=== PATIENT | male | born 1950 | race Caucasian/White ===

== ENCOUNTER 2017-05-16 14:26 | Inpatient (IN) | payer BC ==
[~2017-05-16] VITALS: Ht 180.3 cm; Wt 117.9 kg
[2017-05-16] MEDS ORDERED: SODIUM CHLORIDE 0.9% 1L BAG IV* STA (18:35)
[2017-05-16] MEDS ORDERED: CEFTRIAXONE 1 GM/50 ML (PMX) 50 ML IVPB ONE (19:00)
[2017-05-16] MEDS ORDERED: IBUPROFEN 600 MG TAB PO ONE (19:00)
[2017-05-16 19:03] LABS: ADD SCAN DIFF NO
[2017-05-16 19:04] LABS: ABNORMAL IP MESSAGE 1; HEMATOCRIT 23.1 % (42.0-52.0); RED CELL DISTRIBUTION WIDTH 14.3 % (11.5-14.5)
[2017-05-16 19:11] LABS: HEMOGLOBIN 7.9 g/dl (14.0-18.0); MEAN CORPUSCULAR HEMOGLOBIN 33.8 pg (29.0-33.0); MEAN CORPUSCULAR HGB CONC 34.2 g/dl (32.0-37.0); MEAN CORPUSCULAR VOLUME 98.7 fl (82.0-101.0); MEAN PLATELET VOLUME 10.4 fl (7.4-10.4); PLATELET COUNT 46 10^3/UL (140-415); RED BLOOD COUNT 2.34 10^6/ul (4.70-6.10)
[2017-05-16 19:20] LABS: INR 1.26; PROTIME 15.9 Sec (12.2-14.2); PT RATIO 1.2
[2017-05-16 19:21] LABS: PARTIAL THROMBOPLASTIN TIME 34.3 Sec (25.0-35.0)
[2017-05-16 19:31] LABS: ALANINE AMINOTRANSFERASE 35 IU/L (13-69); ALBUMIN 3.6 g/dl (3.3-4.9); ALBUMIN/GLOBULIN RATIO 1.24; ALKALINE PHOSPHATASE 54 IU/L (42-121); ANION GAP 17 (8-16); ASPARTATE AMINO TRANSFERASE 16 IU/L (15-46); BILIRUBIN,INDIRECT 0.2 mg/dl (0-1.1); BILIRUBIN,TOTAL 0.2 mg/dl (0.2-1.3); BLOOD UREA NITROGEN 78 mg/dl (7-20); CALCIUM 7.9 mg/dl (8.4-10.2); CARBON DIOXIDE 19 mmol/L (21-31); CHLORIDE 91 mmol/L (97-110); CREATININE 3.32 mg/dl (0.61-1.24); POTASSIUM 4.4 mmol/L (3.5-5.1); SODIUM 123 mmol/L (135-144); TOTAL PROTEIN 6.5 g/dl (6.1-8.1)
--- NOTE | 2017-05-16 19:47 | RADRPT ---
PROCEDURE: XR Chest. CLINICAL INDICATION: Possible sepsis. TECHNIQUE: Single frontal view of the chest. COMPARISON: None. FINDINGS: Cardiomegaly. Right lung base atelectasis versus airspace disease, possibly representing pneumonia in setting of sepsis. Mild atelectasis at the left costophrenic angle. No signs of pleural fluid or pneumothorax are seen. The osseous structures and soft tissues are unremarkable. IMPRESSION: Right lung base atelectasis versus airspace disease, possibly representing pneumonia in setting of s epsis. RPTAT: [facility] Physician Nell Date Time Electronically viewed and signed by Physician Nell on 05/16/2017 19:46 RS/
[2017-05-16 19:49] LABS: ADD UMIC YES; UR ASCORBIC ACID NEGATIVE (NEGATIVE); UR BACTERIA FEW /HPF (NONE SEEN); UR BILIRUBIN (Dip) NEGATIVE (NEGATIVE); UR BLOOD (Dip) 3+ mg/dL (NEGATIVE); UR CLARITY CLOUDY (CLEAR); UR COLOR AMBER (YELLOW); UR GLUCOSE (Dip) 3+ mg/dL (NEGATIVE); UR KETONES (Dip) NEGATIVE (NEGATIVE); UR LEUKOCYTE ESTERASE (Dip) 1+ Leu/ul (NEGATIVE); UR NITRITE (Dip) NEGATIVE (NEGATIVE); UR RBC 3 /HPF (0-5); UR SPECIFIC GRAVITY (Dip) 1.017 (1.003-1.030); UR TOTAL PROTEIN (Dip) 2+ mg/dl (NEGATIVE); UR UROBILINOGEN (Dip) NEGATIVE (NEGATIVE)
[2017-05-16 19:51] LABS: GLUCOSE 468 mg/dl (70-220); TROPONIN-I < 0.012 ng/ml (0.00-0.12)
[2017-05-16] MEDS ORDERED: SOD CHLORIDE 0.9% 1,000 ML IV ONE (20:00)
[2017-05-16] MEDS ORDERED: VANCOMYCIN 1 GM (PMX) 250 ML IVPB SCH (20:00)
[2017-05-16 20:03] LABS: LYMPHOCYTES # 0.3 10^3/ul (0.8-2.9); NEUTROPHIL # 0.4 10^3/ul (1.6-7.5)
[2017-05-16 20:06] LABS: WHITE BLOOD COUNT 0.7 10^3/ul (4.8-10.8)
[2017-05-16] MEDS ORDERED: CALCIUM GLUCONATE 10% 1 GM in SOD CHLORIDE 0.9% 100 ML IVPB ONE (20:30)
[2017-05-16] MEDS ORDERED: METF500T4 PO (22:20)
[2017-05-16] MEDS ORDERED: ATOR20TA38 PO (22:20)
[2017-05-16] MEDS ORDERED: PHEN125O2 PO (22:20)
[2017-05-16] MEDS ORDERED: DILT120C79 PO (22:20)
[2017-05-16] MEDS ORDERED: LISI1TAB8 PO (22:21)
[2017-05-16] MEDS ORDERED: EMPA10TA PO (22:22)
[2017-05-16 22:36] VITALS: TEMP 99.5
--- NOTE | 2017-05-16 22:56 | ERA ---
ER Documentation Chief Complaint Date/Time DATE: 05/16/17 TIME: 22:33 Chief Complaint Complains of weakness since Friday HPI 66-year-old man brought in by for complaints of severe debilitating weakness and anorexia beginning somewhat abruptly 4 days ago. He states he has had intermittent chills and episodes of pain throughout his body. He states about a month ago he switched from using Metformin to Empagliflozin (which serious adverse reactions of acute renal failure and serious UTIs). Patient denies chest pain or shortness of breath, no fevers, no hematuria or dysuria, no vomiting or diarrhea, patient denies melena or blood per rectum, no recent URI symptoms, no recent travel, no recent antibiotic use. Patient denies loss of consciousness or rash. ROS All systems reviewed and are negative except as per history of present illness. Medications Home Meds Reported Medications Empagliflozin (Jardiance) 10 Mg Tablet, 10 MG PO, TAB 05/16/17 Lisinopril/Hydrochlorothiazide (Lisinopril-Hctz 20-25 mg Tab) 1 Each Tablet, 1 EACH PO, TAB 05/16/17 Diltiazem Hcl* (Diltiazem XT) 120 Mg Capsule.sa, 120 MG PO DAILY, #30 CAP 05/16/17 Atorvastatin Calcium* (Atorvastatin Calcium*) 20 Mg Tablet, 20 MG PO DAILY, #30 TAB 05/16/17 Metformin* (Glucophage*) 500 Mg Tab, 500 MG PO WITH BREAKFAST, #30 TAB 05/16/17 Phenytoin* (Phenytoin*) 125 Mg/5 Ml Oral.susp, 300 MG PO BID for 30 Days, BOTTLE 05/16/17 Allergies Allergies: Coded Allergies: No Known Allergy (Unverified , 05/16/17) PMhx/Soc Diabetes mellitus, hypertension, seizure disorder History of Surgery: Yes (gallbladder, tonsils and addenoids, ) Anesthesia Reaction: No Hx Neurological Disorder: No Hx Respiratory Disorders: No Hx Cardiac Disorders: No (htn, madison cholesterol) Hx Psychiatric Problems: No Hx Miscellaneous Medical Probl: Yes (dm2) Hx Alcohol Use: No Hx Substance Use: Yes (marijauna) Hx Tobacco Use: No Smoking Status: Never smoker FmHx Family History: No diabetes Physical Exam Vitals Vital Signs Date Time Temp Pulse Resp B/P Pulse Ox O2 Delivery O2 Flow Rate FiO2 05/16/17 21:14 98.0 94 129/58 95 Room Air 05/16/17 14:29 98.3 95 20 108/57 98 Physical Exam GENERAL: Well-developed, well-nourished, dehydrated man, afebrile HEENT: Dry mucous membranes, pink conjunctiva, no cervical spine tenderness or step-off deformities, no goiter, no jaundice or icterus, extraocular movements intact without pain. No submandibular induration, and no pharyngeal erythema NEURO: Alert and oriented 3, cranial nerves II through XII intact bilaterally, pupils equal round reactive to light, no focal deficits or facial asymmetry, sensation intact distally Strength 5/5 in upper and lower extremities bilaterally CARDIAC: Regular rate and rhythm, no murmurs rubs or gallops LUNGS: Clear bilaterally no wheezing crackles or stridor ABDOMEN: Soft nontender, no guarding, no rigidity, no rebound, no psoas sign no obturator sign. Normoactive bowel sounds SKIN: Warm and dry to touch, no abrasions, contusions, or hematomas, no lacerations, no ecchymosis, no target lesions, and without ulcers EXTREMITIES: No clubbing cyanosis or edema, calves are bilaterally symmetrical, no Homans sign, no popliteal cord sign. Distal pulses equal and bilateral PSYCH: Normal affect without agitation or irritability Result Diagram: 05/16/17185605/16/171856 Results 24 hrs Laboratory Tests Test 05/16/17 18:57 05/16/17 19:14 05/16/17 19:34 05/16/17 21:00 White Blood Count 0.710^3/ul Red Blood Count 2.3410^6/ul Hemoglobin 7.9g/dl Hematocrit 23.1% Mean Corpuscular Volume 98.7fl Mean Corpuscular Hemoglobin 33.8pg Mean Corpuscular Hemoglobin Concent 34.2g/dl Red Cell Distribution Width 14.3% Platelet Count 4610^3/UL Mean Platelet Volume 10.4fl Neutrophils % 56.0% Band Neutrophils % 1.0% Lymphocytes % 43.0% Monocytes % % Eosinophils % % Basophils % % Neutrophils # 0.410^3/ul Lymphocytes # 0.310^3/ul Monocytes # 10^3/ul Eosinophils # 10^3/ul Basophils # 10^3/ul Prothrombin Time 15.9Sec Prothrombin Time Ratio 1.2 INR International Normalized Ratio 1.26 Activated Partial Thromboplast Time 34.3Sec Sodium Level 123mmol/L Potassium Level 4.4mmol/L Chloride Level 91mmol/L Carbon Dioxide Level 19mmol/L Anion Gap 17 Blood Urea Nitrogen 78mg/dl Creatinine 3.32mg/dl Glucose Level 468mg/dl Calcium Level 7.9mg/dl Total Bilirubin 0.2mg/dl Direct Bilirubin 0.00mg/dl Indirect Bilirubin 0.2mg/dl Aspartate Amino Transf (AST/SGOT) 16IU/L Alanine Aminotransferase (ALT/SGPT) 35IU/L Alkaline Phosphatase 54IU/L Troponin I < 0.012ng/ml Total Protein 6.5g/dl Albumin 3.6g/dl Globulin 2.90g/dl Albumin/Globulin Ratio 1.24 Lipase 101U/L Lactic Acid Level 2.6mmol/L 1.8mmol/L Urine Color RANDELL Urine Clarity CLOUDY Urine pH 5.0 Urine Specific [place] 1.017 Urine Ketones NEGATIVEmg/dL Urine Nitrite NEGATIVEmg/dL Urine Bilirubin NEGATIVEmg/dL Urine Urobilinogen NEGATIVEmg/dL Urine Leukocyte Esterase 1+Allyson/ul Urine Microscopic RBC 3/HPF Urine Microscopic WBC 32/HPF Urine Bacteria FEW/HPF Urine Hemoglobin 3+mg/dL Urine Glucose 3+mg/dL Urine Total Protein 2+mg/dl Current Medications Medications (Trade) Dose Ordered Sig/Iván Route PRN Reason Start Time Stop Time Status Last Admin Dose Admin Sodium Chloride 3000 ml 3,000 ml BOLUS OVER 2 HOURS STAT IV* 05/16/17 18:35 05/16/17 18:38 DC 05/16/17 19:35 Ceftriaxone Sodium (Rocephin) 50 ml @ 100 mls/hr ONCE ONCE IVPB 05/16/17 19:00 05/16/17 19:29 DC 05/16/17 19:40 Ibuprofen 600 mg 600 mg ONCE ONCE PO 05/16/17 19:00 05/16/17 19:01 DC 05/16/17 19:40 Sodium Chloride 1,000 ml @ 1,000 mls/hr Q1H ONCE IV 05/16/17 20:00 05/16/17 20:59 DC 05/16/17 20:34 Vancomycin HCl 250 ml @ 125 mls/hr ONCE IVPB 05/16/17 20:00 05/16/17 21:59 DC 05/16/17 20:34 Calcium Gluconate/ Sodium Chloride (Ca Gluc/NS) 110 ml @ 110 mls/hr ONCE ONCE IVPB 05/16/17 20:30 05/16/17 21:29 DC 05/16/17 21:08 Procedures/MDM IV line was established patient was placed on hospital monitor rhythm strip revealed a sinus rhythm at about 80 bpm with upright P and T waves. Patient was afebrile. Blood and urine cultures have been ordered results are pending I will follow-up. The patient was dehydrated and I treated him here with 4 L of normal saline intravenously and ibuprofen 600 mg p.o. One AP view of the chest performed, read by me reveals no acute infiltrates, normal mediastinum, sharp costophrenic and cardiac borders, no air under the diaphragm. Otherwise unremarkable chest x-ray. CBC reveals severe pancytopenia with a white count of 0.7, hemoglobin 7.9, platelets low at 46,000. Electrolytes are abnormal with acute kidney injury and dehydration with a BUN/creatinine of 78/3.3 and hyponatremia at 123, hyperglycemia 468. After IV fluid boluses blood sugar fell to about 350. Calcium was low at 7.9. Patient received ceftriaxone 1 g IV and vancomycin 1 g IV. Initial lactic acid was elevated at 2.6, repeat lactic acid after above interventions was 1.8. I supplemented his calcium with calcium gluconate 1 g IV. Patient's infectious symptoms have not stabilized and the patient is at risk of rapid decompensation. The patient will be admitted for careful hydration, antibiotic therapy, and infectious source control. Severe Sepsis Assessment: Infectious Source: Urinary tract infection End organ damage indicated by: Lactate > 2.0 mmol/L Education Associate > 2.0 Plt < 100 Severe Sepsis Managment: Blood Cultures X 2 before broad spectrum antibiotics initiated within 3 hours of recognition. 30 ml/kg NS bolus Completed Initial Lactate: Elevated at 2.6 Repeat Lactate 1.8 Critical Care: Time: 40 minutes, this was time separate from other billable procedures. Treatments/Evaluations: Emergent fluid management, while maintaining close respiratory support. Immediate broad spectrum antibiotic therapy. Simultaneous assessment for possible sources in order to direct therapy. Consideration for invasive and chemical support to prevent respiratory or cardiac collapse. Septic Shock Assessment (1 hour post 30 ml/kg fluid bolus): Hypotension (SBP < 90 or 40 mmHg drop, MAP < 65): No Lactic acid > 4.0 No Perfusion Reassessment for Septic Shock: Temp afebrile, pulse 80, respiratory rate 18 breaths per minute, blood pressure 103/84. Heart Exam: 80 bpm and normal, no murmurs rubs or gallops Lung Exam: No Crackles Capillary Refill: Less than 2 seconds Peripheral Pulses: Radially present Skin: Warm and dry Hypotensive Treatment (not required for isolated lactic acid elevation): Comfort Care: No Central LIne: Not indicated Vasopressor started: Not indicated I considered further perfusion assessment with CVP measurement, SCVO2, bedside ultrasound volume assessment, passive leg raise, trial of further fluid bolus. And preceded with aggressive IV fluid hydration and broad-spectrum antibiotics Accepting Care Team: Current data and ongoing care discussed. Time: Time of admission Primary Provider: Federica (Dr. Malloy) Consulting: Hematology oncology, who I consulted. Outstanding Data: none Differential diagnoses for patient's pancytopenia included but not limited to myelodysplastic syndrome, bone marrow block, lymphoma, sepsis, and medication ( Empagliflozin) adverse reaction. Departure Diagnosis: Primary Impression: Pancytopenia Additional Impressions: Sepsis Qualified Code: A41.9 - Sepsis, due to unspecified organism UTI (urinary tract infection) Qualified Code: N30.00 - Acute cystitis without hematuria Hypocalcemia Acute kidney injury Dehydration Hyperglycemia Condition: REBECCA Archuleta MD May 16, 2017 22:43
[2017-05-16 23:18] LABS: FOLATE 4.6 ng/ml (2.8-20.0)
[2017-05-16] MEDS ORDERED: morphine 2 MG INJ IV PRN (23:30)
[2017-05-16] MEDS ORDERED: ONDANSETRON 4 MG INJ IV PRN (23:30)
[2017-05-16] MEDS ORDERED: DOCUSATE SODIUM 100 MG CAP PO PRN (23:30)
[2017-05-16] MEDS ORDERED: ACETAMINOPHEN 325 MG TAB PO PRN (23:30)
[2017-05-16] MEDS ORDERED: HYDROCODONE/APAP (5/325) TAB PO PRN (23:30)
[2017-05-16] MEDS ORDERED: NACL 0.9% 3 ML SYG IV SCH (23:30)
[2017-05-16] MEDS ORDERED: VANCOMYCIN IV PER PHARMACY XX SCH (23:30)
[2017-05-16] MEDS ORDERED: GLUCOSE GEL 15 GRAM TUBE BUCCAL PRN (23:45)
[2017-05-16] MEDS ORDERED: DEXTROSE 50% 50 ML SYRINGE IV PRN ×2 (23:45)
[2017-05-16] MEDS ORDERED: GLUCOSE GEL 15 GRAM TUBE PO PRN ×2 (23:45)
[2017-05-16] MEDS ORDERED: GLUCAGON 1 MG INJ IM PRN (23:45)
[2017-05-16 23:57] VITALS: BP 118/57; RESP 21
[2017-05-17] VITALS (12 sets, daily range): BP systolic 93–153; BP diastolic 55–64; PULSE 87–98; RESP 16–21; Ht 180.3 cm; Wt 117.9 kg
[2017-05-17] MEDS ORDERED: PIPER-TAZO 3.375 GM IV (PMX) 100 ML IVPB SCH
[2017-05-17] MEDS ORDERED: VANCOMYCIN 1 GM in NS 250 ML IVPB ONE (01:00)
[2017-05-17] MEDS: ACCU-CHEK XX SCH (02:00)
[2017-05-17] MEDS: PIPER-TAZO 2.25 GM (PMX) 50 ML IVPB SCH ×4 (02:26→22:25)
[2017-05-17] MEDS: SOD CHLORIDE 0.9% 1,000 ML IV SCH ×3 (02:27→12:36)
[2017-05-17] MEDS ORDERED: INSULIN ASPART [NOVOLOG] 3 ML PEN SC ONE (03:00)
--- NOTE | 2017-05-17 06:02 | HP ---
DATE OF ADMISSION: 05/16/2017 CHIEF COMPLAINT: Weakness for 4 days. HISTORY OF PRESENT ILLNESS: The patient is a 66-year-old male with a history of non-insulin requiri ng diabetes, dyslipidemia, hypertension, and history of seizures on Dilantin. The patient presents with 4 days now of severe debilitating weakness and loss of appetite. He reports intermittent chill s and diffuse pain throughout his body. The patient states that he has never had these symptoms bef ore in the past. He denies any travel history. Denies any nausea, vomiting, diarrhea, or headache. The patient recently switched from metformin to ____ recently. The patient has no other complaint s at this time. In the ED, the patient was noted to be pancytopenic. PAST MEDICAL HISTORY: Non-insulin requiring diabetes, dyslipidemia, hypertension, history of seizur es. PAST SURGICAL HISTORY: Cholecystectomy, tonsil and adenoids removal. MEDICATIONS: 1. Jardiance. 2. Lisinopril/hydrochlorothiazide. 3. Diltiazem. 4. Atorvastatin. 5. Metformin. 6. Phenytoin. ALLERGIES: NO KNOWN DRUG ALLERGIES. FAMILY HISTORY: Denies. SOCIAL HISTORY: Denies any alcohol, tobacco, or drug abuse. He does smoke marijuana. REVIEW OF SYSTEMS: A 12-point review of systems is negative except for that discussed in HPI. PHYSICAL EXAMINATION: VITAL SIGNS: Temperature is 9.5, pulse 92, respiratory rate is 21, BP is 108/72, saturation 97% on room air. GENERAL: No acute distress, alert and oriented. HEENT: Normocephalic, atraumatic. LUNGS: Clear to auscultation. CARDIOVASCULAR: Regular rate and rhythm. ABDOMEN: Obese, nondistended, nontender, soft. EXTREMITIES: No clubbing, cyanosis, or edema. LABORATORY TESTS: White count is 6.7, hemoglobin 7.9, platelets are 46. Chemistry: Sodium is 123, chloride is 91, carbon dioxide is 19, anion gap is 17, BUN is 78, creatinine is 3.32, glucose is 46 8, lactic acid was 2.6 and then 1.8. Ferritin is high at 266. Lipase is normal at 101. LFTs are n ormal. INR is 1.26. UA shows 1+ leukocyte esterase, 32 WBCs, few bacteria, 3+ hemoglobin, 3+ gluco se, 2+ protein. DIAGNOSTICS: Chest x-ray shows a right lung base atelectasis versus airspace disease, possibly repr esenting pneumonia in the setting of sepsis. ASSESSMENT AND PLAN: 1. Severe weakness, possibly secondary to severe sepsis with pancytopenia. The patient has no know n history of pancytopenia in the past. He did recently switch his diabetes medications which does h ave side effects such as acute renal failure and severe UTIs. The patient does appear to have a uri nary tract infection on urinalysis. We will get a urine culture. We will treat with Zosyn IV. 2. Pancytopenia. Once again, the patient has no known history of pancytopenia in the past. Dr. Gm leonard of hematology/oncology has been spoken to by the ER physician, and they will round in the a.m. The patient will possibly need a bone marrow biopsy. The causes of pancytopenia could potentially be related to sepsis, but there may be alternative pathologies causing the pancytopenia. 3. Acute kidney injury, possibly secondary to sepsis. We will treat with IV fluids. We will get a nephrology consultation. 4. Anion gap acidosis likely secondary to acute kidney injury and/or sepsis. We will treat with IV fluids. We will treat underlying sepsis. 5. Hyponatremia. There is an element of pseudohyponatremia from hyperglycemia, but still even with correction, sodium is low. This may be from dehydration. We will treat with normal saline. 6. History of diabetes. We will put the patient on sliding scale. 7. Hypertension. Hold home BP medications at this time as BP is on the lower end of normal. This is possibly secondary to sepsis. 8. Dyslipidemia. We will hold statin at this time. 9. History of seizures. We will continue home Dilantin. 10. Prophylaxis. SCDs. Dictated By: PAMELA CONTRERAS MD BS/NTS Conf#: [id number] DID#: [id number]
[2017-05-17 07:44] LABS: ADD SCAN DIFF NO
[2017-05-17 07:48] LABS: ABNORMAL IP MESSAGE 1; HEMATOCRIT 25.8 % (42.0-52.0); HEMOGLOBIN 8.8 g/dl (14.0-18.0); MEAN CORPUSCULAR HEMOGLOBIN 33.6 pg (29.0-33.0); MEAN CORPUSCULAR HGB CONC 34.1 g/dl (32.0-37.0); MEAN CORPUSCULAR VOLUME 98.5 fl (82.0-101.0); MEAN PLATELET VOLUME 11.6 fl (7.4-10.4); PLATELET COUNT 52 10^3/UL (140-415); RED BLOOD COUNT 2.62 10^6/ul (4.70-6.10); RED CELL DISTRIBUTION WIDTH 15.1 % (11.5-14.5); WHITE BLOOD COUNT 0.5 10^3/ul (4.8-10.8)
[2017-05-17 08:08] LABS: CALCIUM 7.8 mg/dl (8.4-10.2); CHOL/HDL RATIO 5.3 RATIO; CREATININE 2.46 mg/dl (0.61-1.24); MAGNESIUM 1.9 mg/dl (1.7-2.5); PHOSPHORUS 4.9 mg/dl (2.5-4.9); POTASSIUM 4.3 mmol/L (3.5-5.1)
[2017-05-17] MEDS: INSULIN ASPART [NOVOLOG] 3 ML PEN SC SCH ×7 (08:19→21:00)
[2017-05-17] MEDS: PHENYTOIN (100 MG/4 ML) CUP PO SCH ×2 (09:06→20:28)
--- NOTE | 2017-05-17 09:42 | CONS ---
DATE OF ADMISSION: 05/16/2017 DATE OF CONSULTATION: TYPE OF CONSULTATION: Nephrology. REASON FOR CONSULTATION: Acute kidney injury. PHYSICIAN REQUESTING CONSULT: Dr. Malloy HISTORY OF PRESENT ILLNESS: This is a 66-year-old male with a past medical history of diabetes, dys lipidemia, hypertension, a history of seizure disorder, on Dilantin, who presented to [facility] with complaints of weakness, loss of appetite, chills and diffuse body pain. The pat ient states that about 1 month ago he switched from metformin to . The patient since that time was doing well until recently when he started having the constellation of symptoms of fevers, chill s, weakness and fatigue. He came into the emergency room for evaluation. Upon arrival the patient had a sodium of 123, a potassium of 4.4, chloride 91, BUN 78, creatinine 3.32 and a glucose level of 468. The patient also has pancytopenia, with a white count of 0.7, hemoglobin 7.9, hematocrit 23.1, and platelet count is 46. The patient had blood cultures that grew out gram-negative rods. In the emergency room the patient was treated with IV fluids, IV antibiotics, was given IV insulin, and ad mitted to telemetry for evaluation. In terms of the patient's renal history, the patient denies having any prior history of chronic kidn ey disease. He admits to only having kidney stones. The patient does complain of nausea, vomiting and chills. Denies any dysuria or hematuria. PAST MEDICAL HISTORY: As stated above, a history of diabetes, dyslipidemia, hypertension and seizur e disorder. PAST SURGICAL HISTORY: History of cholecystectomy. MEDICATIONS: The patient's medications have been reviewed. ALLERGIES: NO KNOWN DRUG ALLERGIES. FAMILY HISTORY: No family history of kidney disease or heart disease. SOCIAL HISTORY: He does not drink or smoke. REVIEW OF SYSTEMS: A 14-point review of systems was conducted. Pertinent positives as stated in th e HPI, otherwise negative. PHYSICAL EXAMINATION: VITAL SIGNS: Blood pressure is 110/72, respirations 12, pulse 92, temperature 98.7. HEENT: Head is normocephalic. Pupils are reactive to light. NECK: Supple. HEART: Regular rate. LUNGS: Showed diminished breath sounds at the base, otherwise clear. ABDOMEN: Soft, nontender to palpation. No rebound or guarding. EXTREMITIES: Negative for clubbing or cyanosis. No edema. DERMATOLOGIC: No rashes. MUSCULOSKELETAL: Have no joint effusion. NEUROLOGIC: No focal deficits. MEDICATION: The patient's medications have been reviewed. LABORATORY DATA: Shows sodium 132, potassium 4.3, chloride 102, bicarbonate 17, BUN 75, creatinine 2.46, glucose 308. Hemoglobin A1c 8.1. Urinalysis shows positive for pyuria, bacteriuria. Positiv e glucose and protein. White count 0.5, hemoglobin 8.8, hematocrit 25.8, platelet count is 52. IMAGING STUDIES: Chest x-ray shows right lung atelectasis versus possible airspace disease and pneu monia. ASSESSMENT AND PLAN: This is a 66-year-old male who presents with: 1. Nonoliguric acute kidney injury with an unknown baseline creatinine. Etiology is multifactorial , likely from volume depletion, BRITTANY inhibitor effect, diuretic use. The patient's urinalysis does s how evidence of pyuria, consistent with a urinary tract infection and proteinuria. The patient's re nal function has improved with IV fluids. At this point would recommend to do a full evaluation. W ill repeat a UA with microanalysis. Will check urine electrolytes. Will check a renal ultrasound. Would recommend to continue IV hydration. Will monitor renal function closely. Would defer any AC E inhibitor or diuretic therapy at this time. 2. Hyponatremia. Etiology is secondary to underlying hypoglycemia and acute kidney injury. The dmitry sheffield's sodium levels are improving with IV fluids and correction of hypoglycemia. Will continue to monitor. 3. Metabolic acidosis. Etiology may be secondary to acute kidney injury. At this point would cont inue to monitor bicarbonate levels. No need for bicarbonate therapy at this time. 4. Anemia. Will monitor hemoglobin and hematocrit levels. 5. Mineral bone disorder. Monitor calcium and phosphorus levels. 6. Sepsis secondary to pneumonia. The patient is pancytopenic, neutropenic. Chest x-ray suggests a possible infiltrate. Urinalysis also shows possible UTI. Would continue the current broad spectru m antibiotics. Follow up cultures. 7. Pancytopenia. Underlying etiology is unclear. Workup is ongoing. Follow up with hematology. 8. Diabetes. Continue the current insulin regimen. 9. History of hypertension. Hold blood pressure medication at this time. Continue IV fluids. 10. Dyslipidemia. Continue statin therapy. 11. Seizure disorder. Continue Dilantin. Thank you, Dr. Malloy, for this interesting consult. It will be a pleasure to follow up the patien t with you throughout the hospital course. Dictated By: TRENTON ABAD/STEPHANIE Conf#: [id number] DID#: [id number]
[2017-05-17 11:23] LABS: LYMPHOCYTES # 0.2 10^3/ul (0.8-2.9); NEUTROPHIL # 0.2 10^3/ul (1.6-7.5); TOXIC GRANULATION 1+
[2017-05-17 11:24] LABS: PLATELET ESTIMATE PLT APPEAR DECREASED
--- NOTE | 2017-05-17 13:56 | PN ---
Date/Time of Note Date/Time of Note DATE: 05/17/17 TIME: 13:49 Assessment/Plan VTE Prophylaxis VTE Prophylaxis Intervention: SCD's Lines/Catheters IV C[facility] Type ([facility] Peripheral IV Central line still needed: No Urinary Cath still in place: No Assessment/Plan Assessment/Plan 66 year old male with DM, HTN, obesity 1. Sepsis with pancytopenia. The patient has no known history of pancytopenia in the past. He did recently switch his diabetes medications which does have side effects such as acute renal failure and severe UTIs. The patient does appear to have a urinary tract infection on urinalysis. GN rods in urine culture and blood. We will treat with Zosyn IV. ID consultation will be done today for antimicrobial recommendations in the setting of severe pancytopenia. 2. Pancytopenia. Once again, the patient has no known history of pancytopenia in the past. Dr. Bishop of hematology/oncology and I discussed the case. Labs sent, and the patient is on neutropenic precautions. The patient may need a bone marrow biopsy if he counts do not improve. This still may be secondary to sepsis, but there may be alternative pathologies causing the pancytopenia. 3. Acute kidney injury, possibly secondary to sepsis. We will treat with IV fluids and the creatinine is already improving. 4. Anion gap acidosis likely secondary to acute kidney injury and/or sepsis. We will treat with IV fluids. We will treat underlying sepsis/bacteremia. 5. Hyponatremia. There is an element of pseudohyponatremia from hyperglycemia , but still even with correction, sodium is low. This may be from dehydration. We will treat with normal saline and follow BMP. Dr. Piper is on the case. 6. History of diabetes. We will put the patient on sliding scale and increase Lantus. 7. Hypertension. Hold home BP medications at this time as BP is on the lower end of normal secondary to sepsis. 8. Dyslipidemia. We will hold statin at this time. 9. History of seizures. We will continue home Dilantin, but will need to check dilantin level. 10. Prophylaxis. SCDs/Protonix. Case d/w patient, his and Dr. Alvarez, and SONDRA Lieberman Subjective 24 Hr Interval Summary Free Text/Dictation No complaints overnight. Appetite is poor. No other issues. Exam/Review of Systems Vital Signs Vitals Vital Signs Date Time Temp Pulse Resp B/P Pulse Ox O2 Delivery O2 Flow Rate FiO2 05/17/17 12:15 92 05/17/17 11:29 98.0 20 153/63 92 05/16/17 21:14 Room Air Intake and Output 05/16/17 05/16/17 05/17/17 15:00 23:00 07:00 Intake Total 2050 ml 470 ml Balance 2050 ml 470 ml Exam Constitutional: alert, oriented Psych: no complaints Head: normocephalic Eyes: nl conjunctiva ENMT: nl external ears & nose Neck: supple Respiratory: clear to auscultation Cardiovascular: regular rate and rhythm Gastrointestinal: soft Extremities: edema Results Result Diagram: 05/17/17 0700 05/17/17 0700 Results 24 hrs Laboratory Tests Test 05/16/17 18:57 05/16/17 19:14 05/16/17 19:34 05/16/17 21:00 White Blood Count 0.7 L Red Blood Count 2.34 L Hemoglobin 7.9 L Hematocrit 23.1 L Mean Corpuscular Volume 98.7 Mean Corpuscular Hemoglobin 33.8 H Mean Corpuscular Hemoglobin Concent 34.2 Red Cell Distribution Width 14.3 Platelet Count 46 L Mean Platelet Volume 10.4 Neutrophils % 56.0 Band Neutrophils % 1.0 Lymphocytes % 43.0 Monocytes % Eosinophils % Basophils % Neutrophils # 0.4 L Lymphocytes # 0.3 L Monocytes # Eosinophils # Basophils # Prothrombin Time 15.9 H Prothrombin Time Ratio 1.2 INR International Normalized Ratio 1.26 Activated Partial Thromboplast Time 34.3 Sodium Level 123 L Potassium Level 4.4 Chloride Level 91 L Carbon Dioxide Level 19 L Anion Gap 17 H Blood Urea Nitrogen 78 H Creatinine 3.32 H Glucose Level 468 *H Calcium Level 7.9 L Total Bilirubin 0.2 Direct Bilirubin 0.00 Indirect Bilirubin 0.2 Aspartate Amino Transf (AST/SGOT) 16 Alanine Aminotransferase (ALT/SGPT) 35 Alkaline Phosphatase 54 Troponin I < 0.012 Total Protein 6.5 Albumin 3.6 Globulin 2.90 Albumin/Globulin Ratio 1.24 Lipase 101 Lactic Acid Level 2.6 H 1.8 Urine Color RANDELL Urine Clarity CLOUDY A Urine pH 5.0 Urine Specific [place] 1.017 Urine Ketones NEGATIVE Urine Nitrite NEGATIVE Urine Bilirubin NEGATIVE Urine Urobilinogen NEGATIVE Urine Leukocyte Esterase 1+ H Urine Microscopic RBC 3 Urine Microscopic WBC 32 H Urine Bacteria FEW A Urine Hemoglobin 3+ H Urine Glucose 3+ H Urine Total Protein 2+ H Ferritin 266.0 H Vitamin B12 Level 794 Folate 4.6 Test 05/16/17 22:36 05/16/17 23:14 05/17/17 02:50 05/17/17 07:00 Bedside Glucose 338 H 351 H Lactic Acid Level 1.2 2.2 White Blood Count 0.5 #L Red Blood Count 2.62 L Hemoglobin 8.8 L Hematocrit 25.8 L Mean Corpuscular Volume 98.5 Mean Corpuscular Hemoglobin 33.6 H Mean Corpuscular Hemoglobin Concent 34.1 Red Cell Distribution Width 15.1 H Platelet Count 52 L Mean Platelet Volume 11.6 H Neutrophils % 43.0 Band Neutrophils % 18.0 H Lymphocytes % 30.0 Monocytes % 5.0 Eosinophils % 4.0 Basophils % Neutrophils # 0.2 L Lymphocytes # 0.2 L Monocytes # 0.0 L Eosinophils # 0.0 Basophils # Toxic Granulation 1+ Platelet Estimate PLT APPEAR DECREASED Sodium Level 132 L Potassium Level 4.3 Chloride Level 102 # Carbon Dioxide Level 17 L Anion Gap 17 H Blood Urea Nitrogen 75 H Creatinine 2.46 H Glucose Level 308 #H Calcium Level 7.8 L Phosphorus Level 4.9 Magnesium Level 1.9 Triglycerides Level 386 H Cholesterol Level 122 LDL Cholesterol, Calculated 22 HDL Cholesterol 23 L Cholesterol/HDL Ratio 5.3 Test 05/17/17 07:10 05/17/17 08:07 05/17/17 11:49 Hemoglobin A1c 8.1 H Bedside Glucose 329 H 260 H Medications Medications Current Medications Sodium Chloride (NS) 1,000 ml @ 150 mls/hr Q6H40M IV Last administered on 05/17t 02:27; Admin Dose 150 MLS/HR; Start 05/16/17 at 23:16 Ondansetron HCl (Zofran Inj) 4 mg Q6H PRN IV NAUSEA AND/OR VOMITING; Start at 23:30 Acetaminophen (Tylenol Tab) 650 mg Q6H PRN PO PAIN LEVEL 1-3 OR FEVER; Start at 23:30 Acetaminophen/ Hydrocodone Bitart ([place] (5/325)) 1 tab Q6H PRN PO MODERATE PAIN LEVEL 4-6; Start 05/16/17 at 23:30 Morphine Sulfate (morphine) 2 mg Q4H PRN IV SEVERE PAIN LEVEL 7-10; Start 05/16 at 23:30 Docusate Sodium (Colace) 100 mg Q12H PRN PO CONSTIPATION; Start 05/16/17 at 23: 30 Insulin Glargine (Lantus) 20 unit DAILY@20 SC ; Start 05/17/17 at 20:00 Diagnostic Test (Pha) (Accu-Chek) 1 ea 02 XX Last administered on 05/17/17 02: 00; Admin Dose 1 EA; Start 05/17/17 at 02:00 Phenytoin 300 mg 300 mg BID PO Last administered on 05/17/17 09:06; Admin Dose 300 MG; Start 05/17/17 at 09:00 Piperacillin Sod/ Tazobactam Sod (Zosyn 2.25gm/ 50ml (Pmx)) 50 ml @ 100 mls/hr Q8 IVPB Last administered on 05/17/17 13:40; Admin Dose 100 MLS/HR; Start at 23:45 Miscellaneous Information 1 ea NOTE XX ; Start 05/16/17 at 23:45 Glucose (Glutose) 15 gm Q15M PRN PO DECREASED GLUCOSE; Start 05/16/17 at 23:45 Glucose (Glutose) 22.5 gm Q15M PRN PO DECREASED GLUCOSE; Start 05/16/17 at 23: 45 Dextrose (D50w Syringe) 25 ml Q15M PRN IV DECREASED GLUCOSE; Start 05/16/17 at 23:45 Dextrose (D50w Syringe) 50 ml Q15M PRN IV DECREASED GLUCOSE; Start 05/16/17 at 23:45 Glucagon (Glucagen) 1 mg Q15M PRN IM DECREASED GLUCOSE; Start 05/16/17 at 23:45 Glucose (Glutose) 15 gm Q15M PRN BUCCAL DECREASED GLUCOSE; Start 05/16/17 at 23 :45 Miscellaneous Information Patients own medicat... BID@10,16 XX ; Start 05/17/17 at 10:00 WHIT SCHMITT MD May 17, 2017 13:56
--- NOTE | 2017-05-17 13:57 | HKNOTE ---
DATE OF SERVICE: 05/17/[address] Jennifer Malloy: Thank you very much for giving me the privilege to see Mr. Thorne, who is a 66 -year-old male regarding his severe pancytopenia. The patient has a history of seizures 20 years ago and is on Dilantin, diabetes and hypertension. He was admitted to the hospital yesterday because of severe weakness and loss of appetite since the last 3 to 4 days. He also was having some cough. The patient on admission was found to have severe pancytopenia with a WBC of only 500, hemoglobin 7.9 with a MCV of 98 and a platelet count of 46,000. He had 2 blood cultures both showing gram-negative septicemia. He was started on antibiotics yesterday. He still has a poor appetite. No history of diarrhea. PAST MEDICAL HISTORY: He has a history of diabetes, hypertension and also hyperlipidemia. SURGICAL HISTORY: No major surgeries recently. ALLERGIES: NONE KNOWN. MEDICATIONS: He is on: 1. Dilantin 2. Metformin. 3. Atorvastatin. 4. Diltiazem. 5. Lisinopril. 6. Jardiance, which was started recently. PERSONAL HISTORY: The patient never smoked and does not drink alcohol, but he frequently smokes marijuana. REVIEW OF SYSTEMS: A 12-point review of systems was done. PHYSICAL EXAMINATION: GENERAL: Shows a slightly obese male, who is alert, oriented, in mild respiratory distress. VITAL SIGNS: Show that his T-max was 99.5 degrees yesterday, but he is afebrile today. LUNGS: Clear, with a few rhonchi. HEART: Sinus tachycardia. ABDOMEN: Soft. No masses palpable. EXTERNAL GENITALIA: Normal. EXTREMITIES: No edema, clubbing or cyanosis. CENTRAL NERVOUS SYSTEM: No focal deficits. SKIN: Shows no rashes or petechiae. LYMPH NODES: No peripheral lymphadenopathy. OTHER LABORATORY DATA: His creatinine today is 2.46, with a BUN of 75 and it was 3.4 yesterday. His sodium was 124 yesterday and today it is 132. His LFTs are unremarkable. His ferritin, B12, and folate levels were normal. His chest x-ray showed right basilar atelectasis and possibly pneumonia. IMPRESSION: 1. Severe pancytopenia, with no Hx of previous cytopenia. Rule out secondary to gram-negative bacteremia. Rule out bone marrow pathology, like infiltrate or dysplasia. 2. Gram-negative sepsis with bacteremia. 3. History of diabetes, hypertension and hyperlipidemia. PLAN AND DISCUSSION: This patient came in with severe fatigue and was found to have severe pancytopenia. Now he has gram-negative septicemia and is on antibiotics. His main hematological problem is severe pancytopenia. Of course, sepsis can do this. His B12, folate, etc. are normal. The other possibility is bone marrow pathology like infiltrates, like leukemia or high-grade dysplasia. Of course, severe neutropenia can precipitate sepsis. I recommend we add a LDH, TSH, RONEY and serum cortisol to complete the workup. He needs neutropenic precautions. Will monitor his CBC closely. He might need bone marrow if his blood count does not improve over the next day or two. Dictated By: DAVID XIE MD PC/STEPHANIE Conf#: [id number] DID#: [id number] MTDD
--- NOTE | 2017-05-17 14:46 | RADRPT ---
PROCEDURE: Retroperitoneal ultrasound. CLINICAL INDICATION: Acute renal failure TECHNIQUE: Gaytan scale and color doppler ultrasound images of the retroperitoneum, kidneys, urinary bladder COMPARISON: No prior studies are available for comparison. FINDINGS: Right kidney 13.9 cm in length. Right renal cortical thickness is preserved. Left kidney 15.8 cm in length. Left renal cortical thickness is preserved. Normal echogenicity. No hydronephrosis. Echogenic lesion without definite shadowing measuring 3.1 cm within partial shadowing in the superio r pole of the left kidney. A few right-sided renal cysts are present measuring up to 2.3 cm. Bladder: No focal lesions. IMPRESSION: Both kidneys appear enlarged but have a normal appearing cortical echogenicity and thickness. No hyd ronephrosis. 3.0 cm echogenic partially shadowing lesion in the upper pole left kidney is of uncertain etiology, the appearance would be atypical for a large calculus. Recommend CT scan of the abdomen for further evaluation. RPTAT: AADD .Dieter Buchanan MD, MD Date Time Electronically viewed and signed by .Dieter Buchanan MD, on 05/17/2017 14:46 .B/
[2017-05-17 14:51] LABS: ADD UMIC YES; UR ASCORBIC ACID NEGATIVE (NEGATIVE); UR BACTERIA FEW /HPF (NONE SEEN); UR BILIRUBIN (Dip) NEGATIVE (NEGATIVE); UR BLOOD (Dip) 3+ mg/dL (NEGATIVE); UR BUDDING YEAST MODERATE /HPF (NONE SEEN); UR CLARITY CLOUDY (CLEAR); UR COLOR AMBER (YELLOW); UR GLUCOSE (Dip) 3+ mg/dL (NEGATIVE); UR KETONES (Dip) NEGATIVE (NEGATIVE); UR LEUKOCYTE ESTERASE (Dip) 1+ Leu/ul (NEGATIVE); UR NITRITE (Dip) NEGATIVE (NEGATIVE); UR RBC 3 /HPF (0-5); UR SPECIFIC GRAVITY (Dip) 1.012 (1.003-1.030); UR TOTAL PROTEIN (Dip) 2+ mg/dl (NEGATIVE); UR UROBILINOGEN (Dip) 1+ mg/dL (NEGATIVE); UR WBC CLUMPS FEW /HPF (NONE SEEN)
--- NOTE | 2017-05-17 18:21 | CONS ---
DATE OF ADMISSION: 05/16/2017 DATE OF CONSULTATION: 05/17/2017 TYPE OF CONSULTATION: Infectious disease. REASON FOR CONSULTATION: Antibiotic management. HISTORY OF PRESENT ILLNESS: Bryce Thorne is a 66-year-old male who presented with weakness for 4 d ays and is being seen for antibiotic management. His past problems include: 1. Ivg-[id number]-qqxkmfaet diabetes mellitus. 2. Hypertension. 3. Dyslipidemia. 4. History of seizures, currently on Dilantin. The patient presents with 4 days of debilitating weakness and loss of appetite, along with chills an d diffuse pain throughout his body. There is no travel history. In the emergency room, he was note d to be pancytopenic, his white count was 0.7, H and H of 7.9 and 23.1, platelet count was 46,000 an d he had 66% neutrophils. On 05/17/2017, white count of 500 with 43% neutrophils and 18% bands. BU N and creatinine were 75/2.46. He is markedly hyperglycemic at 468. Liver function tests were norm al. The patient was found to have a urinalysis with 1+ leukocyte esterase, 32 white cells per high- power field, and he grew out gram-negative rods in the urine and 2 sets of blood cultures positive f or gram-negative rods. The patient was initially on vancomycin. He is currently on Zosyn 3.375 gra ms IV piggyback q.8h. His chest x-ray shows right lung basilar atelectasis versus airspace disease, possibly representing pneumonia in the setting of sepsis. Renal ultrasound, both kidneys appear en larged, abnormal-appearing cortical echogenicity and thickness without hydronephrosis. The patient was seen by Dr. Piper in consultation for acute kidney injury with BUN and creatinine of 75 and 2. 46. He felt this was most likely due to volume depletion, BRITTANY inhibitor, diuretic use. He felt jos t he would improve with IV fluids. He was seen in consultation by Dr. Nestor Bishop, hematology/on cology. He felt it was secondary to gram-negative bacteremia, rule out bone marrow pathology such a s infiltration or dysplasia, sepsis can do this. B12 and folate are normal. He recommended an LDH, TSH, RONEY, serum cortisone to complete the workup, neutropenic precautions and he will need a bone m arrow if his blood count does not improve. PAST MEDICAL HISTORY: Operations as outlined. PAST SURGICAL HISTORY: Status post cholecystectomy, status post T and A. FAMILY HISTORY: Noncontributory. SOCIAL HISTORY: He does not smoke, drink or abuse drugs. He smokes marijuana. ALLERGIES: NONE TO PENICILLIN, SULFA OR FOODS. MEDICATIONS: Per chart. REVIEW OF SYSTEMS: Noncontributory. PHYSICAL EXAMINATION: GENERAL: The patient is a well-developed, well-nourished male who is awake, responsive, in no acute distress. VITAL SIGNS: Stable. He is afebrile. SKIN: Without generalized rash. HEENT: Within normal limits. NECK: Supple. LYMPH NODES: None palpable. CHEST: Decreased breath sounds at the bases. HEART: Without murmur or gallop. ABDOMEN: Soft, obese, nontender, without organosplenomegaly or masses. EXTREMITIES: Without cyanosis, clubbing, or edema. RECTAL AND GENITAL: Deferred. NEUROLOGIC: No focal neurological abnormalities. IMPRESSION AND PLAN: The patient presents with profound neutropenia, probably secondary to urinary tract infection. He may have a component of pneumonia, but I do not think so. He is on Zosyn and t hat should cover his gram-negative rods until we get the cultures back. He also received a dose of vancomycin, he received 2 grams today. I will dictate my findings to the hospitalist and to Dr. Darell girard, Dr. Bishop and Dr. Donis. Dictated By: LEIA WHITFIELD MD, JD/STEPHANIE Conf#: [id number] DID#: [id number]
[2017-05-17] MEDS ORDERED: INSULIN GLARGINE [LANtus] 3 ML PEN SC SCH (20:00)
[2017-05-17] MEDS: INSULIN GLARGINE [LANtus] 3 ML PEN SC SCH (20:34)
[2017-05-17] MEDS ORDERED: VANCOMYCIN 2 GM in SOD CHLORIDE 0.9% 500 ML IVPB SCH (23:00)
[2017-05-18] VITALS (13 sets, daily range): BP systolic 94–155; BP diastolic 55–84; PULSE 85–133; RESP 16–26
[2017-05-18] MEDS: SOD CHLORIDE 0.9% 1,000 ML IV SCH ×3 (01:56→21:12)
[2017-05-18] MEDS: ACCU-CHEK XX SCH (02:00)
[2017-05-18] MEDS: PIPER-TAZO 2.25 GM (PMX) 50 ML IVPB SCH ×3 (05:52→21:11)
[2017-05-18 06:32] LABS: ADD SCAN DIFF NO
[2017-05-18 06:43] LABS: ABNORMAL IP MESSAGE 1; HEMOGLOBIN 7.8 g/dl (14.0-18.0); MEAN CORPUSCULAR HEMOGLOBIN 32.6 pg (29.0-33.0); MEAN CORPUSCULAR HGB CONC 33.9 g/dl (32.0-37.0); MEAN CORPUSCULAR VOLUME 96.2 fl (82.0-101.0); MEAN PLATELET VOLUME 10.5 fl (7.4-10.4); PLATELET COUNT 49 10^3/UL (140-415); RED BLOOD COUNT 2.39 10^6/ul (4.70-6.10); RED CELL DISTRIBUTION WIDTH 15.6 % (11.5-14.5); WHITE BLOOD COUNT 0.8 10^3/ul (4.8-10.8)
[2017-05-18 07:15] LABS: CALCIUM 7.3 mg/dl (8.4-10.2); CREATININE 2.04 mg/dl (0.61-1.24); PHOSPHORUS 4.3 mg/dl (2.5-4.9); POTASSIUM 3.8 mmol/L (3.5-5.1)
[2017-05-18 07:19] LABS: ALBUMIN/GLOBULIN RATIO 1.11; BILIRUBIN,DIRECT 0.3 mg/dl (0.00-0.20); BILIRUBIN,INDIRECT 0.3 mg/dl (0-1.1); BILIRUBIN,TOTAL 0.6 mg/dl (0.2-1.3); CALCIUM 7.6 mg/dl (8.4-10.2); CREATININE 2.16 mg/dl (0.61-1.24); POTASSIUM 3.6 mmol/L (3.5-5.1); TOTAL PROTEIN 5.7 g/dl (6.1-8.1)
[2017-05-18] MEDS: INSULIN ASPART [NOVOLOG] 3 ML PEN SC SCH ×7 (07:55→20:51)
--- NOTE | 2017-05-18 08:08 | RADRPT ---
PROCEDURE: CT Chest without contrast. CLINICAL INDICATION: Shortness of breath. Abnormal chest x-ray. TECHNIQUE: CT scan of the chest without contrast was performed on a multidetector high-resolution CT scanner. Coronal and sagittal reformatted images were obtained from the axial source images. The total exam CTDI equals 16 mGy and the total exam DLP equals 606 mGy-cm. COMPARISON: Frontal chest x-ray May 16, 2013 FINDINGS: The lungs are clear of any infiltrate or mass. There is plate-like atelectasis of the anterior basa l segment of the right lower lobe and there is atelectasis in the dependent portion of both lower lo bes. No pleural or pericardial effusion is present. There is cardiomegaly with coronary artery bari cifications. No hilar or mediastinal adenopathy or masses present. Thoracic aorta appears normal. There is hepatis splenomegaly. Fatty infiltration is seen in the liver. Gallbladder has been remov ed. No adrenal mass is visualized. Senescent spondylosis is present in the thoracic spine. IMPRESSION: No infiltrate or mass. Minimal atelectasis both lower lobes. Cardiomegaly. Coronary artery calcifications. Hepatis splenomegaly. Fatty liver. Degenerative spondylosis thoracic spine. .Tod Velazquez MD, MD Date Time Electronically viewed and signed by .Tod Velazquez MD, on 05/18/2017 08:07 .A/
[2017-05-18] MEDS: PHENYTOIN (100 MG/4 ML) CUP PO SCH ×2 (08:26→20:38)
[2017-05-18] MEDS: INSULIN GLARGINE [LANtus] 3 ML PEN SC SCH ×2 (08:54→20:45)
[2017-05-18 10:12] LABS: LYMPHOCYTES # 0.2 10^3/ul (0.8-2.9); NEUTROPHIL # 0.4 10^3/ul (1.6-7.5)
--- NOTE | 2017-05-18 14:14 | PN ---
Date/Time of Note Date/Time of Note DATE: 05/18/17 TIME: 14:06 Assessment/Plan VTE Prophylaxis VTE Prophylaxis Intervention: SCD's Lines/Catheters IV [facility] Saline Lock Central line still needed: No Urinary Cath still in place: No Assessment/Plan Assessment/Plan 66 year old male with DM, HTN, obesity 1. E. Coli Sepsis: Improving. This is multi-drug sensitive. He did recently switch his diabetes medications which does have side effects such as acute renal failure and severe UTIs. The patient does appear to have a urinary tract infection on urinalysis. We will treat with Zosyn IV, and antibiotics may be switched to levaquin if okay with ID. ID for antimicrobial recommendations in the setting of severe pancytopenia (which is slightly improved today). 2. Pancytopenia. Once again, the patient has no known history of pancytopenia in the past. Dr. Bishop of hematology/oncology and I discussed the case. Labs sent, and the patient is on neutropenic precautions. The patient may need a bone marrow biopsy if he counts do not improve. Will check CBC in the AM. This still may be secondary to sepsis, but there may be alternative pathologies causing the pancytopenia. 3. Acute kidney injury, possibly secondary to sepsis. We will treat with IV fluids and the creatinine is already improving. Appreciate renal recommendations. 4. Anion gap acidosis likely secondary to acute kidney injury and/or sepsis. We will treat with IV fluids. We will treat underlying sepsis/bacteremia. 5. Hyponatremia. There is an element of pseudohyponatremia from hyperglycemia , but still even with correction, sodium is low. This may be from dehydration. We will treat with normal saline and follow BMP. Dr. Piper is on the case. 6. History of diabetes. We will put the patient on sliding scale and increase Lantus. 7. Hypertension. Hold home BP medications at this time as BP is on the lower end of normal secondary to sepsis. 8. Dyslipidemia. We will hold statin at this time. 9. History of seizures. We will continue home Dilantin, but will need to check dilantin level. 10. Prophylaxis. SCDs/Protonix. Case d/w patient, his and Dr. Alvarez. Subjective 24 Hr Interval Summary Free Text/Dictation Feeling better today. More energy. Exam/Review of Systems Vital Signs Vitals Vital Signs Date Time Temp Pulse Resp B/P Pulse Ox O2 Delivery O2 Flow Rate FiO2 05/18/17 12:18 133 05/18/17 11:37 98.8 18 132/64 96 05/16/17 21:14 Room Air Intake and Output 05/17/17 05/17/17 05/18/17 15:00 23:00 07:00 Intake Total 50 ml 1250 ml 720 ml Output Total 100 ml 120 ml Balance 50 ml 1150 ml 600 ml Exam Constitutional: alert, obese, oriented Head: normocephalic Eyes: nl conjunctiva ENMT: nl external ears & nose Neck: supple Respiratory: clear to auscultation Cardiovascular: regular rate and rhythm Gastrointestinal: soft Extremities: edema Neurological: [employer] INS[employer]OR II-XII intact Results Result Diagram: 05/18/17 0610 05/18/17 0610 Results 24 hrs Laboratory Tests Test 05/17/17 15:48 05/17/17 17:43 05/17/17 19:53 05/18/17 02:29 Lactate Dehydrogenase 954 H Phenytoin (Dilantin) Level 9.3 L Bedside Glucose 152 132 199 Test 05/18/17 06:10 05/18/17 08:45 White Blood Count 0.8 #L Red Blood Count 2.39 L Hemoglobin 7.8 L Hematocrit 23.0 L Mean Corpuscular Volume 96.2 Mean Corpuscular Hemoglobin 32.6 Mean Corpuscular Hemoglobin Concent 33.9 Red Cell Distribution Width 15.6 H Platelet Count 49 L Mean Platelet Volume 10.5 H Neutrophils % 56.0 Band Neutrophils % 13.0 H Lymphocytes % 27.0 Monocytes % 1.0 Eosinophils % 3.0 Basophils % Neutrophils # 0.4 L Lymphocytes # 0.2 L Monocytes # 0.0 L Eosinophils # 0.0 Basophils # Sodium Level 132 L Potassium Level 3.6 Chloride Level 103 Carbon Dioxide Level 16 L Anion Gap 17 H Blood Urea Nitrogen 76 H Creatinine 2.16 H Glucose Level 184 Calcium Level 7.6 L Phosphorus Level 4.3 Magnesium Level 2.0 Total Bilirubin 0.6 Direct Bilirubin 0.30 #H Indirect Bilirubin 0.3 Aspartate Amino Transf (AST/SGOT) 46 # Alanine Aminotransferase (ALT/SGPT) 41 Alkaline Phosphatase 54 Total Protein 5.7 L Albumin 3.0 L Globulin 2.70 Albumin/Globulin Ratio 1.11 Bedside Glucose 178 Medications Medications Current Medications Sodium Chloride (NS) 1,000 ml @ 75 mls/hr [id number] IV Last administered on 05/18 02:25; Admin Dose 150 MLS/HR; Start 05/16/17 at 23:16 Ondansetron HCl (Zofran Inj) 4 mg Q6H PRN IV NAUSEA AND/OR VOMITING; Start at 23:30 Acetaminophen (Tylenol Tab) 650 mg Q6H PRN PO PAIN LEVEL 1-3 OR FEVER; Start at 23:30 Acetaminophen/ Hydrocodone Bitart ([place] (5/325)) 1 tab Q6H PRN PO MODERATE PAIN LEVEL 4-6; Start 05/16/17 at 23:30 Morphine Sulfate (morphine) 2 mg Q4H PRN IV SEVERE PAIN LEVEL 7-10; Start 05/16 at 23:30 Docusate Sodium (Colace) 100 mg Q12H PRN PO CONSTIPATION; Start 05/16/17 at 23: 30 Diagnostic Test (Pha) (Accu-Chek) 1 ea 02 XX Last administered on 05/17/17 02: 00; Admin Dose 1 EA; Start 05/17/17 at 02:00 Phenytoin 300 mg 300 mg BID PO Last administered on 05/18/17 08:26; Admin Dose 300 MG; Start 05/17/17 at 09:00 Piperacillin Sod/ Tazobactam Sod (Zosyn 2.25gm/ 50ml (Pmx)) 50 ml @ 100 mls/hr Q8 IVPB Last administered on 05/18/17 05:52; Admin Dose 100 MLS/HR; Start at 23:45 Miscellaneous Information 1 ea NOTE XX ; Start 05/16/17 at 23:45 Glucose (Glutose) 15 gm Q15M PRN PO DECREASED GLUCOSE; Start 05/16/17 at 23:45 Glucose (Glutose) 22.5 gm Q15M PRN PO DECREASED GLUCOSE; Start 05/16/17 at 23: 45 Dextrose (D50w Syringe) 25 ml Q15M PRN IV DECREASED GLUCOSE; Start 05/16/17 at 23:45 Dextrose (D50w Syringe) 50 ml Q15M PRN IV DECREASED GLUCOSE; Start 05/16/17 at 23:45 Glucagon (Glucagen) 1 mg Q15M PRN IM DECREASED GLUCOSE; Start 05/16/17 at 23:45 Glucose (Glutose) 15 gm Q15M PRN BUCCAL DECREASED GLUCOSE; Start 05/16/17 at 23 :45 Miscellaneous Information Patients own medicat... BID@10,16 XX ; Start 05/17/17 at 10:00 Insulin Glargine (Lantus) 15 unit BID@08,20 SC Last administered on 05/18/17t 08:54; Admin Dose 15 UNIT; Start 05/17/17 at 20:00 WHIT SCHMITT MD May 18, 2017 14:13
--- NOTE | 2017-05-18 18:51 | HKNOTE ---
DATE OF SERVICE: 05/18/2017 HISTORY OF PRESENT ILLNESS: Mr. Thorne is a 66-year-old male with a history of seizures , on Dilantin, diabetes and hypertension, was admitted to the hospital with severe weakness and was found to have severe pancytopenia. He also was found to have Gram-negative septicemia. MEDICATIONS: 1. Vancomycin. 2. Insulin. 3. Dilantin 4. Zosyn. 5. Tylenol. 6. Zofran. 7. Morphine. PHYSICAL EXAMINATION: GENERAL: Shows a slightly obese male who is alert, oriented. VITAL SIGNS: He is afebrile except that his T-max was 99.5 last night. ENT: Heart and lungs were unremarkable. ABDOMEN: Soft but is obese. No definite masses. EXTERNAL GENITALIA: Normal. EXTREMITIES: Showed no edema, clubbing or cyanosis. Skin showed no rashes or petechiae. CENTRAL NERVOUS SYSTEM: No focal defects except for mild general weakness. LABORATORY DATA: His CBC today shows WBC only 800 with 17% neutrophils, hemoglobin 7.8 and platelet s are only 49,000. His LDH is elevated at 954. His creatinine is 2.16. His ferritin, B12, folate are normal. His ultrasound of the abdomen shows a fatty liver and hepatosplenomegaly. IMPRESSION: 1. Severe pancytopenia, probably secondary to combination of gram-negative sepsis, hypersplenism, p ailyn or minus bone marrow pathology like infiltrate or dysplasia. 2. Gram-negative septicemia, on treatment. 3. History of diabetes, hypertension and hyperlipidemia, history of fatty infiltration of the liver with hepatosplenomegaly and hypersplenism is a possibility. 4. History of seizures, on Dilantin, drug chemotherapy-induced pancytopenia is unlikely since he mcclendon s been on Dilantin for a long time. PLAN AND DISCUSSION: This patient has severe persistent pancytopenia. He also has high LDH. The p ossibility for TTP and hemolytic uremic syndrome, unlikely. I will repeat the LDH and haptoglobin a nd repeat CBC and CMP tomorrow. Most likely he will need a bone marrow. Dictated By: DAVID XIE MD PC/NTS Conf#: [id number] DID#: [id number]
[2017-05-18] MEDS: DILTIAZEM 60 MG TAB PO SCH (19:23)
[2017-05-18] MEDS ORDERED: ZOLPIDEM 5 MG TAB PO PRN (21:30)
[2017-05-19] VITALS (9 sets, daily range): BP systolic 125–145; BP diastolic 59–80; PULSE 85–126; RESP 16–24
[2017-05-19] MEDS: DILTIAZEM 60 MG TAB PO SCH ×2 (00:09→05:25)
[2017-05-19] MEDS: ACCU-CHEK XX SCH (02:00)
[2017-05-19] MEDS: PIPER-TAZO 2.25 GM (PMX) 50 ML IVPB SCH (05:24)
[2017-05-19] MEDS: SOD CHLORIDE 0.9% 1,000 ML IV SCH (05:39)
--- NOTE | 2017-05-19 07:30 | PN ---
DATE: 05/18/2017 SUBJECTIVE: No events overnight. The patient is sitting up in a chair and dozing off. He is in no distress, no fevers. WBC 0.8, platelet count 46, neutrophils 56, bands 13, lymphs 27, monos 1, BUN 76, creatinine 2.16. MICROBIOLOGY: Blood culture growing gram-negative rods. Urine culture grew E. coli. ANTIMICROBIALS: The patient is on Zosyn. DIAGNOSTICS: Chest CT from yesterday revealed no infiltrate or mass. Renal ultrasound revealed no hydronephrosis. There was a 3 cm echogenic partially ____ lesion in the upper portion of the left k [place] of unclear etiology. Chest x-ray on admission revealed right lung base atelectasis versus air space disease. PHYSICAL EXAMINATION: GENERAL: This is a fragile, elderly man who is in no distress. HEENT: Head atraumatic, normocephalic. Sclerae anicteric. Buccal mucosa dry. NECK: Supple. CHEST: Rise symmetrical. Breath sounds diminished to bases. HEART: S1, S2. ABDOMEN: Soft, bowel tones present. EXTREMITIES: No cyanosis. ASSESSMENT: 1. Sepsis with gram-negative nayeli bacteremia, present on admission secondary to #2. 2. Escherichia coli urinary tract infection. 3. Possible pneumonia. 4. Acute renal failure, with a questionable left kidney upper lobe lesion of uncertain etiology. 5. Severe pancytopenia and neutropenia. 6. Diabetes. 7. Hypertension. 8. History of seizure disorder, on Dilantin. Dilantin level subtherapeutic at 9.3 on admission. PLAN: The patient is clinically stable. He is being seen by Dr. Piper in nephrology consultation and both Dr. Bishop in hematology/oncology consultation. He is on neutropenic precautions. May n eed bone marrow biopsy if blood count does not improve. We will continue him on Zosyn. Repeat ches t x-ray in a.m. Repeat blood cultures if it has not been done yet and follow on final workup. Dictated By: RAGHAVENDRA GEORGE [employer] for LEIA WHITFIELD MD NI/NTS Conf#: [id number] DID#: [id number]
--- NOTE | 2017-05-19 07:59 | PN ---
DATE: 05/18/2017 SUBJECTIVE: The patient is stable, no acute events overnight. No fevers, chills, nausea, vomiting, mild shortness of breath. No other events noted. OBJECTIVE: VITAL SIGNS: Temperature ____, respiratory rate ____, blood pressure ____, temperature ____ . HEENT: Head is normocephalic. NECK: Supple. HEART: Regular rate. LUNGS: Show diminished breath sounds at the base. ABDOMEN: Soft, nontender to palpation. No rebound or guarding. EXTREMITIES: Negative for clubbing, cyanosis, no edema. DERMATOLOGIC: No rashes. MUSCULOSKELETAL: ____. NEUROLOGIC: No change in exam. MEDICATIONS: Reviewed. LABORATORY DATA: Shows sodium 132, potassium 3.6, chloride 103, BUN 17, creatinine 6.16, glucose 18 4. White count ____, hemoglobin ____, hematocrit ____, platelet count is 49. Urinalysis shows a F Perlita of less than ____, a protein-creatinine ratio is less than 1.2 g/g of creatinine. The patient' s renal ultrasound shows normal echogenicity, no hydronephrosis. A CT scan of the chest shows fatty liver. ASSESSMENT AND PLAN: 1. Nonoliguric acute kidney injury with unknown baseline creatinine. Etiology is multifactorial, s econdary from volume depletion ____. The patient's renal function has improved with IV hydration. Appears to be stabilizing around a creatinine of 2 mg/dL. The patient's renal ultrasound shows no e vidence of obstruction, normal echogenicity. At this point, continue current treatment plan, suppor tive care, renally dose medications. Will decrease rate of IV fluids to 75 mL an hour and monitor c losely. 2. Hyponatremia secondary to acute kidney injury causing decreased free water urinary excretion and hyperglycemia. The patient's sodium levels have improved. Continue to monitor. 3. Metabolic acidosis secondary to acute kidney injury, possible compensatory response. Will susanne nue to observe. If worsens, would consider checking an ABG. 4. Anemia. Continue to monitor hemoglobin and hematocrit levels. 5. Mineral bone disorder. Continue to monitor calcium and phosphorus levels. 6. Sepsis secondary to pneumonia, urinary tract infection. Continue current antibiotic regimen. F ollow up with infectious disease. 7. Pancytopenia. Etiology is unclear. Workup ongoing. Follow up with hematology. 8. Diabetes. Continue current insulin regimen. 9. History of hypertension. The patient's blood pressures are improving. Continue IV fluids ____ . 10. ____ therapy. 11. Seizure disorder. Continue current medical management. Dictated By: TRENTON ABAD/STEPHANIE Conf#: [id number] DID#: [id number]
[2017-05-19 08:16] LABS: ADD SCAN DIFF NO; HAAIG REFLEX REFLEX FILED
[2017-05-19 08:17] LABS: ABNORMAL IP MESSAGE 1; HEMATOCRIT 28.2 % (42.0-52.0); HEMOGLOBIN 9.8 g/dl (14.0-18.0); MEAN CORPUSCULAR HGB CONC 34.8 g/dl (32.0-37.0); MEAN CORPUSCULAR VOLUME 97.9 fl (82.0-101.0); MEAN PLATELET VOLUME 10.5 fl (7.4-10.4); PLATELET COUNT 68 10^3/UL (140-415); RED BLOOD COUNT 2.88 10^6/ul (4.70-6.10); RED CELL DISTRIBUTION WIDTH 15.7 % (11.5-14.5); WHITE BLOOD COUNT 0.8 10^3/ul (4.8-10.8)
--- NOTE | 2017-05-19 08:25 | CONS ---
Date/Time of Note Date/Time of Note DATE: 05/19/17 TIME: 08:21 Assessment/Plan Assessment/Plan Additional Assessment/Plan Sepsis Pancytopenia Aflutter with RVR HTN ARF -will increase cardizem for better rate control -no anticoagulation for now due to pancytopenia, but possible eliquis as platelets improve and if no procedures -will check echo -possible aflutter ablation in the future -on abx -hematology involved and renal service follwoing Consultation Date/Type/Reason Admit Date/Time May 16, 2017 at 20:50 Hx of Present Illness The patient is a 66-year-old male with a history of non-insulin requiring diabetes, dyslipidemia, hypertension, and history of seizures on Dilantin. The patient presents with 4 days now of severe debilitating weakness and loss of appetite. He reports intermittent chills and diffuse pain throughout his body. The patient states that he has never had these symptoms before in the past. He denies any travel history. Denies any nausea, vomiting, diarrhea, or headache. The patient recently switched from metformin to ____ recently. The patient has no other complaints at this time. In the ED, the patient was noted to be pancytopenic. Psychological: no complaints Social History Smoking Status: Current every day smoker Exam/Review of Systems Vital Signs Vitals Vital Signs Date Time Temp Pulse Resp B/P Pulse Ox O2 Delivery O2 Flow Rate FiO2 05/19/17 08:14 95 05/19/17 07:39 98.6 24 140/80 92 05/16/17 21:14 Room Air Intake and Output 05/18/17 05/18/17 05/19/17 15:00 23:00 07:00 Intake Total 1650 ml 1000 ml Balance 1650 ml 1000 ml Results Result Diagram: 05/18/17 0610 05/18/17 0610 Results 24 hrs Laboratory Tests Test 05/18/17 08:45 05/18/17 15:58 05/18/17 17:40 05/18/17 18:23 Bedside Glucose 178 196 203 Troponin I < 0.012 Test 05/18/17 20:42 05/19/17 00:28 05/19/17 06:49 05/19/17 07:00 Bedside Glucose 197 Troponin I 0.024 Lab Scanned Report BLOOD TRANSFUSION Hepatitis B Surface Antigen Pending Hepatitis B Core Total Antibody Pending Hepatitis C Antibody Pending HIV (1&2) Antibody Pending Medications Medications Current Medications Sodium Chloride (NS) 1,000 ml @ 75 mls/hr [id number] IV Last administered on 05/19 05:39; Admin Dose 75 MLS/HR; Start 05/16/17 at 23:16 Ondansetron HCl (Zofran Inj) 4 mg Q6H PRN IV NAUSEA AND/OR VOMITING; Start at 23:30 Acetaminophen (Tylenol Tab) 650 mg Q6H PRN PO PAIN LEVEL 1-3 OR FEVER; Start at 23:30 Acetaminophen/ Hydrocodone Bitart ([place] (5/325)) 1 tab Q6H PRN PO MODERATE PAIN LEVEL 4-6; Start 05/16/17 at 23:30 Morphine Sulfate (morphine) 2 mg Q4H PRN IV SEVERE PAIN LEVEL 7-10; Start 05/16 at 23:30 Docusate Sodium (Colace) 100 mg Q12H PRN PO CONSTIPATION; Start 05/16/17 at 23: 30 Diagnostic Test (Pha) (Accu-Chek) 1 ea 02 XX Last administered on 05/17/17 02: 00; Admin Dose 1 EA; Start 05/17/17 at 02:00 Phenytoin 300 mg 300 mg BID PO Last administered on 05/18/17 20:38; Admin Dose 300 MG; Start 05/17/17 at 09:00 Piperacillin Sod/ Tazobactam Sod (Zosyn 2.25gm/ 50ml (Pmx)) 50 ml @ 100 mls/hr Q8 IVPB Last administered on 05/19/17 05:24; Admin Dose 100 MLS/HR; Start at 23:45 Miscellaneous Information 1 ea NOTE XX ; Start 05/16/17 at 23:45 Glucose (Glutose) 15 gm Q15M PRN PO DECREASED GLUCOSE; Start 05/16/17 at 23:45 Glucose (Glutose) 22.5 gm Q15M PRN PO DECREASED GLUCOSE; Start 05/16/17 at 23: 45 Dextrose (D50w Syringe) 25 ml Q15M PRN IV DECREASED GLUCOSE; Start 05/16/17 at 23:45 Dextrose (D50w Syringe) 50 ml Q15M PRN IV DECREASED GLUCOSE; Start 05/16/17 at 23:45 Glucagon (Glucagen) 1 mg Q15M PRN IM DECREASED GLUCOSE; Start 05/16/17 at 23:45 Glucose (Glutose) 15 gm Q15M PRN BUCCAL DECREASED GLUCOSE; Start 05/16/17 at 23 :45 Miscellaneous Information Patients own medicat... BID@10,16 XX Last administered on 05/18/17 16:00; Admin Dose 1 EA; Start 05/17/17 at 10:00 Insulin Glargine (Lantus) 15 unit BID@08,20 SC Last administered on 05/18/17 20:45; Admin Dose 15 UNIT; Start 05/17/17 at 20:00 Diltiazem HCl (Cardizem) 60 mg Q6 PO Last administered on 05/19/17 05:25; Admin Dose 60 MG; Start 05/18/17 at 18:00 MICHAEL BRINK MD May 19, 2017 08:25
[2017-05-19] MEDS: PHENYTOIN (100 MG/4 ML) CUP PO SCH ×2 (08:46→21:29)
[2017-05-19 08:55] LABS: IRON 58 ug/dl (35-150)
[2017-05-19 08:57] LABS: ALBUMIN 3.2 g/dl (3.3-4.9); ALBUMIN/GLOBULIN RATIO 1.06; BILIRUBIN,DIRECT 0.9 mg/dl (0.00-0.20); BILIRUBIN,INDIRECT 0.6 mg/dl (0-1.1); BILIRUBIN,TOTAL 1.5 mg/dl (0.2-1.3); CALCIUM 8.1 mg/dl (8.4-10.2); CREATININE 1.76 mg/dl (0.61-1.24); POTASSIUM 3.8 mmol/L (3.5-5.1); TOTAL PROTEIN 6.2 g/dl (6.1-8.1)
[2017-05-19 09:00] LABS: RETICULOCYTE COUNT % 0.3 % (0.5-1.5)
[2017-05-19] MEDS: INSULIN ASPART [NOVOLOG] 3 ML PEN SC SCH ×7 (09:02→21:55)
[2017-05-19] MEDS: INSULIN GLARGINE [LANtus] 3 ML PEN SC SCH ×2 (09:02→21:56)
[2017-05-19 09:04] LABS: TOTAL IRON BINDING CAPACITY 209 ug/dl (241-421)
--- NOTE | 2017-05-19 09:19 | PN ---
Date/Time of Note Date/Time of Note DATE: 05/19/17 TIME: 09:16 Assessment/Plan VTE Prophylaxis VTE Prophylaxis Intervention: contraindicated Lines/Catheters IV Catheter Type (from [facility]): [place] Lock Urinary Cath still in place: No Assessment/Plan Assessment/Plan 1. sepsis 2. bacteremia with sampson sens e coli secodnary to urinary source, cont zosyn, tailor abx per ID 3. a fib with rapid resoponse, being rate controlled 4. acute on chronic renal failure, creat currently around 2 5. pancytopenia, unclear etiology, await hematology plan 6. increase activity 7. consider d/c home in near term future if no further inpatient procedure ( bone marrow?) required Subjective 24 Hr Interval Summary Free Text/Dictation no new complaint, wants to go home poor eating, Exam/Review of Systems Vital Signs Vitals Vital Signs Date Time Temp Pulse Resp B/P Pulse Ox O2 Delivery O2 Flow Rate FiO2 05/19/17 08:14 95 05/19/17 07:39 98.6 24 140/80 92 05/16/17 21:14 Room Air Intake and Output 05/18/17 05/18/17 05/19/17 14:59 22:59 06:59 Intake Total 1650 ml 1000 ml Balance 1650 ml 1000 ml Exam Constitutional: alert Respiratory: clear to auscultation Cardiovascular: regular rate and rhythm Gastrointestinal: non-tender, soft Results Result Diagram: 05/19/17 0700 05/19/17 0700 Results 24 hrs Laboratory Tests Test 05/18/17 15:58 05/18/17 17:40 05/18/17 18:23 05/18/17 20:42 Bedside Glucose 196 203 197 Troponin I < 0.012 Test 05/19/17 00:28 05/19/17 06:49 05/19/17 07:00 05/19/17 08:49 Troponin I 0.024 Lab Scanned Report BLOOD TRANSFUSION White Blood Count 0.8 L Red Blood Count 2.88 #L Hemoglobin 9.8 #L Hematocrit 28.2 #L Mean Corpuscular Volume 97.9 Mean Corpuscular Hemoglobin 34.0 H Mean Corpuscular Hemoglobin Concent 34.8 Red Cell Distribution Width 15.7 H Platelet Count 68 #L Mean Platelet Volume 10.5 H Neutrophils % Lymphocytes % Monocytes % Eosinophils % Basophils % Neutrophils # Lymphocytes # Monocytes # Eosinophils # Basophils # Absolute Reticulocyte Count 0.009 L Percent Reticulocyte Count 0.3 L Sodium Level 132 L Potassium Level 3.8 Chloride Level 103 Carbon Dioxide Level 18 L Anion Gap 15 Blood Urea Nitrogen 74 H Creatinine 1.76 H Glucose Level 186 Calcium Level 8.1 L Iron Level 58 Total Iron Binding Capacity 209 L Percent Iron Saturation 28 Total Bilirubin 1.5 H Direct Bilirubin 0.90 #H Indirect Bilirubin 0.6 Aspartate Amino Transf (AST/SGOT) 108 #H Alanine Aminotransferase (ALT/SGPT) 68 Alkaline Phosphatase 83 # Lactate Dehydrogenase 762 H Total Protein 6.2 Albumin 3.2 L Globulin 3.00 Albumin/Globulin Ratio 1.06 Hepatitis B Surface Antigen Pending Hepatitis B Core Total Antibody Pending Hepatitis C Antibody Pending HIV (1&2) Antibody Pending Bedside Glucose 200 Medications Medications Current Medications Sodium Chloride (NS) 1,000 ml @ 50 mls/hr Q20H IV Last administered on 05:39; Admin Dose 75 MLS/HR; Start 05/16/17 at 23:16 Ondansetron HCl (Zofran Inj) 4 mg Q6H PRN IV NAUSEA AND/OR VOMITING; Start at 23:30 Acetaminophen (Tylenol Tab) 650 mg Q6H PRN PO PAIN LEVEL 1-3 OR FEVER; Start at 23:30 Acetaminophen/ Hydrocodone Bitart ([place] (5/325)) 1 tab Q6H PRN PO MODERATE PAIN LEVEL 4-6; Start 05/16/17 at 23:30 Morphine Sulfate (morphine) 2 mg Q4H PRN IV SEVERE PAIN LEVEL 7-10; Start 05/16 at 23:30 Docusate Sodium (Colace) 100 mg Q12H PRN PO CONSTIPATION; Start 05/16/17 at 23: 30 Diagnostic Test (Pha) (Accu-Chek) 1 ea 02 XX Last administered on 05/17/17 02: 00; Admin Dose 1 EA; Start 05/17/17 at 02:00 Phenytoin 300 mg 300 mg BID PO Last administered on 05/19/17 08:46; Admin Dose 300 MG; Start 05/17/17 at 09:00 Piperacillin Sod/ Tazobactam Sod (Zosyn 2.25gm/ 50ml (Pmx)) 50 ml @ 100 mls/hr Q8 IVPB Last administered on 05/19/17 05:24; Admin Dose 100 MLS/HR; Start at 23:45 Miscellaneous Information 1 ea NOTE XX ; Start 05/16/17 at 23:45 Glucose (Glutose) 15 gm Q15M PRN PO DECREASED GLUCOSE; Start 05/16/17 at 23:45 Glucose (Glutose) 22.5 gm Q15M PRN PO DECREASED GLUCOSE; Start 05/16/17 at 23: 45 Dextrose (D50w Syringe) 25 ml Q15M PRN IV DECREASED GLUCOSE; Start 05/16/17 at 23:45 Dextrose (D50w Syringe) 50 ml Q15M PRN IV DECREASED GLUCOSE; Start 05/16/17 at 23:45 Glucagon (Glucagen) 1 mg Q15M PRN IM DECREASED GLUCOSE; Start 05/16/17 at 23:45 Glucose (Glutose) 15 gm Q15M PRN BUCCAL DECREASED GLUCOSE; Start 05/16/17 at 23 :45 Miscellaneous Information Patients own medicat... BID@10,16 XX Last administered on 05/18/17 16:00; Admin Dose 1 EA; Start 05/17/17 at 10:00 Insulin Glargine (Lantus) 15 unit BID@08,20 SC Last administered on 05/19/17 09:02; Admin Dose 15 UNIT; Start 05/17/17 at 20:00 Diltiazem HCl (Cardizem) 90 mg Q6 PO ; Start 05/19/17 at 12:00 ZACK BURGOS MD May 19, 2017 09:19
--- NOTE | 2017-05-19 09:26 | CONS ---
Date/Time of Note Date/Time of Note DATE: 05/19/17 TIME: 09:23 Assessment/Plan Assessment/Plan Chief Complaint/Hosp Course 1. Severe pancytopenia, probably secondary to combination of gram-negative sepsis, hypersplenism, plus or minus bone marrow pathology like infiltrate or dysplasia. Hgb improved to 9.8 from 7.8 after 1 unit pRBC. 2. E. coli septicemia, on treatment. 3. History of diabetes, hypertension and hyperlipidemia, history of fatty infiltration of the liver with hepatosplenomegaly and hypersplenism is a possibility. 4. History of seizures, on Dilantin, drug chemotherapy-induced pancytopenia is unlikely since he has been on Dilantin for a long time. PLAN AND DISCUSSION: This patient has severe persistent pancytopenia. He also has high LDH at 954. The possibility for TTP and hemolytic uremic syndrome, unlikely. Repeat LDH 762, pending haptoglobin. Retic count inappropriately low at 9K. Most likely he will need a bone marrow if does not improve. Hep panel/HIV pending. Vitamin B12/folate WNL. Iron panel consistent with anemia of chronic disease with Fe 58, TIBC 209, %sat 28, ferritin 266. Epo, TSH, MMA, homocysteine, SPEP pending. Will request US abdomen to evaluate for hepatosplenomegaly. Peripheral smear did not show obvious dysplasia or leukemic cells. If counts do not improve, may need a bone marrow biopsy. Problems: Consultation Date/Type/Reason Admit Date/Time May 16, 2017 at 20:50 Initial Consult Date Type of Consultation: Hematology 24 HR Interval Summary Free Text/Dictation Patient awaiting abdominal ultrasound. May need a bone marrow biopsy. Exam/Review of Systems Vital Signs Vitals Vital Signs Date Time Temp Pulse Resp B/P Pulse Ox O2 Delivery O2 Flow Rate FiO2 05/19/17 08:14 95 05/19/17 07:39 98.6 24 140/80 92 05/16/17 21:14 Room Air Intake and Output 05/18/17 05/18/17 05/19/17 15:00 23:00 07:00 Intake Total 1650 ml 1000 ml Balance 1650 ml 1000 ml Exam GENERAL: Shows a slightly obese male who is alert, oriented. VITAL SIGNS: He is afebrile except that his T-max was 99.5 last night. ENT: Heart and lungs were unremarkable. ABDOMEN: Soft but is obese. No definite masses. EXTERNAL GENITALIA: Normal. EXTREMITIES: Showed no edema, clubbing or cyanosis. Skin showed no rashes or petechiae. CENTRAL NERVOUS SYSTEM: No focal defects except for mild general weakness. Results Result Diagram: 05/19/17 0700 05/19/17 0700 Results 24 hrs Laboratory Tests Test 05/18/17 15:58 05/18/17 17:40 05/18/17 18:23 05/18/17 20:42 Bedside Glucose 196 203 197 Troponin I < 0.012 Test 05/19/17 00:28 05/19/17 06:49 05/19/17 07:00 05/19/17 08:49 Troponin I 0.024 Lab Scanned Report BLOOD TRANSFUSION White Blood Count 0.8 L Red Blood Count 2.88 #L Hemoglobin 9.8 #L Hematocrit 28.2 #L Mean Corpuscular Volume 97.9 Mean Corpuscular Hemoglobin 34.0 H Mean Corpuscular Hemoglobin Concent 34.8 Red Cell Distribution Width 15.7 H Platelet Count 68 #L Mean Platelet Volume 10.5 H Neutrophils % Lymphocytes % Monocytes % Eosinophils % Basophils % Neutrophils # Lymphocytes # Monocytes # Eosinophils # Basophils # Absolute Reticulocyte Count 0.009 L Percent Reticulocyte Count 0.3 L Sodium Level 132 L Potassium Level 3.8 Chloride Level 103 Carbon Dioxide Level 18 L Anion Gap 15 Blood Urea Nitrogen 74 H Creatinine 1.76 H Glucose Level 186 Calcium Level 8.1 L Iron Level 58 Total Iron Binding Capacity 209 L Percent Iron Saturation 28 Total Bilirubin 1.5 H Direct Bilirubin 0.90 #H Indirect Bilirubin 0.6 Aspartate Amino Transf (AST/SGOT) 108 #H Alanine Aminotransferase (ALT/SGPT) 68 Alkaline Phosphatase 83 # Lactate Dehydrogenase 762 H Total Protein 6.2 Albumin 3.2 L Globulin 3.00 Albumin/Globulin Ratio 1.06 Hepatitis B Surface Antigen Pending Hepatitis B Core Total Antibody Pending Hepatitis C Antibody Pending HIV (1&2) Antibody Pending Bedside Glucose 200 Medications Medications Current Medications Ondansetron HCl (Zofran Inj) 4 mg Q6H PRN IV NAUSEA AND/OR VOMITING; Start at 23:30 Acetaminophen (Tylenol Tab) 650 mg Q6H PRN PO PAIN LEVEL 1-3 OR FEVER; Start at 23:30 Acetaminophen/ Hydrocodone Bitart ([place] (5/325)) 1 tab Q6H PRN PO MODERATE PAIN LEVEL 4-6; Start 05/16/17 at 23:30 Morphine Sulfate (morphine) 2 mg Q4H PRN IV SEVERE PAIN LEVEL 7-10; Start 05/16 at 23:30 Docusate Sodium (Colace) 100 mg Q12H PRN PO CONSTIPATION; Start 05/16/17 at 23: 30 Diagnostic Test (Pha) (Accu-Chek) 1 ea 02 XX Last administered on 05/17/17 02: 00; Admin Dose 1 EA; Start 05/17/17 at 02:00 Phenytoin 300 mg 300 mg BID PO Last administered on 05/19/17 08:46; Admin Dose 300 MG; Start 05/17/17 at 09:00 Piperacillin Sod/ Tazobactam Sod (Zosyn 2.25gm/ 50ml (Pmx)) 50 ml @ 100 mls/hr Q8 IVPB Last administered on 05/19/17 05:24; Admin Dose 100 MLS/HR; Start at 23:45 Miscellaneous Information 1 ea NOTE XX ; Start 05/16/17 at 23:45 Glucose (Glutose) 15 gm Q15M PRN PO DECREASED GLUCOSE; Start 05/16/17 at 23:45 Glucose (Glutose) 22.5 gm Q15M PRN PO DECREASED GLUCOSE; Start 05/16/17 at 23: 45 Dextrose (D50w Syringe) 25 ml Q15M PRN IV DECREASED GLUCOSE; Start 05/16/17 at 23:45 Dextrose (D50w Syringe) 50 ml Q15M PRN IV DECREASED GLUCOSE; Start 05/16/17 at 23:45 Glucagon (Glucagen) 1 mg Q15M PRN IM DECREASED GLUCOSE; Start 05/16/17 at 23:45 Glucose (Glutose) 15 gm Q15M PRN BUCCAL DECREASED GLUCOSE; Start 05/16/17 at 23 :45 Miscellaneous Information Patients own medicat... BID@10,16 XX Last administered on 05/18/17 16:00; Admin Dose 1 EA; Start 05/17/17 at 10:00 Insulin Glargine (Lantus) 15 unit BID@08,20 SC Last administered on 05/19/17 09:02; Admin Dose 15 UNIT; Start 05/17/17 at 20:00 Diltiazem HCl (Cardizem) 90 mg Q6 PO ; Start 05/19/17 at 12:00 TOGENET MD May 19, 2017 09:26
[2017-05-19 09:28] LABS: THYROID STIMULATING HORMONE 1.45 MIU/L (0.465-4.680)
[2017-05-19 09:32] LABS: MAGNESIUM 2.1 mg/dl (1.7-2.5); PHOSPHORUS 4.5 mg/dl (2.5-4.9)
[2017-05-19 09:44] LABS: HEPATITIS B CORE ANTIBODY NEGATIVE (NEGATIVE)
[2017-05-19 10:00] LABS: ANISOCYTOSIS 1+; LYMPHOCYTES # 0.3 10^3/ul (0.8-2.9); NEUTROPHIL # 0.4 10^3/ul (1.6-7.5); POIKILOCYTOSIS 1+; POLYCHROMASIA 3+
[2017-05-19 10:01] LABS: PLATELET ESTIMATE PLT APPEAR DECREASED
--- NOTE | 2017-05-19 11:24 | PN ---
DATE: 05/19/2017 SUBJECTIVE: The patient is stable, no acute events overnight. No hemoptysis, hematemesis or hemato chezia. OBJECTIVE: VITAL SIGNS: Blood pressure is 140/80, respirations 24, pulse 111, temperature is 98.6. HEENT: Head is normocephalic. NECK: Supple. HEART: Regular rate. LUNGS: Show diminished breath sounds at the base. ABDOMEN: Soft, nontender to palpation. No rebound or guarding. EXTREMITIES: Negative for clubbing, cyanosis. Positive edema +1. DERMATOLOGIC: No rashes. MUSCULOSKELETAL: No joint effusions. NEUROLOGIC: No change in exam. MEDICATIONS: The patient's medications have been reviewed. LABORATORY DATA: Shows a white count of 0.8, hemoglobin 9.8, hematocrit 29.2, platelet count is 68. Sodium 132, potassium 3.8, BUN 74, creatinine 1.76. ASSESSMENT AND PLAN: 1. Nonoliguric acute kidney injury with unknown baseline creatinine. Etiology is multifactorial se condary to volume depletion. The patient's renal function continues to improve with supportive care , would continue current treatment plan. Continue to renally dose all meds, avoid nephrotoxins, con tinue gentle IV hydration. 2. Hyponatremia secondary to acute kidney injury causing decreased free water urinary excretion. C ontinue to monitor. Continue to limit free water intake. 3. Metabolic acidosis secondary to acute kidney injury, improving. Continue to observe. 4. Anemia. Continue to monitor hemoglobin and hematocrit levels. 5. Mineral bone disorder. Continue to monitor calcium and phosphorus levels. 6. Sepsis secondary to pneumonia, urinary tract infection. Continue current antibiotic regimen. 7. Atrial fibrillation with rapid ventricular rate. Continue current medical management. Follow u p with cardiology. 8. Pancytopenia, etiology unclear. Continue to monitor. Workup ongoing. Follow up with hematolog y. 9. Diabetes, continue Accu-Cheks and sliding scale. 10. Seizure disorder. Continue current medical management. 11. Hypertension. Blood pressure is currently improved. Will discontinue IV fluids. Dictated By: TRENTON ABAD/STEPHANIE Conf#: [id number] DID#: [id number]
--- NOTE | 2017-05-19 13:20 | CONS ---
Date/Time of Note Date/Time of Note DATE: 05/19/17 TIME: 13:17 Assessment/Plan Assessment/Plan Chief Complaint/Hosp Course SUBJECTIVE: No events overnight. The patient is sleeping, no fevers. MICROBIOLOGY: Blood and urine cultures grew E. coli. ANTIMICROBIALS: The patient is on Zosyn. DIAGNOSTICS: Chest CT from 05/17 revealed no infiltrate or mass. Renal ultrasound revealed no hydronephrosis. There was a 3 cm echogenic partially ___ _ lesion in the upper portion of the left kidney of unclear etiology. Chest x- ray on admission revealed right lung base atelectasis versus airspace disease. PHYSICAL EXAMINATION: GENERAL: This is a fragile, elderly man who is in no distress. HEENT: Head atraumatic, normocephalic. Sclerae anicteric. Buccal mucosa dry. NECK: Supple. CHEST: Rise symmetrical. Breath sounds diminished to bases. HEART: S1, S2. ABDOMEN: Soft, bowel tones present. EXTREMITIES: No cyanosis. ASSESSMENT: 1. Sepsis with gram-negative nayeli bacteremia, present on admission secondary to #2. 2. Escherichia coli urinary tract infection. 3. Possible pneumonia. 4. Acute renal failure, with a questionable left kidney upper lobe lesion of uncertain etiology. 5. Severe pancytopenia and neutropenia. 6. Diabetes. 7. Hypertension. 8. History of seizure disorder, on Dilantin. Dilantin level subtherapeutic at 9.3 on admission. PLAN: The patient is clinically stable. Pending repeat bld cx. Will change abx to Rocephin. Await for final workup, may need need bone marrow biopsy DW staff/sister at bedside Problems: Consultation Date/Type/Reason Admit Date/Time May 16, 2017 at 20:50 Initial Consult Date Type of Consultation: ID Exam/Review of Systems Vital Signs Vitals Vital Signs Date Time Temp Pulse Resp B/P Pulse Ox O2 Delivery O2 Flow Rate FiO2 05/19/17 12:15 126 05/19/17 12:00 98.5 20 145/65 98 05/16/17 21:14 Room Air Intake and Output 05/18/17 05/18/17 05/19/17 15:00 23:00 07:00 Intake Total 1650 ml 1000 ml Balance 1650 ml 1000 ml Results Result Diagram: 05/19/17 0700 05/19/17 0700 Results 24 hrs Laboratory Tests Test 05/18/17 15:58 05/18/17 17:40 05/18/17 18:23 05/18/17 20:42 Bedside Glucose 196 203 197 Troponin I < 0.012 Test 05/19/17 00:28 05/19/17 05:00 05/19/17 06:49 05/19/17 07:00 Troponin I 0.024 < 0.012 Phosphorus Level 4.5 Magnesium Level 2.1 Lab Scanned Report BLOOD TRANSFUSION White Blood Count 0.8 L Red Blood Count 2.88 #L Hemoglobin 9.8 #L Hematocrit 28.2 #L Mean Corpuscular Volume 97.9 Mean Corpuscular Hemoglobin 34.0 H Mean Corpuscular Hemoglobin Concent 34.8 Red Cell Distribution Width 15.7 H Platelet Count 68 #L Mean Platelet Volume 10.5 H Neutrophils % 53.0 Band Neutrophils % 4.0 Lymphocytes % 34.0 Reactive Lymphocytes % 1.0 Monocytes % 3.0 Eosinophils % 4.0 Basophils % Metamyelocytes % 1.0 H Neutrophils # 0.4 L Lymphocytes # 0.3 L Monocytes # 0.0 L Eosinophils # 0.0 Basophils # Metamyelocytes # 0.0 Platelet Estimate PLT APPEAR DECREASED Polychromasia 3+ Poikilocytosis 1+ Anisocytosis 1+ Macrocytosis 1+ Absolute Reticulocyte Count 0.009 L Percent Reticulocyte Count 0.3 L Sodium Level 132 L Potassium Level 3.8 Chloride Level 103 Carbon Dioxide Level 18 L Anion Gap 15 Blood Urea Nitrogen 74 H Creatinine 1.76 H Glucose Level 186 Calcium Level 8.1 L Iron Level 58 Total Iron Binding Capacity 209 L Percent Iron Saturation 28 Ferritin 885.0 H Total Bilirubin 1.5 H Direct Bilirubin 0.90 #H Indirect Bilirubin 0.6 Aspartate Amino Transf (AST/SGOT) 108 #H Alanine Aminotransferase (ALT/SGPT) 68 Alkaline Phosphatase 83 # Lactate Dehydrogenase 762 H Total Protein 6.2 Albumin 3.2 L Globulin 3.00 Albumin/Globulin Ratio 1.06 Thyroid Stimulating Hormone (TSH) 1.450 Hepatitis B Surface Antigen NEGATIVE Hepatitis B Core Total Antibody NEGATIVE Hepatitis C Antibody NEGATIVE HIV (1&2) Antibody NEGATIVE Test 05/19/17 08:49 Bedside Glucose 200 Medications Medications Current Medications Ondansetron HCl (Zofran Inj) 4 mg Q6H PRN IV NAUSEA AND/OR VOMITING; Start at 23:30 Acetaminophen (Tylenol Tab) 650 mg Q6H PRN PO PAIN LEVEL 1-3 OR FEVER; Start at 23:30 Acetaminophen/ Hydrocodone Bitart ([place] (5/325)) 1 tab Q6H PRN PO MODERATE PAIN LEVEL 4-6; Start 05/16/17 at 23:30 Morphine Sulfate (morphine) 2 mg Q4H PRN IV SEVERE PAIN LEVEL 7-10; Start 05/16 at 23:30 Docusate Sodium (Colace) 100 mg Q12H PRN PO CONSTIPATION; Start 05/16/17 at 23: 30 Diagnostic Test (Pha) (Accu-Chek) 1 ea 02 XX Last administered on 05/17/17 02: 00; Admin Dose 1 EA; Start 05/17/17 at 02:00 Phenytoin 300 mg 300 mg BID PO Last administered on 05/19/17 08:46; Admin Dose 300 MG; Start 05/17/17 at 09:00 Piperacillin Sod/ Tazobactam Sod (Zosyn 2.25gm/ 50ml (Pmx)) 50 ml @ 100 mls/hr Q8 IVPB Last administered on 05/19/17 05:24; Admin Dose 100 MLS/HR; Start at 23:45 Miscellaneous Information 1 ea NOTE XX ; Start 05/16/17 at 23:45 Glucose (Glutose) 15 gm Q15M PRN PO DECREASED GLUCOSE; Start 05/16/17 at 23:45 Glucose (Glutose) 22.5 gm Q15M PRN PO DECREASED GLUCOSE; Start 05/16/17 at 23: 45 Dextrose (D50w Syringe) 25 ml Q15M PRN IV DECREASED GLUCOSE; Start 05/16/17 at 23:45 Dextrose (D50w Syringe) 50 ml Q15M PRN IV DECREASED GLUCOSE; Start 05/16/17 at 23:45 Glucagon (Glucagen) 1 mg Q15M PRN IM DECREASED GLUCOSE; Start 05/16/17 at 23:45 Glucose (Glutose) 15 gm Q15M PRN BUCCAL DECREASED GLUCOSE; Start 05/16/17 at 23 :45 Miscellaneous Information Patients own medicat... BID@10,16 XX Last administered on 05/18/17 16:00; Admin Dose 1 EA; Start 05/17/17 at 10:00 Insulin Glargine (Lantus) 15 unit BID@08,20 SC Last administered on 05/19/17t 09:02; Admin Dose 15 UNIT; Start 05/17/17 at 20:00 Diltiazem HCl (Cardizem) 90 mg Q6 PO ; Start 05/19/17 at 12:00 RAGHAVENDRA GEORGE NP May 19, 2017 13:20
[2017-05-19 13:41] LABS: ANA SCREEN NEGATIVE (NEGATIVE)
--- NOTE | 2017-05-19 13:43 | RADRPT ---
PROCEDURE: XR Chest. CLINICAL INDICATION: Pneumonia TECHNIQUE: Single AP portable chest COMPARISON: None. CT chest 05/17/2017 and 05/16/2017 FINDINGS: The cardiomediastinal silhouette is within normal limits of size. Atherosclerotic calcification of t he aorta. Bibasilar linear scarring and subsegmental atelectasis. No pneumothorax. The osseous struc tures and soft tissues are unremarkable. IMPRESSION: 1. No evidence for active cardiopulmonary disease. 2. Bibasilar atelectasis and/or scarring. RPTAT:AAJJ Physician Kushal Date Time Electronically viewed and signed by Physician Kushal on 05/19/2017 13:42 GRACE/
[2017-05-19] MEDS: CEFTRIAXONE 1 GM/50 ML (PMX) 50 ML IVPB SCH (15:08)
[2017-05-19] MEDS: DILTIAZEM 90 MG TAB PO SCH ×2 (15:09→18:33)
[2017-05-20] VITALS (13 sets, daily range): BP systolic 128–163; BP diastolic 62–74; PULSE 82–88; RESP 17–20
[2017-05-20] MEDS: ACCU-CHEK XX SCH (02:00)
[2017-05-20] MEDS: DILTIAZEM 90 MG TAB PO SCH ×4 (06:00→17:44)
[2017-05-20 07:06] LABS: LYMPHOCYTE - % CD4 (HELPER) 65 % (30-61); LYMPHOCYTE - %CD8 (SUPPRESSOR) 17 % (12-42); LYMPHOCYTE - ABSOLUTE CD4 123 cells/uL (490-1740); LYMPHOCYTE - ABSOLUTE CD8 33 cells/uL (180-1170); LYMPHOCYTE - CD4/CD8 RATIO 3.73 (0.86-5.00)
--- NOTE | 2017-05-20 07:26 | RADRPT ---
PROCEDURE: US Abdomen and Retroperitoneum. CLINICAL INDICATION: Abdominal pain, enlarged liver on physical exam. TECHNIQUE: Multiple real-time images were acquired of the patient's abdomen and retroperitoneum ut ilizing a high resolution transducer. COMPARISON: None FINDINGS: The liver measures 21.6 cm and demonstrates a coarsened echogenicity. The left lobe of the liver is not well visualized. The gallbladder has been removed. The common bile duct measures 5.8 mm in ping meter. The pancreas is not well visualized. The spleen measures 22.2 cm and demonstrates a normal e chogenicity. Antegrade flow is seen in the portal vein. Right kidney measures 14.8 cm.. Left kidney measures 15.2 cm. Both kidneys demonstrate a normal ec hogenicity. 2.6 cm simple cyst is identified in the right kidney. A 9 mm nonshadowing, echogenic foc us is seen in the left renal cortex. No hydronephrosis is identified in either kidney. IMPRESSION: Diffuse fatty infiltration of an enlarged liver. Left lobe of the liver not well visualized. If characterization of this structure is needed repeat e xam or CT/MRI is recommended. Splenomegaly. Etiology is uncertain. Large bilateral kidneys. 2.6 cm simple right renal cyst. 9 mm nonshadowing echogenic focus in the left renal cortex. Finding could reflect a small angiomyol ipoma versus hyperechoic soft tissue nodule. Further characterization with CT should be considered. Pancreas not well visualized. If characterization of this structure is needed repeat exam or CT/MRI is recommended. RPTAT: AA .Warren Oliva MD, MD Date Time Electronically viewed and signed by .Warren Oliva MD, MD on 05/20/2017 07:26 .P/
[2017-05-20 07:45] LABS: ADD SCAN DIFF NO
[2017-05-20 07:53] LABS: ABNORMAL IP MESSAGE 1; HEMOGLOBIN 8.8 g/dl (14.0-18.0); MEAN CORPUSCULAR HEMOGLOBIN 33.6 pg (29.0-33.0); MEAN CORPUSCULAR HGB CONC 33.8 g/dl (32.0-37.0); MEAN CORPUSCULAR VOLUME 99.2 fl (82.0-101.0); MEAN PLATELET VOLUME 10.8 fl (7.4-10.4); PLATELET COUNT 74 10^3/UL (140-415); RED BLOOD COUNT 2.62 10^6/ul (4.70-6.10); RED CELL DISTRIBUTION WIDTH 15.3 % (11.5-14.5); WHITE BLOOD COUNT 0.8 10^3/ul (4.8-10.8)
[2017-05-20 08:11] LABS: CALCIUM 7.9 mg/dl (8.4-10.2); CREATININE 1.54 mg/dl (0.61-1.24); MAGNESIUM 1.9 mg/dl (1.7-2.5); PHOSPHORUS 3.3 mg/dl (2.5-4.9)
[2017-05-20] MEDS: INSULIN ASPART [NOVOLOG] 3 ML PEN SC SCH ×7 (09:04→20:35)
[2017-05-20] MEDS: PHENYTOIN (100 MG/4 ML) CUP PO SCH ×2 (09:06→20:21)
[2017-05-20] MEDS: INSULIN GLARGINE [LANtus] 3 ML PEN SC SCH ×2 (09:06→20:35)
--- NOTE | 2017-05-20 09:59 | CONS ---
Date/Time of Note Date/Time of Note DATE: 05/20/17 TIME: 09:55 Assessment/Plan Assessment/Plan Chief Complaint/Hosp Course 1. Severe pancytopenia, probably secondary to combination of gram-negative sepsis, hypersplenism, plus or minus bone marrow pathology like infiltrate or dysplasia. Hgb improved to 9.8 from 7.8 after 1 unit pRBC. 2. E. coli septicemia, on treatment. 3. History of diabetes, hypertension and hyperlipidemia, history of fatty infiltration of the liver with hepatosplenomegaly and hypersplenism is a possibility. 4. History of seizures, on Dilantin, drug chemotherapy-induced pancytopenia is unlikely since he has been on Dilantin for a long time. PLAN AND DISCUSSION: This patient has severe persistent pancytopenia. He also has high LDH at 954. The possibility for TTP and hemolytic uremic syndrome, unlikely. Repeat LDH 762, pending haptoglobin. Retic count inappropriately low at 9K. Most likely he will need a bone marrow if does not improve. Hep panel/HIV negative. Vitamin B12/folate WNL. Iron panel consistent with anemia of chronic disease with Fe 58, TIBC 209, %sat 28, ferritin 885. TSH 885. Epo, MMA, homocysteine, SPEP pending. RONEY and RF negative. Peripheral smear did not show obvious dysplasia or leukemic cells. - US Abdomen shows the liver measures 21.6 cm and demonstrates a coarsened echogenicity. The spleen measures 22.2 cm and demonstrates a normal echogenicity. Diffuse fatty infiltration of an enlarged liver. - Plan for bone marrow biopsy tomorrow morning, NPO after midnight. Problems: Consultation Date/Type/Reason Admit Date/Time May 16, 2017 at 20:50 Type of Consultation: Hematology 24 HR Interval Summary Free Text/Dictation Patient unhappy being in the hospital but no acute complaints. He is agreeable to bone marrow biopsy. Exam/Review of Systems Vital Signs Vitals Vital Signs Date Time Temp Pulse Resp B/P Pulse Ox O2 Delivery O2 Flow Rate FiO2 05/20/17 08:39 88 05/20/17 07:33 98.6 17 142/74 96 05/16/17 21:14 Room Air Results Result Diagram: 05/20/17 0653 05/20/17 0653 Results 24 hrs Laboratory Tests Test 05/19/17 15:14 05/19/17 17:50 05/19/17 21:28 05/20/17 06:53 Bedside Glucose 239 H 153 242 H White Blood Count 0.8 L Red Blood Count 2.62 L Hemoglobin 8.8 L Hematocrit 26.0 L Mean Corpuscular Volume 99.2 Mean Corpuscular Hemoglobin 33.6 H Mean Corpuscular Hemoglobin Concent 33.8 Red Cell Distribution Width 15.3 H Platelet Count 74 L Mean Platelet Volume 10.8 H Neutrophils % Lymphocytes % Monocytes % Eosinophils % Basophils % Neutrophils # Lymphocytes # Monocytes # Eosinophils # Basophils # Sodium Level 131 L Potassium Level 4.0 Chloride Level 102 Carbon Dioxide Level 21 Anion Gap 12 Blood Urea Nitrogen 61 H Creatinine 1.54 H Glucose Level 235 H Calcium Level 7.9 L Phosphorus Level 3.3 Magnesium Level 1.9 Test 05/20/17 08:56 Bedside Glucose 220 Medications Medications Current Medications Ondansetron HCl (Zofran Inj) 4 mg Q6H PRN IV NAUSEA AND/OR VOMITING; Start at 23:30 Acetaminophen (Tylenol Tab) 650 mg Q6H PRN PO PAIN LEVEL 1-3 OR FEVER; Start at 23:30 Acetaminophen/ Hydrocodone Bitart ([place] (5/325)) 1 tab Q6H PRN PO MODERATE PAIN LEVEL 4-6; Start 05/16/17 at 23:30 Morphine Sulfate (morphine) 2 mg Q4H PRN IV SEVERE PAIN LEVEL 7-10; Start 05/16 at 23:30 Docusate Sodium (Colace) 100 mg Q12H PRN PO CONSTIPATION; Start 05/16/17 at 23: 30 Diagnostic Test (Pha) (Accu-Chek) 1 ea 02 XX Last administered on 05/17/17 02: 00; Admin Dose 1 EA; Start 05/17/17 at 02:00 Phenytoin (Dilantin Susp Cup) 300 mg BID PO Last administered on 05/20/17 09: 06; Admin Dose 300 MG; Start 05/17/17 at 09:00 Miscellaneous Information 1 ea NOTE XX ; Start 05/16/17 at 23:45 Glucose (Glutose) 15 gm Q15M PRN PO DECREASED GLUCOSE; Start 05/16/17 at 23:45 Glucose (Glutose) 22.5 gm Q15M PRN PO DECREASED GLUCOSE; Start 05/16/17 at 23: 45 Dextrose (D50w Syringe) 25 ml Q15M PRN IV DECREASED GLUCOSE; Start 05/16/17 at 23:45 Dextrose (D50w Syringe) 50 ml Q15M PRN IV DECREASED GLUCOSE; Start 05/16/17 at 23:45 Glucagon (Glucagen) 1 mg Q15M PRN IM DECREASED GLUCOSE; Start 05/16/17 at 23:45 Glucose (Glutose) 15 gm Q15M PRN BUCCAL DECREASED GLUCOSE; Start 05/16/17 at 23 :45 Miscellaneous Information Patients own medicat... BID@10,16 XX Last administered on 05/18/17 16:00; Admin Dose 1 EA; Start 05/17/17 at 10:00 Insulin Glargine (Lantus) 15 unit BID@08,20 SC Last administered on 05/20/17 09:06; Admin Dose 15 UNIT; Start 05/17/17 at 20:00 Diltiazem HCl 90 mg 90 mg Q6 PO Last administered on 05/19/17 18:33; Admin Dose 90 MG; Start 05/19/17 at 12:00 Ceftriaxone Sodium (Rocephin) 50 ml @ 100 mls/hr Q24H IVPB Last administered on 05/19/17 15:08; Admin Dose 100 MLS/HR; Start 05/19/17 at 13:30 GENET GIRON MD May 20, 2017 09:59
[2017-05-20] MEDS ORDERED: LIDOCAINE 1% (MPF) 5 ML VIAL SC ONE (10:00)
--- NOTE | 2017-05-20 10:14 | PN ---
Date/Time of Note Date/Time of Note DATE: 05/20/17 TIME: 10:12 Assessment/Plan VTE Prophylaxis VTE Prophylaxis Intervention: ambulation Lines/Catheters IV Catheter Type (from Nrsg): [place] Lock Urinary Cath still in place: No Assessment/Plan Assessment/Plan 1. sepsis, resolving 2. bacteremia with sampson sens e coli secodnary plan rocephin for 1 week, place PICC 3. a fib with rapid resoponse, being rate controlled, VSS 4. acute on chronic renal failure, creat continues to improve 5. pancytopenia, unclear etiology, await bone marrow bx in am 6. increase activity 7.plan d/c home in am Subjective 24 Hr Interval Summary Free Text/Dictation no complaints no pain eating better, walking Exam/Review of Systems Vital Signs Vitals Vital Signs Date Time Temp Pulse Resp B/P Pulse Ox O2 Delivery O2 Flow Rate FiO2 05/20/17 08:39 88 05/20/17 07:33 98.6 17 142/74 96 05/16/17 21:14 Room Air Exam Respiratory: clear to auscultation Cardiovascular: regular rate and rhythm Gastrointestinal: non-tender, soft Results Result Diagram: 05/20/17 0653 05/20/17 0653 Results 24 hrs Laboratory Tests Test 05/19/17 15:14 05/19/17 17:50 05/19/17 21:28 05/20/17 06:53 Bedside Glucose 239 H 153 242 H White Blood Count 0.8 L Red Blood Count 2.62 L Hemoglobin 8.8 L Hematocrit 26.0 L Mean Corpuscular Volume 99.2 Mean Corpuscular Hemoglobin 33.6 H Mean Corpuscular Hemoglobin Concent 33.8 Red Cell Distribution Width 15.3 H Platelet Count 74 L Mean Platelet Volume 10.8 H Neutrophils % Lymphocytes % Monocytes % Eosinophils % Basophils % Neutrophils # Lymphocytes # Monocytes # Eosinophils # Basophils # Sodium Level 131 L Potassium Level 4.0 Chloride Level 102 Carbon Dioxide Level 21 Anion Gap 12 Blood Urea Nitrogen 61 H Creatinine 1.54 H Glucose Level 235 H Calcium Level 7.9 L Phosphorus Level 3.3 Magnesium Level 1.9 Test 05/20/17 08:56 Bedside Glucose 220 Medications Medications Current Medications Ondansetron HCl (Zofran Inj) 4 mg Q6H PRN IV NAUSEA AND/OR VOMITING; Start at 23:30 Acetaminophen (Tylenol Tab) 650 mg Q6H PRN PO PAIN LEVEL 1-3 OR FEVER; Start at 23:30 Acetaminophen/ Hydrocodone Bitart ([place] (5/325)) 1 tab Q6H PRN PO MODERATE PAIN LEVEL 4-6; Start 05/16/17 at 23:30 Morphine Sulfate (morphine) 2 mg Q4H PRN IV SEVERE PAIN LEVEL 7-10; Start 05/16 at 23:30 Docusate Sodium (Colace) 100 mg Q12H PRN PO CONSTIPATION; Start 05/16/17 at 23: 30 Diagnostic Test (Pha) (Accu-Chek) 1 ea 02 XX Last administered on 05/17/17 02: 00; Admin Dose 1 EA; Start 05/17/17 at 02:00 Phenytoin (Dilantin Susp Cup) 300 mg BID PO Last administered on 05/20/17 09: 06; Admin Dose 300 MG; Start 05/17/17 at 09:00 Miscellaneous Information 1 ea NOTE XX ; Start 05/16/17 at 23:45 Glucose (Glutose) 15 gm Q15M PRN PO DECREASED GLUCOSE; Start 05/16/17 at 23:45 Glucose (Glutose) 22.5 gm Q15M PRN PO DECREASED GLUCOSE; Start 05/16/17 at 23: 45 Dextrose (D50w Syringe) 25 ml Q15M PRN IV DECREASED GLUCOSE; Start 05/16/17 at 23:45 Dextrose (D50w Syringe) 50 ml Q15M PRN IV DECREASED GLUCOSE; Start 05/16/17 at 23:45 Glucagon (Glucagen) 1 mg Q15M PRN IM DECREASED GLUCOSE; Start 05/16/17 at 23:45 Glucose (Glutose) 15 gm Q15M PRN BUCCAL DECREASED GLUCOSE; Start 05/16/17 at 23 :45 Miscellaneous Information Patients own medicat... BID@10,16 XX Last administered on 05/18/17 16:00; Admin Dose 1 EA; Start 05/17/17 at 10:00 Insulin Glargine (Lantus) 15 unit BID@08,20 SC Last administered on 05/20/17 09:06; Admin Dose 15 UNIT; Start 05/17/17 at 20:00 Diltiazem HCl 90 mg 90 mg Q6 PO Last administered on 05/19/17 18:33; Admin Dose 90 MG; Start 05/19/17 at 12:00 Ceftriaxone Sodium (Rocephin) 50 ml @ 100 mls/hr Q24H IVPB Last administered on 05/19/17 15:08; Admin Dose 100 MLS/HR; Start 05/19/17 at 13:30 ZACK BURGOS MD May 20, 2017 10:14
[2017-05-20 10:53] LABS: NEUTROPHIL # 0.8 10^3/ul (1.6-7.5); PLATELET ESTIMATE PLT APPEAR DECREASED
[2017-05-20 12:39] LABS: CYTOMEGALOVIRUS ANTIBODY (IGG) >10.00 U/mL; CYTOMEGALOVIRUS ANTIBODY (IGM) <30.00 AU/mL
[2017-05-20] MEDS: CEFTRIAXONE 1 GM/50 ML (PMX) 50 ML IVPB SCH (12:42)
--- NOTE | 2017-05-20 13:36 | CONS ---
Date/Time of Note Date/Time of Note DATE: 05/20/17 TIME: 13:35 Assessment/Plan Assessment/Plan Chief Complaint/Hosp Course SUBJECTIVE: No events overnight. The patient is sleeping, no fevers. MICROBIOLOGY: Blood and urine cultures grew E. coli. ANTIMICROBIALS: Rocephin DIAGNOSTICS: Chest CT from 05/17 revealed no infiltrate or mass. Renal ultrasound revealed no hydronephrosis. There was a 3 cm echogenic partially ___ _ lesion in the upper portion of the left kidney of unclear etiology. Chest x- ray on admission revealed right lung base atelectasis versus airspace disease. PHYSICAL EXAMINATION: GENERAL: This is a fragile, elderly man who is in no distress. HEENT: Head atraumatic, normocephalic. Sclerae anicteric. Buccal mucosa dry. NECK: Supple. CHEST: Rise symmetrical. Breath sounds diminished to bases. HEART: S1, S2. ABDOMEN: Soft, bowel tones present. EXTREMITIES: No cyanosis. ASSESSMENT: 1. Sepsis with gram-negative nayeli bacteremia, present on admission secondary to #2. 2. Escherichia coli urinary tract infection. 3. Possible pneumonia. 4. Acute renal failure, with a questionable left kidney upper lobe lesion of uncertain etiology. 5. Severe pancytopenia and neutropenia. 6. Diabetes. 7. Hypertension. 8. History of seizure disorder, on Dilantin. Dilantin level subtherapeutic at 9.3 on admission. PLAN: The patient is clinically stable. Repeat bld cx negative, continue abx. Await for final workup, pending bone marrow biopsy. May change abx to PO Levaquin to complete treatment for urosepsis DW staff Problems: Consultation Date/Type/Reason Admit Date/Time May 16, 2017 at 20:50 Type of Consultation: id Exam/Review of Systems Vital Signs Vitals Vital Signs Date Time Temp Pulse Resp B/P Pulse Ox O2 Delivery O2 Flow Rate FiO2 05/20/17 12:22 82 05/20/17 12:15 98.4 20 130/62 96 05/16/17 21:14 Room Air Results Result Diagram: 05/20/17 0653 05/20/17 0653 Results 24 hrs Laboratory Tests Test 05/19/17 15:14 05/19/17 17:50 05/19/17 21:28 05/20/17 06:53 Bedside Glucose 239 H 153 242 H White Blood Count 0.8 L Red Blood Count 2.62 L Hemoglobin 8.8 L Hematocrit 26.0 L Mean Corpuscular Volume 99.2 Mean Corpuscular Hemoglobin 33.6 H Mean Corpuscular Hemoglobin Concent 33.8 Red Cell Distribution Width 15.3 H Platelet Count 74 L Mean Platelet Volume 10.8 H Neutrophils % 94.0 H Lymphocytes % 3.0 L Monocytes % 3.0 Eosinophils % Basophils % Neutrophils # 0.8 L Lymphocytes # 0.0 L Monocytes # 0.0 L Eosinophils # Basophils # Platelet Estimate PLT APPEAR DECREASED Sodium Level 131 L Potassium Level 4.0 Chloride Level 102 Carbon Dioxide Level 21 Anion Gap 12 Blood Urea Nitrogen 61 H Creatinine 1.54 H Glucose Level 235 H Calcium Level 7.9 L Phosphorus Level 3.3 Magnesium Level 1.9 Test 05/20/17 08:56 05/20/17 12:38 Bedside Glucose 220 129 Medications Medications Current Medications Ondansetron HCl (Zofran Inj) 4 mg Q6H PRN IV NAUSEA AND/OR VOMITING; Start at 23:30 Acetaminophen (Tylenol Tab) 650 mg Q6H PRN PO PAIN LEVEL 1-3 OR FEVER; Start at 23:30 Acetaminophen/ Hydrocodone Bitart ([place] (5/325)) 1 tab Q6H PRN PO MODERATE PAIN LEVEL 4-6; Start 05/16/17 at 23:30 Morphine Sulfate (morphine) 2 mg Q4H PRN IV SEVERE PAIN LEVEL 7-10; Start 05/16 at 23:30 Docusate Sodium (Colace) 100 mg Q12H PRN PO CONSTIPATION; Start 05/16/17 at 23: 30 Diagnostic Test (Pha) (Accu-Chek) 1 ea 02 XX Last administered on 05/17/17 02: 00; Admin Dose 1 EA; Start 05/17/17 at 02:00 Phenytoin (Dilantin Susp Cup) 300 mg BID PO Last administered on 05/20/17 09: 06; Admin Dose 300 MG; Start 05/17/17 at 09:00 Miscellaneous Information 1 ea NOTE XX ; Start 05/16/17 at 23:45 Glucose (Glutose) 15 gm Q15M PRN PO DECREASED GLUCOSE; Start 05/16/17 at 23:45 Glucose (Glutose) 22.5 gm Q15M PRN PO DECREASED GLUCOSE; Start 05/16/17 at 23: 45 Dextrose (D50w Syringe) 25 ml Q15M PRN IV DECREASED GLUCOSE; Start 05/16/17 at 23:45 Dextrose (D50w Syringe) 50 ml Q15M PRN IV DECREASED GLUCOSE; Start 05/16/17 at 23:45 Glucagon (Glucagen) 1 mg Q15M PRN IM DECREASED GLUCOSE; Start 05/16/17 at 23:45 Glucose (Glutose) 15 gm Q15M PRN BUCCAL DECREASED GLUCOSE; Start 05/16/17 at 23 :45 Miscellaneous Information Patients own medicat... BID@10,16 XX Last administered on 05/18/17 16:00; Admin Dose 1 EA; Start 05/17/17 at 10:00 Insulin Glargine (Lantus) 15 unit BID@08,20 SC Last administered on 05/20/17 09:06; Admin Dose 15 UNIT; Start 05/17/17 at 20:00 Diltiazem HCl 90 mg 90 mg Q6 PO Last administered on 05/20/17 12:41; Admin Dose 90 MG; Start 05/19/17 at 12:00 Ceftriaxone Sodium (Rocephin) 50 ml @ 100 mls/hr Q24H IVPB Last administered on 05/20/17 12:42; Admin Dose 100 MLS/HR; Start 05/19/17 at 13:30 RAGHAVENDRA GEORGE NP May 20, 2017 13:36
[2017-05-20 13:57] LABS: MICROALBUMIN 16.6 mg/dL
--- NOTE | 2017-05-20 15:35 | CONS ---
Date/Time of Note Date/Time of Note DATE: 05/20/17 TIME: 15:32 Assessment/Plan Assessment/Plan Additional Assessment/Plan Sepsis Paroxysmal atrial fibrillation/flutter, currently sinus rhythm Pancytopenia -Patient remains in sinus rhythm, will check echocardiogram. No anticoagulation at the current time given pancytopenia. Would transition to long-acting AV katina blocking agent over the next 1-2 days if heart rate remains stable. Consultation Date/Type/Reason Admit Date/Time May 16, 2017 at 20:50 Initial Consult Date Type of Consultation: cv 24 HR Interval Summary Free Text/Dictation Patient seen and examined, undergoing PICC line placement Exam/Review of Systems Vital Signs Vitals Vital Signs Date Time Temp Pulse Resp B/P Pulse Ox O2 Delivery O2 Flow Rate FiO2 05/20/17 12:22 82 05/20/17 12:15 98.4 20 130/62 96 05/16/17 21:14 Room Air Exam Sleeping, undergoing PICC line placement, no apparent distress Head: normocephalic Respiratory: other (Coarse breath sounds bilaterally, no wheezing) Cardiovascular: other (S1-S2 heard), regular rate and rhythm Gastrointestinal: bowel sounds, non-tender, soft Extremities: edema Results Result Diagram: 05/20/17 0653 05/20/17 0653 Results 24 hrs Laboratory Tests Test 05/19/17 17:50 05/19/17 21:28 05/20/17 06:53 05/20/17 08:56 Bedside Glucose 153 242 H 220 White Blood Count 0.8 L Red Blood Count 2.62 L Hemoglobin 8.8 L Hematocrit 26.0 L Mean Corpuscular Volume 99.2 Mean Corpuscular Hemoglobin 33.6 H Mean Corpuscular Hemoglobin Concent 33.8 Red Cell Distribution Width 15.3 H Platelet Count 74 L Mean Platelet Volume 10.8 H Neutrophils % 94.0 H Lymphocytes % 3.0 L Monocytes % 3.0 Eosinophils % Basophils % Neutrophils # 0.8 L Lymphocytes # 0.0 L Monocytes # 0.0 L Eosinophils # Basophils # Platelet Estimate PLT APPEAR DECREASED Sodium Level 131 L Potassium Level 4.0 Chloride Level 102 Carbon Dioxide Level 21 Anion Gap 12 Blood Urea Nitrogen 61 H Creatinine 1.54 H Glucose Level 235 H Calcium Level 7.9 L Phosphorus Level 3.3 Magnesium Level 1.9 Test 05/20/17 12:38 Bedside Glucose 129 Medications Medications Current Medications Ondansetron HCl (Zofran Inj) 4 mg Q6H PRN IV NAUSEA AND/OR VOMITING; Start at 23:30 Acetaminophen (Tylenol Tab) 650 mg Q6H PRN PO PAIN LEVEL 1-3 OR FEVER; Start at 23:30 Acetaminophen/ Hydrocodone Bitart ([place] (5/325)) 1 tab Q6H PRN PO MODERATE PAIN LEVEL 4-6; Start 05/16/17 at 23:30 Morphine Sulfate (morphine) 2 mg Q4H PRN IV SEVERE PAIN LEVEL 7-10; Start 05/16 at 23:30 Docusate Sodium (Colace) 100 mg Q12H PRN PO CONSTIPATION; Start 05/16/17 at 23: 30 Diagnostic Test (Pha) (Accu-Chek) 1 ea 02 XX Last administered on 05/17/17 02: 00; Admin Dose 1 EA; Start 05/17/17 at 02:00 Phenytoin (Dilantin Susp Cup) 300 mg BID PO Last administered on 05/20/17 09: 06; Admin Dose 300 MG; Start 05/17/17 at 09:00 Miscellaneous Information 1 ea NOTE XX ; Start 05/16/17 at 23:45 Glucose (Glutose) 15 gm Q15M PRN PO DECREASED GLUCOSE; Start 05/16/17 at 23:45 Glucose (Glutose) 22.5 gm Q15M PRN PO DECREASED GLUCOSE; Start 05/16/17 at 23: 45 Dextrose (D50w Syringe) 25 ml Q15M PRN IV DECREASED GLUCOSE; Start 05/16/17 at 23:45 Dextrose (D50w Syringe) 50 ml Q15M PRN IV DECREASED GLUCOSE; Start 05/16/17 at 23:45 Glucagon (Glucagen) 1 mg Q15M PRN IM DECREASED GLUCOSE; Start 05/16/17 at 23:45 Glucose (Glutose) 15 gm Q15M PRN BUCCAL DECREASED GLUCOSE; Start 05/16/17 at 23 :45 Miscellaneous Information Patients own medicat... BID@10,16 XX Last administered on 05/18/17 16:00; Admin Dose 1 EA; Start 05/17/17 at 10:00 Insulin Glargine (Lantus) 15 unit BID@08,20 SC Last administered on 05/20/17 09:06; Admin Dose 15 UNIT; Start 05/17/17 at 20:00 Diltiazem HCl 90 mg 90 mg Q6 PO Last administered on 05/20/17 12:41; Admin Dose 90 MG; Start 05/19/17 at 12:00 Ceftriaxone Sodium (Rocephin) 50 ml @ 100 mls/hr Q24H IVPB Last administered on 05/20/17 12:42; Admin Dose 100 MLS/HR; Start 05/19/17 at 13:30 Fahad Garcia DO May 20, 2017 15:34
--- NOTE | 2017-05-20 15:54 | PN ---
Date/Time of Note Date/Time of Note DATE: 05/20/17 TIME: 15:52 Assessment/Plan Lines/Catheters IV [facility] Sal[place] Lock Urinary Cath still in place: No Assessment/Plan Assessment/Plan 1. Nonoliguric acute kidney injury with unknown baseline creatinine. Etiology is multifactorial secondary to volume depletion. The patient's renal function continues to improve with supportive care, would continue current treatment plan. Continue to renally dose all meds, avoid nephrotoxins, 2. Hyponatremia secondary to acute kidney injury causing decreased free water urinary excretion. Continue to monitor. Continue to limit free water intake. 3. Metabolic acidosis secondary to acute kidney injury, improving. Continue to observe. 4. Anemia. Continue to monitor hemoglobin and hematocrit levels. 5. Mineral bone disorder. Continue to monitor calcium and phosphorus levels. 6. Sepsis secondary to pneumonia, urinary tract infection. Continue current antibiotic regimen. 7. Atrial fibrillation with rapid ventricular rate. Continue current medical management. Follow up with cardiology. 8. Pancytopenia, etiology unclear. Continue to monitor. Workup ongoing. Follow up with hematology. 9. Diabetes, continue Accu-Cheks and sliding scale. 10. Seizure disorder. Continue current medical management. 11. Hypertension. Blood pressure is currently improved. Will discontinue IV fluids Subjective 24 Hr Interval Summary Free Text/Dictation he patient is stable, no acute events overnight. No hemoptysis, hematemesis or hematochezia Exam/Review of Systems Vital Signs Vitals Vital Signs Date Time Temp Pulse Resp B/P Pulse Ox O2 Delivery O2 Flow Rate FiO2 05/20/17 12:22 82 05/20/17 12:15 98.4 20 130/62 96 05/16/17 21:14 Room Air Exam VITAL SIGNS: Blood pressure is 140/80, respirations 24, pulse 111, temperature is 98.6. HEENT: Head is normocephalic. NECK: Supple. HEART: Regular rate. LUNGS: Show diminished breath sounds at the base. ABDOMEN: Soft, nontender to palpation. No rebound or guarding. EXTREMITIES: Negative for clubbing, cyanosis. Positive edema +1. DERMATOLOGIC: No rashes. MUSCULOSKELETAL: No joint effusions. NEUROLOGIC: No change in exam. Results Result Diagram: 05/20/17 0653 05/20/17 0653 Results 24 hrs Laboratory Tests Test 05/19/17 17:50 05/19/17 21:28 05/20/17 06:53 05/20/17 08:56 Bedside Glucose 153 242 H 220 White Blood Count 0.8 L Red Blood Count 2.62 L Hemoglobin 8.8 L Hematocrit 26.0 L Mean Corpuscular Volume 99.2 Mean Corpuscular Hemoglobin 33.6 H Mean Corpuscular Hemoglobin Concent 33.8 Red Cell Distribution Width 15.3 H Platelet Count 74 L Mean Platelet Volume 10.8 H Neutrophils % 94.0 H Lymphocytes % 3.0 L Monocytes % 3.0 Eosinophils % Basophils % Neutrophils # 0.8 L Lymphocytes # 0.0 L Monocytes # 0.0 L Eosinophils # Basophils # Platelet Estimate PLT APPEAR DECREASED Sodium Level 131 L Potassium Level 4.0 Chloride Level 102 Carbon Dioxide Level 21 Anion Gap 12 Blood Urea Nitrogen 61 H Creatinine 1.54 H Glucose Level 235 H Calcium Level 7.9 L Phosphorus Level 3.3 Magnesium Level 1.9 Test 05/20/17 12:38 Bedside Glucose 129 Medications Medications Current Medications Ondansetron HCl (Zofran Inj) 4 mg Q6H PRN IV NAUSEA AND/OR VOMITING; Start at 23:30 Acetaminophen (Tylenol Tab) 650 mg Q6H PRN PO PAIN LEVEL 1-3 OR FEVER; Start at 23:30 Acetaminophen/ Hydrocodone Bitart ([place] (5/325)) 1 tab Q6H PRN PO MODERATE PAIN LEVEL 4-6; Start 05/16/17 at 23:30 Morphine Sulfate (morphine) 2 mg Q4H PRN IV SEVERE PAIN LEVEL 7-10; Start 05/16 at 23:30 Docusate Sodium (Colace) 100 mg Q12H PRN PO CONSTIPATION; Start 05/16/17 at 23: 30 Diagnostic Test (Pha) (Accu-Chek) 1 ea 02 XX Last administered on 05/17/17 02: 00; Admin Dose 1 EA; Start 05/17/17 at 02:00 Phenytoin (Dilantin Susp Cup) 300 mg BID PO Last administered on 05/20/17 09: 06; Admin Dose 300 MG; Start 05/17/17 at 09:00 Miscellaneous Information 1 ea NOTE XX ; Start 05/16/17 at 23:45 Glucose (Glutose) 15 gm Q15M PRN PO DECREASED GLUCOSE; Start 05/16/17 at 23:45 Glucose (Glutose) 22.5 gm Q15M PRN PO DECREASED GLUCOSE; Start 05/16/17 at 23: 45 Dextrose (D50w Syringe) 25 ml Q15M PRN IV DECREASED GLUCOSE; Start 05/16/17 at 23:45 Dextrose (D50w Syringe) 50 ml Q15M PRN IV DECREASED GLUCOSE; Start 05/16/17 at 23:45 Glucagon (Glucagen) 1 mg Q15M PRN IM DECREASED GLUCOSE; Start 05/16/17 at 23:45 Glucose (Glutose) 15 gm Q15M PRN BUCCAL DECREASED GLUCOSE; Start 05/16/17 at 23 :45 Miscellaneous Information Patients own medicat... BID@10,16 XX Last administered on 05/18/17 16:00; Admin Dose 1 EA; Start 05/17/17 at 10:00 Insulin Glargine (Lantus) 15 unit BID@08,20 SC Last administered on 05/20/17 09:06; Admin Dose 15 UNIT; Start 05/17/17 at 20:00 Diltiazem HCl 90 mg 90 mg Q6 PO Last administered on 05/20/17 12:41; Admin Dose 90 MG; Start 05/19/17 at 12:00 Ceftriaxone Sodium (Rocephin) 50 ml @ 100 mls/hr Q24H IVPB Last administered on 05/20/17 12:42; Admin Dose 100 MLS/HR; Start 05/19/17 at 13:30 TRENTON ROMERO DO May 20, 2017 15:54
--- NOTE | 2017-05-20 16:19 | RADRPT ---
PROCEDURE: Ultrasound guidance for placement of needle in left upper extremity vein. CLINICAL INDICATION: Venous access. TECHNIQUE: Limited sonography of the left upper extremity was performed. Ultrasound images were recorded and s tored in the patient's medical record. COMPARISON: None. FINDINGS: The ultrasound images demonstrate a patent left upper extremity vein. The PICC line was inserted by the PICC line nurse. IMPRESSION: 1. Ultrasound guidance for a needle placement in a left upper extremity vein. 2. The left upper extremity vein is patent. RPTAT: QQ .Azar Jasso MD, MD Date Time Electronically viewed and signed by .Azar Jasso MD, MD on 05/20/2017 16:19 .R/
--- NOTE | 2017-05-20 16:20 | RADRPT ---
PROCEDURE: XR Chest. CLINICAL INDICATION: PICC line placement TECHNIQUE: Single AP view of the chest were obtained COMPARISON: None FINDINGS: There is a left-sided PICC line catheter and the tip overlies the superior cavoatrial junction. The heart is borderline enlarged. The pulmonary vasculature are unremarkable. The aorta demonstrates a therosclerotic calcifications. There are low lung volumes with mild bibasilar atelectasis present. The upper lungs are clear. Trace effusions cannot be excluded. There is no pneumothorax. Degener ative changes are seen within the thoracic spine. There is no acute osseous abnormality. IMPRESSION: Placement of a left PICC line catheter and the tip overlies superior cavoatrial junction. Mild cardiomegaly. Bibasilar atelectasis is present. Trace effusions cannot be excluded. RPTAT: AA .Ricki Bonilla MD, MD Date Time Electronically viewed and signed by .Ricki Bonilla MD, MD on 05/20/2017 16:20 .[place]/
--- NOTE | 2017-05-20 17:51 | RADRPT ---
Echocardiogram Report Patient Name: JOSSE MUÑIZ Gender: Male Date: 1950 Study Date: 19-May-2017 Material Requirements Planning Manager: Luba Greenberg [facility] Location: 520 Ref. Physician: WHIT SCHMITT Quality: Adequate Procedures: Transthoracic echocardiogram with complete 2D, M-Mode, and doppler examination. Indications: new onset Atrial Fibrillation w/RVR. 2D/M Mode Doppler Measurement Value Normal Ranges Measurement Value Normal Ranges LVIDd 2D 3.2 3.5 - 5.6 cm AV Peak Jay 1.2 m/sec LVIDs 2D 1.2 2.1 - 4.1 cm AV Peak PG 6.0 mmHg FS 2D 62.3 % LVOT Peak Jay 1.0 m/sec LVPWd 2D 0.9 0.6 - 1.1 cm LVOT Peak PG 4.0 mmHg IVSd 2D 1.0 0.6 - 1.1 cm TR Peak Jay 2.8 m/sec IVS/LVPW 2D 1.1 TR Peak PG 31.0 mmHg AoR Diam 2D 3.5 2.0 - 3.7 cm RVSP 39.0 mmHg LA/Ao 2D 1 0 - 1 EDV 2D 32.2 cm3 ESV 2D 1.7 cm3 LA Dimen 2D 3.3 2.3 - 4.0 cm Findings Left Ventricle: Normal left ventricular systolic function. Normal left ventricular cavity size. Normal left ventricular wall thickness. Ejection fraction is visually estimated at 55 %. Abnormal Diastolic Function. Right Ventricle: Normal right ventricular size. Normal right ventricular systolic function. Left Atrium: The left atrium is normal in size. Right Atrium: The right atrium is normal in size. Mitral Valve: Mitral valve leaflets appear mildly thickened. Mild mitral annular calcification. Trace mitral regurgitation. Aortic Valve: No significant aortic stenosis or insufficiency. Aortic cusps appear mildly calcified. Tricuspid Valve: Normal appearance of the tricuspid valve. Estimated peak PA systolic pressure 39 mmHg. There is mild tricuspid regurgitation. Pulmonic Valve: Normal pulmonic valve appearance. Pericardium: Normal pericardium with no significant pericardial effusion. Aorta: Normal aortic root. IVC: Dilated IVC with respiratory collapse consistent with elevated right atrial pressure. Conclusions Normal left ventricular systolic function. Normal left ventricular cavity size. Normal left ventricular wall thickness. Ejection fraction is visually estimated at 55 %. Abnormal Diastolic Function. Normal right ventricular size. Normal right ventricular systolic function. The left atrium is normal in size. The right atrium is normal in size. Estimated peak PA systolic pressure 39 mmHg. There is mild tricuspid regurgitation. No significant valvular stenosis or regurgitation seen of remaining visualized valves. Normal pericardium with no significant pericardial effusion. Electronically Signed By: Fahad Garcia 20-May-2017 17:49:58 -0700 Patient Name: JOSSE MUÑIZ Study Date: 19-May-2017 [id number]
[2017-05-20 23:15] LABS: ALBUMIN 1.8 g/dL (3.8-4.8)
[2017-05-21] VITALS (16 sets, daily range): BP systolic 136–196; BP diastolic 66–87; PULSE 79–90; RESP 18–26
[2017-05-21] MEDS: DILTIAZEM 90 MG TAB PO SCH ×3 (00:28→12:30)
[2017-05-21] MEDS: ACCU-CHEK XX SCH (02:00)
[2017-05-21] MEDS: INSULIN ASPART [NOVOLOG] 3 ML PEN SC SCH ×4 (07:55→12:37)
[2017-05-21 07:58] LABS: ADD SCAN DIFF NO
[2017-05-21 08:03] LABS: ABNORMAL IP MESSAGE 1; HEMATOCRIT 23.5 % (42.0-52.0); HEMOGLOBIN 7.7 g/dl (14.0-18.0); MEAN CORPUSCULAR HEMOGLOBIN 32.4 pg (29.0-33.0); MEAN CORPUSCULAR HGB CONC 32.8 g/dl (32.0-37.0); MEAN CORPUSCULAR VOLUME 98.7 fl (82.0-101.0); MEAN PLATELET VOLUME 10.9 fl (7.4-10.4); PLATELET COUNT 88 10^3/UL (140-415); RED BLOOD COUNT 2.38 10^6/ul (4.70-6.10); RED CELL DISTRIBUTION WIDTH 14.7 % (11.5-14.5); WHITE BLOOD COUNT 0.7 10^3/ul (4.8-10.8)
[2017-05-21 08:24] LABS: INR 1.23; PROTIME 15.6 Sec (12.2-14.2); PT RATIO 1.2
[2017-05-21 08:25] LABS: PARTIAL THROMBOPLASTIN TIME 32.9 Sec (25.0-35.0)
[2017-05-21 08:41] LABS: CALCIUM 7.7 mg/dl (8.4-10.2); CREATININE 1.26 mg/dl (0.61-1.24); MAGNESIUM 1.7 mg/dl (1.7-2.5); PHOSPHORUS 3.1 mg/dl (2.5-4.9); POTASSIUM 3.5 mmol/L (3.5-5.1)
[2017-05-21] MEDS: INSULIN GLARGINE [LANtus] 3 ML PEN SC SCH (08:49)
[2017-05-21] MEDS: PHENYTOIN (100 MG/4 ML) CUP PO SCH (08:56)
[2017-05-21] MEDS ORDERED: FENTAnyl 50 MCG/ML VIAL ONE (09:07)
[2017-05-21] MEDS ORDERED: LIDOCAINE 1% (MDV) 20 ML INJ ONE (09:07)
[2017-05-21] MEDS ORDERED: MIDAZOLAM 1 MG/ML 2 ML INJ ONE (09:08)
[2017-05-21] MEDS ORDERED: SOD CHLORIDE 0.9% 500 ML ONE (09:08)
--- NOTE | 2017-05-21 09:44 | PN ---
Date/Time of Note Date/Time of Note DATE: 05/21/17 TIME: 09:42 Assessment/Plan Lines/Catheters IV C[facility]ter Type (from [facility]): PICC Line Urinary Cath still in place: No Assessment/Plan Chief Complaint/Hosp Course 1. Nonoliguric acute kidney injury with unknown baseline creatinine. - Etiology is multifactorial secondary to hemodynamic/volume depletion -The patient's renal function continues to improve with supportive care, would continue current treatment plan. - Continue to renally dose all meds, avoid nephrotoxins, 2. Hyponatremia secondary to acute kidney injury causing decreased free water urinary excretion.Hyperglycemia. Continue to monitor. Continue to limit free water intake. 3. Metabolic acidosis secondary to acute kidney injury, improved 4. Anemia. Continue to monitor hemoglobin and hematocrit levels. 5. Mineral bone disorder. Continue to monitor calcium and phosphorus levels. 6. Sepsis secondary to pneumonia, urinary tract infection. Continue current antibiotic regimen. 7. Atrial fibrillation with rapid ventricular rate. Continue current medical management. Follow up with cardiology. 8. Pancytopenia, etiology unclear. Continue to monitor. Workup ongoing. Follow up with hematology. 9. Diabetes, continue Accu-Cheks and sliding scale. 10. Seizure disorder. Continue current medical management. 11. Hypertension. Blood pressure is currently improved. Will discontinue IV fluids Problems: Exam/Review of Systems Vital Signs Vitals Vital Signs Date Time Temp Pulse Resp B/P Pulse Ox O2 Delivery O2 Flow Rate FiO2 05/21/17 08:28 82 05/21/17 08:10 98.4 18 140/66 97 Intake and Output 05/20/17 05/20/17 05/21/17 15:00 23:00 07:00 Intake Total 850 ml 800 ml 800 ml Balance 850 ml 800 ml 800 ml Results Result Diagram: 05/21/17 0654 05/21/17 0651 Results 24 hrs Laboratory Tests Test 05/20/17 12:38 05/20/17 17:34 05/20/17 20:24 05/21/17 06:51 Bedside Glucose 129 214 176 Sodium Level 131 L Potassium Level 3.5 Chloride Level 104 Carbon Dioxide Level 21 Anion Gap 10 Blood Urea Nitrogen 49 #H Creatinine 1.26 H Glucose Level 227 H Calcium Level 7.7 L Phosphorus Level 3.1 Magnesium Level 1.7 Test 05/21/17 06:54 05/21/17 08:04 05/21/17 08:57 05/21/17 09:09 White Blood Count 0.7 L Red Blood Count 2.38 L Hemoglobin 7.7 L Hematocrit 23.5 L Mean Corpuscular Volume 98.7 Mean Corpuscular Hemoglobin 32.4 Mean Corpuscular Hemoglobin Concent 32.8 Red Cell Distribution Width 14.7 H Platelet Count 88 L Mean Platelet Volume 10.9 H Neutrophils % Lymphocytes % Monocytes % Eosinophils % Basophils % Neutrophils # Lymphocytes # Monocytes # Eosinophils # Basophils # Prothrombin Time 15.6 H Prothrombin Time Ratio 1.2 INR International Normalized Ratio 1.23 Activated Partial Thromboplast Time 32.9 Bedside Glucose 238 H Lab Scanned Report REFERENCE LAB REFERENCE LAB Medications Medications Current Medications Ondansetron HCl (Zofran Inj) 4 mg Q6H PRN IV NAUSEA AND/OR VOMITING; Start at 23:30 Acetaminophen (Tylenol Tab) 650 mg Q6H PRN PO PAIN LEVEL 1-3 OR FEVER; Start at 23:30 Acetaminophen/ Hydrocodone Bitart ([place] (5/325)) 1 tab Q6H PRN PO MODERATE PAIN LEVEL 4-6; Start 05/16/17 at 23:30 Morphine Sulfate (morphine) 2 mg Q4H PRN IV SEVERE PAIN LEVEL 7-10; Start 05/16 at 23:30 Docusate Sodium (Colace) 100 mg Q12H PRN PO CONSTIPATION; Start 05/16/17 at 23: 30 Diagnostic Test (Pha) (Accu-Chek) 1 ea 02 XX Last administered on 05/17/17 02: 00; Admin Dose 1 EA; Start 05/17/17 at 02:00 Phenytoin (Dilantin Susp Cup) 300 mg BID PO Last administered on 05/21/17 08: 56; Admin Dose 300 MG; Start 05/17/17 at 09:00 Miscellaneous Information 1 ea NOTE XX ; Start 05/16/17 at 23:45 Glucose (Glutose) 15 gm Q15M PRN PO DECREASED GLUCOSE; Start 05/16/17 at 23:45 Glucose (Glutose) 22.5 gm Q15M PRN PO DECREASED GLUCOSE; Start 05/16/17 at 23: 45 Dextrose (D50w Syringe) 25 ml Q15M PRN IV DECREASED GLUCOSE; Start 05/16/17 at 23:45 Dextrose (D50w Syringe) 50 ml Q15M PRN IV DECREASED GLUCOSE; Start 05/16/17 at 23:45 Glucagon (Glucagen) 1 mg Q15M PRN IM DECREASED GLUCOSE; Start 05/16/17 at 23:45 Glucose (Glutose) 15 gm Q15M PRN BUCCAL DECREASED GLUCOSE; Start 05/16/17 at 23 :45 Miscellaneous Information Patients own medicat... BID@10,16 XX Last administered on 05/18/17 16:00; Admin Dose 1 EA; Start 05/17/17 at 10:00 Insulin Glargine (Lantus) 15 unit BID@08,20 SC Last administered on 05/21/17 08:49; Admin Dose 15 UNIT; Start 05/17/17 at 20:00 Diltiazem HCl 90 mg 90 mg Q6 PO Last administered on 05/21/17 05:51; Admin Dose 90 MG; Start 05/19/17 at 12:00 Ceftriaxone Sodium (Rocephin) 50 ml @ 100 mls/hr Q24H IVPB Last administered on 05/20/17 12:42; Admin Dose 100 MLS/HR; Start 05/19/17 at 13:30 IV Flush (NS 10 ml) 10 ml PRN PRN IV FLUSH LINE; Start 05/20/17 at 16:30 TRENTON ROMERO DO May 21, 2017 09:44
[2017-05-21 09:52] LABS: LYMPHOCYTES # 0.2 10^3/ul (0.8-2.9); NEUTROPHIL # 0.3 10^3/ul (1.6-7.5); PLATELET ESTIMATE PLT APPEAR DECREASED; TOXIC GRANULATION 1+
--- NOTE | 2017-05-21 10:03 | CONS ---
Date/Time of Note Date/Time of Note DATE: 05/21/17 TIME: 10:01 Assessment/Plan Assessment/Plan Chief Complaint/Hosp Course 1. Severe pancytopenia, probably secondary to combination of gram-negative sepsis, hypersplenism, plus or minus bone marrow pathology like infiltrate or dysplasia. Hgb improved to 9.8 from 7.8 after 1 unit pRBC. 2. E. coli septicemia, on treatment. 3. History of diabetes, hypertension and hyperlipidemia, history of fatty infiltration of the liver with hepatosplenomegaly and hypersplenism is a possibility. 4. History of seizures, on Dilantin, drug chemotherapy-induced pancytopenia is unlikely since he has been on Dilantin for a long time. PLAN AND DISCUSSION: This patient has severe persistent pancytopenia. He also has high LDH at 954. The possibility for TTP and hemolytic uremic syndrome, unlikely. Repeat LDH 762, pending haptoglobin. Retic count inappropriately low at 9K. Most likely he will need a bone marrow if does not improve. Hep panel/HIV negative. Vitamin B12/folate WNL. Iron panel consistent with anemia of chronic disease with Fe 58, TIBC 209, %sat 28, ferritin 885. TSH 885. Epo, MMA pending, homocysteine elevated at 27, SPEP consistent with acute inflammatory pattern. RONEY and RF negative. Peripheral smear did not show obvious dysplasia or leukemic cells. - US Abdomen shows the liver measures 21.6 cm and demonstrates a coarsened echogenicity. The spleen measures 22.2 cm and demonstrates a normal echogenicity. Diffuse fatty infiltration of an enlarged liver. - Plan for bone marrow biopsy this morning - Will give 2 units pRBCs given Hgb 7.7 - Patient can follow up with me upon discharge. Problems: Consultation Date/Type/Reason Admit Date/Time May 16, 2017 at 20:50 Type of Consultation: Hematology 24 HR Interval Summary Free Text/Dictation Patient undergoing bone marrow biopsy. Exam/Review of Systems Vital Signs Vitals Vital Signs Date Time Temp Pulse Resp B/P Pulse Ox O2 Delivery O2 Flow Rate FiO2 05/21/17 08:28 82 05/21/17 08:10 98.4 18 140/66 97 Intake and Output 05/20/17 05/20/17 05/21/17 15:00 23:00 07:00 Intake Total 850 ml 800 ml 800 ml Balance 850 ml 800 ml 800 ml Results Result Diagram: 05/21/17 0654 05/21/17 0651 Results 24 hrs Laboratory Tests Test 05/20/17 12:38 05/20/17 17:34 05/20/17 20:24 05/21/17 06:51 Bedside Glucose 129 214 176 Sodium Level 131 L Potassium Level 3.5 Chloride Level 104 Carbon Dioxide Level 21 Anion Gap 10 Blood Urea Nitrogen 49 #H Creatinine 1.26 H Glucose Level 227 H Calcium Level 7.7 L Phosphorus Level 3.1 Magnesium Level 1.7 Test 05/21/17 06:54 05/21/17 08:04 05/21/17 08:57 05/21/17 09:09 White Blood Count 0.7 L Red Blood Count 2.38 L Hemoglobin 7.7 L Hematocrit 23.5 L Mean Corpuscular Volume 98.7 Mean Corpuscular Hemoglobin 32.4 Mean Corpuscular Hemoglobin Concent 32.8 Red Cell Distribution Width 14.7 H Platelet Count 88 L Mean Platelet Volume 10.9 H Neutrophils % 49.0 Band Neutrophils % 10.0 H Lymphocytes % 35.0 Monocytes % Eosinophils % 4.0 Basophils % 2.0 Neutrophils # 0.3 L Lymphocytes # 0.2 L Monocytes # Eosinophils # 0.0 Basophils # 0.0 Toxic Granulation 1+ Platelet Estimate PLT APPEAR DECREASED Prothrombin Time 15.6 H Prothrombin Time Ratio 1.2 INR International Normalized Ratio 1.23 Activated Partial Thromboplast Time 32.9 Bedside Glucose 238 H Lab Scanned Report REFERENCE LAB REFERENCE LAB Medications Medications Current Medications Ondansetron HCl (Zofran Inj) 4 mg Q6H PRN IV NAUSEA AND/OR VOMITING; Start at 23:30 Acetaminophen (Tylenol Tab) 650 mg Q6H PRN PO PAIN LEVEL 1-3 OR FEVER; Start at 23:30 Acetaminophen/ Hydrocodone Bitart ([place] (5/325)) 1 tab Q6H PRN PO MODERATE PAIN LEVEL 4-6; Start 05/16/17 at 23:30 Morphine Sulfate (morphine) 2 mg Q4H PRN IV SEVERE PAIN LEVEL 7-10; Start 05/16 at 23:30 Docusate Sodium (Colace) 100 mg Q12H PRN PO CONSTIPATION; Start 05/16/17 at 23: 30 Diagnostic Test (Pha) (Accu-Chek) XX Last administered on 05/17/17 02: 00; Admin Dose 1 EA; Start 05/17/17 at 02:00 Phenytoin (Dilantin Susp Cup) 300 mg BID PO Last administered on 05/21/17 08: 56; Admin Dose 300 MG; Start 05/17/17 at 09:00 Miscellaneous Information 1 ea NOTE XX ; Start 05/16/17 at 23:45 Glucose (Glutose) 15 gm Q15M PRN PO DECREASED GLUCOSE; Start 05/16/17 at 23:45 Glucose (Glutose) 22.5 gm Q15M PRN PO DECREASED GLUCOSE; Start 05/16/17 at 23: 45 Dextrose (D50w Syringe) 25 ml Q15M PRN IV DECREASED GLUCOSE; Start 05/16/17 at 23:45 Dextrose (D50w Syringe) 50 ml Q15M PRN IV DECREASED GLUCOSE; Start 05/16/17 at 23:45 Glucagon (Glucagen) 1 mg Q15M PRN IM DECREASED GLUCOSE; Start 05/16/17 at 23:45 Glucose (Glutose) 15 gm Q15M PRN BUCCAL DECREASED GLUCOSE; Start 05/16/17 at 23 :45 Miscellaneous Information Patients own medicat... BID@10,16 XX Last administered on 05/18/17 16:00; Admin Dose 1 EA; Start 05/17/17 at 10:00 Insulin Glargine (Lantus) 15 unit BID@08,20 SC Last administered on 05/21/17 08:49; Admin Dose 15 UNIT; Start 05/17/17 at 20:00 Diltiazem HCl 90 mg 90 mg Q6 PO Last administered on 05/21/17 05:51; Admin Dose 90 MG; Start 05/19/17 at 12:00 Ceftriaxone Sodium (Rocephin) 50 ml @ 100 mls/hr Q24H IVPB Last administered on 05/20/17 12:42; Admin Dose 100 MLS/HR; Start 05/19/17 at 13:30 IV Flush (NS 10 ml) 10 ml PRN PRN IV FLUSH LINE; Start 05/20/17 at 16:30 GENET GIRON MD May 21, 2017 10:03
[2017-05-21] MEDS: CEFTRIAXONE 1 GM/50 ML (PMX) 50 ML IVPB SCH (12:30)
--- NOTE | 2017-05-21 13:08 | CONS ---
Date/Time of Note Date/Time of Note DATE: 05/21/17 TIME: 13:07 Assessment/Plan Assessment/Plan Chief Complaint/Hosp Course SUBJECTIVE: No events overnight, no fevers. MICROBIOLOGY: Blood and urine cultures grew E. coli. ANTIMICROBIALS: Rocephin DIAGNOSTICS: Chest CT from 05/17 revealed no infiltrate or mass. Renal ultrasound revealed no hydronephrosis. There was a 3 cm echogenic partially ___ _ lesion in the upper portion of the left kidney of unclear etiology. Chest x- ray on admission revealed right lung base atelectasis versus airspace disease. PHYSICAL EXAMINATION: GENERAL: This is a fragile, elderly man who is in no distress. HEENT: Head atraumatic, normocephalic. Sclerae anicteric. Buccal mucosa dry. NECK: Supple. CHEST: Rise symmetrical. Breath sounds diminished to bases. HEART: S1, S2. ABDOMEN: Soft, bowel tones present. EXTREMITIES: No cyanosis. ASSESSMENT: 1. S/p sepsis with gram-negative nayeli bacteremia, present on admission secondary to #2. 2. Escherichia coli urinary tract infection. 3. Possible pneumonia. 4. Acute renal failure, with a questionable left kidney upper lobe lesion of uncertain etiology. 5. Severe pancytopenia and neutropenia. 6. Diabetes. 7. Hypertension. 8. History of seizure disorder, on Dilantin. Dilantin level subtherapeutic at 9.3 on admission. PLAN: The patient stable. Repeat bld cx negative, continue abx to complete 2 weeks treatment, may change to oral Levaquin. Await for final workup, pending bone marrow biopsy. DW staff Problems: Consultation Date/Type/Reason Admit Date/Time May 16, 2017 at 20:50 Type of Consultation: Infectious disease Exam/Review of Systems Vital Signs Vitals Vital Signs Date Time Temp Pulse Resp B/P Pulse Ox O2 Delivery O2 Flow Rate FiO2 05/21/17 12:18 79 05/21/17 11:10 97.9 18 136/68 100 Intake and Output 05/20/17 05/20/17 05/21/17 15:00 23:00 07:00 Intake Total 850 ml 800 ml 800 ml Balance 850 ml 800 ml 800 ml Results Result Diagram: 05/21/17 0654 05/21/17 0651 Results 24 hrs Laboratory Tests Test 05/20/17 17:34 05/20/17 20:24 05/21/17 06:51 05/21/17 06:54 Bedside Glucose 214 176 Sodium Level 131 L Potassium Level 3.5 Chloride Level 104 Carbon Dioxide Level 21 Anion Gap 10 Blood Urea Nitrogen 49 #H Creatinine 1.26 H Glucose Level 227 H Calcium Level 7.7 L Phosphorus Level 3.1 Magnesium Level 1.7 White Blood Count 0.7 L Red Blood Count 2.38 L Hemoglobin 7.7 L Hematocrit 23.5 L Mean Corpuscular Volume 98.7 Mean Corpuscular Hemoglobin 32.4 Mean Corpuscular Hemoglobin Concent 32.8 Red Cell Distribution Width 14.7 H Platelet Count 88 L Mean Platelet Volume 10.9 H Neutrophils % 49.0 Band Neutrophils % 10.0 H Lymphocytes % 35.0 Monocytes % Eosinophils % 4.0 Basophils % 2.0 Neutrophils # 0.3 L Lymphocytes # 0.2 L Monocytes # Eosinophils # 0.0 Basophils # 0.0 Toxic Granulation 1+ Platelet Estimate PLT APPEAR DECREASED Prothrombin Time 15.6 H Prothrombin Time Ratio 1.2 INR International Normalized Ratio 1.23 Activated Partial Thromboplast Time 32.9 Test 05/21/17 08:04 05/21/17 08:57 05/21/17 09:09 05/21/17 12:26 Bedside Glucose 238 H 147 Lab Scanned Report REFERENCE LAB REFERENCE LAB Medications Medications Current Medications Ondansetron HCl (Zofran Inj) 4 mg Q6H PRN IV NAUSEA AND/OR VOMITING; Start at 23:30 Acetaminophen (Tylenol Tab) 650 mg Q6H PRN PO PAIN LEVEL 1-3 OR FEVER; Start at 23:30 Acetaminophen/ Hydrocodone Bitart ([place] (5/325)) 1 tab Q6H PRN PO MODERATE PAIN LEVEL 4-6; Start 05/16/17 at 23:30 Morphine Sulfate (morphine) 2 mg Q4H PRN IV SEVERE PAIN LEVEL 7-10; Start 05/16 at 23:30 Docusate Sodium (Colace) 100 mg Q12H PRN PO CONSTIPATION; Start 05/16/17 at 23: 30 Diagnostic Test (Pha) (Accu-Chek) 1 ea 02 XX Last administered on 05/17/17t 02: 00; Admin Dose 1 EA; Start 05/17/17 at 02:00 Phenytoin (Dilantin Susp Cup) 300 mg BID PO Last administered on 05/21/17 08: 56; Admin Dose 300 MG; Start 05/17/17 at 09:00 Miscellaneous Information 1 ea NOTE XX ; Start 05/16/17 at 23:45 Glucose (Glutose) 15 gm Q15M PRN PO DECREASED GLUCOSE; Start 05/16/17 at 23:45 Glucose (Glutose) 22.5 gm Q15M PRN PO DECREASED GLUCOSE; Start 05/16/17 at 23: 45 Dextrose (D50w Syringe) 25 ml Q15M PRN IV DECREASED GLUCOSE; Start 05/16/17 at 23:45 Dextrose (D50w Syringe) 50 ml Q15M PRN IV DECREASED GLUCOSE; Start 05/16/17 at 23:45 Glucagon (Glucagen) 1 mg Q15M PRN IM DECREASED GLUCOSE; Start 05/16/17 at 23:45 Glucose (Glutose) 15 gm Q15M PRN BUCCAL DECREASED GLUCOSE; Start 05/16/17 at 23 :45 Miscellaneous Information Patients own medicat... BID@10,16 XX Last administered on 05/18/17 16:00; Admin Dose 1 EA; Start 05/17/17 at 10:00 Insulin Glargine (Lantus) 15 unit BID@08,20 SC Last administered on 05/21/17 08:49; Admin Dose 15 UNIT; Start 05/17/17 at 20:00 Diltiazem HCl 90 mg 90 mg Q6 PO Last administered on 05/21/17 12:30; Admin Dose 90 MG; Start 05/19/17 at 12:00 Ceftriaxone Sodium (Rocephin) 50 ml @ 100 mls/hr Q24H IVPB Last administered on 05/21/17 12:30; Admin Dose 100 MLS/HR; Start 05/19/17 at 13:30 IV Flush (NS 10 ml) 10 ml PRN PRN IV FLUSH LINE; Start 05/20/17 at 16:30 RAGHAVENDRA GEORGE NP May 21, 2017 13:08
--- NOTE | 2017-05-21 13:46 | PN ---
Date/Time of Note Date/Time of Note DATE: 05/21/17 TIME: 13:44 Assessment/Plan VTE Prophylaxis VTE Prophylaxis Intervention: contraindicated Lines/Catheters IV Catheter Type (from Nrsg): PICC Line Central line still needed: Yes (iv abx) Urinary Cath still in place: No Assessment/Plan Assessment/Plan 1. sepsis, resolving, complete abx with rocephin vis home health x7 days 2. bacteremia with sampson sens e coli secodnary plan rocephin for 1 week, place PICC 3. a fib with rapid resoponse, being rate controlled, VSS, no anticoagulation in light of thrombocytopenia 4. acute on chronic renal failure, creat stable 5. pancytopenia, unclear etiology, await bone marrow bx results next week, follow up with dr gale 6. increase activity 7.d/c home as patient refuses transfusion Subjective 24 Hr Interval Summary Free Text/Dictation no complaints, very inasistent on going home declined transfusion Exam/Review of Systems Vital Signs Vitals Vital Signs Date Time Temp Pulse Resp B/P Pulse Ox O2 Delivery O2 Flow Rate FiO2 05/21/17 12:18 79 05/21/17 11:10 97.9 18 136/68 100 Intake and Output 05/20/17 05/20/17 05/21/17 15:00 23:00 07:00 Intake Total 850 ml 800 ml 800 ml Balance 850 ml 800 ml 800 ml Exam Psych: no complaints Respiratory: clear to auscultation Cardiovascular: regular rate and rhythm Gastrointestinal: non-tender, soft Results Result Diagram: 05/21/17 0654 05/21/17 0651 Results 24 hrs Laboratory Tests Test 05/20/17 17:34 05/20/17 20:24 05/21/17 06:51 05/21/17 06:54 Bedside Glucose 214 176 Sodium Level 131 L Potassium Level 3.5 Chloride Level 104 Carbon Dioxide Level 21 Anion Gap 10 Blood Urea Nitrogen 49 #H Creatinine 1.26 H Glucose Level 227 H Calcium Level 7.7 L Phosphorus Level 3.1 Magnesium Level 1.7 White Blood Count 0.7 L Red Blood Count 2.38 L Hemoglobin 7.7 L Hematocrit 23.5 L Mean Corpuscular Volume 98.7 Mean Corpuscular Hemoglobin 32.4 Mean Corpuscular Hemoglobin Concent 32.8 Red Cell Distribution Width 14.7 H Platelet Count 88 L Mean Platelet Volume 10.9 H Neutrophils % 49.0 Band Neutrophils % 10.0 H Lymphocytes % 35.0 Monocytes % Eosinophils % 4.0 Basophils % 2.0 Neutrophils # 0.3 L Lymphocytes # 0.2 L Monocytes # Eosinophils # 0.0 Basophils # 0.0 Toxic Granulation 1+ Platelet Estimate PLT APPEAR DECREASED Prothrombin Time 15.6 H Prothrombin Time Ratio 1.2 INR International Normalized Ratio 1.23 Activated Partial Thromboplast Time 32.9 Test 05/21/17 08:04 05/21/17 08:57 05/21/17 09:09 05/21/17 12:26 Bedside Glucose 238 H 147 Lab Scanned Report REFERENCE LAB REFERENCE LAB Medications Medications Current Medications Ondansetron HCl (Zofran Inj) 4 mg Q6H PRN IV NAUSEA AND/OR VOMITING; Start at 23:30 Acetaminophen (Tylenol Tab) 650 mg Q6H PRN PO PAIN LEVEL 1-3 OR FEVER; Start at 23:30 Acetaminophen/ Hydrocodone Bitart ([place] (5/325)) 1 tab Q6H PRN PO MODERATE PAIN LEVEL 4-6; Start 05/16/17 at 23:30 Morphine Sulfate (morphine) 2 mg Q4H PRN IV SEVERE PAIN LEVEL 7-10; Start 05/16 at 23:30 Docusate Sodium (Colace) 100 mg Q12H PRN PO CONSTIPATION; Start 05/16/17 at 23: 30 Diagnostic Test (Pha) (Accu-Chek) 1 ea 02 XX Last administered on 05/17/17 02: 00; Admin Dose 1 EA; Start 05/17/17 at 02:00 Phenytoin (Dilantin Susp Cup) 300 mg BID PO Last administered on 05/21/17 08: 56; Admin Dose 300 MG; Start 05/17/17 at 09:00 Miscellaneous Information 1 ea NOTE XX ; Start 05/16/17 at 23:45 Glucose (Glutose) 15 gm Q15M PRN PO DECREASED GLUCOSE; Start 05/16/17 at 23:45 Glucose (Glutose) 22.5 gm Q15M PRN PO DECREASED GLUCOSE; Start 05/16/17 at 23: 45 Dextrose (D50w Syringe) 25 ml Q15M PRN IV DECREASED GLUCOSE; Start 05/16/17 at 23:45 Dextrose (D50w Syringe) 50 ml Q15M PRN IV DECREASED GLUCOSE; Start 05/16/17 at 23:45 Glucagon (Glucagen) 1 mg Q15M PRN IM DECREASED GLUCOSE; Start 05/16/17 at 23:45 Glucose (Glutose) 15 gm Q15M PRN BUCCAL DECREASED GLUCOSE; Start 05/16/17 at 23 :45 Miscellaneous Information Patients own medicat... BID@10,16 XX Last administered on 05/18/17 16:00; Admin Dose 1 EA; Start 05/17/17 at 10:00 Insulin Glargine (Lantus) 15 unit BID@08,20 SC Last administered on 05/21/17 08:49; Admin Dose 15 UNIT; Start 05/17/17 at 20:00 Diltiazem HCl 90 mg 90 mg Q6 PO Last administered on 05/21/17 12:30; Admin Dose 90 MG; Start 05/19/17 at 12:00 Ceftriaxone Sodium (Rocephin) 50 ml @ 100 mls/hr Q24H IVPB Last administered on 05/21/17 12:30; Admin Dose 100 MLS/HR; Start 05/19/17 at 13:30 IV Flush (NS 10 ml) 10 ml PRN PRN IV FLUSH LINE; Start 05/20/17 at 16:30 ZACK BURGOS MD May 21, 2017 13:46
--- NOTE | 2017-05-21 13:47 | PDOCDIS ---
Discharge Instructions CONDITION Patient Condition: Fair HOME CARE INSTRUCTIONS: Diet Instructions: avoid soft cheeses, avoid eating raw foodsSpecial Diet: Carb Controlled ACTIVITY: Activity Restrictions: Slowly Increase Activity FOLLOW UP/APPOINTMENTS Follow-up Plan 1. dr to next week 2. home health ZACK BURGOS MD May 21, 2017 13:47
[2017-05-21] MEDS ORDERED: DILT360T PO (13:49)
--- NOTE | 2017-05-21 13:55 | DS ---
Date/Time of Note Date/Time of Note DATE: 05/21/17 TIME: 13:50 Discharge Summary Admission/Discharge Info Admit Date/Time May 16, 2017 at 20:50 Discharge Date/Time may 21, 2017 Discharge Diagnosis 1. e coli bactermia and sepsis secondary to urinary source 2. paroxysmal atrial fibvrillation, rate controlled, no anticoagulation in light of thrombocytopenia 3. pancytopenia, s/p bone marrow biopsy, results pending 4. dm Patient Condition: Good Consults 1. lizzette gale md- heme 2. colton celestin md - cards Hospital Course patient adfmitted with fever and generalized weaknes, found to have uti, blood and urine cultures later showed sampson-sensitive e coli. Patient will be treated with 10 days ogf IV rocephin for this. patient was noted to have pancytopenia and neutorpenia at time of evaluation. He has had a bone marrow biopsy on the day of discharge and is instructed to follow up the results with dr gale. he is recommended to have a blood transfusion prior to discharge but refuses. the etiology of the pancytopenia is not known; however, dr gale does NOT believe that it is related to his chronic phenytoin therapy. Home Meds Active Scripts Diltiazem Hcl* (Cardizem LA*) 360 Mg Tab.sr.24h, 360 MG PO DAILY for 30 Days, # 30 TAB.SA Prov:ZACK BURGOS MD 05/21/17 Reported Medications Empagliflozin (Jardiance) 10 Mg Tablet, 10 MG PO, TAB 05/16/17 Lisinopril/Hydrochlorothiazide (Lisinopril-Hctz 20-25 mg Tab) 1 Each Tablet, 1 EACH PO, TAB 05/16/17 Diltiazem Hcl* (Diltiazem XT) 120 Mg Capsule.sa, 120 MG PO DAILY, #30 CAP 05/16/17 Atorvastatin Calcium* (Atorvastatin Calcium*) 20 Mg Tablet, 20 MG PO DAILY, #30 TAB 05/16/17 Metformin* (Glucophage*) 500 Mg Tab, 500 MG PO WITH BREAKFAST, #30 TAB 05/16/17 Phenytoin* (Phenytoin*) 125 Mg/5 Ml Oral.susp, 300 MG PO BID for 30 Days, BOTTLE 05/16/17 Follow-up Plan 1. dr gale 1 week 2. home health Primary Care Provider Care Physician No Primary Time spent on discharge: > 30 minutes Pending Labs Laboratory Tests Test 05/20/17 17:34 05/20/17 20:24 05/21/17 06:51 05/21/17 06:54 Bedside Glucose 214mg/dL (70-220) 176mg/dL (70-220) Sodium Level 131mmol/L (135-144) Potassium Level 3.5mmol/L (3.5-5.1) Chloride Level 104mmol/L (97-110) Carbon Dioxide Level 21mmol/L (21-31) Anion Gap 10 (8-16) Blood Urea Nitrogen 49mg/dl (7-20) Creatinine 1.26mg/dl (0.61-1.24) Glucose Level 227mg/dl (70-220) Calcium Level 7.7mg/dl (8.4-10.2) Phosphorus Level 3.1mg/dl (2.5-4.9) Magnesium Level 1.7mg/dl (1.7-2.5) White Blood Count 0.710^3/ul (4.8-10.8) Red Blood Count 2.3810^6/ul (4.70-6.10) Hemoglobin 7.7g/dl (14.0-18.0) Hematocrit 23.5% (42.0-52.0) Mean Corpuscular Volume 98.7fl (82.0-101.0) Mean Corpuscular Hemoglobin 32.4pg (29.0-33.0) Mean Corpuscular Hemoglobin Concent 32.8g/dl (32.0-37.0) Red Cell Distribution Width 14.7% (11.5-14.5) Platelet Count 8810^3/UL (140-415) Mean Platelet Volume 10.9fl (7.4-10.4) Neutrophils % 49.0% (39.0-77.0) Band Neutrophils % 10.0% (0.0-5.0) Lymphocytes % 35.0% (15.0-51.0) Monocytes % % (0.0-11.0) Eosinophils % 4.0% (0.0-7.0) Basophils % 2.0% (0.0-2.0) Neutrophils # 0.310^3/ul (1.6-7.5) Lymphocytes # 0.210^3/ul (0.8-2.9) Monocytes # 10^3/ul (0.3-0.9) Eosinophils # 0.010^3/ul (0.0-0.5) Basophils # 0.010^3/ul (0.0-0.1) Toxic Granulation 1+ Platelet Estimate PLT APPEAR DECREASED Prothrombin Time 15.6Sec (12.2-14.2) Prothrombin Time Ratio 1.2 INR International Normalized Ratio 1.23 Activated Partial Thromboplast Time 32.9Sec (25.0-35.0) Test 05/21/17 08:04 05/21/17 08:57 05/21/17 09:09 05/21/17 12:26 Bedside Glucose 238mg/dL (70-220) 147mg/dL (70-220) Lab Scanned Report REFERENCE [id number] REFERENCE [id number] ZACK BURGOS MD May 21, 2017 13:55
--- NOTE | 2017-05-21 14:14 | RADRPT ---
PROCEDURE: CT guided bone marrow aspiration and left iliac bone biopsy. CLINICAL INDICATION: History of pancytopenia. TECHNIQUE: Informed consent was obtained. The procedure, risks, benefits, complications and alternatives were e xplained to the patient. Risks including bleeding and infection were explained. The patient understo od and was willing to proceed. A procedural pause was performed. The patient's name, date of , and procedure to be performed were verified. One or more of the following dose reduction techni ques were used: Automated exposure control, adjustment of the mA and/or kV according to patient size , use of iterative reconstruction technique. Using local anesthetic, sterile technique and CT guidance, an 11-gauge On Control bone biopsy needle was advanced into the left iliac bone via a posterior approach. Bone marrow aspiration was perform ed yielding approximately 7 ml. The bone biopsy needle was then advanced an additional 4 cm using t [employer] power drill device and tissue was obtained. Adequate tissue was obtained according to the pathol ogist present during the procedure. The needle was removed. A postprocedural scan was performed. A dressing was applied. The patient tolerated procedure well. COMPARISON: None. FINDINGS: Initial images demonstrate the tip of the needle at the posterior margin of the left iliac bone. Akins bsequent images demonstrate the needle within the bone. Post biopsy images demonstrate no immediate complication. IMPRESSION: 1. Successful CT guided bone marrow aspiration and biopsy. RPTAT: QQ .Azar Jasso MD, Date Time Electronically viewed and signed by .Azar Jasso MD, MD on 05/21/2017 14:14 .R/
== END 2017-05-21 15:44 | disposition home health service (06) | DRG 853 ==
LOC: E/R 14:26 → TEL 20:50
PROVIDERS: ADMIT Internal Medicine; ATTEND Internal Medicine
PROC: 02HV33Z Insertion of Infusion Device into Superior Vena Cava, Percutaneous Approach (ICD-10-PCS; 2017-05-20)
PROC: B548ZZA Ultrasonography of Superior Vena Cava, Guidance (ICD-10-PCS; 2017-05-20)
PROC: 0QB33ZX Excision of Left Pelvic Bone, Percutaneous Approach, Diagnostic (ICD-10-PCS; principal; 2017-05-21)
DX: A41.51 Sepsis due to Escherichia coli [E. coli] (principal); J18.9 Pneumonia, unspecified organism; N17.9 Acute kidney failure, unspecified; D61.818 Other pancytopenia; E87.2 Acidosis; I48.0 Paroxysmal atrial fibrillation; E11.22 Type 2 diabetes mellitus with diabetic chronic kidney disease; N39.0 Urinary tract infection, site not specified; E86.0 Dehydration; E11.65 Type 2 diabetes mellitus with hyperglycemia; E78.5 Hyperlipidemia, unspecified; Z90.49 Acquired absence of other specified parts of digestive tract; G40.909 Epilepsy, unspecified, not intractable, without status epilepticus; M89.9 Disorder of bone, unspecified; E83.89 Other disorders of mineral metabolism; N18.9 Chronic kidney disease, unspecified; I12.9 Hypertensive chronic kidney disease with stage 1 through stage 4 chronic kidney disease, or unspecified chronic kidney disease
CPT/HCPCS: 36415; 36430; 36569; 71010; 71250; 76700; 76775; 76937; 77012; 80048; 80053; 80061; 80185; 81001; 81003; 82043; 82607; 82668; 82728; 82746; 82962; 83010; 83036; 83090; 83540; 83605; 83615; 83625; 83690; 83735; 83921; 84100; 84155; 84165; 84300; 84443; 84484; 85025; 85045; 85610; 85730; 86038; 86360; 86430; 86617; 86644; 86664; 86703; 86704; 86709; 86803; 86850; 86900; 86901; 86920; 87040; 87086; 87340; 87497; 88305; 88313; 93005; 93306; 96365; 96375; J0610; J0696; J1815; J2250; J2543; J3010; J3370; J7030; J7040; P9016

== ENCOUNTER 2017-06-23 09:51 | Inpatient (IN) | payer BC ==
[~2017-06-23] VITALS: Ht 177.8 cm; Wt 100.9 kg
[~2017-06-23 09:51] MED LIST: ATOR20TA38 PO; DILT360T PO; EMPA10TA PO; LISI1TAB8 PO; METF500T4 PO; PHEN125O2 PO
[2017-06-23 10:30] VITALS: BP 146/65; PULSE 86; RESP 20
[2017-06-23] MEDS ORDERED: LISI20TA11 PO (10:41)
[2017-06-23] MEDS ORDERED: HYD25 PO (10:41)
[2017-06-23] MEDS ORDERED: EMPA10TA PO (10:41)
[2017-06-23] MEDS ORDERED: DULO30CA47 PO (10:41)
[2017-06-23] MEDS ORDERED: PHEN300C4 PO (10:41)
[2017-06-23] MEDS ORDERED: ATOR10TA65 PO (10:41)
[2017-06-23] MEDS ORDERED: DILT120C PO (10:41)
[2017-06-23] MEDS ORDERED: ONDANSETRON 4 MG INJ IV PRN (11:30)
[2017-06-23] MEDS ORDERED: ZOLPIDEM 5 MG TAB PO PRN (11:30)
[2017-06-23] MEDS ORDERED: GLUCAGON 1 MG INJ IM PRN (11:30)
[2017-06-23] MEDS ORDERED: ACETAMINOPHEN 325 MG TAB PO PRN (11:30)
[2017-06-23] MEDS ORDERED: morphine 4 MG/ML VIAL IV PRN (11:30)
[2017-06-23] MEDS ORDERED: DEXTROSE 50% 50 ML SYRINGE IV PRN ×2 (11:30)
[2017-06-23] MEDS ORDERED: GLUCOSE GEL 15 GRAM TUBE PO PRN ×2 (11:30)
[2017-06-23] MEDS ORDERED: HYDROCODONE/APAP (5/325) TAB PO PRN (11:30)
[2017-06-23] MEDS ORDERED: GLUCOSE GEL 15 GRAM TUBE BUCCAL PRN (11:30)
[2017-06-23] MEDS ORDERED: MAGNESIUM HYDROXIDE 30ML CUP PO PRN (11:30)
[2017-06-23] MEDS ORDERED: BISACODYL 10 MG SUPP PR PRN (11:30)
[2017-06-23] MEDS ORDERED: DOCUSATE SODIUM 100 MG CAP PO PRN (11:30)
[2017-06-23 11:40] VITALS: Ht 177.8 cm; Wt 100.9 kg
--- NOTE | 2017-06-23 11:47 | HP ---
Date/Time of Note Date/Time of Note DATE: 06/23/17 TIME: 11:35 Assessment/Plan VTE Prophylaxis VTE Prophylaxis Intervention: contraindicated VTE Contraindication Reason: thrombocytopenia Lines/Catheters IV Catheter Type (from Nrsg): PICC Line (Left upper extremity) Central line still needed: Yes (Chemotherapy) Assessment/Plan Assessment/Plan 66-year-old male with: 1. 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 Labs pending today with a blood product transfusion as needed Chemotherapy initiation per hematology Dr. Concepcion 2. Paroxysmal atrial fibrillation: Continue current medications, patient not a candidate for anticoagulation unless admission due to severe thrombocytopenia. 3. Hypertension: Continue current medications as tolerated, will hold off hydrochlorothiazide to avoid dehydration while getting chemotherapy 4. Diabetes mellitus: Continue outpatient medications as well as not interfering with chemotherapeutic drug, sliding scale insulin ordered, Accu- Cheks q. before meals and at bedtime. A1c was 8.1 on 05/17/17. 5. Seizure disorder: Continue phenytoin Prophylaxis: Labs pending but given previous severe thrombocytopenia SCDs contraindicated for DVT prophylaxis, Pepcid ordered for GI prophylaxis Disposition: Initiation of chemotherapy. HPI/ROS Admit Date/Time Admit Date/Time Jun 23, 2017 at 09:52 Hx of Present Illness Chief complaint: Scheduled inpatient chemotherapy History of presenting illness: This is a 66-year-old male with history of paroxysmal atrial fibrillation, diabetes mellitus, seizure disorder, recent admission for E. coli urinary tract infection and bacteremia, status post IV antibiotic treatment, recent diagnosis of hairy cell leukemia in setting of severe thrombocytopenia on last admission who was sent over today by Dr. Concepcion for initiation of chemotherapy Patient reports generalized weakness but otherwise no fevers, chills, cough, nausea, vomiting, diarrhea, dysuria, urinary frequency or hematuria. He has a left upper extremity PICC line still in place. He is to initiate chemotherapy on this admission. ROS Constitutional: other (Generalized weakness), weight change (Lost 30 pounds) Eyes: no complaints ENT: no complaints Respiratory: no complaints Cardiovascular: no complaints Gastrointestinal: no complaints Genitourinary: no complaints Musculoskeletal: no complaints Skin: no complaints Neurologic: no complaints Endocrine: no complaints Psychological: no complaints Immunologic: no complaints PMH/Family/Social Past Medical History Paroxysmal atrial fibrillation Diabetes mellitus Hypertension Seizure disorder diagnosed 10 years ago, no recent seizures. Pancytopenia with new diagnosis of hairy cell leukemia. Status post E. coli UTI and bacteremia, patient already completed his antibiotic treatment earlier this month. Medical History: diabetes, hypertension Past Surgical History Status post cholecystectomy remotely Status post bladder mass removal remotely Social History Alcohol Use: none Smoking Status: Never smoker Drug Use: marijuana (Occasional use) Exam/Review of Systems Vital Signs Vitals Vital Signs Date Time Temp Pulse Resp B/P Pulse Ox O2 Delivery O2 Flow Rate FiO2 06/23/17 10:30 97.3 86 20 146/65 100 Room Air Exam Constitutional: alert, oriented, other (Pale), well developed Eyes: other (Pale conjunctiva) ENMT: nl external ears & nose, nl lips & teeth Neck: supple Respiratory: clear to auscultation, normal air movement Cardiovascular: nl pulses, other (In sinus rhythm currently), regular rate and rhythm Gastrointestinal: non-tender, soft Musculoskeletal: nl extremities to inspection Extremities: normal pulses, other (No edema, clubbing or cyanosis) 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, nl mental status, nl speech, other ( Generalized weakness) Medications Medications Home medications: See medication reconciliation on admission Current Medications Atorvastatin Calcium (Lipitor) 20 mg QHS PO ; Start 06/23/17 at 21:00 Diltiazem HCl (Cardizem Cd) 120 mg DAILY PO ; Start 06/24/17 at 09:00 Duloxetine HCl (Cymbalta) 30 mg DAILY PO ; Start 06/24/17 at 09:00 Lisinopril (Zestril) 20 mg DAILY PO ; Start 06/24/17 at 09:00 Phenytoin (Dilantin) 300 mg BID PO ; Start 06/23/17 at 21:00 Diagnostic Test (Pha) (Accu-Chek) 1 ea 02 XX ; Start 06/24/17 at 02:00 Miscellaneous Information 1 ea NOTE XX ; Start 06/23/17 at 11:30 Glucose (Glutose) 15 gm Q15M PRN PO DECREASED GLUCOSE; Start 06/23/17 at 11:30 Glucose (Glutose) 22.5 gm Q15M PRN PO DECREASED GLUCOSE; Start 06/23/17 at 11: 30 Dextrose (D50w Syringe) 25 ml Q15M PRN IV DECREASED GLUCOSE; Start 06/23/17 at 11:30 Dextrose (D50w Syringe) 50 ml Q15M PRN IV DECREASED GLUCOSE; Start 06/23/17 at 11:30 Glucagon (Glucagen) 1 mg Q15M PRN IM DECREASED GLUCOSE; Start 06/23/17 at 11:30 Glucose (Glutose) 15 gm Q15M PRN BUCCAL DECREASED GLUCOSE; Start 06/23/17 at 11 :30 Ondansetron HCl (Zofran Inj) 4 mg Q6H PRN IV NAUSEA AND/OR VOMITING; Start at 11:30; Status UNV Acetaminophen (Tylenol Tab) 650 mg Q6H PRN PO PAIN LEVEL 1-3 OR FEVER; Start at 11:30; Status UNV Acetaminophen/ Hydrocodone Bitart ([place] (5/325)) 1 tab Q6H PRN PO MODERATE PAIN LEVEL 4-6; Start 06/23/17 at 11:30; Status UNV Morphine Sulfate (morphine) 2 mg Q4H PRN IV SEVERE PAIN LEVEL 7-10; Start 06/23 at 11:30 Docusate Sodium (Colace) 100 mg Q12H PRN PO CONSTIPATION; Start 06/23/17 at 11: 30; Status UNV Magnesium Hydroxide (Milk Of Mag) 30 ml DAILY PRN PO CONSTIPATION; Start at 11:30; Status UNV Bisacodyl (Dulcolax Supp) 10 mg DAILY PRN ID CONSTIPATION; Start 06/23/17 at 11 :30; Status UNV Zolpidem Tartrate (Ambien) 5 mg QHS PRN PO SLEEP; Start 06/23/17 at 11:30; Status UNV Famotidine (Pepcid) 20 mg Q12 PO ; Start 06/23/17 at 21:00; Status UNV ANGELICA DUEÑAS Jun 23, 2017 11:46
[2017-06-23 11:56] LABS: WHITE BLOOD COUNT 0.9 10^3/ul (4.8-10.8)
[2017-06-23 11:57] LABS: ABNORMAL IP MESSAGE 1; HEMATOCRIT 19.2 % (42.0-52.0); MEAN CORPUSCULAR HEMOGLOBIN 33.7 pg (29.0-33.0); MEAN CORPUSCULAR HGB CONC 33.9 g/dl (32.0-37.0); MEAN CORPUSCULAR VOLUME 99.5 fl (82.0-101.0); MEAN PLATELET VOLUME 10.2 fl (7.4-10.4); PLATELET COUNT 103 10^3/UL (140-415); POSITIVE DIFF @See below; RED BLOOD COUNT 1.93 10^6/ul (4.70-6.10)
[2017-06-23 12:01] LABS: HEMOGLOBIN 6.5 g/dl (14.0-18.0)
[2017-06-23 12:22] LABS: ALBUMIN 3.3 g/dl (3.3-4.9); ALBUMIN/GLOBULIN RATIO 0.89; BILIRUBIN,INDIRECT 0.1 mg/dl (0-1.1); BILIRUBIN,TOTAL 0.1 mg/dl (0.2-1.3); CREATININE 1.22 mg/dl (0.61-1.24); POTASSIUM 4.6 mmol/L (3.5-5.1)
[2017-06-23 12:24] LABS: MAGNESIUM 2.1 mg/dl (1.7-2.5); PHOSPHORUS 3.9 mg/dl (2.5-4.9)
[2017-06-23] MEDS: INSULIN ASPART [NOVOLOG] 3 ML PEN SC SCH ×3 (13:03→20:42)
[2017-06-23 13:12] LABS: ANISOCYTOSIS 1+ (0-0); EOSINOPHILS % (M) 1 % (0-7); GIANT THROMBO% (M) 4 % (0-0); MICROCYTOSIS 1+ (0-0); MONOCYTES % (M) 1 % (0-11); PLATELET ESTIMATE DECREASED; POIKILOCYTOSIS 1+ (0-0); POLYCHROMASIA 3+ (0-0)
[2017-06-23 14:28] VITALS: BP 145/68; RESP 18
[2017-06-23 20:00] VITALS: BP 122/65; RESP 19
[2017-06-23 20:05] VITALS: BP 126/66; PULSE 75; RESP 18
[2017-06-23] MEDS: ATORVASTATIN 20 MG TAB PO SCH (20:36)
[2017-06-23] MEDS: FAMOTIDINE 20 MG TAB PO SCH (20:37)
[2017-06-23] MEDS: PHENYTOIN 100 MG CAP PO SCH (20:37)
[2017-06-24] VITALS (15 sets, daily range): BP systolic 112–148; BP diastolic 59–72; PULSE 76–84; RESP 16–20
[2017-06-24] MEDS: ACCU-CHEK XX SCH (02:00)
[2017-06-24] MEDS: SOD CHLORIDE 0.9% 1,000 ML IV SCH ×3 (02:07→21:24)
[2017-06-24] MEDS: ONDANSETRON INJ 16 MG in SOD CHLORIDE 0.9% 50 ML IVPB SCH ×2 (02:10→23:00)
[2017-06-24] MEDS: SOD CHLORIDE 0.9% IV SCH (03:16)
[2017-06-24] MEDS: CLADRIBINE IV SCH (03:16)
[2017-06-24 05:15] LABS: ABNORMAL IP MESSAGE 1; HEMATOCRIT 21.2 % (42.0-52.0); HEMOGLOBIN 7.1 g/dl (14.0-18.0); MEAN CORPUSCULAR HEMOGLOBIN 32.3 pg (29.0-33.0); MEAN CORPUSCULAR HGB CONC 33.5 g/dl (32.0-37.0); MEAN CORPUSCULAR VOLUME 96.4 fl (82.0-101.0); MEAN PLATELET VOLUME 10.4 fl (7.4-10.4); PLATELET COUNT 92 10^3/UL (140-415); POSITIVE DIFF @See below; WHITE BLOOD COUNT 0.8 10^3/ul (4.8-10.8)
[2017-06-24 05:39] LABS: ALBUMIN 3.1 g/dl (3.3-4.9); ALBUMIN/GLOBULIN RATIO 0.83; BILIRUBIN,INDIRECT 0.3 mg/dl (0-1.1); BILIRUBIN,TOTAL 0.3 mg/dl (0.2-1.3); CALCIUM 8.6 mg/dl (8.4-10.2); CREATININE 1.28 mg/dl (0.61-1.24); POTASSIUM 4.7 mmol/L (3.5-5.1); TOTAL PROTEIN 6.8 g/dl (6.1-8.1)
[2017-06-24 05:41] LABS: PHOSPHORUS 3.9 mg/dl (2.5-4.9)
[2017-06-24] MEDS: INSULIN ASPART [NOVOLOG] 3 ML PEN SC SCH ×4 (07:50→21:00)
[2017-06-24] MEDS: DULOXETINE 30 MG CAP DR PO SCH (08:22)
[2017-06-24] MEDS: FAMOTIDINE 20 MG TAB PO SCH ×2 (08:23→20:35)
[2017-06-24] MEDS: LISINOPRIL 20 MG TAB PO SCH (08:24)
[2017-06-24] MEDS: PHENYTOIN 100 MG CAP PO SCH ×2 (08:30→20:34)
[2017-06-24] MEDS: DILTIAZEM (CD) 120 MG CAP PO SCH (08:31)
[2017-06-24 09:29] LABS: ANISOCYTOSIS 1+ (0-0); ERYTHROBLAST% (NRBC) (M) 3 % (0-0); GIANT THROMBO% (M) 10 % (0-0); MICROCYTOSIS 1+ (0-0); MONOCYTES % (M) 10 % (0-11); PLATELET ESTIMATE DECREASED; POIKILOCYTOSIS 1+ (0-0); POLYCHROMASIA 3+ (0-0)
--- NOTE | 2017-06-24 10:50 | PN ---
Date/Time of Note Date/Time of Note DATE: 06/24/17 TIME: 10:35 Assessment/Plan VTE Prophylaxis VTE Prophylaxis Intervention: SCD's Lines/Catheters IV Catheter Type (from Nrsg): PICC Line Central line still needed: Yes (For chemotherapy) Urinary Cath still in place: No Assessment/Plan Assessment/Plan 66-year-old male with: 1. 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 Status post 2 units of packed red blood cells for hemoglobin of 6.5 Patient also noted to be neutropenic, ANC 280 and with thrombocytopenia as expected. Chemotherapy initiation per hematology Dr. Concepcion 2. Paroxysmal atrial fibrillation: Continue current medications, patient not a candidate for anticoagulation unless admission due to severe thrombocytopenia. 3. Hypertension: Continue current medications as tolerated. 4. Diabetes mellitus: Continue outpatient medications as well as not interfering with chemotherapeutic drug, sliding scale insulin ordered, Accu- Cheks q. before meals and at bedtime. A1c was 8.1 on 05/17/17. 5. Seizure disorder: Continue phenytoin 6. Mild acute kidney injury versus chronic kidney disease: Hold off hydrochlorothiazide, monitor renal function through chemotherapy. Prophylaxis: SCDs for DVT prophylaxis, Pepcid ordered for GI prophylaxis Disposition: Initiation of chemotherapy and blood products as needed. Subjective 24 Hr Interval Summary Free Text/Dictation Patient initiated chemotherapy, he is doing well, he only complains of generalized weakness which has been ongoing. No nausea or vomiting. Counts still low, no fevers or chills Exam/Review of Systems Vital Signs Vitals Vital Signs Date Time Temp Pulse Resp B/P Pulse Ox O2 Delivery O2 Flow Rate FiO2 06/24/17 08:16 97.9 76 16 139/69 99 Room Air Intake and Output 06/23/17 06/23/17 06/24/17 15:00 23:00 07:00 Intake Total 1010 ml 1249.6 ml Output Total 550 ml Balance 1010 ml 699.6 ml Exam Constitutional: alert, oriented, well developed Respiratory: clear to auscultation, normal air movement Cardiovascular: nl pulses, regular rate and rhythm Gastrointestinal: non-tender, soft Musculoskeletal: nl extremities to inspection Extremities: normal pulses, other (No edema, clubbing or cyanosis) Neurological: TURNER MACHINE II-XII intact, nl mental status, nl speech, nl strength Results Result Diagram: 06/24/17 0435 06/24/17 0435 Results 24 hrs Laboratory Tests Test 06/23/17 11:32 06/23/17 12:43 06/23/17 17:30 06/23/17 20:39 White Blood Count 0.9 #L Red Blood Count 1.93 L Hemoglobin 6.5 *L Hematocrit 19.2 L Mean Corpuscular Volume 99.5 Mean Corpuscular Hemoglobin 33.7 H Mean Corpuscular Hemoglobin Concent 33.9 Red Cell Distribution Width 16.0 H Platelet Count 103 L Mean Platelet Volume 10.2 Neutrophils % Segmented Neutrophils % (Manual) 24 L Band Neutrophils % (Manual) 4 Lymphocytes % Lymphocytes % (Manual) 70 H Monocytes % Monocytes % (Manual) 1 Eosinophils % Eosinophils % (Manual) 1 Basophils % Nucleated Red Blood Cells % 0.0 Neutrophils # Neutrophils # (Manual) 0.2 L Band Neutrophils # 0.0 Absolute Lymphocytes (Manual) 0.6 L Lymphocytes # Monocytes # Absolute Monocytes (Manual) 0.0 L Eosinophils # Basophils # Nucleated Red Blood Cells # Smudge Cells % 4 H Thrombocytosis 4 H Platelet Estimate DECREASED Polychromasia 3+ Poikilocytosis 1+ Anisocytosis 1+ Microcytosis 1+ Sodium Level 143 Potassium Level 4.6 Chloride Level 106 Carbon Dioxide Level 22 Anion Gap 20 H Blood Urea Nitrogen 28 H Creatinine 1.22 Glucose Level 149 Uric Acid 8.7 H Calcium Level 9.0 Phosphorus Level 3.9 Magnesium Level 2.1 Total Bilirubin 0.1 L Direct Bilirubin 0.00 Indirect Bilirubin 0.1 Aspartate Amino Transf (AST/SGOT) 31 Alanine Aminotransferase (ALT/SGPT) 81 H Alkaline Phosphatase 119 Total Protein 7.0 Albumin 3.3 Globulin 3.70 H Albumin/Globulin Ratio 0.89 Bedside Glucose 135 137 142 Test 06/24/17 04:35 06/24/17 04:36 06/24/17 05:53 06/24/17 08:19 White Blood Count 0.8 L Red Blood Count 2.20 L Hemoglobin 7.1 L Hematocrit 21.2 L Mean Corpuscular Volume 96.4 Mean Corpuscular Hemoglobin 32.3 Mean Corpuscular Hemoglobin Concent 33.5 Red Cell Distribution Width 18.0 H Platelet Count 92 L Mean Platelet Volume 10.4 Neutrophils % Segmented Neutrophils % (Manual) 28 L Band Neutrophils % (Manual) 7 H Lymphocytes % Lymphocytes % (Manual) 55 H Monocytes % Monocytes % (Manual) 10 Eosinophils % Basophils % Nucleated Red Blood Cells % 3 H Neutrophils # Neutrophils # (Manual) 0.2 L Band Neutrophils # 0.0 Absolute Lymphocytes (Manual) 0.4 L Lymphocytes # Monocytes # Absolute Monocytes (Manual) 0.0 L Eosinophils # Basophils # Smudge Cells % 41 H Thrombocytosis 10 H Platelet Estimate DECREASED Polychromasia 3+ Poikilocytosis 1+ Anisocytosis 1+ Microcytosis 1+ Sodium Level 143 Potassium Level 4.7 Chloride Level 106 Carbon Dioxide Level 24 Anion Gap 18 H Blood Urea Nitrogen 25 H Creatinine 1.28 H Glucose Level 131 Calcium Level 8.6 Total Bilirubin 0.3 Direct Bilirubin 0.00 Indirect Bilirubin 0.3 Aspartate Amino Transf (AST/SGOT) 31 Alanine Aminotransferase (ALT/SGPT) 73 H Alkaline Phosphatase 112 Total Protein 6.8 Albumin 3.1 L Globulin 3.70 H Albumin/Globulin Ratio 0.83 Phosphorus Level 3.9 Magnesium Level 2.0 Lab Scanned Report BLOOD TRANSFUSION Bedside Glucose 156 Medications Medications Current Medications Atorvastatin Calcium (Lipitor) 20 mg QHS PO ; Start 06/23/17 at 21:00 Diltiazem HCl (Cardizem Cd) 120 mg DAILY PO Last administered on 06/24/17 08:31 ; Admin Dose 120 MG; Start 06/24/17 at 09:00 Duloxetine HCl (Cymbalta) 30 mg DAILY PO Last administered on 06/24/17 08:22; Admin Dose 30 MG; Start 06/24/17 at 09:00 Lisinopril (Zestril) 20 mg DAILY PO Last administered on 06/24/17 08:24; Admin Dose 20 MG; Start 06/24/17 at 09:00 Phenytoin (Dilantin) 300 mg BID PO Last administered on 06/24/17 08:30; Admin Dose 300 MG; Start 06/23/17 at 21:00 Diagnostic Test (Pha) (Accu-Chek) 1 ea 02 XX ; Start 06/24/17 at 02:00 Miscellaneous Information 1 ea NOTE XX ; Start 06/23/17 at 11:30 Glucose (Glutose) 15 gm Q15M PRN PO DECREASED GLUCOSE; Start 06/23/17 at 11:30 Glucose (Glutose) 22.5 gm Q15M PRN PO DECREASED GLUCOSE; Start 06/23/17 at 11: 30 Dextrose (D50w Syringe) 25 ml Q15M PRN IV DECREASED GLUCOSE; Start 06/23/17 at 11:30 Dextrose (D50w Syringe) 50 ml Q15M PRN IV DECREASED GLUCOSE; Start 06/23/17 at 11:30 Glucagon (Glucagen) 1 mg Q15M PRN IM DECREASED GLUCOSE; Start 06/23/17 at 11:30 Glucose (Glutose) 15 gm Q15M PRN BUCCAL DECREASED GLUCOSE; Start 06/23/17 at 11 :30 Ondansetron HCl (Zofran Inj) 4 mg Q6H PRN IV NAUSEA AND/OR VOMITING; Start at 11:30 Acetaminophen (Tylenol Tab) 650 mg Q6H PRN PO PAIN LEVEL 1-3 OR FEVER; Start at 11:30 Acetaminophen/ Hydrocodone Bitart ([place] (5/325)) 1 tab Q6H PRN PO MODERATE PAIN LEVEL 4-6; Start 06/23/17 at 11:30 Morphine Sulfate (morphine) 2 mg Q4H PRN IV SEVERE PAIN LEVEL 7-10; Start 06/23 at 11:30 Docusate Sodium (Colace) 100 mg Q12H PRN PO CONSTIPATION; Start 06/23/17 at 11: 30 Magnesium Hydroxide (Milk Of Mag) 30 ml DAILY PRN PO CONSTIPATION; Start at 11:30 Bisacodyl (Dulcolax Supp) 10 mg DAILY PRN [place] CONSTIPATION; Start 06/23/17 at 11 :30 Zolpidem Tartrate (Ambien) 5 mg QHS PRN PO SLEEP; Start 06/23/17 at 11:30 Famotidine 20 mg 20 mg Q12 PO Last administered on 06/24/17 08:23; Admin Dose 20 MG; Start 06/23/17 at 21:00 Sodium Chloride 1,000 ml @ 50 mls/hr Q20H IV Last administered on 06/24/17 02: 07; Admin Dose 50 MLS/HR; Start 06/23/17 at 22:00 Ondansetron HCl 16 mg/Sodium Chloride 58 ml @ 120 mls/hr Q24H IVPB Last administered on 06/24/17 02:10; Admin Dose 120 MLS/HR; Start 06/23/17 at 23:00; Stop 06/27/17 at 23:28 Cladribine/Sodium Chloride (Cladribine/NS) 500 ml @ 20.8 mls/hr Q24H IV Last administered on 06/24/17t 03:16; Admin Dose 20.8 MLS/HR; Start 06/24/17 at 00:00; Stop 06/28/17 at 23:59 ANGELICA DUEÑAS Jun 24, 2017 10:46
--- NOTE | 2017-06-24 17:46 | CONS ---
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 Hg is at 7 -will hold on transfusion for now until after chemo has completed #h/o bacteremia -pt has completed antibiotics -no need to restart antibiotics at this time. continue to monitor for fevers Problems: Consultation Date/Type/Reason Admit Date/Time Jun 23, 2017 at 09:52 Date of Consultation: Jun 24, 2017 Type of Consultation: Hematology Reason for Consultation Hairy Cell Leukemia Referring Provider: ANGELICA DUEÑAS Hx of Present Illness 56 yo male who initially presented to [facility] in April 2017 with pancytopenia in bone marrow. Pt has since been diagnosed with Hairy Cell Leukemia. Pt is being admitted for in patient continuous infusion of Cladribine. Pt had been on IV antibiotics for bacteremia but is now of antibiotics. When he presented yesterday his Hg was less than 8. He has since received 2 units of PRBCs. He has since started his infusion and tolerating it well. Eyes: no complaints ENT: no complaints Respiratory: no complaints Cardiovascular: no complaints Gastrointestinal: no complaints Genitourinary: no complaints Musculoskeletal: no complaints Skin: no complaints Neurologic: no complaints Psychological: no complaints Immunologic: no complaints Past Medical History Aflutter with RVR HTN DM history of seizures Medical History: diabetes, hypertension Past Surgical History Past Surgical Hx: no surgical history Family History Significant Family History: no pertinent family hx Social History Alcohol Use: none Smoking Status: Never smoker Drug Use: none, marijuana (Occasional use) Exam/Review of Systems Vital Signs Vitals Vital Signs Date Time Temp Pulse Resp B/P Pulse Ox O2 Delivery O2 Flow Rate FiO2 06/24/17 16:21 98.3 84 16 131/66 99 Room Air Intake and Output 06/23/17 06/23/17 06/24/17 15:00 23:00 07:00 Intake Total 1010 ml 1249.6 ml Output Total 550 ml Balance 1010 ml 699.6 ml Exam Constitutional: alert, oriented, well developed Head: atraumatic, normocephalic Eyes: nl conjunctiva ENMT: nl external ears & nose, nl lips & teeth Neck: non-tender, supple Respiratory: clear to auscultation, normal air movement Cardiovascular: regular rate and rhythm Gastrointestinal: nl liver, spleen, soft Musculoskeletal: nl extremities to inspection, nl gait and stance Results Result Diagram: 06/24/17 0435 06/24/17 0435 Results 24 hrs Laboratory Tests Test 06/23/17 20:39 06/24/17 04:35 06/24/17 04:36 06/24/17 05:53 Bedside Glucose 142 White Blood Count 0.8 L Red Blood Count 2.20 L Hemoglobin 7.1 L Hematocrit 21.2 L Mean Corpuscular Volume 96.4 Mean Corpuscular Hemoglobin 32.3 Mean Corpuscular Hemoglobin Concent 33.5 Red Cell Distribution Width 18.0 H Platelet Count 92 L Mean Platelet Volume 10.4 Neutrophils % Segmented Neutrophils % (Manual) 28 L Band Neutrophils % (Manual) 7 H Lymphocytes % Lymphocytes % (Manual) 55 H Monocytes % Monocytes % (Manual) 10 Eosinophils % Basophils % Nucleated Red Blood Cells % 3 H Neutrophils # Neutrophils # (Manual) 0.2 L Band Neutrophils # 0.0 Absolute Lymphocytes (Manual) 0.4 L Lymphocytes # Monocytes # Absolute Monocytes (Manual) 0.0 L Eosinophils # Basophils # Smudge Cells % 41 H Thrombocytosis 10 H Platelet Estimate DECREASED Polychromasia 3+ Poikilocytosis 1+ Anisocytosis 1+ Microcytosis 1+ Sodium Level 143 Potassium Level 4.7 Chloride Level 106 Carbon Dioxide Level 24 Anion Gap 18 H Blood Urea Nitrogen 25 H Creatinine 1.28 H Glucose Level 131 Calcium Level 8.6 Total Bilirubin 0.3 Direct Bilirubin 0.00 Indirect Bilirubin 0.3 Aspartate Amino Transf (AST/SGOT) 31 Alanine Aminotransferase (ALT/SGPT) 73 H Alkaline Phosphatase 112 Total Protein 6.8 Albumin 3.1 L Globulin 3.70 H Albumin/Globulin Ratio 0.83 Phosphorus Level 3.9 Magnesium Level 2.0 Lab Scanned Report BLOOD TRANSFUSION Test 06/24/17 08:19 06/24/17 12:37 06/24/17 17:12 Bedside Glucose 156 151 135 Medications Medications Current Medications Atorvastatin Calcium (Lipitor) 20 mg QHS PO ; Start 06/23/17 at 21:00 Diltiazem HCl (Cardizem Cd) 120 mg DAILY PO Last administered on 06/24/17t 08:31 ; Admin Dose 120 MG; Start 06/24/17 at 09:00 Duloxetine HCl (Cymbalta) 30 mg DAILY PO Last administered on 06/24/17 08:22; Admin Dose 30 MG; Start 06/24/17 at 09:00 Lisinopril (Zestril) 20 mg DAILY PO Last administered on 06/24/17 08:24; Admin Dose 20 MG; Start 06/24/17 at 09:00 Phenytoin (Dilantin) 300 mg BID PO Last administered on 06/24/17 08:30; Admin Dose 300 MG; Start 06/23/17 at 21:00 Diagnostic Test (Pha) (Accu-Chek) 1 ea 02 XX ; Start 06/24/17 at 02:00 Miscellaneous Information 1 ea NOTE XX ; Start 06/23/17 at 11:30 Glucose (Glutose) 15 gm Q15M PRN PO DECREASED GLUCOSE; Start 06/23/17 at 11:30 Glucose (Glutose) 22.5 gm Q15M PRN PO DECREASED GLUCOSE; Start 06/23/17 at 11: 30 Dextrose (D50w Syringe) 25 ml Q15M PRN IV DECREASED GLUCOSE; Start 06/23/17 at 11:30 Dextrose (D50w Syringe) 50 ml Q15M PRN IV DECREASED GLUCOSE; Start 06/23/17 at 11:30 Glucagon (Glucagen) 1 mg Q15M PRN IM DECREASED GLUCOSE; Start 06/23/17 at 11:30 Glucose (Glutose) 15 gm Q15M PRN BUCCAL DECREASED GLUCOSE; Start 06/23/17 at 11 :30 Ondansetron HCl (Zofran Inj) 4 mg Q6H PRN IV NAUSEA AND/OR VOMITING; Start at 11:30 Acetaminophen (Tylenol Tab) 650 mg Q6H PRN PO PAIN LEVEL 1-3 OR FEVER; Start at 11:30 Acetaminophen/ Hydrocodone Bitart ([place] (5/325)) 1 tab Q6H PRN PO MODERATE PAIN LEVEL 4-6; Start 06/23/17 at 11:30 Morphine Sulfate (morphine) 2 mg Q4H PRN IV SEVERE PAIN LEVEL 7-10; Start 06/23 at 11:30 Docusate Sodium (Colace) 100 mg Q12H PRN PO CONSTIPATION; Start 06/23/17 at 11: 30 Magnesium Hydroxide (Milk Of Mag) 30 ml DAILY PRN PO CONSTIPATION; Start at 11:30 Bisacodyl (Dulcolax Supp) 10 mg DAILY PRN [place] CONSTIPATION; Start 06/23/17 at 11 :30 Zolpidem Tartrate (Ambien) 5 mg QHS PRN PO SLEEP; Start 06/23/17 at 11:30 Famotidine 20 mg 20 mg Q12 PO Last administered on 06/24/17 08:23; Admin Dose 20 MG; Start 06/23/17 at 21:00 Sodium Chloride 1,000 ml @ 50 mls/hr Q20H IV Last administered on 06/24/17 02: 07; Admin Dose 50 MLS/HR; Start 06/23/17 at 22:00 Ondansetron HCl 16 mg/Sodium Chloride 58 ml @ 120 mls/hr Q24H IVPB Last administered on 06/24/17 02:10; Admin Dose 120 MLS/HR; Start 06/23/17 at 23:00; Stop 06/27/17 at 23:28 Cladribine/Sodium Chloride (Cladribine/NS) 500 ml @ 20.8 mls/hr Q24H IV Last administered on 06/24/17 03:16; Admin Dose 20.8 MLS/HR; Start 06/24/17 at 00:00; Stop 06/28/17 at 23:59 DORIS HUERTAS M.D. Jun 24, 2017 17:44
[2017-06-24] MEDS: ATORVASTATIN 20 MG TAB PO SCH (20:35)
[2017-06-25 00:05] VITALS: BP 131/61; RESP 20
[2017-06-25] MEDS: ACCU-CHEK XX SCH (02:00)
[2017-06-25] MEDS: ONDANSETRON INJ 16 MG in SOD CHLORIDE 0.9% 50 ML IVPB SCH ×2 (03:28→23:00)
[2017-06-25] MEDS: SOD CHLORIDE 0.9% IV SCH ×3 (04:23)
[2017-06-25] MEDS: CLADRIBINE IV SCH ×3 (04:23)
[2017-06-25 04:46] VITALS: BP 118/64; PULSE 84; RESP 17
[2017-06-25 05:38] LABS: ABNORMAL IP MESSAGE 1; HEMATOCRIT 20.5 % (42.0-52.0); MEAN CORPUSCULAR HEMOGLOBIN 31.6 pg (29.0-33.0); MEAN CORPUSCULAR HGB CONC 32.2 g/dl (32.0-37.0); MEAN CORPUSCULAR VOLUME 98.1 fl (82.0-101.0); MEAN PLATELET VOLUME 10.3 fl (7.4-10.4); PLATELET COUNT 87 10^3/UL (140-415); POSITIVE DIFF @See below; RED BLOOD COUNT 2.09 10^6/ul (4.70-6.10); RED CELL DISTRIBUTION WIDTH 17.8 % (11.5-14.5); WHITE BLOOD COUNT 0.7 10^3/ul (4.8-10.8)
[2017-06-25 05:50] LABS: MAGNESIUM 1.9 mg/dl (1.7-2.5); PHOSPHORUS 3.6 mg/dl (2.5-4.9)
[2017-06-25 06:02] LABS: HEMOGLOBIN 6.6 g/dl (14.0-18.0)
[2017-06-25 06:13] LABS: ALBUMIN 2.8 g/dl (3.3-4.9); ALBUMIN/GLOBULIN RATIO 0.77; BILIRUBIN,INDIRECT 0.2 mg/dl (0-1.1); BILIRUBIN,TOTAL 0.2 mg/dl (0.2-1.3); CALCIUM 8.3 mg/dl (8.4-10.2); CREATININE 1.07 mg/dl (0.61-1.24); POTASSIUM 4.2 mmol/L (3.5-5.1); TOTAL PROTEIN 6.4 g/dl (6.1-8.1)
[2017-06-25 08:00] VITALS: BP 133/67; RESP 20
[2017-06-25] MEDS: INSULIN ASPART [NOVOLOG] 3 ML PEN SC SCH ×4 (08:48→20:52)
[2017-06-25] MEDS: DULOXETINE 30 MG CAP DR PO SCH (08:49)
[2017-06-25] MEDS: DILTIAZEM (CD) 120 MG CAP PO SCH (08:50)
[2017-06-25] MEDS: PHENYTOIN 100 MG CAP PO SCH ×2 (08:50→20:52)
[2017-06-25] MEDS: LISINOPRIL 20 MG TAB PO SCH (08:50)
[2017-06-25] MEDS: FAMOTIDINE 20 MG TAB PO SCH ×2 (08:50→20:52)
--- NOTE | 2017-06-25 09:45 | PN ---
Date/Time of Note Date/Time of Note DATE: 06/25/17 TIME: 09:39 Assessment/Plan VTE Prophylaxis VTE Prophylaxis Intervention: SCD's Lines/Catheters IV Catheter Type (from Nrs): PICC Line Central line still needed: Yes (For chemotherapy) Urinary Cath still in place: No Assessment/Plan Assessment/Plan 66-year-old male with: 1. 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 Hemoglobin again down to 6.6 today, patient to receive 2 units of packed red blood cells again, so far that would come up to 4 units of packed red blood cells since admission. Patient also with ongoing significant neutropenia, and moderate thrombocytopenia as expected. Ongoing chemotherapy per hematology Dr. Concepcion Neutropenic precautions 2. Paroxysmal atrial fibrillation: Continue current medications, patient not a candidate for anticoagulation due to thrombocytopenia. 3. Hypertension: Continue current medications as tolerated. 4. Diabetes mellitus: Continue outpatient medications as well as not interfering with chemotherapeutic drug, sliding scale insulin ordered, Accu- Cheks q. before meals and at bedtime. A1c was 8.1 on 05/17/17. 5. Seizure disorder: Continue phenytoin 6. Mild acute kidney injury versus chronic kidney disease: Hold off hydrochlorothiazide, monitor renal function through chemotherapy. Prophylaxis: SCDs for DVT prophylaxis, Pepcid ordered for GI prophylaxis Disposition: Chemotherapy and blood products as needed. Subjective 24 Hr Interval Summary Free Text/Dictation Patient remained stable with ongoing chemotherapy, however he has persistent anemia with hemoglobin down to 6.6 today again, he will be receiving 2 units of packed red blood cells per hematology. He is still neutropenic and thrombocytopenic. Otherwise no complaints, no nausea or vomiting, no fevers reported. Exam/Review of Systems Vital Signs Vitals Vital Signs Date Time Temp Pulse Resp B/P Pulse Ox O2 Delivery O2 Flow Rate FiO2 06/25/17 08:00 98.3 82 20 133/67 96 06/25/17 04:46 Room Air Intake and Output 06/24/17 06/24/17 06/25/17 15:00 23:00 07:00 Intake Total 2020 ml 1438.0 ml Balance 2020 ml 1438.0 ml Exam Constitutional: alert, oriented, well developed Respiratory: clear to auscultation, normal air movement Cardiovascular: nl pulses, regular rate and rhythm Gastrointestinal: non-tender, soft Musculoskeletal: nl extremities to inspection Extremities: normal pulses, other (No edema, clubbing or cyanosis) Neurological: HOME STAGER II-XII intact, nl mental status, nl speech, nl strength Results Result Diagram: 06/25/17 0430 06/25/17 0430 Results 24 hrs Laboratory Tests Test 06/24/17 12:37 06/24/17 17:12 06/24/17 21:21 06/25/17 04:30 Bedside Glucose 151 135 118 White Blood Count 0.7 L Red Blood Count 2.09 L Hemoglobin 6.6 *L Hematocrit 20.5 L Mean Corpuscular Volume 98.1 Mean Corpuscular Hemoglobin 31.6 Mean Corpuscular Hemoglobin Concent 32.2 Red Cell Distribution Width 17.8 H Platelet Count 87 L Mean Platelet Volume 10.3 Neutrophils % Lymphocytes % Monocytes % Eosinophils % Basophils % Nucleated Red Blood Cells % 0.0 Neutrophils # Lymphocytes # Monocytes # Eosinophils # Basophils # Nucleated Red Blood Cells # Sodium Level 141 Potassium Level 4.2 Chloride Level 106 Carbon Dioxide Level 23 Anion Gap 16 Blood Urea Nitrogen 22 H Creatinine 1.07 Glucose Level 117 Calcium Level 8.3 L Phosphorus Level 3.6 Magnesium Level 1.9 Total Bilirubin 0.2 Direct Bilirubin 0.00 Indirect Bilirubin 0.2 Aspartate Amino Transf (AST/SGOT) 34 Alanine Aminotransferase (ALT/SGPT) 75 H Alkaline Phosphatase 105 Total Protein 6.4 Albumin 2.8 L Globulin 3.60 H Albumin/Globulin Ratio 0.77 Test 06/25/17 08:46 Bedside Glucose 146 Medications Medications Current Medications Atorvastatin Calcium (Lipitor) 20 mg QHS PO Last administered on 06/24/17 20:35 ; Admin Dose 20 MG; Start 06/23/17 at 21:00 Diltiazem HCl (Cardizem Cd) 120 mg DAILY PO Last administered on 06/25/17 08:50 ; Admin Dose 120 MG; Start 06/24/17 at 09:00 Duloxetine HCl (Cymbalta) 30 mg DAILY PO Last administered on 06/25/17 08:49; Admin Dose 30 MG; Start 06/24/17 at 09:00 Lisinopril (Zestril) 20 mg DAILY PO Last administered on 06/25/17 08:50; Admin Dose 20 MG; Start 06/24/17 at 09:00 Phenytoin (Dilantin) 300 mg BID PO Last administered on 06/25/17 08:50; Admin Dose 300 MG; Start 06/23/17 at 21:00 Diagnostic Test (Pha) (Accu-Chek) 1 ea 02 XX ; Start 06/24/17 at 02:00 Miscellaneous Information 1 ea NOTE XX ; Start 06/23/17 at 11:30 Glucose (Glutose) 15 gm Q15M PRN PO DECREASED GLUCOSE; Start 06/23/17 at 11:30 Glucose (Glutose) 22.5 gm Q15M PRN PO DECREASED GLUCOSE; Start 06/23/17 at 11: 30 Dextrose (D50w Syringe) 25 ml Q15M PRN IV DECREASED GLUCOSE; Start 06/23/17 at 11:30 Dextrose (D50w Syringe) 50 ml Q15M PRN IV DECREASED GLUCOSE; Start 06/23/17 at 11:30 Glucagon (Glucagen) 1 mg Q15M PRN IM DECREASED GLUCOSE; Start 06/23/17 at 11:30 Glucose (Glutose) 15 gm Q15M PRN BUCCAL DECREASED GLUCOSE; Start 06/23/17 at 11 :30 Ondansetron HCl (Zofran Inj) 4 mg Q6H PRN IV NAUSEA AND/OR VOMITING; Start at 11:30 Acetaminophen (Tylenol Tab) 650 mg Q6H PRN PO PAIN LEVEL 1-3 OR FEVER; Start at 11:30 Acetaminophen/ Hydrocodone Bitart ([place] (5/325)) 1 tab Q6H PRN PO MODERATE PAIN LEVEL 4-6; Start 06/23/17 at 11:30 Morphine Sulfate (morphine) 2 mg Q4H PRN IV SEVERE PAIN LEVEL 7-10; Start 06/23 at 11:30 Docusate Sodium (Colace) 100 mg Q12H PRN PO CONSTIPATION; Start 06/23/17 at 11: 30 Magnesium Hydroxide (Milk Of Mag) 30 ml DAILY PRN PO CONSTIPATION; Start at 11:30 Bisacodyl (Dulcolax Supp) 10 mg DAILY PRN [place] CONSTIPATION; Start 06/23/17 at 11 :30 Zolpidem Tartrate (Ambien) 5 mg QHS PRN PO SLEEP; Start 06/23/17 at 11:30 Famotidine 20 mg 20 mg Q12 PO Last administered on 06/25/17 08:50; Admin Dose 20 MG; Start 06/23/17 at 21:00 Sodium Chloride 1,000 ml @ 50 mls/hr Q20H IV Last administered on 06/24/17 21: 24; Admin Dose 50 MLS/HR; Start 06/23/17 at 22:00 Ondansetron HCl 16 mg/Sodium Chloride 58 ml @ 120 mls/hr Q24H IVPB Last administered on 06/25/17 03:28; Admin Dose 120 MLS/HR; Start 06/23/17 at 23:00; Stop 06/27/17 at 23:28 Cladribine/Sodium Chloride (Cladribine/NS) 500 ml @ 20.8 mls/hr Q24H IV Last administered on 06/25/17 04:23; Admin Dose 20.8 MLS/HR; Start 06/24/17 at 00:00; Stop 06/28/17 at 23:59 ANGELICA DUEÑAS Jun 25, 2017 09:45
[2017-06-25 09:50] VITALS: BP 131/62; PULSE 78; RESP 18
[2017-06-25 10:12] LABS: ANISOCYTOSIS 1+ (0-0); BASOPHILS % (M) 1 % (0-2); EOSINOPHILS % (M) 1 % (0-7); GIANT THROMBO% (M) 11 % (0-0); MICROCYTOSIS 1+ (0-0); OVALOCYTES 1+ (0-0); PLATELET ESTIMATE DECREASED; POIKILOCYTOSIS 1+ (0-0); POLYCHROMASIA 3+ (0-0)
[2017-06-25 14:00] VITALS: BP 144/68; RESP 18
[2017-06-25 19:21] VITALS: BP 149/71; RESP 22
[2017-06-25] MEDS: ATORVASTATIN 20 MG TAB PO SCH (20:52)
[2017-06-25] MEDS: SOD CHLORIDE 0.9% 1,000 ML IV SCH (21:00)
--- NOTE | 2017-06-25 21:50 | CONS ---
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 continue to monitor for fevers Problems: (1) Pancytopenia Status: Chronic (2) Hairy cell leukemia Status: Chronic Qualifiers: Leukemia Active/Remission status: without remission Qualified Code: C91.40 - Hairy cell leukemia not having achieved remission Consultation Date/Type/Reason Admit Date/Time Jun 23, 2017 at 09:52 Initial Consult Date 06/24/17 Type of Consultation: Hematology Reason for Consultation hairy cell leukemia Referring Provider: ANGELICA DUEÑAS 24 HR Interval Summary Free Text/Dictation pt continues on chemotherapy. pt did receive 2 units of PRBCs Exam/Review of Systems Vital Signs Vitals Vital Signs Date Time Temp Pulse Resp B/P Pulse Ox O2 Delivery O2 Flow Rate FiO2 06/25/17 19:21 98.6 83 22 149/71 100 06/25/17 09:50 Room Air Intake and Output 06/24/17 06/24/17 06/25/17 15:00 23:00 07:00 Intake Total 2020 ml 1438.0 ml Balance 2020 ml 1438.0 ml Exam Constitutional: alert, oriented Psych: nl mood/affect, no complaints Head: normocephalic Eyes: nl conjunctiva Neck: non-tender, supple Respiratory: clear to auscultation, normal air movement Cardiovascular: nl pulses, regular rate and rhythm Gastrointestinal: soft Musculoskeletal: nl extremities to inspection Results Result Diagram: 06/25/17 0430 06/25/17 0430 Results 24 hrs Laboratory Tests Test 06/25/17 04:30 06/25/17 08:46 06/25/17 12:49 06/25/17 17:56 White Blood Count 0.7 L Red Blood Count 2.09 L Hemoglobin 6.6 *L Hematocrit 20.5 L Mean Corpuscular Volume 98.1 Mean Corpuscular Hemoglobin 31.6 Mean Corpuscular Hemoglobin Concent 32.2 Red Cell Distribution Width 17.8 H Platelet Count 87 L Mean Platelet Volume 10.3 Neutrophils % Segmented Neutrophils % (Manual) 38 L Lymphocytes % Lymphocytes % (Manual) 60 H Monocytes % Eosinophils % Eosinophils % (Manual) 1 Basophils % Basophils % (Manual) 1 Nucleated Red Blood Cells % 0.0 Neutrophils # Absolute Lymphocytes (Manual) 0.4 L Lymphocytes # Monocytes # Eosinophils # Basophils # Basophils # (Manual) 0.0 Nucleated Red Blood Cells # Smudge Cells % 5 H Thrombocytosis 11 H Platelet Estimate DECREASED Polychromasia 3+ Poikilocytosis 1+ Anisocytosis 1+ Microcytosis 1+ Ovalocytes 1+ Sodium Level 141 Potassium Level 4.2 Chloride Level 106 Carbon Dioxide Level 23 Anion Gap 16 Blood Urea Nitrogen 22 H Creatinine 1.07 Glucose Level 117 Calcium Level 8.3 L Phosphorus Level 3.6 Magnesium Level 1.9 Total Bilirubin 0.2 Direct Bilirubin 0.00 Indirect Bilirubin 0.2 Aspartate Amino Transf (AST/SGOT) 34 Alanine Aminotransferase (ALT/SGPT) 75 H Alkaline Phosphatase 105 Total Protein 6.4 Albumin 2.8 L Globulin 3.60 H Albumin/Globulin Ratio 0.77 Bedside Glucose 146 131 149 Test 06/25/17 20:49 Bedside Glucose 123 Medications Medications Current Medications Atorvastatin Calcium (Lipitor) 20 mg QHS PO Last administered on 06/25/17 20:52 ; Admin Dose 20 MG; Start 06/23/17 at 21:00 Diltiazem HCl (Cardizem Cd) 120 mg DAILY PO Last administered on 06/25/17 08:50 ; Admin Dose 120 MG; Start 06/24/17 at 09:00 Duloxetine HCl (Cymbalta) 30 mg DAILY PO Last administered on 06/25/17 08:49; Admin Dose 30 MG; Start 06/24/17 at 09:00 Lisinopril (Zestril) 20 mg DAILY PO Last administered on 06/25/17 08:50; Admin Dose 20 MG; Start 06/24/17 at 09:00 Phenytoin (Dilantin) 300 mg BID PO Last administered on 06/25/17 20:52; Admin Dose 300 MG; Start 06/23/17 at 21:00 Diagnostic Test (Pha) (Accu-Chek) 1 ea 02 XX ; Start 06/24/17 at 02:00 Miscellaneous Information 1 ea NOTE XX ; Start 06/23/17 at 11:30 Glucose (Glutose) 15 gm Q15M PRN PO DECREASED GLUCOSE; Start 06/23/17 at 11:30 Glucose (Glutose) 22.5 gm Q15M PRN PO DECREASED GLUCOSE; Start 06/23/17 at 11: 30 Dextrose (D50w Syringe) 25 ml Q15M PRN IV DECREASED GLUCOSE; Start 06/23/17 at 11:30 Dextrose (D50w Syringe) 50 ml Q15M PRN IV DECREASED GLUCOSE; Start 06/23/17 at 11:30 Glucagon (Glucagen) 1 mg Q15M PRN IM DECREASED GLUCOSE; Start 06/23/17 at 11:30 Glucose (Glutose) 15 gm Q15M PRN BUCCAL DECREASED GLUCOSE; Start 06/23/17 at 11 :30 Ondansetron HCl (Zofran Inj) 4 mg Q6H PRN IV NAUSEA AND/OR VOMITING; Start at 11:30 Acetaminophen (Tylenol Tab) 650 mg Q6H PRN PO PAIN LEVEL 1-3 OR FEVER; Start at 11:30 Acetaminophen/ Hydrocodone Bitart ([place] (5/325)) 1 tab Q6H PRN PO MODERATE PAIN LEVEL 4-6; Start 06/23/17 at 11:30 Morphine Sulfate (morphine) 2 mg Q4H PRN IV SEVERE PAIN LEVEL 7-10; Start 06/23 at 11:30 Docusate Sodium (Colace) 100 mg Q12H PRN PO CONSTIPATION; Start 06/23/17 at 11: 30 Magnesium Hydroxide (Milk Of Mag) 30 ml DAILY PRN PO CONSTIPATION; Start at 11:30 Bisacodyl (Dulcolax Supp) 10 mg DAILY PRN [place] CONSTIPATION; Start 06/23/17 at 11 :30 Zolpidem Tartrate (Ambien) 5 mg QHS PRN PO SLEEP; Start 06/23/17 at 11:30 Famotidine 20 mg 20 mg Q12 PO Last administered on 06/25/17 20:52; Admin Dose 20 MG; Start 06/23/17 at 21:00 Sodium Chloride 1,000 ml @ 50 mls/hr Q20H IV Last administered on 06/25/17 21: 00; Admin Dose 50 MLS/HR; Start 06/23/17 at 22:00 Ondansetron HCl 16 mg/Sodium Chloride 58 ml @ 120 mls/hr Q24H IVPB Last administered on 06/25/17 03:28; Admin Dose 120 MLS/HR; Start 06/23/17 at 23:00; Stop 06/27/17 at 23:28 Cladribine/Sodium Chloride (Cladribine/NS) 500 ml @ 20.8 mls/hr Q24H IV Last administered on 06/25/17 04:23; Admin Dose 20.8 MLS/HR; Start 06/24/17 at 00:00; Stop 06/28/17 at 23:59 DORIS HUERTAS M.D. Jun 25, 2017 21:50
[2017-06-26] MEDS: ACCU-CHEK XX SCH ×2 (02:00→23:20)
[2017-06-26 03:11] VITALS: BP 123/78; RESP 22
[2017-06-26] MEDS: ONDANSETRON INJ 16 MG in SOD CHLORIDE 0.9% 50 ML IVPB SCH ×2 (05:02→23:00)
[2017-06-26 06:19] LABS: MAGNESIUM 1.9 mg/dl (1.7-2.5); PHOSPHORUS 3.1 mg/dl (2.5-4.9)
[2017-06-26] MEDS: SOD CHLORIDE 0.9% IV SCH ×3 (06:20)
[2017-06-26] MEDS: CLADRIBINE IV SCH ×3 (06:20)
[2017-06-26 06:37] LABS: WHITE BLOOD COUNT 0.8 10^3/ul (4.8-10.8)
[2017-06-26 06:38] LABS: ABNORMAL IP MESSAGE 1; HEMATOCRIT 17.9 % (42.0-52.0); MEAN CORPUSCULAR HEMOGLOBIN 31.4 pg (29.0-33.0); MEAN CORPUSCULAR VOLUME 95.2 fl (82.0-101.0); MEAN PLATELET VOLUME 10.4 fl (7.4-10.4); PLATELET COUNT 105 10^3/UL (140-415); POSITIVE DIFF @See below; RED BLOOD COUNT 1.88 10^6/ul (4.70-6.10); RED CELL DISTRIBUTION WIDTH 17.4 % (11.5-14.5)
[2017-06-26 06:53] LABS: HEMOGLOBIN 5.9 g/dl (14.0-18.0)
[2017-06-26 07:00] VITALS: BP 128/88; RESP 22
[2017-06-26 07:28] LABS: ALBUMIN 2.8 g/dl (3.3-4.9); ALBUMIN/GLOBULIN RATIO 0.77; BILIRUBIN,INDIRECT 0.3 mg/dl (0-1.1); BILIRUBIN,TOTAL 0.3 mg/dl (0.2-1.3); CALCIUM 8.3 mg/dl (8.4-10.2); POTASSIUM 4.2 mmol/L (3.5-5.1); TOTAL PROTEIN 6.4 g/dl (6.1-8.1)
[2017-06-26 08:32] VITALS: BP 117/74; RESP 20
[2017-06-26 08:46] LABS: ABNORMAL IP MESSAGE 1; HEMOGLOBIN 8.5 g/dl (14.0-18.0); MEAN CORPUSCULAR HEMOGLOBIN 32.4 pg (29.0-33.0); MEAN CORPUSCULAR VOLUME 95.4 fl (82.0-101.0); MEAN PLATELET VOLUME 10.4 fl (7.4-10.4); POSITIVE DIFF @See below; RED BLOOD COUNT 2.62 10^6/ul (4.70-6.10); RED CELL DISTRIBUTION WIDTH 17.3 % (11.5-14.5); WHITE BLOOD COUNT 0.6 10^3/ul (4.8-10.8)
[2017-06-26] MEDS: DULOXETINE 30 MG CAP DR PO SCH (09:08)
[2017-06-26] MEDS: FAMOTIDINE 20 MG TAB PO SCH ×2 (09:08→20:40)
[2017-06-26] MEDS: PHENYTOIN 100 MG CAP PO SCH ×2 (09:08→20:40)
[2017-06-26] MEDS: DILTIAZEM (CD) 120 MG CAP PO SCH (09:09)
[2017-06-26] MEDS: LISINOPRIL 20 MG TAB PO SCH (09:09)
[2017-06-26] MEDS: INSULIN ASPART [NOVOLOG] 3 ML PEN SC SCH ×4 (09:10→20:52)
--- NOTE | 2017-06-26 10:31 | PN ---
Date/Time of Note Date/Time of Note DATE: 06/26/17 TIME: 10:27 Assessment/Plan VTE Prophylaxis VTE Prophylaxis Intervention: SCD's Lines/Catheters IV Catheter Type (from Nrs): PICC Line Central line still needed: Yes (For chemotherapy) Urinary Cath still in place: No Assessment/Plan Assessment/Plan 66-year-old male with: 1. 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 Hemoglobin again down to 6.6 today, patient to receive 2 units of packed red blood cells again, so far that would come up to 4 units of packed red blood cells since admission. Hemoglobin at 8.5 today. Patient also with ongoing significant neutropenia, and moderate thrombocytopenia as expected. Ongoing chemotherapy per hematology Dr. Concepcion Neutropenic precautions 2. Paroxysmal atrial fibrillation: Continue current medications, patient not a candidate for anticoagulation due to thrombocytopenia. 3. Hypertension: Continue current medications as tolerated. 4. Diabetes mellitus: Continue outpatient medications as well as not interfering with chemotherapeutic drug, sliding scale insulin ordered, Accu- Cheks q. before meals and at bedtime. A1c was 8.1 on 05/17/17. 5. Seizure disorder: Continue phenytoin 6. Mild acute kidney injury versus chronic kidney disease: Hold off hydrochlorothiazide, monitor renal function through chemotherapy. Prophylaxis: SCDs for DVT prophylaxis, Pepcid ordered for GI prophylaxis Disposition: Chemotherapy and blood products as needed. Subjective 24 Hr Interval Summary Free Text/Dictation Patient with no complaints this morning, status post 2 unit packed red blood cells yesterday, ongoing chemotherapy currently. Still with significant neutropenia. On neutropenic precaution. Exam/Review of Systems Vital Signs Vitals Vital Signs Date Time Temp Pulse Resp B/P Pulse Ox O2 Delivery O2 Flow Rate FiO2 06/26/17 08:32 97.8 70 20 117/74 96 06/25/17 09:50 Room Air Intake and Output 06/25/17 06/25/17 06/26/17 15:00 23:00 07:00 Intake Total 2670 ml 1866.4 ml Output Total 500 ml 1150 ml Balance 2170 ml 716.4 ml Exam Constitutional: alert, oriented, other (Generalized weakness), well developed Respiratory: clear to auscultation, normal air movement Cardiovascular: nl pulses, regular rate and rhythm Gastrointestinal: non-tender, soft Musculoskeletal: nl extremities to inspection Extremities: normal pulses, other (No edema, clubbing or cyanosis) Neurological: CADDIE II-XII intact, nl mental status, nl speech, nl strength Results Result Diagram: 06/26/17 0812 06/26/17 0459 Results 24 hrs Laboratory Tests Test 06/25/17 12:49 06/25/17 17:56 06/25/17 20:49 06/26/17 04:55 Bedside Glucose 131 149 123 Phosphorus Level 3.1 Magnesium Level 1.9 Test 06/26/17 04:59 06/26/17 07:13 06/26/17 08:12 06/26/17 08:48 White Blood Count 0.8 L 0.6 #L Red Blood Count 1.88 L 2.62 #L Hemoglobin 5.9 *L 8.5 #L Hematocrit 17.9 L 25.0 #L Mean Corpuscular Volume 95.2 95.4 Mean Corpuscular Hemoglobin 31.4 32.4 Mean Corpuscular Hemoglobin Concent 33.0 34.0 Red Cell Distribution Width 17.4 H 17.3 H Platelet Count 105 #L 91 L Mean Platelet Volume 10.4 10.4 Neutrophils % Lymphocytes % Monocytes % Eosinophils % Basophils % Nucleated Red Blood Cells % 0.0 0.0 Neutrophils # Lymphocytes # Monocytes # Eosinophils # Basophils # Nucleated Red Blood Cells # Sodium Level 141 Potassium Level 4.2 Chloride Level 106 Carbon Dioxide Level 23 Anion Gap 16 Blood Urea Nitrogen 19 Creatinine 1.00 Glucose Level 120 Calcium Level 8.3 L Total Bilirubin 0.3 Direct Bilirubin 0.00 Indirect Bilirubin 0.3 Aspartate Amino Transf (AST/SGOT) 49 H Alanine Aminotransferase (ALT/SGPT) 93 H Alkaline Phosphatase 122 H Total Protein 6.4 Albumin 2.8 L Globulin 3.60 H Albumin/Globulin Ratio 0.77 Lab Scanned Report BLOOD TRANSFUSION Bedside Glucose 144 Medications Medications Current Medications Atorvastatin Calcium (Lipitor) 20 mg QHS PO Last administered on 06/25/17 20:52 ; Admin Dose 20 MG; Start 06/23/17 at 21:00 Diltiazem HCl (Cardizem Cd) 120 mg DAILY PO Last administered on 06/26/17 09:09 ; Admin Dose 120 MG; Start 06/24/17 at 09:00 Duloxetine HCl (Cymbalta) 30 mg DAILY PO Last administered on 06/26/17 09:08; Admin Dose 30 MG; Start 06/24/17 at 09:00 Lisinopril (Zestril) 20 mg DAILY PO Last administered on 06/26/17 09:09; Admin Dose 20 MG; Start 06/24/17 at 09:00 Phenytoin (Dilantin) 300 mg BID PO Last administered on 06/26/17 09:08; Admin Dose 300 MG; Start 06/23/17 at 21:00 Diagnostic Test (Pha) (Accu-Chek) 1 ea 02 XX ; Start 06/24/17 at 02:00 Miscellaneous Information 1 ea NOTE XX ; Start 06/23/17 at 11:30 Glucose (Glutose) 15 gm Q15M PRN PO DECREASED GLUCOSE; Start 06/23/17 at 11:30 Glucose (Glutose) 22.5 gm Q15M PRN PO DECREASED GLUCOSE; Start 06/23/17 at 11: 30 Dextrose (D50w Syringe) 25 ml Q15M PRN IV DECREASED GLUCOSE; Start 06/23/17 at 11:30 Dextrose (D50w Syringe) 50 ml Q15M PRN IV DECREASED GLUCOSE; Start 06/23/17 at 11:30 Glucagon (Glucagen) 1 mg Q15M PRN IM DECREASED GLUCOSE; Start 06/23/17 at 11:30 Glucose (Glutose) 15 gm Q15M PRN BUCCAL DECREASED GLUCOSE; Start 06/23/17 at 11 :30 Ondansetron HCl (Zofran Inj) 4 mg Q6H PRN IV NAUSEA AND/OR VOMITING; Start at 11:30 Acetaminophen (Tylenol Tab) 650 mg Q6H PRN PO PAIN LEVEL 1-3 OR FEVER; Start at 11:30 Acetaminophen/ Hydrocodone Bitart ([place] (5/325)) 1 tab Q6H PRN PO MODERATE PAIN LEVEL 4-6; Start 06/23/17 at 11:30 Morphine Sulfate (morphine) 2 mg Q4H PRN IV SEVERE PAIN LEVEL 7-10; Start 06/23 at 11:30 Docusate Sodium (Colace) 100 mg Q12H PRN PO CONSTIPATION; Start 06/23/17 at 11: 30 Magnesium Hydroxide (Milk Of Mag) 30 ml DAILY PRN PO CONSTIPATION; Start at 11:30 Bisacodyl (Dulcolax Supp) 10 mg DAILY PRN [place] CONSTIPATION; Start 06/23/17 at 11 :30 Zolpidem Tartrate (Ambien) 5 mg QHS PRN PO SLEEP; Start 06/23/17 at 11:30 Famotidine 20 mg 20 mg Q12 PO Last administered on 06/26/17 09:08; Admin Dose 20 MG; Start 06/23/17 at 21:00 Sodium Chloride 1,000 ml @ 50 mls/hr Q20H IV Last administered on 06/25/17 21: 00; Admin Dose 50 MLS/HR; Start 06/23/17 at 22:00 Ondansetron HCl 16 mg/Sodium Chloride 58 ml @ 120 mls/hr Q24H IVPB Last administered on 06/26/17 05:02; Admin Dose 120 MLS/HR; Start 06/23/17 at 23:00; Stop 06/27/17 at 23:28 Cladribine/Sodium Chloride (Cladribine/NS) 500 ml @ 20.8 mls/hr Q24H IV Last administered on 06/26/17 06:20; Admin Dose 20.8 MLS/HR; Start 06/24/17 at 00:00; Stop 06/28/17 at 23:59 ANGELICA DUEÑAS Jun 26, 2017 10:31
[2017-06-26 10:38] LABS: ANISOCYTOSIS 1+ (0-0); GIANT THROMBO% (M) 2 % (0-0); MICROCYTOSIS 1+ (0-0); PLATELET ESTIMATE DECREASED; POIKILOCYTOSIS 1+ (0-0); POLYCHROMASIA 2+ (0-0)
[2017-06-26 13:24] LABS: ERYTHROBLAST% (NRBC) (M) 1 % (0-0); LYMPHOCYTES # 0.4 10^3/ul (0.8-2.9); NEUTROPHIL # 0.2 10^3/ul (1.6-7.5)
[2017-06-26 13:27] LABS: PLATELET COUNT 91 10^3/UL (140-415)
[2017-06-26 14:00] VITALS: BP 143/71; RESP 18
[2017-06-26] MEDS: SOD CHLORIDE 0.9% 1,000 ML IV SCH (17:50)
[2017-06-26 20:34] VITALS: BP 152/69; RESP 20
[2017-06-26] MEDS: ATORVASTATIN 20 MG TAB PO SCH (20:40)
[2017-06-26] MEDS: NACL 0.9% 3 ML SYG IV SCH ×2 (20:45→20:50)
--- NOTE | 2017-06-26 21:43 | CONS ---
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 continue to monitor for fevers Problems: Consultation Date/Type/Reason Admit Date/Time Jun 23, 2017 at 09:52 Initial Consult Date 06/24/17 Type of Consultation: Hematology Reason for Consultation hairy cell leukemia Referring Provider: ANGELICA DUEÑAS 24 HR Interval Summary Free Text/Dictation pt continues on Cladribine Exam/Review of Systems Vital Signs Vitals Vital Signs Date Time Temp Pulse Resp B/P Pulse Ox O2 Delivery O2 Flow Rate FiO2 06/26/17 20:34 99.0 81 20 152/69 96 06/25/17 09:50 Room Air Intake and Output 06/25/17 06/25/17 06/26/17 15:00 23:00 07:00 Intake Total 2670 ml 1866.4 ml Output Total 500 ml 1150 ml Balance 2170 ml 716.4 ml Exam Constitutional: alert, oriented Psych: nl mood/affect, no complaints Head: normocephalic Eyes: nl conjunctiva ENMT: nl external ears & nose Neck: non-tender, supple Respiratory: clear to auscultation, normal air movement Cardiovascular: regular rate and rhythm Gastrointestinal: soft Musculoskeletal: nl extremities to inspection Extremities: normal pulses Results Result Diagram: 06/26/17 0812 06/26/17 0459 Results 24 hrs Laboratory Tests Test 06/26/17 04:55 06/26/17 04:59 06/26/17 07:13 06/26/17 08:12 Phosphorus Level 3.1 Magnesium Level 1.9 White Blood Count 0.8 L 0.6 #L Red Blood Count 1.88 L 2.62 #L Hemoglobin 5.9 *L 8.5 #L Hematocrit 17.9 L 25.0 #L Mean Corpuscular Volume 95.2 95.4 Mean Corpuscular Hemoglobin 31.4 32.4 Mean Corpuscular Hemoglobin Concent 33.0 34.0 Red Cell Distribution Width 17.4 H 17.3 H Platelet Count 105 #L 91 L Mean Platelet Volume 10.4 10.4 Neutrophils % 29.0 L Lymphocytes % 67.0 H Monocytes % Eosinophils % 3.0 Basophils % Nucleated Red Blood Cells % 0.0 1 H Neutrophils # 0.2 L Lymphocytes # 0.4 L Monocytes # Eosinophils # 0.0 Basophils # Nucleated Red Blood Cells # Sodium Level 141 Potassium Level 4.2 Chloride Level 106 Carbon Dioxide Level 23 Anion Gap 16 Blood Urea Nitrogen 19 Creatinine 1.00 Glucose Level 120 Calcium Level 8.3 L Total Bilirubin 0.3 Direct Bilirubin 0.00 Indirect Bilirubin 0.3 Aspartate Amino Transf (AST/SGOT) 49 H Alanine Aminotransferase (ALT/SGPT) 93 H Alkaline Phosphatase 122 H Total Protein 6.4 Albumin 2.8 L Globulin 3.60 H Albumin/Globulin Ratio 0.77 Lab Scanned Report BLOOD TRANSFUSION Segmented Neutrophils % (Manual) 22 L Lymphocytes % (Manual) 78 H Neutrophils # (Manual) 0.1 L Band Neutrophils # 0.2 Absolute Lymphocytes (Manual) 0.4 L Smudge Cells % 10 H Thrombocytosis 2 H Platelet Estimate DECREASED Polychromasia 2+ Poikilocytosis 1+ Anisocytosis 1+ Microcytosis 1+ Test 06/26/17 08:48 06/26/17 12:50 06/26/17 17:41 06/26/17 20:40 Bedside Glucose 144 149 108 135 Medications Medications Current Medications Atorvastatin Calcium (Lipitor) 20 mg QHS PO Last administered on 06/26/17 20:40 ; Admin Dose 20 MG; Start 06/23/17 at 21:00 Diltiazem HCl (Cardizem Cd) 120 mg DAILY PO Last administered on 06/26/17 09:09 ; Admin Dose 120 MG; Start 06/24/17 at 09:00 Duloxetine HCl (Cymbalta) 30 mg DAILY PO Last administered on 06/26/17 09:08; Admin Dose 30 MG; Start 06/24/17 at 09:00 Lisinopril (Zestril) 20 mg DAILY PO Last administered on 06/26/17 09:09; Admin Dose 20 MG; Start 06/24/17 at 09:00 Phenytoin (Dilantin) 300 mg BID PO Last administered on 06/26/17 20:40; Admin Dose 300 MG; Start 06/23/17 at 21:00 Diagnostic Test (Pha) (Accu-Chek) 1 ea 02 XX ; Start 06/24/17 at 02:00 Miscellaneous Information 1 ea NOTE XX ; Start 06/23/17 at 11:30 Glucose (Glutose) 15 gm Q15M PRN PO DECREASED GLUCOSE; Start 06/23/17 at 11:30 Glucose (Glutose) 22.5 gm Q15M PRN PO DECREASED GLUCOSE; Start 06/23/17 at 11: 30 Dextrose (D50w Syringe) 25 ml Q15M PRN IV DECREASED GLUCOSE; Start 06/23/17 at 11:30 Dextrose (D50w Syringe) 50 ml Q15M PRN IV DECREASED GLUCOSE; Start 06/23/17 at 11:30 Glucagon (Glucagen) 1 mg Q15M PRN IM DECREASED GLUCOSE; Start 06/23/17 at 11:30 Glucose (Glutose) 15 gm Q15M PRN BUCCAL DECREASED GLUCOSE; Start 06/23/17 at 11 :30 Ondansetron HCl (Zofran Inj) 4 mg Q6H PRN IV NAUSEA AND/OR VOMITING; Start at 11:30 Acetaminophen (Tylenol Tab) 650 mg Q6H PRN PO PAIN LEVEL 1-3 OR FEVER; Start at 11:30 Acetaminophen/ Hydrocodone Bitart ([place] (5/325)) 1 tab Q6H PRN PO MODERATE PAIN LEVEL 4-6; Start 06/23/17 at 11:30 Morphine Sulfate (morphine) 2 mg Q4H PRN IV SEVERE PAIN LEVEL 7-10; Start 06/23 at 11:30 Docusate Sodium (Colace) 100 mg Q12H PRN PO CONSTIPATION; Start 06/23/17 at 11: 30 Magnesium Hydroxide (Milk Of Mag) 30 ml DAILY PRN PO CONSTIPATION; Start at 11:30 Bisacodyl (Dulcolax Supp) 10 mg DAILY PRN [place] CONSTIPATION; Start 06/23/17 at 11 :30 Zolpidem Tartrate (Ambien) 5 mg QHS PRN PO SLEEP; Start 06/23/17 at 11:30 Famotidine 20 mg 20 mg Q12 PO Last administered on 06/26/17t 20:40; Admin Dose 20 MG; Start 06/23/17 at 21:00 Sodium Chloride 1,000 ml @ 50 mls/hr Q20H IV Last administered on 06/26/17 17: 50; Admin Dose 50 MLS/HR; Start 06/23/17 at 22:00 Ondansetron HCl 16 mg/Sodium Chloride 58 ml @ 120 mls/hr Q24H IVPB Last administered on 06/26/17 05:02; Admin Dose 120 MLS/HR; Start 06/23/17 at 23:00; Stop 06/27/17 at 23:28 Cladribine/Sodium Chloride (Cladribine/NS) 500 ml @ 20.8 mls/hr Q24H IV Last administered on 06/26/17 06:20; Admin Dose 20.8 MLS/HR; Start 06/24/17 at 00:00; Stop 06/28/17 at 23:59 DORIS HUERTAS M.D. Jun 26, 2017 21:43
[2017-06-27 03:22] VITALS: BP_SYST 120; BP_SYST 148; BP_DIAS 69; BP_DIAS 73; RESP 20
[2017-06-27] MEDS: ONDANSETRON INJ 16 MG in SOD CHLORIDE 0.9% 50 ML IVPB SCH (05:16)
[2017-06-27 05:53] LABS: ABNORMAL IP MESSAGE 1; HEMATOCRIT 25.6 % (42.0-52.0); HEMOGLOBIN 8.5 g/dl (14.0-18.0); MEAN CORPUSCULAR HEMOGLOBIN 31.8 pg (29.0-33.0); MEAN CORPUSCULAR HGB CONC 33.2 g/dl (32.0-37.0); MEAN CORPUSCULAR VOLUME 95.9 fl (82.0-101.0); MEAN PLATELET VOLUME 10.4 fl (7.4-10.4); PLATELET COUNT 92 10^3/UL (140-415); POSITIVE DIFF @See below; RED BLOOD COUNT 2.67 10^6/ul (4.70-6.10); RED CELL DISTRIBUTION WIDTH 16.8 % (11.5-14.5); WHITE BLOOD COUNT 0.4 10^3/ul (4.8-10.8)
[2017-06-27 06:42] LABS: ALBUMIN 2.9 g/dl (3.3-4.9); ALBUMIN/GLOBULIN RATIO 0.76; BILIRUBIN,INDIRECT 0.2 mg/dl (0-1.1); BILIRUBIN,TOTAL 0.2 mg/dl (0.2-1.3); CALCIUM 8.5 mg/dl (8.4-10.2); CREATININE 1.06 mg/dl (0.61-1.24); POTASSIUM 4.7 mmol/L (3.5-5.1); TOTAL PROTEIN 6.7 g/dl (6.1-8.1)
[2017-06-27 07:00] VITALS: BP 137/65; RESP 20
[2017-06-27] MEDS: CLADRIBINE IV SCH (08:49)
[2017-06-27] MEDS: SOD CHLORIDE 0.9% IV SCH (08:49)
[2017-06-27] MEDS: INSULIN ASPART [NOVOLOG] 3 ML PEN SC SCH ×4 (09:14→20:58)
--- NOTE | 2017-06-27 09:39 | CONS ---
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 continue to monitor for fevers #Neutropenia -upon discharge pt will need script for acyclovir and fluconazole given his will be chronically neutropenic Problems: (1) Hairy cell leukemia Status: Chronic Qualifiers: Leukemia Active/Remission status: without remission Qualified Code: C91.40 - Hairy cell leukemia not having achieved remission (2) Pancytopenia Status: Chronic Consultation Date/Type/Reason Admit Date/Time Jun 23, 2017 at 09:52 Initial Consult Date 06/24/17 Type of Consultation: Hematology Reason for Consultation hairy cell leukemia Referring Provider: ANGELICA DUEÑAS 24 HR Interval Summary Free Text/Dictation pt tolerating chemotherapy well. wants to go home after chemotherapy ends Exam/Review of Systems Vital Signs Vitals Vital Signs Date Time Temp Pulse Resp B/P Pulse Ox O2 Delivery O2 Flow Rate FiO2 06/27/17 07:00 98.9 87 20 137/65 98 06/25/17 09:50 Room Air Intake and Output 06/26/17 06/26/17 06/27/17 15:00 23:00 07:00 Intake Total 2550 ml 1342.8 ml Output Total 1200 ml Balance 2550 ml 142.8 ml Exam Constitutional: alert, oriented Psych: no complaints Head: normocephalic Eyes: nl conjunctiva ENMT: nl external ears & nose Neck: non-tender, supple Respiratory: clear to auscultation, normal air movement Cardiovascular: regular rate and rhythm Gastrointestinal: soft Musculoskeletal: nl extremities to inspection, nl gait and stance Extremities: normal pulses Results Result Diagram: 06/27/17 0529 06/27/17 0529 Results 24 hrs Laboratory Tests Test 06/26/17 12:50 06/26/17 17:41 06/26/17 20:40 06/27/17 05:29 Bedside Glucose 149 108 135 White Blood Count 0.4 #L Red Blood Count 2.67 L Hemoglobin 8.5 L Hematocrit 25.6 L Mean Corpuscular Volume 95.9 Mean Corpuscular Hemoglobin 31.8 Mean Corpuscular Hemoglobin Concent 33.2 Red Cell Distribution Width 16.8 H Platelet Count 92 L Mean Platelet Volume 10.4 Neutrophils % Lymphocytes % Monocytes % Eosinophils % Basophils % Nucleated Red Blood Cells % 0.0 Neutrophils # Lymphocytes # Monocytes # Eosinophils # Basophils # Nucleated Red Blood Cells # Sodium Level 141 Potassium Level 4.7 Chloride Level 105 Carbon Dioxide Level 24 Anion Gap 17 H Blood Urea Nitrogen 17 Creatinine 1.06 Glucose Level 127 Calcium Level 8.5 Total Bilirubin 0.2 Direct Bilirubin 0.00 Indirect Bilirubin 0.2 Aspartate Amino Transf (AST/SGOT) 54 H Alanine Aminotransferase (ALT/SGPT) 96 H Alkaline Phosphatase 134 H Total Protein 6.7 Albumin 2.9 L Globulin 3.80 H Albumin/Globulin Ratio 0.76 Test 06/27/17 08:31 Bedside Glucose 214 Medications Medications Current Medications Atorvastatin Calcium (Lipitor) 20 mg QHS PO Last administered on 06/26/17 20:40 ; Admin Dose 20 MG; Start 06/23/17 at 21:00 Diltiazem HCl (Cardizem Cd) 120 mg DAILY PO Last administered on 06/26/17 09:09 ; Admin Dose 120 MG; Start 06/24/17 at 09:00 Duloxetine HCl (Cymbalta) 30 mg DAILY PO Last administered on 06/26/17 09:08; Admin Dose 30 MG; Start 06/24/17 at 09:00 Lisinopril (Zestril) 20 mg DAILY PO Last administered on 06/26/17 09:09; Admin Dose 20 MG; Start 06/24/17 at 09:00 Phenytoin (Dilantin) 300 mg BID PO Last administered on 06/26/17 20:40; Admin Dose 300 MG; Start 06/23/17 at 21:00 Diagnostic Test (Pha) (Accu-Chek) 1 ea 02 XX ; Start 06/24/17 at 02:00 Miscellaneous Information 1 ea NOTE XX ; Start 06/23/17 at 11:30 Glucose (Glutose) 15 gm Q15M PRN PO DECREASED GLUCOSE; Start 06/23/17 at 11:30 Glucose (Glutose) 22.5 gm Q15M PRN PO DECREASED GLUCOSE; Start 06/23/17 at 11: 30 Dextrose (D50w Syringe) 25 ml Q15M PRN IV DECREASED GLUCOSE; Start 06/23/17 at 11:30 Dextrose (D50w Syringe) 50 ml Q15M PRN IV DECREASED GLUCOSE; Start 06/23/17 at 11:30 Glucagon (Glucagen) 1 mg Q15M PRN IM DECREASED GLUCOSE; Start 06/23/17 at 11:30 Glucose (Glutose) 15 gm Q15M PRN BUCCAL DECREASED GLUCOSE; Start 06/23/17 at 11 :30 Ondansetron HCl (Zofran Inj) 4 mg Q6H PRN IV NAUSEA AND/OR VOMITING; Start at 11:30 Acetaminophen (Tylenol Tab) 650 mg Q6H PRN PO PAIN LEVEL 1-3 OR FEVER; Start at 11:30 Acetaminophen/ Hydrocodone Bitart ([place] (5/325)) 1 tab Q6H PRN PO MODERATE PAIN LEVEL 4-6; Start 06/23/17 at 11:30 Morphine Sulfate (morphine) 2 mg Q4H PRN IV SEVERE PAIN LEVEL 7-10; Start 06/23 at 11:30 Docusate Sodium (Colace) 100 mg Q12H PRN PO CONSTIPATION; Start 06/23/17 at 11: 30 Magnesium Hydroxide (Milk Of Mag) 30 ml DAILY PRN PO CONSTIPATION; Start at 11:30 Bisacodyl (Dulcolax Supp) 10 mg DAILY PRN [place] CONSTIPATION; Start 06/23/17 at 11 :30 Zolpidem Tartrate (Ambien) 5 mg QHS PRN PO SLEEP; Start 06/23/17 at 11:30 Famotidine 20 mg 20 mg Q12 PO Last administered on 06/26/17 20:40; Admin Dose 20 MG; Start 06/23/17 at 21:00 Sodium Chloride 1,000 ml @ 50 mls/hr Q20H IV Last administered on 06/26/17 17: 50; Admin Dose 50 MLS/HR; Start 06/23/17 at 22:00 Ondansetron HCl 16 mg/Sodium Chloride 58 ml @ 120 mls/hr Q24H IVPB Last administered on 06/27/17 05:16; Admin Dose 120 MLS/HR; Start 06/23/17 at 23:00; Stop 06/27/17 at 23:28 Cladribine/Sodium Chloride (Cladribine/NS) 500 ml @ 20.8 mls/hr Q24H IV Last administered on 06/27/17t 08:49; Admin Dose 20.8 MLS/HR; Start 06/24/17 at 00:00; Stop 06/28/17 at 23:59 DORIS HUERTAS M.D. Jun 27, 2017 09:39
[2017-06-27] MEDS: PHENYTOIN 100 MG CAP PO SCH ×2 (10:25→20:31)
[2017-06-27] MEDS: DULOXETINE 30 MG CAP DR PO SCH (10:26)
[2017-06-27] MEDS: FAMOTIDINE 20 MG TAB PO SCH ×2 (10:28→20:31)
[2017-06-27] MEDS: DILTIAZEM (CD) 120 MG CAP PO SCH (10:29)
[2017-06-27] MEDS: LISINOPRIL 20 MG TAB PO SCH (10:30)
[2017-06-27 10:35] VITALS: BP 127/61; PULSE 77; RESP 18
--- NOTE | 2017-06-27 11:11 | PN ---
Date/Time of Note Date/Time of Note DATE: 06/27/17 TIME: 10:46 Assessment/Plan VTE Prophylaxis VTE Prophylaxis Intervention: SCD's Lines/Catheters IV [facility]ter Type (from [facility]): Saline Lock Urinary Cath still in place: No Assessment/Plan Assessment/Plan 66-year-old male with: 1. 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 Hemoglobin again down to 6.6 today, patient to receive 2 units of packed red blood cells again, so far that would come up to 4 units of packed red blood cells since admission. Hemoglobin at 8.5 and stable 2 days. Patient also with ongoing significant neutropenia, and moderate thrombocytopenia as expected. Ongoing chemotherapy per hematology Dr. Concepcion, according to hematology, patient can be discharged home after chemotherapy doses on Friday. Bi-weekly lab draws and follow-up with hematology in 1 week. Neutropenic precautions 2. Paroxysmal atrial fibrillation: Continue current medications, patient not a candidate for anticoagulation due to thrombocytopenia. 3. Hypertension: Continue current medications as tolerated. 4. Diabetes mellitus: Continue outpatient medications as well as not interfering with chemotherapeutic drug, sliding scale insulin ordered, Accu- Cheks q. before meals and at bedtime. A1c was 8.1 on 05/17/17. 5. Seizure disorder: Continue phenytoin 6. Mild acute kidney injury versus chronic kidney disease: Hold off hydrochlorothiazide, monitor renal function through chemotherapy. Prophylaxis: SCDs for DVT prophylaxis, Pepcid ordered for GI prophylaxis Disposition: Chemotherapy and blood products as needed, discharge planning Friday after chemotherapy if patient stable. Subjective 24 Hr Interval Summary Free Text/Dictation Patient doing well, reports slight GI upset overnight which is resolved. According to Dr. Concepcion, he is to finish chemotherapy on Friday morning and can be discharged afterwards. He can then follow-up with Dr. Concepcion as an outpatient within 1 week and will need biweekly lab draws. Exam/Review of Systems Vital Signs Vitals Vital Signs Date Time Temp Pulse Resp B/P Pulse Ox O2 Delivery O2 Flow Rate FiO2 06/27/17 10:35 77 18 127/61 Room Air 06/27/17 07:00 98.9 98 Intake and Output 06/26/17 06/26/17 06/27/17 15:00 23:00 07:00 Intake Total 2550 ml 1342.8 ml Output Total 1200 ml Balance 2550 ml 142.8 ml Exam Constitutional: alert, oriented, well developed Respiratory: clear to auscultation, normal air movement Cardiovascular: nl pulses, regular rate and rhythm Gastrointestinal: non-tender, soft Musculoskeletal: nl extremities to inspection Extremities: normal pulses, other (No edema, clubbing or cyanosis) Neurological: [employer] MANAGER II-XII intact, nl mental status, nl speech, nl strength Results Result Diagram: 06/27/17 0529 06/27/17 05 Results 24 hrs Laboratory Tests Test 06/26/17 12:50 06/26/17 17:41 06/26/17 20:40 06/27/17 05:29 Bedside Glucose 149 108 135 White Blood Count 0.4 #L Red Blood Count 2.67 L Hemoglobin 8.5 L Hematocrit 25.6 L Mean Corpuscular Volume 95.9 Mean Corpuscular Hemoglobin 31.8 Mean Corpuscular Hemoglobin Concent 33.2 Red Cell Distribution Width 16.8 H Platelet Count 92 L Mean Platelet Volume 10.4 Neutrophils % Lymphocytes % Monocytes % Eosinophils % Basophils % Nucleated Red Blood Cells % 0.0 Neutrophils # Lymphocytes # Monocytes # Eosinophils # Basophils # Nucleated Red Blood Cells # Sodium Level 141 Potassium Level 4.7 Chloride Level 105 Carbon Dioxide Level 24 Anion Gap 17 H Blood Urea Nitrogen 17 Creatinine 1.06 Glucose Level 127 Calcium Level 8.5 Total Bilirubin 0.2 Direct Bilirubin 0.00 Indirect Bilirubin 0.2 Aspartate Amino Transf (AST/SGOT) 54 H Alanine Aminotransferase (ALT/SGPT) 96 H Alkaline Phosphatase 134 H Total Protein 6.7 Albumin 2.9 L Globulin 3.80 H Albumin/Globulin Ratio 0.76 Test 06/27/17 08:31 Bedside Glucose 214 Medications Medications Current Medications Atorvastatin Calcium (Lipitor) 20 mg QHS PO Last administered on 06/26/17 20:40 ; Admin Dose 20 MG; Start 06/23/17 at 21:00 Diltiazem HCl (Cardizem Cd) 120 mg DAILY PO Last administered on 06/27/17 10:29 ; Admin Dose 120 MG; Start 06/24/17 at 09:00 Duloxetine HCl (Cymbalta) 30 mg DAILY PO Last administered on 06/27/17 10:26; Admin Dose 30 MG; Start 06/24/17 at 09:00 Lisinopril (Zestril) 20 mg DAILY PO Last administered on 06/27/17 10:30; Admin Dose 20 MG; Start 06/24/17 at 09:00 Phenytoin (Dilantin) 300 mg BID PO Last administered on 06/27/17 10:25; Admin Dose 300 MG; Start 06/23/17 at 21:00 Diagnostic Test (Pha) (Accu-Chek) 1 ea 02 XX ; Start 06/24/17 at 02:00 Miscellaneous Information 1 ea NOTE XX ; Start 06/23/17 at 11:30 Glucose (Glutose) 15 gm Q15M PRN PO DECREASED GLUCOSE; Start 06/23/17 at 11:30 Glucose (Glutose) 22.5 gm Q15M PRN PO DECREASED GLUCOSE; Start 06/23/17 at 11: 30 Dextrose (D50w Syringe) 25 ml Q15M PRN IV DECREASED GLUCOSE; Start 06/23/17 at 11:30 Dextrose (D50w Syringe) 50 ml Q15M PRN IV DECREASED GLUCOSE; Start 06/23/17 at 11:30 Glucagon (Glucagen) 1 mg Q15M PRN IM DECREASED GLUCOSE; Start 06/23/17 at 11:30 Glucose (Glutose) 15 gm Q15M PRN BUCCAL DECREASED GLUCOSE; Start 06/23/17 at 11 :30 Ondansetron HCl (Zofran Inj) 4 mg Q6H PRN IV NAUSEA AND/OR VOMITING; Start at 11:30 Acetaminophen (Tylenol Tab) 650 mg Q6H PRN PO PAIN LEVEL 1-3 OR FEVER; Start at 11:30 Acetaminophen/ Hydrocodone Bitart ([place] (5/325)) 1 tab Q6H PRN PO MODERATE PAIN LEVEL 4-6; Start 06/23/17 at 11:30 Morphine Sulfate (morphine) 2 mg Q4H PRN IV SEVERE PAIN LEVEL 7-10; Start 06/23 at 11:30 Docusate Sodium (Colace) 100 mg Q12H PRN PO CONSTIPATION; Start 06/23/17 at 11: 30 Magnesium Hydroxide (Milk Of Mag) 30 ml DAILY PRN PO CONSTIPATION; Start at 11:30 Bisacodyl (Dulcolax Supp) 10 mg DAILY PRN [place] CONSTIPATION; Start 06/23/17 at 11 :30 Zolpidem Tartrate (Ambien) 5 mg QHS PRN PO SLEEP; Start 06/23/17 at 11:30 Famotidine 20 mg 20 mg Q12 PO Last administered on 06/27/17 10:28; Admin Dose 20 MG; Start 06/23/17 at 21:00 Sodium Chloride 1,000 ml @ 50 mls/hr Q20H IV Last administered on 06/26/17 17: 50; Admin Dose 50 MLS/HR; Start 06/23/17 at 22:00 Ondansetron HCl 16 mg/Sodium Chloride 58 ml @ 120 mls/hr Q24H IVPB Last administered on 06/27/17 05:16; Admin Dose 120 MLS/HR; Start 06/23/17 at 23:00; Stop 06/27/17 at 23:28 Cladribine/Sodium Chloride (Cladribine/NS) 500 ml @ 20.8 mls/hr Q24H IV Last administered on 06/27/17 08:49; Admin Dose 20.8 MLS/HR; Start 06/24/17 at 00:00; Stop 06/28/17 at 23:59 ANGELICA DUEÑAS Jun 27, 2017 11:08
[2017-06-27 12:00] VITALS: BP 128/66; RESP 20
[2017-06-27 14:00] VITALS: BP 132/65; RESP 20
[2017-06-27] MEDS: SOD CHLORIDE 0.9% 1,000 ML IV SCH (14:44)
[2017-06-27] MEDS: ATORVASTATIN 20 MG TAB PO SCH (20:31)
[2017-06-27 20:38] VITALS: BP 142/70; RESP 20
[2017-06-27] MEDS: NACL 0.9% 3 ML SYG IV SCH (20:38)
[2017-06-28] MEDS: ACCU-CHEK XX SCH ×2 (02:00→21:24)
[2017-06-28 02:35] VITALS: BP 159/73; RESP 18
[2017-06-28 05:57] LABS: ABNORMAL IP MESSAGE 1; HEMATOCRIT 22.9 % (42.0-52.0); HEMOGLOBIN 7.7 g/dl (14.0-18.0); MEAN CORPUSCULAR HEMOGLOBIN 31.8 pg (29.0-33.0); MEAN CORPUSCULAR HGB CONC 33.6 g/dl (32.0-37.0); MEAN CORPUSCULAR VOLUME 94.6 fl (82.0-101.0); MEAN PLATELET VOLUME 10.2 fl (7.4-10.4); PLATELET COUNT 104 10^3/UL (140-415); POSITIVE DIFF @See below; RED BLOOD COUNT 2.42 10^6/ul (4.70-6.10); RED CELL DISTRIBUTION WIDTH 16.5 % (11.5-14.5); WHITE BLOOD COUNT 0.2 10^3/ul (4.8-10.8)
[2017-06-28 06:00] LABS: MAGNESIUM 1.9 mg/dl (1.7-2.5); PHOSPHORUS 3.1 mg/dl (2.5-4.9)
[2017-06-28 07:06] LABS: ALBUMIN 2.7 g/dl (3.3-4.9); ALBUMIN/GLOBULIN RATIO 0.75; BILIRUBIN,INDIRECT 0.2 mg/dl (0-1.1); BILIRUBIN,TOTAL 0.2 mg/dl (0.2-1.3); CALCIUM 8.2 mg/dl (8.4-10.2); CREATININE 0.93 mg/dl (0.61-1.24); POTASSIUM 4.2 mmol/L (3.5-5.1); TOTAL PROTEIN 6.3 g/dl (6.1-8.1)
[2017-06-28] MEDS: INSULIN ASPART [NOVOLOG] 3 ML PEN SC SCH ×4 (07:50→21:00)
[2017-06-28 08:02] VITALS: BP 147/68; RESP 18
[2017-06-28] MEDS: PHENYTOIN 100 MG CAP PO SCH ×2 (08:12→20:27)
[2017-06-28] MEDS: FAMOTIDINE 20 MG TAB PO SCH ×2 (08:12→20:27)
[2017-06-28] MEDS: DULOXETINE 30 MG CAP DR PO SCH (08:12)
[2017-06-28] MEDS: DILTIAZEM (CD) 120 MG CAP PO SCH (08:13)
[2017-06-28] MEDS: LISINOPRIL 20 MG TAB PO SCH (08:13)
[2017-06-28 09:23] LABS: ANISOCYTOSIS 1+ (0-0); GIANT THROMBO% (M) 75 % (0-0); POLYCHROMASIA 1+ (0-0)
[2017-06-28] MEDS ORDERED: morphine 2 MG INJ IV PRN (10:30)
[2017-06-28] MEDS ORDERED: SOD CHLORIDE 0.9% 250 ML IV* ONE (10:38)
--- NOTE | 2017-06-28 10:38 | PN ---
Date/Time of Note Date/Time of Note DATE: 06/28/17 TIME: 10:37 Assessment/Plan VTE Prophylaxis VTE Prophylaxis Intervention: other Lines/Catheters IV Catheter Type (from Nrs): Saline Lock Central line still needed: Yes Urinary Cath still in place: No Assessment/Plan Assessment/Plan 1. hairy cell leukemia, cont chemo (b) pancytopenia, monitor, (c) transfuse today 2. plan d/c home in am Subjective 24 Hr Interval Summary Free Text/Dictation no complaints, some nausea, eating ok, ambulating to toilet Exam/Review of Systems Vital Signs Vitals Vital Signs Date Time Temp Pulse Resp B/P Pulse Ox O2 Delivery O2 Flow Rate FiO2 06/28/17 08:02 98.6 79 18 147/68 95 06/27/17 10:35 Room Air Intake and Output 06/27/17 06/27/17 06/28/17 15:00 23:00 07:00 Intake Total 477.2 ml 2788 ml 1299.6 ml Output Total 2750 ml 1100 ml Balance 477.2 ml 38 ml 199.6 ml Exam nad, ctab, rrr Results Result Diagram: 06/28/17 0434 06/28/17 0434 Results 24 hrs Laboratory Tests Test 06/27/17 12:29 06/27/17 17:37 06/27/17 20:30 06/28/17 04:34 Bedside Glucose 132 131 161 White Blood Count 0.2 #L Red Blood Count 2.42 L Hemoglobin 7.7 L Hematocrit 22.9 L Mean Corpuscular Volume 94.6 Mean Corpuscular Hemoglobin 31.8 Mean Corpuscular Hemoglobin Concent 33.6 Red Cell Distribution Width 16.5 H Platelet Count 104 L Mean Platelet Volume 10.2 Neutrophils % Segmented Neutrophils % (Manual) 50 Band Neutrophils % (Manual) 13 H Lymphocytes % Lymphocytes % (Manual) 38 Monocytes % Eosinophils % Basophils % Nucleated Red Blood Cells % 0.0 Neutrophils # Neutrophils # (Manual) 0.1 L Band Neutrophils # 0.0 Absolute Lymphocytes (Manual) 0.0 L Lymphocytes # Monocytes # Eosinophils # Basophils # Nucleated Red Blood Cells # Smudge Cells % 25 H Thrombocytosis 75 H Polychromasia 1+ Anisocytosis 1+ Sodium Level 141 Potassium Level 4.2 Chloride Level 106 Carbon Dioxide Level 21 Anion Gap 18 H Blood Urea Nitrogen 15 Creatinine 0.93 Glucose Level 136 Calcium Level 8.2 L Phosphorus Level 3.1 Magnesium Level 1.9 Total Bilirubin 0.2 Direct Bilirubin 0.00 Indirect Bilirubin 0.2 Aspartate Amino Transf (AST/SGOT) 58 H Alanine Aminotransferase (ALT/SGPT) 101 H Alkaline Phosphatase 130 H Total Protein 6.3 Albumin 2.7 L Globulin 3.60 H Albumin/Globulin Ratio 0.75 Test 06/28/17 08:09 Bedside Glucose 156 Medications Medications Current Medications Atorvastatin Calcium (Lipitor) 20 mg QHS PO Last administered on 06/27/17 20:31 ; Admin Dose 20 MG; Start 06/23/17 at 21:00 Diltiazem HCl (Cardizem Cd) 120 mg DAILY PO Last administered on 06/28/17 08:13 ; Admin Dose 120 MG; Start 06/24/17 at 09:00 Duloxetine HCl (Cymbalta) 30 mg DAILY PO Last administered on 06/28/17 08:12; Admin Dose 30 MG; Start 06/24/17 at 09:00 Lisinopril (Zestril) 20 mg DAILY PO Last administered on 06/28/17 08:13; Admin Dose 20 MG; Start 06/24/17 at 09:00 Phenytoin (Dilantin) 300 mg BID PO Last administered on 06/28/17 08:12; Admin Dose 300 MG; Start 06/23/17 at 21:00 Diagnostic Test (Pha) (Accu-Chek) 1 ea 02 XX ; Start 06/24/17 at 02:00 Miscellaneous Information 1 ea NOTE XX ; Start 06/23/17 at 11:30 Glucose (Glutose) 15 gm Q15M PRN PO DECREASED GLUCOSE; Start 06/23/17 at 11:30 Glucose (Glutose) 22.5 gm Q15M PRN PO DECREASED GLUCOSE; Start 06/23/17 at 11: 30 Dextrose (D50w Syringe) 25 ml Q15M PRN IV DECREASED GLUCOSE; Start 06/23/17 at 11:30 Dextrose (D50w Syringe) 50 ml Q15M PRN IV DECREASED GLUCOSE; Start 06/23/17 at 11:30 Glucagon (Glucagen) 1 mg Q15M PRN IM DECREASED GLUCOSE; Start 06/23/17 at 11:30 Glucose (Glutose) 15 gm Q15M PRN BUCCAL DECREASED GLUCOSE; Start 06/23/17 at 11 :30 Ondansetron HCl (Zofran Inj) 4 mg Q6H PRN IV NAUSEA AND/OR VOMITING; Start at 11:30 Acetaminophen (Tylenol Tab) 650 mg Q6H PRN PO PAIN LEVEL 1-3 OR FEVER; Start at 11:30 Acetaminophen/ Hydrocodone Bitart ([place] (5/325)) 1 tab Q6H PRN PO MODERATE PAIN LEVEL 4-6; Start 06/23/17 at 11:30 Docusate Sodium (Colace) 100 mg Q12H PRN PO CONSTIPATION; Start 06/23/17 at 11: 30 Magnesium Hydroxide (Milk Of Mag) 30 ml DAILY PRN PO CONSTIPATION; Start at 11:30 Bisacodyl (Dulcolax Supp) 10 mg DAILY PRN [place] CONSTIPATION; Start 06/23/17 at 11 :30 Zolpidem Tartrate (Ambien) 5 mg QHS PRN PO SLEEP; Start 06/23/17 at 11:30 Famotidine 20 mg 20 mg Q12 PO Last administered on 06/28/17 08:12; Admin Dose 20 MG; Start 06/23/17 at 21:00 Sodium Chloride 1,000 ml @ 50 mls/hr Q20H IV Last administered on 06/27/17 14: 44; Admin Dose 50 MLS/HR; Start 06/23/17 at 22:00 Cladribine/Sodium Chloride (Cladribine/NS) 500 ml @ 20.8 mls/hr Q24H IV Last administered on 06/27/17 08:49; Admin Dose 20.8 MLS/HR; Start 06/24/17 at 00:00; Stop 06/28/17 at 23:59 Morphine Sulfate (morphine) 2 mg Q4H PRN IV SEVERE PAIN LEVEL 7-10; Start at 10:30 ZACK BURGOS MD Jun 28, 2017 10:38
[2017-06-28] MEDS: ONDANSETRON INJ 16 MG in SOD CHLORIDE 0.9% 50 ML IVPB SCH (10:48)
[2017-06-28] MEDS ORDERED: ACETAMINOPHEN 325 MG TAB PO SCH (11:00)
[2017-06-28] MEDS ORDERED: FUROSEMIDE 20 MG INJ IV ONE (11:00)
[2017-06-28] MEDS ORDERED: ACETAMINOPHEN 325 MG TAB PO ONE (11:00)
[2017-06-28] MEDS: SOD CHLORIDE 0.9% 1,000 ML IV SCH (12:07)
[2017-06-28 12:13] VITALS: BP 151/71; PULSE 71; RESP 16
[2017-06-28] MEDS: CLADRIBINE IV SCH (12:23)
[2017-06-28] MEDS: SOD CHLORIDE 0.9% IV SCH (12:23)
[2017-06-28 13:13] VITALS: BP 138/67; RESP 19
[2017-06-28 16:58] VITALS: BP 143/66; PULSE 73; RESP 16
[2017-06-28] MEDS: ATORVASTATIN 20 MG TAB PO SCH (20:27)
[2017-06-28 20:46] VITALS: BP 151/70; RESP 20
[2017-06-29 00:31] VITALS: BP 144/67; RESP 20
[2017-06-29] MEDS: SOD CHLORIDE 0.9% 1,000 ML IV SCH (06:47)
[2017-06-29 07:41] VITALS: BP 150/69; RESP 20
[2017-06-29 07:51] LABS: ABNORMAL IP MESSAGE 1; HEMATOCRIT 24.9 % (42.0-52.0); HEMOGLOBIN 8.4 g/dl (14.0-18.0); MEAN CORPUSCULAR HEMOGLOBIN 32.1 pg (29.0-33.0); MEAN CORPUSCULAR HGB CONC 33.7 g/dl (32.0-37.0); MEAN PLATELET VOLUME 9.9 fl (7.4-10.4); NUCLEATED RED BLOOD CELLS% 10.5 /100WBC (0.0-0.0); PLATELET COUNT 108 10^3/UL (140-415); POSITIVE DIFF @See below; RED BLOOD COUNT 2.62 10^6/ul (4.70-6.10); RED CELL DISTRIBUTION WIDTH 16.6 % (11.5-14.5); WHITE BLOOD COUNT 0.2 10^3/ul (4.8-10.8)
[2017-06-29 08:24] LABS: ALBUMIN 3.1 g/dl (3.3-4.9); ALBUMIN/GLOBULIN RATIO 0.79; BILIRUBIN,INDIRECT 0.4 mg/dl (0-1.1); BILIRUBIN,TOTAL 0.4 mg/dl (0.2-1.3); CALCIUM 8.4 mg/dl (8.4-10.2); CREATININE 1.06 mg/dl (0.61-1.24); POTASSIUM 4.4 mmol/L (3.5-5.1)
[2017-06-29] MEDS: DILTIAZEM (CD) 120 MG CAP PO SCH (09:13)
[2017-06-29] MEDS: DULOXETINE 30 MG CAP DR PO SCH (09:13)
[2017-06-29] MEDS: PHENYTOIN 100 MG CAP PO SCH (09:14)
[2017-06-29] MEDS: FAMOTIDINE 20 MG TAB PO SCH (09:15)
[2017-06-29] MEDS: LISINOPRIL 20 MG TAB PO SCH (09:15)
[2017-06-29] MEDS: INSULIN ASPART [NOVOLOG] 3 ML PEN SC SCH ×2 (09:19→11:40)
--- NOTE | 2017-06-29 10:24 | PN ---
Date/Time of Note Date/Time of Note DATE: 06/29/17 TIME: 10:23 Assessment/Plan VTE Prophylaxis VTE Prophylaxis Intervention: other Lines/Catheters IV Catheter Type (from Nrs): PICC Line Central line still needed: No Urinary Cath still in place: No Assessment/Plan Assessment/Plan 1. hairy cell leukemia, completing chemo (b) chronic neutropenia, plan prophylactic acyclovir and flucon 2. d/c home Subjective 24 Hr Interval Summary Free Text/Dictation no complaints, doing well Exam/Review of Systems Vital Signs Vitals Vital Signs Date Time Temp Pulse Resp B/P Pulse Ox O2 Delivery O2 Flow Rate FiO2 06/29/17 07:41 99.2 80 20 150/69 95 06/28/17 16:58 Room Air Intake and Output 06/28/17 06/28/17 06/29/17 15:00 23:00 07:00 Intake Total 507.6 ml 560 ml 1349.52 ml Output Total 1550 ml Balance 507.6 ml 560 ml -200.48 ml Exam nad, soft nt, ctab Results Result Diagram: 06/29/17 0656 06/29/17 0656 Results 24 hrs Laboratory Tests Test 06/28/17 12:28 06/28/17 17:41 06/28/17 20:26 06/29/17 06:56 Bedside Glucose 150 154 144 White Blood Count 0.2 L Red Blood Count 2.62 L Hemoglobin 8.4 L Hematocrit 24.9 L Mean Corpuscular Volume 95.0 Mean Corpuscular Hemoglobin 32.1 Mean Corpuscular Hemoglobin Concent 33.7 Red Cell Distribution Width 16.6 H Platelet Count 108 L Mean Platelet Volume 9.9 Neutrophils % Lymphocytes % Monocytes % Eosinophils % Basophils % Nucleated Red Blood Cells % 10.5 H Neutrophils # Lymphocytes # Monocytes # Eosinophils # Basophils # Nucleated Red Blood Cells # Sodium Level 141 Potassium Level 4.4 Chloride Level 108 Carbon Dioxide Level 20 L Anion Gap 17 H Blood Urea Nitrogen 15 Creatinine 1.06 Glucose Level 145 Calcium Level 8.4 Total Bilirubin 0.4 Direct Bilirubin 0.00 Indirect Bilirubin 0.4 Aspartate Amino Transf (AST/SGOT) 97 #H Alanine Aminotransferase (ALT/SGPT) 127 H Alkaline Phosphatase 159 H Total Protein 7.0 Albumin 3.1 L Globulin 3.90 H Albumin/Globulin Ratio 0.79 Test 06/29/17 09:10 Bedside Glucose 151 Medications Medications Current Medications Atorvastatin Calcium (Lipitor) 20 mg QHS PO Last administered on 06/28/17 20:27 ; Admin Dose 20 MG; Start 06/23/17 at 21:00 Diltiazem HCl (Cardizem Cd) 120 mg DAILY PO Last administered on 06/29/17 09:13 ; Admin Dose 120 MG; Start 06/24/17 at 09:00 Duloxetine HCl (Cymbalta) 30 mg DAILY PO Last administered on 06/29/17 09:13; Admin Dose 30 MG; Start 06/24/17 at 09:00 Lisinopril (Zestril) 20 mg DAILY PO Last administered on 06/29/17 09:15; Admin Dose 20 MG; Start 06/24/17 at 09:00 Phenytoin (Dilantin) 300 mg BID PO Last administered on 06/29/17 09:14; Admin Dose 300 MG; Start 06/23/17 at 21:00 Diagnostic Test (Pha) (Accu-Chek) 1 ea 02 XX ; Start 06/24/17 at 02:00 Miscellaneous Information 1 ea NOTE XX ; Start 06/23/17 at 11:30 Glucose (Glutose) 15 gm Q15M PRN PO DECREASED GLUCOSE; Start 06/23/17 at 11:30 Glucose (Glutose) 22.5 gm Q15M PRN PO DECREASED GLUCOSE; Start 06/23/17 at 11: 30 Dextrose (D50w Syringe) 25 ml Q15M PRN IV DECREASED GLUCOSE; Start 06/23/17 at 11:30 Dextrose (D50w Syringe) 50 ml Q15M PRN IV DECREASED GLUCOSE; Start 06/23/17 at 11:30 Glucagon (Glucagen) 1 mg Q15M PRN IM DECREASED GLUCOSE; Start 06/23/17 at 11:30 Glucose (Glutose) 15 gm Q15M PRN BUCCAL DECREASED GLUCOSE; Start 06/23/17 at 11 :30 Ondansetron HCl (Zofran Inj) 4 mg Q6H PRN IV NAUSEA AND/OR VOMITING; Start at 11:30 Acetaminophen (Tylenol Tab) 650 mg Q6H PRN PO PAIN LEVEL 1-3 OR FEVER; Start at 11:30 Acetaminophen/ Hydrocodone Bitart ([place] (5/325)) 1 tab Q6H PRN PO MODERATE PAIN LEVEL 4-6; Start 06/23/17 at 11:30 Docusate Sodium (Colace) 100 mg Q12H PRN PO CONSTIPATION; Start 06/23/17 at 11: 30 Magnesium Hydroxide (Milk Of Mag) 30 ml DAILY PRN PO CONSTIPATION; Start at 11:30 Bisacodyl (Dulcolax Supp) 10 mg DAILY PRN [place] CONSTIPATION; Start 06/23/17 at 11 :30 Zolpidem Tartrate (Ambien) 5 mg QHS PRN PO SLEEP Last administered on 06/29/17 02:07; Admin Dose 5 MG; Start 06/23/17 at 11:30 Famotidine 20 mg 20 mg Q12 PO Last administered on 06/29/17 09:15; Admin Dose 20 MG; Start 06/23/17 at 21:00 Sodium Chloride (NS) 1,000 ml @ 50 mls/hr Q20H IV Last administered on 06:47; Admin Dose 50 MLS/HR; Start 06/23/17 at 22:00 Morphine Sulfate (morphine) 2 mg Q4H PRN IV SEVERE PAIN LEVEL 7-10; Start at 10:30 ZACK BURGOS MD Jun 29, 2017 10:24
[2017-06-29] MEDS ORDERED: FLUC100T39 PO (10:31)
[2017-06-29] MEDS ORDERED: ACYC400T2 PO (10:31)
--- NOTE | 2017-06-29 10:32 | PDOCDIS ---
Discharge Instructions CONDITION Patient Condition: Fair HOME CARE INSTRUCTIONS: Diet Instructions: RegularSpecial Diet: Carb Controlled ACTIVITY: Activity Restrictions: Slowly Increase Activity Rest between Activity Avoid heavy lifting Bathing Restrictions: Shower FOLLOW UP/APPOINTMENTS Follow-up Plan 1. dr cheema in 1-2 weeks 2. return to ER for any fever ZACK BURGOS MD Jun 29, 2017 10:32
[2017-06-29 12:54] VITALS: BP 154/72; PULSE 78; RESP 18
--- NOTE | 2017-06-29 13:09 | DS ---
DATE OF ADMISSION: 06/23/2017 DATE OF DISCHARGE: 06/29/2017 FINAL DIAGNOSES: 1. Hairy cell leukemia status post chemotherapy. 2. Atrial fibrillation. 3. Diabetes. 4. Hypertension. 5. Major depression. HOSPITAL COURSE: Mr. Thorne presents electively to [facility] under care of Dr. Liat Concepcion for chemotherapy initiation for hairy cell leukemia. He was seen and evaluated, tolerated his chemotherapy well and is deemed stable for discharge to home at the conclusion of this therapy regimen. DISCHARGE MEDICATIONS: The patient is asked to continue the following new medicines without changes. 1. Lipitor 20 mg daily. 2. Diltiazem 120 mg daily. 3. Lisinopril 20 mg daily. 4. Hydrochlorothiazide 25 mg daily. 5. Duloxetine 30 mg daily. 6. Phenytoin 300 mg b.i.d. 7. Jardiance 10 mg daily. 8. Metformin 500 mg daily. Patient is the patient is asked to commence the following new medications at time of discharge. 9. Acyclovir 400 mg b.i.d. 10. Fluconazole 100 mg daily. DISCHARGE DISPOSITION: Home. DISCHARGE ACTIVITY: Increase in physical activity as tolerated. DISCHARGE DIET: A 2-gram sodium diet recommended. DISCHARGE FOLLOWUP: Dr. Liat Concepcion 1-2 weeks. Dictated By: Bob Gauthier MD [email or web address] /Document#: [id number]
== END 2017-06-29 16:19 | disposition home health service (06) | DRG 847 ==
LOC: MS1 09:52
PROVIDERS: ADMIT Internal Medicine; ATTEND Internal Medicine
PROC: 30233N1 Transfusion of Nonautologous Red Blood Cells into Peripheral Vein, Percutaneous Approach (ICD-10-PCS; 2017-06-23)
PROC: 3E03305 Introduction of Other Antineoplastic into Peripheral Vein, Percutaneous Approach (ICD-10-PCS; principal; 2017-06-24)
DX: Z51.11 Encounter for antineoplastic chemotherapy (principal); C91.40 Hairy cell leukemia not having achieved remission; N17.9 Acute kidney failure, unspecified; D61.818 Other pancytopenia; I48.91 Unspecified atrial fibrillation; I12.9 Hypertensive chronic kidney disease with stage 1 through stage 4 chronic kidney disease, or unspecified chronic kidney disease; F32.9 Major depressive disorder, single episode, unspecified; E11.9 Type 2 diabetes mellitus without complications; G40.909 Epilepsy, unspecified, not intractable, without status epilepticus; N18.9 Chronic kidney disease, unspecified
CPT/HCPCS: 36430; 80053; 82962; 83735; 84100; 84560; 85025; 86644; 86850; 86900; 86901; 86920; J1815; J2405; J7030; J7040; J9065; P9016

== ENCOUNTER 2017-07-05 14:55 | Inpatient (IN) | payer BC ==
[~2017-07-05] VITALS: Ht 182.9 cm; Wt 100.0 kg
[~2017-07-05 14:55] MED LIST changes: +ACYC400T2 PO; +ATOR10TA65 PO; +DILT120C PO; +DULO30CA47 PO; +FLUC100T39 PO; +HYD25 PO; +LISI20TA11 PO; +PHEN300C4 PO
[2017-07-05] MEDS ORDERED: SOD CHLORIDE 0.9% 1,000 ML IV STA (15:06)
[2017-07-05] MEDS ORDERED: CEFEPIME 1GM/50 ML (PMX) 50 ML IVPB ONE (15:30)
[2017-07-05 15:49] LABS: ABNORMAL IP MESSAGE 1; HEMATOCRIT 18.2 % (42.0-52.0); MEAN CORPUSCULAR HEMOGLOBIN 31.7 pg (29.0-33.0); MEAN CORPUSCULAR HGB CONC 34.6 g/dl (32.0-37.0); MEAN CORPUSCULAR VOLUME 91.5 fl (82.0-101.0); POSITIVE DIFF @See below; RED BLOOD COUNT 1.99 10^6/ul (4.70-6.10); WHITE BLOOD COUNT 0.1 10^3/ul (4.8-10.8)
[2017-07-05 15:58] LABS: PLATELET COUNT 36 10^3/UL (140-415)
[2017-07-05 16:01] LABS: HEMOGLOBIN 6.3 g/dl (14.0-18.0)
[2017-07-05 16:10] LABS: INR 1.2; PROTIME 15.3 Sec (12.2-14.2); PT RATIO 1.2
[2017-07-05 16:13] LABS: ALBUMIN 2.9 g/dl (3.3-4.9); ALBUMIN/GLOBULIN RATIO 0.69; BILIRUBIN,DIRECT 0.7 mg/dl (0.00-0.20); BILIRUBIN,INDIRECT 0.5 mg/dl (0-1.1); BILIRUBIN,TOTAL 1.2 mg/dl (0.2-1.3); CALCIUM 8.2 mg/dl (8.4-10.2); CREATININE 1.82 mg/dl (0.61-1.24); POTASSIUM 3.4 mmol/L (3.5-5.1); TOTAL PROTEIN 7.1 g/dl (6.1-8.1)
[2017-07-05 16:25] LABS: TROPONIN-I 0.11 ng/ml (0.00-0.12)
[2017-07-05] MEDS ORDERED: VANCOMYCIN 1 GM (PMX) 250 ML IVPB SCH (16:30)
[2017-07-05 16:43] LABS: LYMPHOCYTES # 0.1 10^3/ul (0.8-2.9); MONOCYTES % (M) 2 % (0-11)
--- NOTE | 2017-07-05 16:49 | ERA ---
ER Documentation Chief Complaint Date/Time DATE: 07/05/17 TIME: 16:34 Chief Complaint BIB RA FOR EVAL OF GENERALIZED WEAKNESS. LAST CHEMO 2 DAYS AGO HPI 66-year-old man brought in by EMS from home for 2 days of generalized weakness, fatigue, weight loss, shortness of breath. Patient has a recent history of hairy cell leukemia with previous pancytopenia and was last treated with chemotherapy about 2 days ago. Patient denies cough, no dysuria or hematuria, no back pain, no abdominal pain, no vomiting or diarrhea. Patient denies melena or blood per rectum. Patient was transported to by EMS without further complications. Patient denies history of anemia or blood transfusions prior to his diagnosis. Patient denies recent skin discoloration, bruising, or bleeding. Patient states he was recently prescribed duloxetine. ROS All systems reviewed and are negative except as per history of present illness. Medications Home Meds Active Scripts Acyclovir* (Acyclovir*) 400 Mg Tablet, 400 MG PO BID for 30 Days, #60 TAB Prov:ZACK BURGOS MD 06/29/17 Fluconazole* (Fluconazole*) 100 Mg Tablet, 100 MG PO DAILY for 30 Days, #30 TAB Prov:ZACK BURGOS MD 06/29/17 Diltiazem Hcl* (Cardizem LA*) 360 Mg Tab.sr.24h, 360 MG PO DAILY for 30 Days, # 30 TAB.SA Prov:ZACK BURGOS MD 05/21/17 Reported Medications Empagliflozin (Jardiance) 10 Mg Tablet, 10 MG PO, TAB 06/23/17 Phenytoin* Sodium Extended (Phenytoin* Sodium Extended) 300 Mg Capsule, 300 MG PO BID, CAP 06/23/17 Diltiazem Hcl (DILTIAZEM 24HR ER) 120 Mg Cap.er.24h, 120 MG PO DAILY, #30 CAP 06/23/17 Duloxetine Hcl* (Duloxetine Hcl*) 30 Mg Capsule.dr, 30 MG PO DAILY, #30 CAP 06/23/17 Hydrochlorothiazide* (Hydrochlorothiazide*) 25 Mg Tab, 25 MG PO DAILY, #30 TAB 06/23/17 Lisinopril* (Lisinopril*) 20 Mg Tablet, 20 MG PO DAILY, #30 TAB 06/23/17 Atorvastatin Calcium (Atorvastatin Calcium) 10 Mg Tablet, 20 MG PO QHS, #30 TAB 06/23/17 Empagliflozin (Jardiance) 10 Mg Tablet, 10 MG PO, TAB 05/16/17 Lisinopril/Hydrochlorothiazide (Lisinopril-Hctz 20-25 mg Tab) 1 Each Tablet, 1 EACH PO, TAB 05/16/17 Atorvastatin Calcium* (Atorvastatin Calcium*) 20 Mg Tablet, 20 MG PO DAILY, #30 TAB 05/16/17 Metformin* (Glucophage*) 500 Mg Tab, 500 MG PO WITH BREAKFAST, #30 TAB 05/16/17 Phenytoin* (Phenytoin*) 125 Mg/5 Ml Oral.susp, 300 MG PO BID for 30 Days, BOTTLE 05/16/17 Allergies Allergies: Coded Allergies: No Known Allergy (Unverified , 05/16/17) PMhx/Soc Hairy cell leukemia, hypertension History of Surgery: Yes (LAP CHOLYCISTECTOMY, TUMOR RESECTIONS FROM THE BLADDER.) Anesthesia Reaction: No Hx Neurological Disorder: No Hx Respiratory Disorders: No Hx Cardiac Disorders: No Hx Psychiatric Problems: No Hx Miscellaneous Medical Probl: No Hx Alcohol Use: No Hx Substance Use: No Hx Tobacco Use: No Smoking Status: Never smoker FmHx Family History: No diabetes Physical Exam Vitals Vital Signs Date Time Temp Pulse Resp B/P Pulse Ox O2 Delivery O2 Flow Rate FiO2 07/05/17 16:31 99.0 87 20 99/54 100 Room Air 07/05/17 15:01 100.5 108 19 117/90 98 Physical Exam GENERAL: Well-developed, appears dehydrated, febrile at 100.5F, HEENT: Dry mucous membranes, pale conjunctiva, no cervical spine tenderness or step-off deformities, no goiter, no jaundice or icterus, extraocular movements intact without pain. No submandibular induration, and no pharyngeal erythema NEURO: Alert and oriented 3, cranial nerves II through XII intact bilaterally, pupils equal round reactive to light, no focal deficits or facial asymmetry, sensation intact distally Strength 5/5 in upper and lower extremities bilaterally CARDIAC: Regular rate and rhythm, no murmurs rubs or gallops LUNGS: Clear bilaterally no wheezing crackles or stridor ABDOMEN: Soft nontender, no guarding, no rigidity, no rebound, no psoas sign no obturator sign. No splenomegaly or hepatomegaly palpated. SKIN: Warm and dry to touch, no abrasions, contusions, or hematomas, no lacerations, no ecchymosis, no target lesions, and without ulcers EXTREMITIES: No clubbing cyanosis or edema, calves are bilaterally symmetrical, no Homans sign, no popliteal cord sign. Distal pulses equal and bilateral PSYCH: Normal affect without agitation or irritability Result Diagram: 07/05/17 1530 07/05/17 1530 Results 24 hrs Laboratory Tests Test 07/05/17 15:30 White Blood Count 0.110^3/ul Red Blood Count 1.9910^6/ul Hemoglobin 6.3g/dl Hematocrit 18.2% Mean Corpuscular Volume 91.5fl Mean Corpuscular Hemoglobin 31.7pg Mean Corpuscular Hemoglobin Concent 34.6g/dl Red Cell Distribution Width 17.0% Platelet Count 3610^3/UL Mean Platelet Volume fl Neutrophils % % Lymphocytes % % Monocytes % % Eosinophils % % Basophils % % Nucleated Red Blood Cells % 0.0/100WBC Neutrophils # 10^3/ul Lymphocytes # 10^3/ul Monocytes # 10^3/ul Eosinophils # 10^3/ul Basophils # 10^3/ul Nucleated Red Blood Cells # 10^3/ul Prothrombin Time 15.3Sec Prothrombin Time Ratio 1.2 INR International Normalized Ratio 1.20 Sodium Level 135mmol/L Potassium Level 3.4mmol/L Chloride Level 98mmol/L Carbon Dioxide Level 22mmol/L Anion Gap 18 Blood Urea Nitrogen 47mg/dl Creatinine 1.82mg/dl Glucose Level 207mg/dl Calcium Level 8.2mg/dl Total Bilirubin 1.2mg/dl Direct Bilirubin 0.70mg/dl Indirect Bilirubin 0.5mg/dl Aspartate Amino Transf (AST/SGOT) 164IU/L Alanine Aminotransferase (ALT/SGPT) 163IU/L Alkaline Phosphatase 132IU/L Troponin I 0.110ng/ml Total Protein 7.1g/dl Albumin 2.9g/dl Globulin 4.20g/dl Albumin/Globulin Ratio 0.69 Lipase 75U/L Current Medications Medications (Trade) Dose Ordered Sig/Iván Route PRN Reason Start Time Stop Time Status Last Admin Dose Admin Sodium Chloride 1,000 ml @ 1,000 mls/hr Q1H STAT IV 07/05/17 15:06 07/05/17 16:05 DC 07/05/17 15:44 Cefepime HCl 50 ml @ 100 mls/hr ONCE ONCE IVPB 07/05/17 15:30 07/05/17 15:59 DC 07/05/17 15:44 Vancomycin HCl (Vancocin) 250 ml @ 125 mls/hr ONCE IVPB 07/05/17 16:30 07/05/17 18:29 UNV Procedures/MDM IV line was established patient was placed on security monitor rhythm strip revealed a tachycardia 100 bpm. Patient was febrile. Blood and urine cultures have been ordered results are pending I will follow-up. EKG performed, read by me: 94 bpm, normal sinus rhythm, normal axis, no acute ST segment changes, narrow QRS complex, with good R-wave progression in precordial leads. Chest X-ray 1V Interpreted by me: Soft Tissue: No acute abnormalities Bones: No acute abnormalities Mediastinum/Cardiac Silhouette/Lungs: No acute abnormalities CBC reveals severe pancytopenia with white count of 0.1, hemoglobin 6.3, platelets are 36,000. Electrolytes revealed mild hypokalemia and dehydration with a BUN/creatinine of 47/1.8, liver function tests revealed mild transaminitis consistent with acute and recent chemotherapy use. Coagulation profile normal, troponin negative. Patient received 1 L normal saline intravenously and I ordered 1 unit PRBC IV over 1 hour for severe anemia, Dr. Concepcion oncologist recommended total of [address] Concepcion was obtained and she recommended inpatient management with broad-spectrum IV antibiotics. Patient received cefepime 1 g IV and vancomycin 1 g IV. Critical Care: Time: 33 minutes, this was time separate from other billable procedures. Treatments/Evaluations: Close monitoring and treatment of unstable vital signs, cardiorespiratory, and neurologic status, while maintaining tight balance of fluid, respiratory, and cardiac interventions. I noticed patient recently started using duloxetine for depression, a known adverse reaction is platelet dysfunction and spontaneous bleeding, my recommendation is immediate discontinuation of this medication, to be replaced by another without this specific side effect. Departure Diagnosis: Primary Impression: Hairy cell leukemia Qualified Code: C91.40 - Hairy cell leukemia not having achieved remission Additional Impressions: Pancytopenia Neutropenic fever Dehydration Anemia Qualified Code: D61.810 - Antineoplastic chemotherapy induced pancytopenia Condition: REBECCA Archuleta MD Jul 05, 2017 16:48
[2017-07-05 16:50] LABS: ADD UMIC YES; UR AMORPHOUS CRYSTAL FEW /HPF (NONE SEEN); UR ASCORBIC ACID NEGATIVE (NEGATIVE); UR BACTERIA MANY /HPF (NONE SEEN); UR BILIRUBIN (Dip) NEGATIVE (NEGATIVE); UR BLOOD (Dip) 1+ mg/dL (NEGATIVE); UR CLARITY CLOUDY (CLEAR); UR COLOR AMBER (YELLOW); UR GLUCOSE (Dip) 3+ mg/dL (NEGATIVE); UR KETONES (Dip) NEGATIVE (NEGATIVE); UR LEUKOCYTE ESTERASE (Dip) NEGATIVE Leu/ul (NEGATIVE); UR NITRITE (Dip) NEGATIVE (NEGATIVE); UR RBC 3 /HPF (0-5); UR SPECIFIC GRAVITY (Dip) 1.013 (1.003-1.030); UR TOTAL PROTEIN (Dip) 2+ mg/dl (NEGATIVE); UR UROBILINOGEN (Dip) 2+ mg/dL (NEGATIVE)
--- NOTE | 2017-07-05 17:15 | RADRPT ---
PROCEDURE: Portable chest x-ray. CLINICAL INDICATION: 66-year-old male. Abdominal pain. TECHNIQUE: Portable AP view of the chest. COMPARISON: None. FINDINGS: Cardiomediastinal contours are normal. Lungs are clear.. Negative for pleural effusion or pneumothorax.. Right acromioclavicular osteoarthritis. Limited evaluation of the upper abdomen shows no abnormality. IMPRESSION: Negative for evidence of acute chest process. RPTAT: HCTS Physician Sena Date Time Electronically viewed and signed by Physician Sena on 07/05/2017 17:14 CS/
[2017-07-05] MEDS ORDERED: POTASSIUM CHLORIDE (SR) 20 MEQ TAB PO STA (17:17)
[2017-07-05] MEDS: SOD CHLORIDE 0.9% 1,000 ML IV SCH (17:17)
[2017-07-05] MEDS ORDERED: SOD CHLORIDE 0.9% 250 ML IV* ONE (17:27)
[2017-07-05] MEDS ORDERED: VANCOMYCIN IV PER PHARMACY XX SCH (17:30)
[2017-07-05] MEDS ORDERED: NACL 0.9% 3 ML SYG IV SCH (17:30)
[2017-07-05] MEDS ORDERED: ONDANSETRON 4 MG INJ IV PRN (17:30)
[2017-07-05] MEDS ORDERED: morphine 2 MG INJ IV PRN (17:30)
[2017-07-05] MEDS ORDERED: DOCUSATE SODIUM 100 MG CAP PO PRN (17:30)
[2017-07-05] MEDS ORDERED: MAGNESIUM HYDROXIDE 30ML CUP PO PRN (17:30)
[2017-07-05] MEDS ORDERED: ACETAMINOPHEN 325 MG TAB PO PRN (17:30)
[2017-07-05] MEDS ORDERED: BISACODYL 10 MG SUPP PR PRN (17:30)
[2017-07-05] MEDS ORDERED: HYDROCODONE/APAP (5/325) TAB PO PRN (17:30)
[2017-07-05 18:24] VITALS: TEMP 98.9
[2017-07-05 20:00] VITALS: BP 103/48; RESP 15
[2017-07-05] MEDS ORDERED: VANCOMYCIN 1 GM in NS 250 ML IVPB ONE (20:30)
[2017-07-05 20:46] VITALS: PULSE 100
[2017-07-05] MEDS: FAMOTIDINE 20 MG TAB PO SCH (21:00)
[2017-07-05] MEDS: ACYCLOVIR 400 MG TAB PO SCH (21:00)
[2017-07-05] MEDS: ATORVASTATIN 20 MG TAB PO SCH (21:00)
[2017-07-05] MEDS: CEFEPIME 2GM/50 ML (PMX) 50 ML IVPB SCH (22:00)
[2017-07-05 23:00] VITALS: BP 103/42; PULSE 106; RESP 20; Ht 182.9 cm; Wt 100.0 kg
[2017-07-06] VITALS (11 sets, daily range): BP systolic 99–135; BP diastolic 57–72; PULSE 80–100; RESP 15–20
[2017-07-06] MEDS: SOD CHLORIDE 0.9% 1,000 ML IV SCH ×3 (03:17→23:17)
[2017-07-06] MEDS: CEFEPIME 2GM/50 ML (PMX) 50 ML IVPB SCH ×2 (06:00→21:00)
[2017-07-06] MEDS: DULOXETINE 30 MG CAP DR PO SCH ×2 (09:00→09:48)
[2017-07-06 09:19] LABS: ABNORMAL IP MESSAGE 1; HEMATOCRIT 19.8 % (42.0-52.0); MEAN CORPUSCULAR HEMOGLOBIN 30.1 pg (29.0-33.0); MEAN CORPUSCULAR HGB CONC 33.3 g/dl (32.0-37.0); MEAN CORPUSCULAR VOLUME 90.4 fl (82.0-101.0); POSITIVE DIFF @See below; RED BLOOD COUNT 2.19 10^6/ul (4.70-6.10); RED CELL DISTRIBUTION WIDTH 17.1 % (11.5-14.5); WHITE BLOOD COUNT 0.1 10^3/ul (4.8-10.8)
[2017-07-06 09:29] LABS: HEMOGLOBIN 6.6 g/dl (14.0-18.0)
[2017-07-06 09:41] LABS: ALBUMIN 2.8 g/dl (3.3-4.9); ALBUMIN/GLOBULIN RATIO 0.7; BILIRUBIN,DIRECT 0.7 mg/dl (0.00-0.20); BILIRUBIN,INDIRECT 0.6 mg/dl (0-1.1); BILIRUBIN,TOTAL 1.3 mg/dl (0.2-1.3); CALCIUM 7.8 mg/dl (8.4-10.2); CREATININE 1.67 mg/dl (0.61-1.24); PHOSPHORUS 3.7 mg/dl (2.5-4.9); POTASSIUM 3.8 mmol/L (3.5-5.1); TOTAL PROTEIN 6.8 g/dl (6.1-8.1)
[2017-07-06] MEDS: DILTIAZEM (CD) 120 MG CAP PO SCH (09:48)
[2017-07-06] MEDS: FLUCONAZOLE 100 MG TAB PO SCH (09:49)
[2017-07-06] MEDS: FAMOTIDINE 20 MG TAB PO SCH ×2 (09:49→21:00)
[2017-07-06] MEDS: ACYCLOVIR 400 MG TAB PO SCH ×2 (09:49→21:00)
[2017-07-06] MEDS ORDERED: SOD CHLORIDE 0.9% 250 ML IV* ONE (09:49)
[2017-07-06] MEDS ORDERED: POTASSIUM CHLORIDE (SR) 20 MEQ TAB PO STA (09:53)
[2017-07-06] MEDS ORDERED: GLUCOSE GEL 15 GRAM TUBE PO PRN ×2 (10:00)
[2017-07-06] MEDS ORDERED: GLUCOSE GEL 15 GRAM TUBE BUCCAL PRN (10:00)
[2017-07-06] MEDS ORDERED: DEXTROSE 50% 50 ML SYRINGE IV PRN ×2 (10:00)
[2017-07-06] MEDS ORDERED: GLUCAGON 1 MG INJ IM PRN (10:00)
--- NOTE | 2017-07-06 10:19 | HP ---
Date/Time of Note Date/Time of Note DATE: 07/06/17 TIME: 10:02 Assessment/Plan VTE Prophylaxis VTE Prophylaxis Intervention: contraindicated VTE Contraindication Reason: thrombocytopenia Lines/Catheters [facility] Saline Lock Urinary Cath still in place: No Assessment/Plan Assessment/Plan 66-year-old male with: 1. Pancytopenia with febrile neutropenia. Blood cultures coming back with gram -negative nayeli bacteremia this morning, patient already on cefepime and vancomycin as blood cultures also growing gram-positive cocci. Continue current antibiotics Check DIC panel as patient still is significantly pancytopenic despite blood transfusions overnight Continue IV fluid Repeat blood cultures this morning. Neutropenic precautions. 2. Pancytopenia, anemia and thrombocytopenia, has worsened overnight despite blood transfusion, check DIC panel, monitor and transfuse additional blood products as needed. 3. Hairy cell leukemia status post chemotherapy 1 week ago. Follow-up with hematology. Dr. Concepcion consulted. 4. Paroxysmal atrial fibrillation: Continue current medications, patient not a candidate for anticoagulation unless admission due to severe thrombocytopenia. 5. Acute kidney injury: Likely secondary to hypovolemic state, continue IV fluids and blood product transfusion. Renal function improved this morning. 6. Hypertension: Continue current medications as tolerated, holding parameters in place as patient currently with active infection. 7. Diabetes mellitus: Continue outpatient medications as well as not interfering with chemotherapeutic drug, sliding scale insulin ordered, Accu- Cheks q. before meals and at bedtime. A1c was 8.1 on 05/17/17. 8. Seizure disorder: Continue phenytoin Prophylaxis: Given severe thrombocytopenia SCDs contraindicated for DVT prophylaxis, Pepcid ordered for GI prophylaxis Disposition: Neutropenic precaution, IV antibiotics, transfuse blood products as needed, repeat blood cultures, close monitoring. HPI/ROS Admit Date/Time Admit Date/Time Jul 05, 2017 at 16:27 Hx of Present Illness Chief complaint: Fevers, chills, generalized weakness History of presenting illness: This is a 66-year-old male with known paroxysmal atrial fibrillation, hairy cell leukemia status post chemotherapy 1 week ago. He went home after last dose of chemotherapy this past Friday, he presented in the emergency department yesterday, 6 days later, with a reported episodes of fevers and chills along with increasing generalized weakness over the past 3-4 days at home. Patient denies any nausea, vomiting, chest pain, headaches, abdominal pain, dysuria or urinary frequency. He reports that his fevers were up to 103, he felt generalized weakness and felt like he was going to need blood transfusion. In the emergency department he did have low-grade temperature, hemoglobin came back 6.3, he received 2 units of packed red blood cells overnight hemoglobin is still 6.6. No acute bleeding seen, DIC panel pending. He is thrombocytopenic and severely neutropenic. He is also found to have bacteremia including gram- negative rods per blood culture reports this morning, he was started on cefepime and vancomycin for neutropenic fever in the ED. He feels better this morning, vital signs are stable, he will be receiving additional 2 units of packed red blood cells. Hematology has been consulted ROS Constitutional: chills, fatigue, febrile Eyes: no complaints ENT: no complaints Respiratory: no complaints Cardiovascular: no complaints Gastrointestinal: no complaints Genitourinary: no complaints Musculoskeletal: no complaints Skin: no complaints Neurologic: no complaints PMH/Family/Social Past Medical History Hairy cell leukemia Diabetes mellitus Paroxysmal atrial fibrillation Seizure disorder Hypertension Status post E. coli bacteremia and UTI a month ago, of note PICC line was removed at discharge 1 week ago. Past Surgical History Status post cholecystectomy remotely Status post bladder mass removal remotely Social History Alcohol Use: none Smoking Status: Never smoker Drug Use: none Exam/Review of Systems Vital Signs Vitals Vital Signs Date Time Temp Pulse Resp B/P Pulse Ox O2 Delivery O2 Flow Rate FiO2 07/06/17 08:11 87 07/06/17 08:00 98.4 20 112/57 100 07/05/17 23:00 Room Air 07/05/17 18:24 2.0 Intake and Output 07/05/17 07/05/17 07/06/17 15:00 23:00 07:00 Intake Total 1650 ml 800 ml Output Total 500 ml Balance 1650 ml 300 ml Exam Constitutional: alert, oriented, other (Generalized weakness, pale), well developed Eyes: other (Pale sclera) ENMT: nl external ears & nose, nl lips & teeth, other (No ulcerations on mucosa ) Respiratory: clear to auscultation, normal air movement Cardiovascular: nl pulses, other (Sinus rhythm, slightly tachycardia), regular rate and rhythm Gastrointestinal: non-tender, soft Musculoskeletal: nl extremities to inspection Extremities: normal pulses, other (No edema, clubbing or cyanosis) Neurological: HUMAN PROJECTILE II-XII intact, lethargic, nl mental status, nl speech Labs Result Diagram: 07/06/1732 07/06/17 0832 Medications Medications Current Medications Acyclovir (Zovirax) 400 mg BID PO Last administered on 07/06/17 09:49; Admin Dose 400 MG; Start 07/05/17 at 21:00 Atorvastatin Calcium (Lipitor) 20 mg QHS PO ; Start 07/05/17 at 21:00 Diltiazem HCl (Cardizem Cd) 120 mg DAILY PO Last administered on 07/06/17 09: 48; Admin Dose 120 MG; Start 07/06/17 at 09:00 Duloxetine HCl (Cymbalta) 30 mg DAILY PO ; Start 07/06/17 at 09:00 Fluconazole 100 mg 100 mg DAILY PO Last administered on 07/06/17 09:49; Admin Dose 100 MG; Start 07/06/17 at 09:00 Sodium Chloride (NS) 1,000 ml @ 100 mls/hr Q10H IV Last administered on 03:17; Admin Dose 100 MLS/HR; Start 07/05/17 at 17:17 Ondansetron HCl (Zofran Inj) 4 mg Q6H PRN IV NAUSEA AND/OR VOMITING; Start 11/09 at 17:30 Acetaminophen (Tylenol Tab) 650 mg Q6H PRN PO PAIN LEVEL 1-3 OR FEVER; Start at 17:30 Acetaminophen/ Hydrocodone Bitart ([place] (5/325)) 1 tab Q6H PRN PO MODERATE PAIN LEVEL 4-6; Start 07/05/17 at 17:30 Morphine Sulfate (morphine) 2 mg Q4H PRN IV SEVERE PAIN LEVEL 7-10; Start 07/05 at 17:30 Docusate Sodium (Colace) 100 mg Q12H PRN PO CONSTIPATION; Start 07/05/17 at 17: 30 Magnesium Hydroxide (Milk Of Mag) 30 ml DAILY PRN PO CONSTIPATION; Start at 17:30 Bisacodyl (Dulcolax Supp) 10 mg DAILY PRN [place] CONSTIPATION; Start 07/05/17 at 17 :30 Famotidine 20 mg 20 mg Q12 PO Last administered on 07/06/17 09:49; Admin Dose 20 MG; Start 07/05/17 at 21:00 Cefepime HCl 50 ml @ 100 mls/hr Q8 IVPB Last administered on 07/06/17 06:00; Admin Dose 100 MLS/HR; Start 07/05/17 at 22:00 Vancomycin HCl/ Sodium Chloride (Vancocin/NS) 250 ml @ 83.333 mls/ hr Q24H IVPB ; Start 07/06/17 at 17:00 Diagnostic Test (Pha) (Accu-Chek) 1 ea 02 XX ; Start 07/07/17 at 02:00 Miscellaneous Information 1 ea NOTE XX ; Start 07/06/17 at 10:00 Glucose (Glutose) 15 gm Q15M PRN PO DECREASED GLUCOSE; Start 07/06/17 at 10:00 Glucose (Glutose) 22.5 gm Q15M PRN PO DECREASED GLUCOSE; Start 07/06/17 at 10: 00 Dextrose (D50w Syringe) 25 ml Q15M PRN IV DECREASED GLUCOSE; Start 07/06/17 at 10:00 Dextrose (D50w Syringe) 50 ml Q15M PRN IV DECREASED GLUCOSE; Start 07/06/17 at 10:00 Glucagon (Glucagen) 1 mg Q15M PRN IM DECREASED GLUCOSE; Start 07/06/17 at 10:00 Glucose (Glutose) 15 gm Q15M PRN BUCCAL DECREASED GLUCOSE; Start 07/06/17 at 10 :00 Procedures Procedures PROCEDURE: Portable chest x-ray. CLINICAL INDICATION: 66-year-old male. Abdominal pain. TECHNIQUE: Portable AP view of the chest. COMPARISON: None. FINDINGS: Cardiomediastinal contours are normal. Lungs are clear.. Negative for pleural effusion or pneumothorax.. Right acromioclavicular osteoarthritis. Limited evaluation of the upper abdomen shows no abnormality. IMPRESSION: Negative for evidence of acute chest process. ANGELICA DUEÑAS Jul 06, 2017 10:13
[2017-07-06 10:20] LABS: ANISOCYTOSIS 2+ (0-0); EOSINOPHILS % (M) 1 % (0-7); GIANT THROMBO% (M) 6 % (0-0); PLATELET ESTIMATE DECREASED; POIKILOCYTOSIS 2+ (0-0)
[2017-07-06 10:23] LABS: PLATELET COUNT 21 10^3/UL (140-415)
[2017-07-06 10:47] LABS: PLATELET COUNT 21 10^3/UL (140-415)
[2017-07-06 10:59] LABS: INR 1.25; PROTIME 15.8 Sec (12.2-14.2); PT RATIO 1.2
[2017-07-06 11:00] LABS: PARTIAL THROMBOPLASTIN TIME 34.3 Sec (25.0-35.0)
[2017-07-06 11:01] LABS: THROMBIN TIME 15.5 SEC (13.8-19.1)
[2017-07-06 11:06] LABS: FIBRIN SPLIT PRODUCT <10 ug/ml (<10)
[2017-07-06 11:17] LABS: D-DIMER 1873.93 ng/ml (<460)
[2017-07-06] MEDS: INSULIN ASPART [NOVOLOG] 3 ML PEN SC SCH ×3 (13:15→22:57)
[2017-07-06] MEDS ORDERED: VANCOMYCIN 2 GM in SOD CHLORIDE 0.9% 500 ML IVPB SCH (16:00)
[2017-07-06] MEDS ORDERED: VANCOMYCIN 1.5 GM in SOD CHLORIDE 0.9% 250 ML IVPB SCH (17:00)
[2017-07-06] MEDS: ATORVASTATIN 20 MG TAB PO SCH (21:00)
[2017-07-07] VITALS (10 sets, daily range): BP systolic 118–140; BP diastolic 64–74; PULSE 62–90; RESP 18–20
[2017-07-07] MEDS ORDERED: ACCU-CHEK XX SCH (02:00)
[2017-07-07] MEDS: ACCU-CHEK XX SCH (02:00)
[2017-07-07 07:10] LABS: CREATININE 1.38 mg/dl (0.61-1.24)
[2017-07-07 08:05] LABS: HEMATOCRIT 21.5 % (42.0-52.0); HEMOGLOBIN 7.3 g/dl (14.0-18.0)
[2017-07-07] MEDS: FLUCONAZOLE 100 MG TAB PO SCH (08:09)
[2017-07-07] MEDS: ACYCLOVIR 400 MG TAB PO SCH ×2 (08:10→20:34)
[2017-07-07] MEDS: FAMOTIDINE 20 MG TAB PO SCH ×2 (08:10→20:34)
[2017-07-07] MEDS: DILTIAZEM (CD) 120 MG CAP PO SCH (08:10)
[2017-07-07] MEDS: DULOXETINE 30 MG CAP DR PO SCH (08:10)
[2017-07-07] MEDS: CEFEPIME 2GM/50 ML (PMX) 50 ML IVPB SCH ×2 (08:11→20:35)
[2017-07-07] MEDS: INSULIN ASPART [NOVOLOG] 3 ML PEN SC SCH ×5 (09:53→20:47)
[2017-07-07] MEDS: SOD CHLORIDE 0.9% 1,000 ML IV SCH ×2 (09:54→18:54)
--- NOTE | 2017-07-07 14:32 | PN ---
Date/Time of Note Date/Time of Note DATE: 07/07/17 TIME: 14:05 Assessment/Plan VTE Prophylaxis VTE Prophylaxis Intervention: contraindicated VTE Contraindication Reason: thrombocytopenia Lines/Catheters [facility] Saline Lock Urinary Cath still in place: No Assessment/Plan Assessment/Plan 66-year-old male with: 1. Pancytopenia with febrile neutropenia. Blood cultures coming back with gram -negative nayeli bacteremia and have alpha hemolytic strep, urine culture with E. coli pansensitive, continue cefepime and vancomycin until final cultures available from admission blood cultures. Repeat blood cultures no growth to date. Continue current antibiotics Negative DIC panel Continue IV fluid Neutropenic precautions. 2. Pancytopenia, anemia and thrombocytopenia, transfuse additional blood products as needed. 3. Hairy cell leukemia status post chemotherapy [address] Jamey garcia. 4. Paroxysmal atrial fibrillation: Continue current medications, patient not a candidate for anticoagulation unless admission due to severe thrombocytopenia. 5. Acute kidney injury: Likely secondary to hypovolemic state, continue IV fluids and blood product transfusion. Renal function improved this morning. 6. Hypertension: Continue current medications as tolerated, holding parameters in place as patient currently with active infection. 7. Diabetes mellitus: Continue outpatient medications as well as not interfering with chemotherapeutic drug, sliding scale insulin ordered, Accu- Cheks q. before meals and at bedtime. Started on insulin weightbase with long- acting and pre-meal insulins. A1c was 8.1 on 05/17/17. 8. Seizure disorder: Continue phenytoin Prophylaxis: Given severe thrombocytopenia SCDs contraindicated for DVT prophylaxis, Pepcid ordered for GI prophylaxis Disposition: Neutropenic precaution, IV antibiotics, transfuse blood products as needed, follow-up repeat blood cultures, follow-up labs in a.m. and final culture results from admission blood culture. Subjective 24 Hr Interval Summary Free Text/Dictation Patient feels better this morning, repeat blood cultures no growth to date, final gram-negative rods on previous culture still pending. Urine positive for E. coli pansensitive. Afebrile currently. We will check labs in a.m. to follow-up neutropenia, hemoglobin stable, renal function stable. Patient to be started on insulin for blood sugar control. Exam/Review of Systems Vital Signs Vitals Vital Signs Date Time Temp Pulse Resp B/P Pulse Ox O2 Delivery O2 Flow Rate FiO2 07/07/17 12:02 84 8/14/17 11:19 98.0 20 118/65 96 07/05/17 23:00 Room Air 07/05/17 18:24 2.0 Intake and Output 07/06/17 07/06/17 07/07/17 15:00 23:00 07:00 Intake Total 800 ml Balance 800 ml Exam Constitutional: alert, oriented, other (Pale), well developed Eyes: other (Pale sclera) Respiratory: clear to auscultation, normal air movement Cardiovascular: nl pulses, regular rate and rhythm Gastrointestinal: non-tender, soft Musculoskeletal: nl extremities to inspection Extremities: normal pulses, other (No edema, clubbing or cyanosis) Neurological: PLASMA CUTTING MACHINE OPERATOR II-XII intact, nl mental status, nl speech, other ( Generalized weakness) Results Result Diagram: 07/07/1711 07/07/17 0613 Results 24 hrs Laboratory Tests Test 07/06/17 17:51 07/06/17 22:33 07/07/17 06:04 07/07/17 06:11 Bedside Glucose 249 H 237 H Lab Scanned Report BLOOD TRANSFUSION Hemoglobin 7.3 L Hematocrit 21.5 L Test 07/07/17 06:13 07/07/17 08:17 07/07/17 09:47 07/07/17 12:14 Blood Urea Nitrogen 42 H Creatinine 1.38 H Bedside Glucose 253 H 239 H 281 H Medications Medications Current Medications Acyclovir (Zovirax) 400 mg BID PO Last administered on 07/07/17 08:10; Admin Dose 400 MG; Start 07/05/17 at 21:00 Atorvastatin Calcium (Lipitor) 20 mg QHS PO ; Start 07/05/17 at 21:00 Diltiazem HCl (Cardizem Cd) 120 mg DAILY PO Last administered on 07/07/17 08: 10; Admin Dose 120 MG; Start 07/06/17 at 09:00 Duloxetine HCl (Cymbalta) 30 mg DAILY PO Last administered on 07/07/17 08:10; Admin Dose 30 MG; Start 07/06/17 at 09:00 Fluconazole 100 mg 100 mg DAILY PO Last administered on 07/07/17 08:09; Admin Dose 100 MG; Start 07/06/17 at 09:00 Sodium Chloride (NS) 1,000 ml @ 100 mls/hr Q10H IV Last administered on 09:54; Admin Dose 100 MLS/HR; Start 07/05/17 at 17:17 Ondansetron HCl (Zofran Inj) 4 mg Q6H PRN IV NAUSEA AND/OR VOMITING; Start 11/09 at 17:30 Acetaminophen (Tylenol Tab) 650 mg Q6H PRN PO PAIN LEVEL 1-3 OR FEVER; Start at 17:30 Acetaminophen/ Hydrocodone Bitart ([place] (5/325)) 1 tab Q6H PRN PO MODERATE PAIN LEVEL 4-6; Start 07/05/17 at 17:30 Morphine Sulfate (morphine) 2 mg Q4H PRN IV SEVERE PAIN LEVEL 7-10; Start 07/05 at 17:30 Docusate Sodium (Colace) 100 mg Q12H PRN PO CONSTIPATION; Start 07/05/17 at 17: 30 Magnesium Hydroxide (Milk Of Mag) 30 ml DAILY PRN PO CONSTIPATION; Start at 17:30 Bisacodyl (Dulcolax Supp) 10 mg DAILY PRN [place] CONSTIPATION; Start 07/05/17 at 17 :30 Famotidine (Pepcid) 20 mg Q12 PO Last administered on 07/07/17 08:10; Admin Dose 20 MG; Start 07/05/17 at 21:00 Diagnostic Test (Pha) (Accu-Chek) 1 ea 02 XX ; Start 07/07/17 at 02:00 Miscellaneous Information 1 ea NOTE XX ; Start 07/06/17 at 10:00 Glucose (Glutose) 15 gm Q15M PRN PO DECREASED GLUCOSE; Start 07/06/17 at 10:00 Glucose (Glutose) 22.5 gm Q15M PRN PO DECREASED GLUCOSE; Start 07/06/17 at 10: 00 Dextrose (D50w Syringe) 25 ml Q15M PRN IV DECREASED GLUCOSE; Start 07/06/17 at 10:00 Dextrose (D50w Syringe) 50 ml Q15M PRN IV DECREASED GLUCOSE; Start 07/06/17 at 10:00 Glucagon (Glucagen) 1 mg Q15M PRN IM DECREASED GLUCOSE; Start 07/06/17 at 10:00 Glucose 15 gm 15 gm Q15M PRN BUCCAL DECREASED GLUCOSE; Start 07/06/17 at 10:00 Cefepime HCl 50 ml @ 100 mls/hr Q12 IVPB Last administered on 07/07/17t 08:11 ; Admin Dose 100 MLS/HR; Start 07/06/17 at 21:00 Vancomycin HCl/ Sodium Chloride (Vancocin/NS) 500 ml @ 125 mls/hr Q24H IVPB ; Start 07/07/17 at 22:00 Miscellaneous Information (*Rx Drug Level Order Reminder*) VANCOMYCIN TROUGH AT 2100 ONCE ONCE XX ; Start 07/07/17 at 21:00; Stop 07/07/17 at 21:01 Phenytoin (Dilantin) 300 mg HS PO ; Start 07/07/17 at 21:00 ANGELICA DUEÑAS Jul 07, 2017 14:15
[2017-07-07] MEDS ORDERED: INSULIN GLARGINE [LANtus] 3 ML PEN SC SCH (20:00)
[2017-07-07] MEDS: ATORVASTATIN 20 MG TAB PO SCH (20:34)
[2017-07-07] MEDS ORDERED: PHENYTOIN 100 MG CAP PO SCH (21:00)
[2017-07-07] MEDS ORDERED: VANCOMYCIN 2 GM in SOD CHLORIDE 0.9% 500 ML IVPB SCH (22:00)
--- NOTE | 2017-07-07 22:26 | CONS ---
Date/Time of Note Date/Time of Note DATE: 07/07/17 TIME: 21:57 Assessment/Plan Assessment/Plan Chief Complaint/Hosp Course 66 yo male with # Hairy Cell Leukemia -s/p 7 day course of Cladribine -after chemotherapy , bone marrow generally can take up to 6 weeks to start to recover -I explained to the patient that he will be immune suppressed and anemic for some time to come and that we have to treat his symptoms during this period #Neutropenic fevers -2/2 urosepsis -cont Vancomycin and Cefepime -will start Neupogen at this time until patient is clear of infection #Prophylaxis -give prolonged Neutropenia will start Acyclovir 400mg BID and Fluconazole 100mg q day # 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 -pt will only minimally respond to blood transfusion due to his splenomegaly and splenic sequestration -upon discharge will arrange for out patient blood transfusion #FELIX -2/2 prerenal effects likely from severe anemia -cont to closely monitor Hg #Seizure Do -pt on Dilantin #DM -continue to monitor Blood sugars Problems: (1) Hairy cell leukemia Status: Chronic Qualifiers: Qualified Code: C91.40 - Hairy cell leukemia not having achieved remission (2) Neutropenic fever Status: Acute (3) Pancytopenia Status: Chronic Consultation Date/Type/Reason Admit Date/Time Jul 05, 2017 at 16:27 Date of Consultation: Jul 07, 2017 Type of Consultation: Hematology Reason for Consultation hairy cell leukemia/ neutropenic fevers Referring Provider: ANGELICA DUEÑAS Hx of Present Illness 56 yo male who initially presented to [facility] in April 2017 with pancytopenia in bone marrow. Pt has since been diagnosed with Hairy Cell Leukemia. Pt was recently admitted for his 7 day infusion of cladribine and was discharged 1 week ago. He now presents with fevers, and weakness to the [facility] ER. In the ER he was found with a Hg of 6.3 and fevers to 100.5. Pt' blood cultures are positive for GNR in blood. Ucx demonstrated E coli. Pt has since been started on IV antibiotics including vancomycin and cefepime. Fevers have subsided but patient remains very weak. He did receive 4 units of PRBCs and his Hg esme from 6.3 to 7.3. pt states he has minimal appetite. Constitutional: poor po Eyes: no complaints ENT: no complaints Respiratory: no complaints Cardiovascular: no complaints Gastrointestinal: no complaints Genitourinary: no complaints Musculoskeletal: no complaints Skin: no complaints Neurologic: no complaints Past Medical History Hairy cell leukemia Diabetes mellitus Paroxysmal atrial fibrillation Seizure disorder Hypertension Status post E. coli bacteremia and UTI a month ago, of note PICC line was removed at discharge 1 week ago. Family History Significant Family History: no pertinent family hx Social History Alcohol Use: none Smoking Status: Never smoker Drug Use: none Exam/Review of Systems Vital Signs Vitals Vital Signs Date Time Temp Pulse Resp B/P Pulse Ox O2 Delivery O2 Flow Rate FiO2 07/07/17 16:12 62 07/07/17 15:50 98.6 20 140/74 98 07/05/17 23:00 Room Air 07/05/17 18:24 2.0 Intake and Output 07/06/17 07/06/17 07/07/17 14:59 22:59 06:59 Intake Total 800 ml Balance 800 ml Exam Constitutional: alert, oriented Psych: anxiety, depression, no complaints Head: normocephalic Eyes: nl conjunctiva ENMT: nl external ears & nose Neck: non-tender, supple Respiratory: clear to auscultation Cardiovascular: nl pulses, regular rate and rhythm Gastrointestinal: soft Musculoskeletal: nl extremities to inspection Results Result Diagram: 07/07/17 0611 07/07/17 0613 Results 24 hrs Laboratory Tests Test 07/06/17 22:33 07/07/17 06:04 07/07/17 06:11 07/07/17 06:13 Bedside Glucose 237 H Lab Scanned Report BLOOD TRANSFUSION Hemoglobin 7.3 L Hematocrit 21.5 L Blood Urea Nitrogen 42 H Creatinine 1.38 H Test 07/07/17 08:17 07/07/17 09:47 07/07/17 12:14 07/07/17 17:38 Bedside Glucose 253 H 239 H 281 H 229 H Test 07/07/17 20:03 Bedside Glucose 261 H Medications Medications Current Medications Acyclovir (Zovirax) 400 mg BID PO Last administered on 07/07/17 20:34; Admin Dose 400 MG; Start 07/05/17 at 21:00 Atorvastatin Calcium (Lipitor) 20 mg QHS PO Last administered on 07/07/17 20: 34; Admin Dose 20 MG; Start 07/05/17 at 21:00 Diltiazem HCl (Cardizem Cd) 120 mg DAILY PO Last administered on 07/07/17 08: 10; Admin Dose 120 MG; Start 07/06/17 at 09:00 Duloxetine HCl (Cymbalta) 30 mg DAILY PO Last administered on 07/07/17 08:10; Admin Dose 30 MG; Start 07/06/17 at 09:00 Fluconazole 100 mg 100 mg DAILY PO Last administered on 07/07/17 08:09; Admin Dose 100 MG; Start 07/06/17 at 09:00 Sodium Chloride (NS) 1,000 ml @ 100 mls/hr Q10H IV Last administered on 18:54; Admin Dose 100 MLS/HR; Start 07/05/17 at 17:17 Ondansetron HCl (Zofran Inj) 4 mg Q6H PRN IV NAUSEA AND/OR VOMITING; Start 11/09 at 17:30 Acetaminophen (Tylenol Tab) 650 mg Q6H PRN PO PAIN LEVEL 1-3 OR FEVER; Start at 17:30 Acetaminophen/ Hydrocodone Bitart (Victor (5/325)) 1 tab Q6H PRN PO MODERATE PAIN LEVEL 4-6; Start 07/05/17 at 17:30 Morphine Sulfate (morphine) 2 mg Q4H PRN IV SEVERE PAIN LEVEL 7-10; Start 07/05 at 17:30 Docusate Sodium (Colace) 100 mg Q12H PRN PO CONSTIPATION; Start 07/05/17 at 17: 30 Magnesium Hydroxide (Milk Of Mag) 30 ml DAILY PRN PO CONSTIPATION; Start at 17:30 Bisacodyl (Dulcolax Supp) 10 mg DAILY PRN [place] CONSTIPATION; Start 07/05/17 at 17 :30 Famotidine (Pepcid) 20 mg Q12 PO Last administered on 07/07/17 20:34; Admin Dose 20 MG; Start 07/05/17 at 21:00 Diagnostic Test (Pha) (Accu-Chek) 1 ea 02 XX ; Start 07/07/17 at 02:00 Miscellaneous Information 1 ea NOTE XX ; Start 07/06/17 at 10:00 Glucose (Glutose) 15 gm Q15M PRN PO DECREASED GLUCOSE; Start 07/06/17 at 10:00 Glucose (Glutose) 22.5 gm Q15M PRN PO DECREASED GLUCOSE; Start 07/06/17 at 10: 00 Dextrose (D50w Syringe) 25 ml Q15M PRN IV DECREASED GLUCOSE; Start 07/06/17 at 10:00 Dextrose (D50w Syringe) 50 ml Q15M PRN IV DECREASED GLUCOSE; Start 07/06/17 at 10:00 Glucagon (Glucagen) 1 mg Q15M PRN IM DECREASED GLUCOSE; Start 07/06/17 at 10:00 Glucose 15 gm 15 gm Q15M PRN BUCCAL DECREASED GLUCOSE; Start 07/06/17 at 10:00 Cefepime HCl 50 ml @ 100 mls/hr Q12 IVPB Last administered on 07/07/17 20:35 ; Admin Dose 100 MLS/HR; Start 07/06/17 at 21:00 Vancomycin HCl/ Sodium Chloride (Vancocin/NS) 500 ml @ 125 mls/hr Q24H IVPB ; Start 07/07/17 at 22:00 Phenytoin (Dilantin) 300 mg HS PO Last administered on 07/07/17 20:34; Admin Dose 300 MG; Start 07/07/17 at 21:00 Insulin Glargine (Lantus) 20 unit DAILY@20 SC Last administered on 07/07/17 20 :46; Admin Dose 20 UNIT; Start 07/07/17 at 20:00 DORIS HUERTAS M.D. Jul 07, 2017 22:08
[2017-07-08] VITALS (10 sets, daily range): BP systolic 113–156; BP diastolic 65–75; PULSE 70–80; RESP 18–20
[2017-07-08] MEDS: ACCU-CHEK XX SCH (02:00)
[2017-07-08] MEDS: SOD CHLORIDE 0.9% 1,000 ML IV SCH ×2 (06:14→14:18)
[2017-07-08 07:09] LABS: ABNORMAL IP MESSAGE 1; HEMOGLOBIN 7.8 g/dl (14.0-18.0); MEAN CORPUSCULAR HEMOGLOBIN 31.3 pg (29.0-33.0); MEAN CORPUSCULAR HGB CONC 35.5 g/dl (32.0-37.0); MEAN CORPUSCULAR VOLUME 88.4 fl (82.0-101.0); POSITIVE DIFF @See below; RED BLOOD COUNT 2.49 10^6/ul (4.70-6.10); RED CELL DISTRIBUTION WIDTH 15.9 % (11.5-14.5)
[2017-07-08 07:14] LABS: WHITE BLOOD COUNT 0.1 10^3/ul (4.8-10.8)
[2017-07-08 07:15] LABS: PLATELET COUNT 16 10^3/UL (140-415)
[2017-07-08 07:38] LABS: ALBUMIN 2.4 g/dl (3.3-4.9); ALBUMIN/GLOBULIN RATIO 0.61; BILIRUBIN,DIRECT 0.5 mg/dl (0.00-0.20); BILIRUBIN,INDIRECT 0.6 mg/dl (0-1.1); BILIRUBIN,TOTAL 1.1 mg/dl (0.2-1.3); CALCIUM 7.8 mg/dl (8.4-10.2); CREATININE 1.13 mg/dl (0.61-1.24); POTASSIUM 3.3 mmol/L (3.5-5.1); TOTAL PROTEIN 6.3 g/dl (6.1-8.1)
[2017-07-08 07:39] LABS: MAGNESIUM 1.9 mg/dl (1.7-2.5); PHOSPHORUS 2.6 mg/dl (2.5-4.9)
[2017-07-08] MEDS: DULOXETINE 30 MG CAP DR PO SCH (08:33)
[2017-07-08] MEDS: FLUCONAZOLE 100 MG TAB PO SCH (08:33)
[2017-07-08] MEDS: DILTIAZEM (CD) 120 MG CAP PO SCH (08:33)
[2017-07-08] MEDS: FAMOTIDINE 20 MG TAB PO SCH (08:33)
[2017-07-08] MEDS: ACYCLOVIR 400 MG TAB PO SCH (08:33)
[2017-07-08] MEDS: INSULIN ASPART [NOVOLOG] 3 ML PEN SC SCH ×6 (08:37→17:25)
[2017-07-08] MEDS: CEFEPIME 2GM/50 ML (PMX) 50 ML IVPB SCH (08:51)
[2017-07-08 09:36] LABS: ANISOCYTOSIS 1+ (0-0); GIANT THROMBO% (M) 25 % (0-0); MICROCYTOSIS 1+ (0-0); OVALOCYTES 1+ (0-0); PLATELET ESTIMATE DECREASED; POIKILOCYTOSIS 1+ (0-0); TEAR DROP CELLS 1+ (0-0)
[2017-07-08] MEDS ORDERED: POTASSIUM CHLORIDE (SR) 20 MEQ TAB PO STA (13:02)
[2017-07-08] MEDS ORDERED: FILGRASTIM 480 MCG INJ SC SCH (17:00)
--- NOTE | 2017-07-08 17:02 | CONS ---
Date/Time of Note Date/Time of Note DATE: 07/08/17 TIME: 17:01 Assessment/Plan Assessment/Plan Chief Complaint/Hosp Course 66 yo male with # Hairy Cell Leukemia -s/p 7 day course of Cladribine -after chemotherapy , bone marrow generally can take up to 6 weeks to start to recover -I explained to the patient that he will be immune suppressed and anemic for some time to come and that we have to treat his symptoms during this period #Neutropenic fevers -2/2 urosepsis -cont Vancomycin and Cefepime -will start Neupogen at this time until patient is clear of infection -cultures show sensitivity to Levaquin. 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 -pt will only minimally respond to blood transfusion due to his splenomegaly and splenic sequestration -upon discharge will arrange for out patient blood transfusion #FELIX -2/2 prerenal effects likely from severe anemia -cont to closely monitor Hg #Seizure Do -pt on Dilantin #DM -continue to monitor Blood sugars Problems: (1) Hairy cell leukemia Status: Chronic Qualifiers: Qualified Code: C91.40 - Hairy cell leukemia not having achieved remission (2) Neutropenic fever Status: Acute (3) Pancytopenia Status: Chronic Problems: Consultation Date/Type/Reason Admit Date/Time Jul 05, 2017 at 16:27 Initial Consult Date 07/07/17 Type of Consultation: Hematology Reason for Consultation hairy cell leukemia neutropenic fevers Referring Provider: ANGELICA DUEÑAS 24 HR Interval Summary Free Text/Dictation pt very anxious to go home. afebrile Exam/Review of Systems Vital Signs Vitals Vital Signs Date Time Temp Pulse Resp B/P Pulse Ox O2 Delivery O2 Flow Rate FiO2 07/08/17 16:39 75 141/70 97 07/08/17 15:04 98.5 18 07/05/17 23:00 Room Air 07/05/17 18:24 2.0 Intake and Output 07/07/17 07/07/17 07/08/17 15:00 23:00 07:00 Intake Total 800 ml 1000 ml Balance 800 ml 1000 ml Exam Constitutional: alert, distress, frail Psych: anxiety, depression Head: normocephalic Eyes: nl conjunctiva ENMT: nl external ears & nose Neck: non-tender, supple Respiratory: clear to auscultation Cardiovascular: regular rate and rhythm Gastrointestinal: soft Musculoskeletal: nl extremities to inspection, nl gait and stance Extremities: normal pulses Results Result Diagram: 07/08/17 0645 07/08/17 0645 Results 24 hrs Laboratory Tests Test 07/07/17 17:38 07/07/17 20:03 07/07/17 21:16 07/08/17 06:45 Bedside Glucose 229 H 261 H Vancomycin Level Trough 11.8 White Blood Count 0.1 L Red Blood Count 2.49 L Hemoglobin 7.8 L Hematocrit 22.0 L Mean Corpuscular Volume 88.4 Mean Corpuscular Hemoglobin 31.3 Mean Corpuscular Hemoglobin Concent 35.5 Red Cell Distribution Width 15.9 H Platelet Count 16 #*L Mean Platelet Volume Segmented Neutrophils % (Manual) 4 L Lymphocytes % (Manual) 96 H Nucleated Red Blood Cells % 0.0 Neutrophils # (Manual) Absolute Lymphocytes (Manual) 0.0 L Basophils # Nucleated Red Blood Cells # Thrombocytosis 25 H Platelet Estimate DECREASED Poikilocytosis 1+ Anisocytosis 1+ Microcytosis 1+ Tear Drop Cells 1+ Ovalocytes 1+ Sodium Level 136 Potassium Level 3.3 L Chloride Level 104 Carbon Dioxide Level 20 L Anion Gap 15 Blood Urea Nitrogen 38 H Creatinine 1.13 Glucose Level 211 Calcium Level 7.8 L Phosphorus Level 2.6 Magnesium Level 1.9 Total Bilirubin 1.1 Direct Bilirubin 0.50 #H Indirect Bilirubin 0.6 Aspartate Amino Transf (AST/SGOT) 130 H Alanine Aminotransferase (ALT/SGPT) 137 H Alkaline Phosphatase 102 Total Protein 6.3 Albumin 2.4 L Globulin 3.90 H Albumin/Globulin Ratio 0.61 Test 07/08/17 08:26 07/08/17 12:26 Bedside Glucose 213 169 Medications Medications Current Medications Acyclovir (Zovirax) 400 mg BID PO Last administered on 07/08/17 08:33; Admin Dose 400 MG; Start 07/05/17 at 21:00 Atorvastatin Calcium (Lipitor) 20 mg QHS PO Last administered on 07/07/17 20: 34; Admin Dose 20 MG; Start 07/05/17 at 21:00 Diltiazem HCl (Cardizem Cd) 120 mg DAILY PO Last administered on 07/08/17 08: 33; Admin Dose 120 MG; Start 07/06/17 at 09:00 Duloxetine HCl (Cymbalta) 30 mg DAILY PO Last administered on 07/08/17 08:33; Admin Dose 30 MG; Start 07/06/17 at 09:00 Fluconazole 100 mg 100 mg DAILY PO Last administered on 07/08/17 08:33; Admin Dose 100 MG; Start 07/06/17 at 09:00 Sodium Chloride (NS) 1,000 ml @ 100 mls/hr Q10H IV Last administered on 06:14; Admin Dose 100 MLS/HR; Start 07/05/17 at 17:17 Ondansetron HCl (Zofran Inj) 4 mg Q6H PRN IV NAUSEA AND/OR VOMITING; Start 11/09 at 17:30 Acetaminophen (Tylenol Tab) 650 mg Q6H PRN PO PAIN LEVEL 1-3 OR FEVER; Start at 17:30 Acetaminophen/ Hydrocodone Bitart (Pioneer (5/325)) 1 tab Q6H PRN PO MODERATE PAIN LEVEL 4-6; Start 07/05/17 at 17:30 Morphine Sulfate (morphine) 2 mg Q4H PRN IV SEVERE PAIN LEVEL 7-10; Start 07/05 at 17:30 Docusate Sodium (Colace) 100 mg Q12H PRN PO CONSTIPATION; Start 07/05/17 at 17: 30 Magnesium Hydroxide (Milk Of Mag) 30 ml DAILY PRN PO CONSTIPATION; Start at 17:30 Bisacodyl (Dulcolax Supp) 10 mg DAILY PRN [place] CONSTIPATION; Start 07/05/17 at 17 :30 Famotidine (Pepcid) 20 mg Q12 PO Last administered on 07/08/17 08:33; Admin Dose 20 MG; Start 07/05/17 at 21:00 Diagnostic Test (Pha) (Accu-Chek) 1 ea 02 XX ; Start 07/07/17 at 02:00 Miscellaneous Information 1 ea NOTE XX ; Start 07/06/17 at 10:00 Glucose (Glutose) 15 gm Q15M PRN PO DECREASED GLUCOSE; Start 07/06/17 at 10:00 Glucose (Glutose) 22.5 gm Q15M PRN PO DECREASED GLUCOSE; Start 07/06/17 at 10: 00 Dextrose (D50w Syringe) 25 ml Q15M PRN IV DECREASED GLUCOSE; Start 07/06/17 at 10:00 Dextrose (D50w Syringe) 50 ml Q15M PRN IV DECREASED GLUCOSE; Start 07/06/17 at 10:00 Glucagon (Glucagen) 1 mg Q15M PRN IM DECREASED GLUCOSE; Start 07/06/17 at 10:00 Glucose 15 gm 15 gm Q15M PRN BUCCAL DECREASED GLUCOSE; Start 07/06/17 at 10:00 Cefepime HCl 50 ml @ 100 mls/hr Q12 IVPB Last administered on 07/08/17 08:51 ; Admin Dose 100 MLS/HR; Start 07/06/17 at 21:00 Vancomycin HCl/ Sodium Chloride (Vancocin/NS) 500 ml @ 125 mls/hr Q24H IVPB Last administered on 07/08/17 00:01; Admin Dose 125 MLS/HR; Start 07/07/17 at 22:00 Phenytoin (Dilantin) 300 mg HS PO Last administered on 07/07/17 20:34; Admin Dose 300 MG; Start 07/07/17 at 21:00 Insulin Glargine (Lantus) 20 unit DAILY@20 SC Last administered on 07/07/17 20 :46; Admin Dose 20 UNIT; Start 07/07/17 at 20:00 Filgrastim (Neupogen) 480 mcg DAILY@17 SC ; Start 07/08/17 at 17:00 DORIS HUERTAS M.D. Jul 08, 2017 17:02
[2017-07-08] MEDS ORDERED: LEVO750T8 PO (17:03)
--- NOTE | 2017-07-08 17:03 | PDOCDIS ---
Discharge Instructions CONDITION Patient Condition: Good HOME CARE INSTRUCTIONS: Diet Instructions: Reduced Calorie ACTIVITY: Activity Restrictions: No Restrictions FOLLOW UP/APPOINTMENTS Follow-up Plan FOLLOW UP WITH YOUR PRIMARY CARE PHYSICIAN IN 1-2 WEEKS, FOLLOW UP WITH ONCOLOGY AND HOME HEALTH PAMELA CONTRERAS Jul 08, 2017 17:02
--- NOTE | 2017-07-08 17:23 | DS ---
Date/Time of Note Date/Time of Note DATE: 07/08/17 TIME: 17:08 Discharge Summary Admission/Discharge Info Admit Date/Time Jul 05, 2017 at 16:27 Discharge Date/Time July 08, 2017 Discharge Diagnosis 1. Pancytopenia with febrile neutropenia-no longer febrile Initial blood and urine cultures positive with pansensitive E. coli, patient status post IV antibiotics and repeat blood cultures are now negative DC with Levaquin for 10 days Negative DIC panel Continue IV fluid Neutropenic precautions. 2. Pancytopenia with anemia and thrombocytopenia Oncology has ordered home health with outpatient CBC 3. Hairy cell leukemia status post chemotherapy 1 week ago Continue to follow-up with Dr. Concepcion 4. Paroxysmal atrial fibrillation: Continue current medications, patient not a candidate for anticoagulation due to severe thrombocytopenia. 5. Acute kidney injury: Resolved with IV fluids 6. Hypertension: Stable Continue home meds 7. Diabetes mellitus: Continue home meds 8. Seizure disorder: Continue phenytoin Hospital Course Patient is a 66-year-old male with known paroxysmal atrial fibrillation, hairy cell leukemia status post chemotherapy 1 week ago. He went home after last dose of chemotherapy this past Friday, he presented in the emergency department , 6 days later, with a reported episodes of fevers and chills along with increasing generalized weakness over the past 3-4 days at home. Patient was found to have bacteremia with E. coli secondary to E. coli in the urine. Patient was treated with antibiotics and repeat blood culture was negative. Patient's fevers also resolved, and creatinine which was elevated on arrival did normalize with IV fluids. Patient was noted to be pancytopenic and was transfused 4 units of packed blood cells and 1 unit of platelets. Of note patient was seen by his oncologist Dr. Concepcion while in-house. Patient was very anxious to go home and stated that he was coming extremely agitated in the hospital. Oncology ordered home health and a CBC for tomorrow with a transfusion on Friday of this week. Patient was felt to be stable with plans to follow-up with home health as well as oncology. Day of discharge patient's vitals and physical exam are stable, he did continue be pancytopenic but otherwise labs are normal, and his questions are answered. Home Meds Active Scripts Levofloxacin* (Levofloxacin*) 750 Mg Tablet, 750 MG PO DAILY for 10 Days, #10 TAB Prov:PAMELA CONTRERAS 07/08/17 Acyclovir* (Acyclovir*) 400 Mg Tablet, 400 MG PO BID for 30 Days, #60 TAB Prov:ZACK BURGOS MD 06/29/17 Fluconazole* (Fluconazole*) 100 Mg Tablet, 100 MG PO DAILY for 30 Days, #30 TAB Prov:ZACK BURGOS MD 06/29/17 Reported Medications Diltiazem Hcl (DILTIAZEM 24HR ER) 120 Mg Cap.er.24h, 120 MG PO DAILY, #30 CAP 06/23/17 Duloxetine Hcl* (Duloxetine Hcl*) 30 Mg Capsule.dr, 30 MG PO DAILY, #30 CAP 06/23/17 Atorvastatin Calcium (Atorvastatin Calcium) 10 Mg Tablet, 20 MG PO QHS, #30 TAB 06/23/17 Empagliflozin (Jardiance) 10 Mg Tablet, 10 MG PO QAM, TAB 05/16/17 Discontinued Reported Medications Empagliflozin (Jardiance) 10 Mg Tablet, 10 MG PO, TAB 06/23/17 Phenytoin* Sodium Extended (Phenytoin* Sodium Extended) 300 Mg Capsule, 300 MG PO BID, CAP 06/23/17 Hydrochlorothiazide* (Hydrochlorothiazide*) 25 Mg Tab, 25 MG PO DAILY, #30 TAB 06/23/17 Lisinopril* (Lisinopril*) 20 Mg Tablet, 20 MG PO DAILY, #30 TAB 06/23/17 Lisinopril/Hydrochlorothiazide (Lisinopril-Hctz 20-25 mg Tab) 1 Each Tablet, 1 EACH PO, TAB 05/16/17 Atorvastatin Calcium* (Atorvastatin Calcium*) 20 Mg Tablet, 20 MG PO DAILY, #30 TAB 05/16/17 Metformin* (Glucophage*) 500 Mg Tab, 500 MG PO WITH BREAKFAST, #30 TAB 05/16/17 Phenytoin* (Phenytoin*) 125 Mg/5 Ml Oral.susp, 300 MG PO BID for 30 Days, BOTTLE 05/16/17 Discontinued Scripts Diltiazem Hcl* (Cardizem LA*) 360 Mg Tab.sr.24h, 360 MG PO DAILY for 30 Days, # 30 TAB.SA Prov:ZACK BURGOS MD 05/21/17 Follow-up Plan Follow-up with PCP in 1-2 weeks, follow-up with oncology and home health Primary Care Provider Chito Olivo MD Time spent on discharge: > 30 minutes PAMELA CONTRERAS Jul 08, 2017 17:21
== END 2017-07-08 19:00 | disposition home health service (06) | DRG 809 ==
LOC: E/R 14:55 → TEL 16:27
PROVIDERS: ADMIT Internal Medicine; ATTEND Internal Medicine
PROC: 30233N1 Transfusion of Nonautologous Red Blood Cells into Peripheral Vein, Percutaneous Approach (ICD-10-PCS; 2017-07-05)
PROC: 30233N1 Transfusion of Nonautologous Red Blood Cells into Peripheral Vein, Percutaneous Approach (ICD-10-PCS; 2017-07-06)
PROC: 6A550Z2 Pheresis of Platelets, Single (ICD-10-PCS; principal; 2017-07-08)
DX: D61.810 Antineoplastic chemotherapy induced pancytopenia (principal); C91.40 Hairy cell leukemia not having achieved remission; N17.9 Acute kidney failure, unspecified; I48.0 Paroxysmal atrial fibrillation; N39.0 Urinary tract infection, site not specified; I10 Essential (primary) hypertension; E86.0 Dehydration; B96.20 Unspecified Escherichia coli [E. coli] as the cause of diseases classified elsewhere; E11.9 Type 2 diabetes mellitus without complications; E87.6 Hypokalemia; G40.909 Epilepsy, unspecified, not intractable, without status epilepticus; R50.81 Fever presenting with conditions classified elsewhere; D63.0 Anemia in neoplastic disease; Z79.4 Long term (current) use of insulin; Z90.49 Acquired absence of other specified parts of digestive tract
CPT/HCPCS: 36415; 36430; 71010; 80053; 80202; 81001; 82565; 82962; 83690; 83735; 84100; 84484; 84520; 85014; 85018; 85025; 85049; 85362; 85378; 85384; 85610; 85670; 85730; 86850; 86900; 86901; 86920; 86945; 87040; 87086; 93005; 96365; 96366; 96367; J0692; J1815; J3370; J7030; J7040; J7050; P9016; P9035

== ENCOUNTER 2017-07-20 08:10 | Inpatient (IN) | payer BC ==
[~2017-07-20] VITALS: Ht 182.9 cm; Wt 96.0 kg
[2017-07-20] VITALS (28 sets, daily range): BP systolic 88–130; BP diastolic 40–88; PULSE 81–97; RESP 10–27; TEMP 98.3; Ht 182.9 cm; Wt 96.0 kg
[~2017-07-20 08:10] MED LIST changes: -ATOR20TA38 PO; -DILT360T PO; -HYD25 PO; +LEVO750T8 PO; -LISI1TAB8 PO; -LISI20TA11 PO; -METF500T4 PO; -PHEN125O2 PO; -PHEN300C4 PO
[2017-07-20] MEDS ORDERED: SOD CHLORIDE 0.9% 1,000 ML IV STA (08:25)
[2017-07-20 09:35] LABS: ALBUMIN 2.9 g/dl (3.3-4.9); ALBUMIN/GLOBULIN RATIO 0.67; BILIRUBIN,INDIRECT 0.6 mg/dl (0-1.1); BILIRUBIN,TOTAL 0.6 mg/dl (0.2-1.3); CALCIUM 8.5 mg/dl (8.4-10.2); CREATININE 1.31 mg/dl (0.61-1.24); POTASSIUM 4.6 mmol/L (3.5-5.1); TOTAL PROTEIN 7.2 g/dl (6.1-8.1)
[2017-07-20 09:52] LABS: TROPONIN-I 0.558 ng/ml (0.00-0.12)
[2017-07-20 09:59] LABS: IRON 135 ug/dl (35-150)
[2017-07-20 10:08] LABS: TOTAL IRON BINDING CAPACITY 179 ug/dl (241-421)
[2017-07-20] MEDS ORDERED: ASPIRIN 325 MG TAB PO ONE (10:30)
[2017-07-20 11:32] LABS: ABNORMAL IP MESSAGE 1; HEMATOCRIT 8.1 % (42.0-52.0); MEAN CORPUSCULAR HEMOGLOBIN 30.9 pg (29.0-33.0); MEAN CORPUSCULAR HGB CONC 35.8 g/dl (32.0-37.0); MEAN CORPUSCULAR VOLUME 86.2 fl (82.0-101.0); MEAN PLATELET VOLUME 9.3 fl (7.4-10.4); POSITIVE DIFF @See below; RED BLOOD COUNT 0.94 10^6/ul (4.70-6.10); RED CELL DISTRIBUTION WIDTH 13.9 % (11.5-14.5); WHITE BLOOD COUNT 0.1 10^3/ul (4.8-10.8)
[2017-07-20 11:37] LABS: HEMOGLOBIN 2.9 g/dl (14.0-18.0); PLATELET COUNT 15 10^3/UL (140-415)
[2017-07-20 11:38] LABS: PATH REVIEW? YES
--- NOTE | 2017-07-20 12:43 | RADRPT ---
PROCEDURE: CT Brain without contrast. CLINICAL INDICATION: Acute mental status changes TECHNIQUE: A CT of the brain was performed on a [employer] 64-slice CT scanner utilizing axial imaging from the skull base through the vertex without IV contrast. Multiplanar reformatted images were made. Images were reviewed on a PACS workstation. The CTDIvol is 41.12 mGy and the DLP is 720 .23 mGycm. One of the following 3 dose reduction techniques were used: Automated exposure control; adjustment of the mA and/or kV according to patient size; or use of iterative reconstruction technique. COMPARISON: None available FINDINGS: There is no intracranial hemorrhage, mass effect, or midline shift. No extra-axial fluid collection is seen. The ventricles and sulci are age appropriate. Mild diffuse volume loss is present. Subtl e decreased attenuation is present in the bilateral centrum semiovale and periventricular white torsten er compatible with mild chronic microvascular ischemic disease. A left frontal lobe 7 mm calcificat ion is present. 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 Calcifications are noted along the dura of the bilateral cereb ral hemispheres. Mild vascular calcifications are present of the bilateral intracranial internal ca rotid arteries and the vertebral basilar arteries. The visualized scalp and calvarium are normal. The bilateral orbits are normal. The bilateral para nasal sinuses demonstrate chronic mucosal thickening in the bilateral ethmoid sinuses, and the sphen oid sinus and the right greater than left maxillary sinuses. The bilateral mastoid air cells and mi ddle ear cavities are clear. IMPRESSION: 1. No evidence of acute intracranial hemorrhage, infarcts, or acute intracranial pathology. 2. 7 mm left frontal lobe calcification. Differential to include prior sequela of neurocysticercos is versus underlying lesion. Recommend baseline follow-up brain MRI with contrast. 3. Mild chronic microvascular ischemic disease and diffuse volume loss. 4. Mild atherosclerotic vascular disease RPTAT: HDC .Rosibel Kelly MD, MD Date Time Electronically viewed and signed by .Rosibel Kelly MD, on 07/20/2017 12:42 .C/
--- NOTE | 2017-07-20 12:58 | RADRPT ---
PROCEDURE: Chest radiograph CLINICAL INDICATION: Diabetes. COMPARISON: Radiograph 07/05/2017. TECHNIQUE: Single frontal chest radiograph. FINDINGS: Low lung volumes Left mid and upper lung opacity, suspicious for pneumonia. No pleural effusion. The cardiomediastinal silhouette is normal. No suspicious bone lesion. IMPRESSION: Left mid and upper lung pneumonia. RPTAT: [facility] Joaquim Aguilar Physician Date Time Electronically viewed and signed by Joaquim Aguilar Physician on 07/20/2017 12:58 LG/
[2017-07-20] MEDS ORDERED: PIPER-TAZO 3.375 GM IV (PMX) 100 ML IVPB STA (13:01)
--- NOTE | 2017-07-20 13:05 | ERA ---
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 The patient's help desk associate oncologist is Dr. Pina. The patient's last dose of chemotherapy was June 29, 2017. The patient presents to the emergency department today for generalized weakness for the past 24 hours. His indicates he had increased drowsiness, sleeping for prolonged hours and having decreased oral intake. He had no fevers or shaking or chills. He denies any frequency urgency or dysuria. He has had no hemoptysis hematemesis or melanotic stools. He denies any shortness of breath at rest or exertion. His does state he has appeared more confused since the onset of his symptoms 24 hours ago but denies any complaint of headache or changes in vision. The patient has had blood transfusions in the past but he is unable to remember when the last blood transfusion was given. He also has a history of thrombocytopenia and states easy bruising of his skin. ROS All systems reviewed and are negative except as per history of present illness. Medications Home Meds Active Scripts Acyclovir* (Acyclovir*) 400 Mg Tablet, 400 MG PO BID for 30 Days, #60 TAB Prov:ZACK BURGOS MD 06/29/17 Fluconazole* (Fluconazole*) 100 Mg Tablet, 100 MG PO DAILY for 30 Days, #30 TAB Prov:ZACK BURGOS MD 06/29/17 Reported Medications Diltiazem Hcl (DILTIAZEM 24HR ER) 120 Mg Cap.er.24h, 120 MG PO DAILY, #30 CAP 06/23/17 Duloxetine Hcl* (Duloxetine Hcl*) 30 Mg Capsule.dr, 30 MG PO DAILY, #30 CAP 06/23/17 Atorvastatin Calcium (Atorvastatin Calcium) 10 Mg Tablet, 20 MG PO QHS, #30 TAB 06/23/17 Empagliflozin (Jardiance) 10 Mg Tablet, 10 MG PO QAM, TAB 05/16/17 Discontinued Scripts Levofloxacin* (Levofloxacin*) 750 Mg Tablet, 750 MG PO DAILY for 10 Days, #10 TAB Prov:PMAELA CONTRERAS 07/08/17 Allergies Allergies: Coded Allergies: No Known Allergy (Unverified , 07/20/17) PMhx/Soc History of Surgery: No Anesthesia Reaction: No Hx Neurological Disorder: No Hx Respiratory Disorders: No Hx Cardiac Disorders: No Hx Psychiatric Problems: No Hx Miscellaneous Medical Probl: No Hx Alcohol Use: No Hx Substance Use: No Hx Tobacco Use: No Smoking Status: Never smoker Physical Exam Vitals Vital Signs Date Time Temp Pulse Resp B/P Pulse Ox O2 Delivery O2 Flow Rate FiO2 07/20/17 08:28 Nasal Cannula 07/20/17 08:19 98.2 111 17 110/61 100 Physical Exam Constitutional:Well-developed. Well-nourished. HEENT:Normocephalic. Atraumatic.Pupils were equal round reactive to light. Dry mucous membranes.No tonsillar exudates. Neck: No nuchal rigidity. No lymphadenopathy. No posterior cervical spine tenderness or step-offs. Conjunctival pallor Respiratory: Not using accessory muscles of respiration.Lungs were clear to auscultation bilaterally. No rhonchi. No rales. No wheezing. Cardiovascular: Regular rate regular rhythm.No murmurs. No rubs were appreciated.S1, S2 normal. Distal pulses are palpable 2+ bilaterally. GI: Abdomen was soft. Nontender. Non Distended. No pulsatile abdominal masses or bruits. No rebound. No guarding. Bowel sounds were present and normal. Muscle skeletal: Full range of motion of both the upper and lower extremities bilaterally.Normal muscle tone.No assymetrical calf tenderness or swelling. Skin: Significant pallor with no petechia, no purpura. No lesions on the palms or the soles of the feet. No maculopapular rash. NEURO: Patient was alert, awake, orientated x3.No facial droop. Gait not observed as patient was too weak to ambulate. He followed verbal command but was slow to answer questions. Result Diagram: 07/20/17 1100 07/20/17 0825 Results 24 hrs Laboratory Tests Test 07/20/17 08:25 07/20/17 11:00 Sodium Level 142mmol/L Potassium Level 4.6mmol/L Chloride Level 107mmol/L Carbon Dioxide Level 17mmol/L Anion Gap 23 Blood Urea Nitrogen 31mg/dl Creatinine 1.31mg/dl Glucose Level 205mg/dl Calcium Level 8.5mg/dl Iron Level 135ug/dl Total Iron Binding Capacity 179ug/dl Percent Iron Saturation 75% SAT Total Bilirubin 0.6mg/dl Direct Bilirubin 0.00mg/dl Indirect Bilirubin 0.6mg/dl Aspartate Amino Transf (AST/SGOT) 89IU/L Alanine Aminotransferase (ALT/SGPT) 147IU/L Alkaline Phosphatase 100IU/L Troponin I 0.558ng/ml Total Protein 7.2g/dl Albumin 2.9g/dl Globulin 4.30g/dl Albumin/Globulin Ratio 0.67 White Blood Count 0.110^3/ul Red Blood Count 0.9410^6/ul Hemoglobin 2.9g/dl Hematocrit 8.1% Mean Corpuscular Volume 86.2fl Mean Corpuscular Hemoglobin 30.9pg Mean Corpuscular Hemoglobin Concent 35.8g/dl Red Cell Distribution Width 13.9% Platelet Count 1510^3/UL Mean Platelet Volume 9.3fl Neutrophils % % Lymphocytes % % Monocytes % % Eosinophils % % Basophils % % Nucleated Red Blood Cells % 0.0/100WBC Neutrophils # (Manual) Pending Lymphocytes # 10^3/ul Monocytes # 10^3/ul Eosinophils # 10^3/ul Basophils # 10^3/ul Nucleated Red Blood Cells # 10^3/ul Pathologist Review (Hematology) YES Current Medications Medications (Trade) Dose Ordered Sig/Iván Route PRN Reason Start Time Stop Time Status Last Admin Dose Admin Sodium Chloride (NS) 1,000 ml @ 1,000 mls/hr Q1H STAT IV 07/20/17 08:25 07/20/17 09:24 DC 07/20/17 08:46 Aspirin (Aspirin) 325 mg ONCE ONCE PO 07/20/17 10:30 07/20/17 10:31 DC 07/20/17 10:41 Procedures/MDM The patient presented to the emergency department with an acute and persistent change in their mental status. The differential diagnosis is diverse however reversible causes such as hypoglycemia, opiate overdose, thiamine deficiency were immediately considered. The patient was placed on a telemetry monitor, continuous pulse oximetry and IV access was established. The patients airway was secure however hypoxic events such as anemia, shock, or severe pulmonary disease were all considered as etiologies in this patients presentation. Circulation assessed with good cap refill and did not require fluids or pressure support. Finger stick for rapid glucose determined to be normal. 12 Lead EKG tracing ordered and reviewed by myself showed: Sinus tachycardia 106 bpm and no arrhythmia. ID interval normal. QRS duration normal. No ST segment elevation ST segment depression of less than 1 mm in lead V3 with no changes consistent with acute ischemia. The patient had severe anemia with a hemoglobin of 2.9. The patient was immediately typed and crossed and given 2 units of packed red blood cells. The patient also had severe thrombocytopenia with a platelet count of 15,000. The patient's troponin was elevated but the patient denied any chest pain at this time. The patient's troponin could have been elevated from the severe anemia and also the patient had prerenal azotemia thought to be secondary to severe dehydration. The patient had received a total of 2 L boluses of normal saline The patient will be admitted in serious condition to the care of Dr. Lindsey. The patient will have an anticipated stay of greater than 2 midnights and will be going to the intensive care unit due to his severe electrolyte abnormalities and concerns for decompensation. CT scan of the head was ordered by myself due to his changes in mental status which indicated the followin. No evidence of acute intracranial hemorrhage, infarcts, or acute intracranial pathology. 2. 7 mm left frontal lobe calcification. 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 Recommend baseline follow-up brain MRI with contrast. 3. Mild chronic microvascular ischemic disease and diffuse volume loss. 4. Mild atherosclerotic vascular disease As obtained a chest radiograph which showed a right mid and lower lobe pneumonia on the left. The patient had received blood cultures and urine cultures and was started on antibiotics for possible aspiration pneumonia. He was given IV vancomycin and Zosyn. Critical Care: Time: 65 minutes Treatments/Evaluations: Close monitoring and treatment of unstable vital signs, cardiorespiratory, and neurologic status, while maintaining tight balance of fluid, respiratory, and cardiac interventions. Time does not include performing any of the above billable procedures. Departure Diagnosis: Primary Impression: Pancytopenia Additional Impressions: Aspiration pneumonia Qualified Code: J69.0 - Aspiration pneumonia of left lower lobe, unspecified aspiration pneumonia type Prerenal azotemia Severe anemia Elevated troponin Condition: Serious DUKE ALCANTAR Jul 20, 2017 13:01
[2017-07-20] MEDS ORDERED: VANCOMYCIN 1 GM (PMX) 250 ML IVPB ONE (13:30)
[2017-07-20 14:34] LABS: LYMPHOCYTES # 0.1 10^3/ul (0.8-2.9)
[2017-07-20 14:35] LABS: ANISOCYTOSIS FEW (0-0); HYPOCHROMASIA MODERATE (0-0)
[2017-07-20 14:36] LABS: MICROCYTOSIS MODERATE (0-0); OVALOCYTES OCCASIONAL (0-0)
[2017-07-20] MEDS ORDERED: NACL 0.9% 3 ML SYG IV SCH (15:00)
[2017-07-20] MEDS ORDERED: ONDANSETRON 4 MG TAB PO PRN (15:00)
[2017-07-20] MEDS ORDERED: DOCUSATE SODIUM 100 MG CAP PO PRN (15:00)
[2017-07-20] MEDS ORDERED: ZOLPIDEM 5 MG TAB PO PRN (15:00)
--- NOTE | 2017-07-20 15:10 | HP ---
Date/Time of Note Date/Time of Note DATE: 07/20/17 TIME: 14:58 Assessment/Plan VTE Prophylaxis VTE Prophylaxis Intervention: SCD's Assessment/Plan Assessment/Plan [facility] 1. 66-year-old man diagnosed two months ago with hairy cell leukemia, followed by Dr. Liat Concepcion, who began feeling weak and dizzy last night. No chest pain , nausea, or new dyspnea. In the ER, he was profoundly anemic, with Hgb of 2.9 g/dl. I spoke with Dr. Concepcion, who said that his Hgb was > 7 g/dl two days ago in her office. Concern for acute blood loss, though none by history. * Admit to inpatient in ICU * Transfuse 4-units or PRBC * Check H/H at mid-way * Guaiac stool 2. Pancytopenia with severe neutropenia (<0.1k/ul) and thrombocytopenia (15k/ul ). No signs of active infection or bleeding now. He had blood cultures positive for Gram-negative rods and Gram-positive cocci at the time of hospitalization two weeks ago, treated with cefepime and vancomycin. * Repeat blood cultures this morning * Neutropenic precautions * Monitor for bleeding * Check for hemolysis (haptoglobin, LDH). 3. 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 * Discussed by phone with Dr. Concepcion, who agreed with the plan to transfuse. 4. Paroxysmal atrial fibrillation * Continue current medications * Avoid anticoagulation for now in light of severe thrombocytopenia. 5. Acute kidney injury (creatinine 1.31), secondary to severe anemia, and perhaps hypovolema * Transfuse * Monitor renal function 6. Hypertension * 7. Diabetes mellitus. HgbA1c was 8.1 on 05/17/17. * Continue empagliflozin, SGLT-2 inhibitor that causes glucouria. * Accu-Checks qAC and qHS. 8. Seizure disorder * Continue phenytoin 9. Elevated transaminases 10. Prophylaxis * Given severe thrombocytopenia, will place SCDs for DVT prevention. * Pepcid ordered for GI prophylaxis 11. Disposition: Neutropenic precaution, transfuse blood products as needed Gustavo Lindsey MD PhD [phone] HPI/ROS Admit Date/Time Admit Date/Time Jul 20, 2017 at 12:04 Hx of Present Illness Chief complaint: Lightheadedness, weakness History of presenting illness: Mr. Thorne is a 66-year-old patient of Dr. Liat Concepcion with a history of paroxysmal atrial fibrillation, hairy cell leukemia status post chemotherapy 1 week ago. He went home after last dose of chemotherapy this past Friday, he presented in the emergency department yesterday, 6 days later, with a reported episodes of fevers and chills along with increasing generalized weakness over the past 3-4 days at home. Patient denies any nausea, vomiting, chest pain, headaches, abdominal pain, dysuria or urinary frequency. He reports that his fevers were up to 103, he felt generalized weakness and felt like he was going to need blood transfusion. In the emergency department he did have low-grade temperature, hemoglobin came back 6.3, he received 2 units of packed red blood cells overnight hemoglobin is still 6.6. No acute bleeding seen, DIC panel pending. He is thrombocytopenic and severely neutropenic. He is also found to have bacteremia including gram- negative rods per blood culture reports this morning, he was started on cefepime and vancomycin for neutropenic fever in the ED. He feels better this morning, vital signs are stable, he will be receiving additional 2 units of packed red blood cells. Hematology has been consulted ROS Constitutional: chills, fatigue, febrile Eyes: no complaints ENT: no complaints Respiratory: no complaints Cardiovascular: no complaints Gastrointestinal: no complaints Genitourinary: no complaints Musculoskeletal: no complaints Skin: no complaints Neurologic: no complaints PMH/Family/Social PMH/Family/Social Past Medical History Hairy cell leukemia Diabetes mellitus Paroxysmal atrial fibrillation Seizure disorder Hypertension Status post E. coli bacteremia and UTI a month ago, of note PICC line was removed at discharge 1 week ago. Past Surgical History Status post cholecystectomy remotely Status post bladder mass removal remotely Social History Alcohol Use: none Smoking Status: Never smoker Drug Use: none PMH/Family/Social Social History Smoking Status: Never smoker Exam/Review of Systems Vital Signs Vitals Vital Signs Date Time Temp Pulse Resp B/P Pulse Ox O2 Delivery O2 Flow Rate FiO2 07/20/17 14:30 98.6 94 24 113/62 100 Room Air 07/20/17 14:01 2.0 Exam Exam Constitutional: Pale, slurred and slow speech, weak-appearing, well-developed. Eyes: PERRL, EOMI, no jaundice. ENMT: Moist oral mucosa, no thrush. Respiratory: Clear to auscultation, normal air movement Cardiovascular: Symmetric pulses, regular rhythm, normal rate. No murmur. Gastrointestinal: Non-tender, soft, no rebound or guarding. Musculoskeletal: Trace pedal edema. No arthritis. No clubbing or cyanosis Neurological: CERTIFIED PEDORTHOTIST II-XII intact, lethargic, normal mental status. Labs Result Diagram: 07/20/17 1100 07/20/17 0825 Medications Medications Current Medications Vancomycin HCl (Vancocin) 250 ml @ 125 mls/hr ONCE ONCE IVPB ; Start 07/20/17 at 13:30; Stop 07/20/17 at 15:29 Ondansetron HCl (Zofran Tab) 4 mg Q6H PRN PO NAUSEA AND/OR VOMITING; Start at 15:00 Acetaminophen (Tylenol Tab) 650 mg Q6H PRN PO PAIN LEVEL 1-3 OR FEVER; Start at 15:00 Docusate Sodium (Colace) 100 mg Q12H PRN PO CONSTIPATION; Start 07/20/17 at 15: 00 Zolpidem Tartrate (Ambien) 5 mg QHS PRN PO SLEEP; Start 07/20/17 at 15:00 Famotidine (Pepcid) 20 mg Q12 PO ; Start 07/20/17 at 15:00 BETZAIDA LINDSEY M.D. Jul 20, 2017 15:09
[2017-07-20] MEDS: FAMOTIDINE 20 MG TAB PO SCH ×2 (15:12→20:48)
[2017-07-20] MEDS ORDERED: EMPAGLIFLOZIN 10 MG TABLET PO SCH (15:30)
[2017-07-20] MEDS ORDERED: DILTIAZEM (CD) 120 MG CAP PO SCH (15:30)
[2017-07-20] MEDS ORDERED: GLUCAGON 1 MG INJ IM PRN (16:00)
[2017-07-20] MEDS ORDERED: GLUCOSE GEL 15 GRAM TUBE BUCCAL PRN (16:00)
[2017-07-20] MEDS ORDERED: GLUCOSE GEL 15 GRAM TUBE PO PRN ×2 (16:00→16:01)
[2017-07-20] MEDS ORDERED: DEXTROSE 50% 50 ML SYRINGE IV PRN ×2 (16:00→16:01)
[2017-07-20 16:01] LABS: ABNORMAL IP MESSAGE 1; HEMATOCRIT 9.1 % (42.0-52.0); MEAN CORPUSCULAR HGB CONC 34.1 g/dl (32.0-37.0); POSITIVE DIFF @See below; RED BLOOD COUNT 1.07 10^6/ul (4.70-6.10); RED CELL DISTRIBUTION WIDTH 13.7 % (11.5-14.5)
[2017-07-20 16:11] LABS: WHITE BLOOD COUNT 0.1 10^3/ul (4.8-10.8)
[2017-07-20 16:13] LABS: HEMOGLOBIN 3.1 g/dl (14.0-18.0)
[2017-07-20 16:15] LABS: PLATELET COUNT 18 10^3/UL (140-415)
[2017-07-20 16:56] LABS: EOSINOPHILS % (M) 10 % (0.0-7.0); ERYTHROBLAST% (NRBC) (M) 3 % (0-0); LYMPHOCYTES # 0.1 10^3/ul (0.8-2.9)
[2017-07-20] MEDS: FLUCONAZOLE 100 MG TAB PO SCH (17:19)
[2017-07-20] MEDS: DULOXETINE 30 MG CAP DR PO SCH (17:19)
[2017-07-20] MEDS: ACCU-CHEK XX SCH ×2 (17:28→20:48)
[2017-07-20] MEDS: INSULIN ASPART [NOVOLOG] 3 ML PEN SC SCH (17:35)
[2017-07-20] MEDS ORDERED: INSULIN GLARGINE [LANtus] 3 ML PEN SC SCH (20:00)
[2017-07-20] MEDS: PHENYTOIN 100 MG CAP PO SCH (20:47)
[2017-07-20] MEDS: ATORVASTATIN 10 MG TAB PO SCH (20:47)
[2017-07-20] MEDS: ACYCLOVIR 400 MG TAB PO SCH (20:48)
[2017-07-21] VITALS (54 sets, daily range): BP systolic 105–169; BP diastolic 51–93; PULSE 82–108; RESP 17–38
[2017-07-21] MEDS: ACETAMINOPHEN 325 MG TAB PO PRN ×2 (05:14→14:09)
[2017-07-21] MEDS ORDERED: PIPER-TAZO 3.375 GM IV (PMX) 100 ML IVPB SCH (05:25)
[2017-07-21] MEDS ORDERED: VANCOMYCIN IV PER PHARMACY XX SCH (05:30)
[2017-07-21 06:36] LABS: ABNORMAL IP MESSAGE 1; HEMATOCRIT 16.4 % (42.0-52.0); MEAN CORPUSCULAR HEMOGLOBIN 29.9 pg (29.0-33.0); MEAN CORPUSCULAR HGB CONC 35.4 g/dl (32.0-37.0); MEAN CORPUSCULAR VOLUME 84.5 fl (82.0-101.0); MEAN PLATELET VOLUME 11.9 fl (7.4-10.4); POSITIVE DIFF @See below; RED BLOOD COUNT 1.94 10^6/ul (4.70-6.10); RED CELL DISTRIBUTION WIDTH 13.6 % (11.5-14.5); WHITE BLOOD COUNT 0.1 10^3/ul (4.8-10.8)
[2017-07-21] MEDS ORDERED: VANCOMYCIN 2 GM in SOD CHLORIDE 0.9% 500 ML IVPB SCH (07:00)
[2017-07-21 07:01] LABS: HEMOGLOBIN 5.8 g/dl (14.0-18.0); PLATELET COUNT 14 10^3/UL (140-415)
[2017-07-21] MEDS: INSULIN ASPART [NOVOLOG] 3 ML PEN SC SCH ×6 (07:05→20:37)
[2017-07-21] MEDS: ACCU-CHEK XX SCH ×4 (07:05→20:39)
[2017-07-21 07:08] LABS: CALCIUM 7.7 mg/dl (8.4-10.2); CREATININE 1.07 mg/dl (0.61-1.24); POTASSIUM 4.2 mmol/L (3.5-5.1)
[2017-07-21] MEDS ORDERED: SOD CHLORIDE 0.9% 250 ML IV* ONE ×2 (08:41→08:43)
[2017-07-21] MEDS: ACYCLOVIR 400 MG TAB PO SCH ×2 (09:00→20:37)
[2017-07-21] MEDS: FLUCONAZOLE 100 MG TAB PO SCH (09:00)
[2017-07-21] MEDS: DULOXETINE 30 MG CAP DR PO SCH (09:00)
[2017-07-21] MEDS: FAMOTIDINE 20 MG TAB PO SCH ×2 (09:00→20:38)
[2017-07-21 09:50] LABS: ANISOCYTOSIS 2+ (0-0); BASOPHILS % (M) 6 % (0-2); EOSINOPHILS % (M) 12 % (0-7); GIANT THROMBO% (M) 4 % (0-0); MICROCYTOSIS 2+ (0-0); MONOCYTES % (M) 8 % (0-11); PLATELET ESTIMATE SIG DECREASED; POLYCHROMASIA 3+ (0-0)
--- NOTE | 2017-07-21 10:00 | PN ---
Date/Time of Note Date/Time of Note DATE: 07/21/17 TIME: 09:35 Assessment/Plan VTE Prophylaxis VTE Prophylaxis Intervention: contraindicated VTE Contraindication Reason: thrombocytopenia Lines/Catheters IV Catheter Type (from Nrs): Peripheral IV Assessment/Plan Assessment/Plan 66 yo male with 1. Severe symptomatic anemia, profoundly anemic, with Hgb of 2.9 on admission, s /p 4 units pRBC and getting 2 more units today, likely 2ry to known hairy cell leukemia FOB pending. No Acute bleeding seen today, Hb appropriately up to 5.9 2. Pancytopenia with severe neutropenia, ANC and thrombocytopenia 14 this AM. Neutropenic precautions Also with positive blood cx for GPC and ? GNR per RN reported, on broad spectrum abx and chills this AM CXR with ? Left side PNA Will repeat blood cultures this again 3. 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 Patient was seen by Dr Concepcion this AM, plan for additional blood product transfusion. 4. Paroxysmal atrial fibrillation. Continue current medications as tolerated, avoiding anticoagulation 2ry to thrombocytopenia. 5. Acute kidney injury (creatinine 1.31), prerenal azotemia, 2ry to severe anemia, f/u reneal function with volume repletion. 6. Diabetes mellitus. HgbA1c was 8.1 on 05/17/17. Accu-Checks qAC and qHS with SSI. Lantus and premeal Insulin while inpatient, holding of po meds as poor po intake currently 7. Seizure disorder. Continue phenytoin 8. Elevated troponin: Likely demand ischemia with severe Anemia, will repeat today to trend at least. Prophylaxis: No SCDs or pharmacological DVT ppx due to severe thrombocytopenia, Pepcid for GI prophylaxis Disposition: Neutropenic precaution, IV abx and transfuse blood products this AM , repeat blood cx and trend troponins. Subjective 24 Hr Interval Summary Free Text/Dictation Patient not doing well this AM. Still with significant BM suppression and pancytopenia with likely underlying bacteremia again To remain in ICU Exam/Review of Systems Vital Signs Vitals Vital Signs Date Time Temp Pulse Resp B/P Pulse Ox O2 Delivery O2 Flow Rate FiO2 07/21/17 08:00 83 07/21/17 06:00 27 134/75 90 Nasal Cannula 07/21/17 03:00 98.2 07/20/17 18:09 2.0 Intake and Output 07/20/17 07/20/17 07/21/17 15:00 23:00 07:00 Intake Total 350 ml 2000 ml 570 ml Output Total 850 ml 700 ml Balance 350 ml 1150 ml -130 ml Exam Constitutional: frail, other (chills and mild distress. Pale ) Respiratory: clear to auscultation, normal air movement Cardiovascular: nl pulses, other (A fib ) Gastrointestinal: non-tender, soft Musculoskeletal: nl extremities to inspection Extremities: normal pulses, other (no edema, clubbing or cyanosis ) Neurological: ORE DRESSING ENGINEER II-XII intact, nl mental status, nl speech, nl strength Results Result Diagram: 07/21/17 0610 07/21/17 0610 Results 24 hrs Laboratory Tests Test 07/20/17 11:00 07/20/17 15:08 07/20/17 17:24 07/20/17 20:24 White Blood Count 0.1 L 0.1 L Red Blood Count 0.94 #L 1.07 L Hemoglobin 2.9 #*L 3.1 *L Hematocrit 8.1 #L 9.1 L Mean Corpuscular Volume 86.2 85.0 Mean Corpuscular Hemoglobin 30.9 29.0 Mean Corpuscular Hemoglobin Concent 35.8 34.1 Red Cell Distribution Width 13.9 13.7 Platelet Count 15 *L 18 *L Mean Platelet Volume 9.3 Neutrophils % Segmented Neutrophils % (Manual) 20 L 19 L Lymphocytes % Lymphocytes % (Manual) 80 H 71 H Monocytes % Eosinophils % Basophils % Nucleated Red Blood Cells % 0.0 3 H Neutrophils # (Manual) Absolute Lymphocytes (Manual) 0.0 L 0.0 L Lymphocytes # 0.1 L 0.1 L Monocytes # Eosinophils # 0.0 Basophils # Nucleated Red Blood Cells # Pathologist Review (Hematology) YES Hypochromasia MODERATE Anisocytosis FEW Microcytosis MODERATE Ovalocytes OCCASIONAL Rouleau FEW Eosinophils % (Manual) 10 H Bedside Glucose 183 175 Test 07/21/17 06:10 07/21/17 08:31 White Blood Count 0.1 L Red Blood Count 1.94 #L Hemoglobin 5.8 #*L Hematocrit 16.4 #L Mean Corpuscular Volume 84.5 Mean Corpuscular Hemoglobin 29.9 Mean Corpuscular Hemoglobin Concent 35.4 Red Cell Distribution Width 13.6 Platelet Count 14 #*L Mean Platelet Volume 11.9 #H Neutrophils % Lymphocytes % Monocytes % Eosinophils % Basophils % Nucleated Red Blood Cells % 0.0 Neutrophils # (Manual) 0.0 L Lymphocytes # Monocytes # Eosinophils # Basophils # Nucleated Red Blood Cells # Sodium Level 137 Potassium Level 4.2 Chloride Level 107 Carbon Dioxide Level 20 L Anion Gap 14 # Blood Urea Nitrogen 35 H Creatinine 1.07 Glucose Level 176 Calcium Level 7.7 L Bedside Glucose 198 Medications Medications Current Medications Ondansetron HCl (Zofran Tab) 4 mg Q6H PRN PO NAUSEA AND/OR VOMITING; Start at 15:00 Acetaminophen (Tylenol Tab) 650 mg Q6H PRN PO PAIN LEVEL 1-3 OR FEVER Last administered on 07/21/17 05:14; Admin Dose 650 MG; Start 07/20/17 at 15:00 Docusate Sodium (Colace) 100 mg Q12H PRN PO CONSTIPATION; Start 07/20/17 at 15: 00 Zolpidem Tartrate (Ambien) 5 mg QHS PRN PO SLEEP; Start 07/20/17 at 15:00 Famotidine (Pepcid) 20 mg Q12 PO Last administered on 07/20/17 20:48; Admin Dose 20 MG; Start 07/20/17 at 15:00 Acyclovir (Zovirax) 400 mg BID PO Last administered on 07/20/17 20:48; Admin Dose 400 MG; Start 07/20/17 at 21:00 Atorvastatin Calcium (Lipitor) 20 mg QHS PO Last administered on 07/20/17 20: 47; Admin Dose 20 MG; Start 07/20/17 at 21:00 Duloxetine HCl (Cymbalta) 30 mg DAILY PO Last administered on 07/20/17 17:19; Admin Dose 30 MG; Start 07/20/17 at 15:30 Empaglifozin (Jardiance) 10 mg QAM PO Last administered on 07/20/17 17:19; Admin Dose 10 MG; Start 07/20/17 at 15:30 Fluconazole (Diflucan) 100 mg DAILY PO Last administered on 07/20/17 17:19; Admin Dose 100 MG; Start 07/20/17 at 15:30 Miscellaneous Information 1 ea NOTE XX ; Start 07/20/17 at 16:00 Glucose (Glutose) 15 gm Q15M PRN PO DECREASED GLUCOSE; Start 07/20/17 at 16:01 Glucose (Glutose) 22.5 gm Q15M PRN PO DECREASED GLUCOSE; Start 07/20/17 at 16: 00 Dextrose (D50w Syringe) 25 ml Q15M PRN IV DECREASED GLUCOSE; Start 07/20/17 at 16:00 Dextrose (D50w Syringe) 50 ml Q15M PRN IV DECREASED GLUCOSE; Start 07/20/17 at 16:01 Glucagon (Glucagen) 1 mg Q15M PRN IM DECREASED GLUCOSE; Start 07/20/17 at 16:00 Glucose (Glutose) 15 gm Q15M PRN BUCCAL DECREASED GLUCOSE; Start 07/20/17 at 16 :00 Phenytoin (Dilantin) 300 mg BID PO Last administered on 07/20/17 20:47; Admin Dose 300 MG; Start 07/20/17 at 21:00 Insulin Glargine 12 unit 12 unit DAILY@20 SC Last administered on 07/20/17 20: 46; Admin Dose 12 UNIT; Start 07/20/17 at 20:00 Vancomycin HCl 2 gm/Sodium Chloride 500 ml @ 125 mls/hr ONCE IVPB Last administered on 07/21/17 09:17; Admin Dose 125 MLS/HR; Start 07/21/17 at 07:00 ; Stop 07/21/17 at 10:59 Piperacillin Sod/ Tazobactam Sod 100 ml @ 200 mls/hr Q6 IVPB ; Start 07/21/17 at 12:00 Vancomycin HCl/ Sodium Chloride (Vancocin/NS) 250 ml @ 83.333 mls/ hr Q12H IVPB ; Start 07/21/17 at 21:00 ANGELICA DUEÑAS Jul 21, 2017 09:47
[2017-07-21] MEDS: PIPER-TAZO 3.375 GM IV (PMX) 100 ML IVPB SCH ×3 (11:52→23:39)
[2017-07-21] MEDS: DILTIAZEM 30 MG TAB PO SCH ×3 (12:00→23:40)
[2017-07-21] MEDS: PHENYTOIN 100 MG CAP PO SCH ×2 (13:15→20:37)
[2017-07-21 13:48] LABS: CK-MB 0.68 ng/ml (0.0-2.4); CREATINE KINASE < 20 IU/L (23-200); TROPONIN-I 0.454 ng/ml (0.00-0.12)
[2017-07-21] MEDS: INSULIN GLARGINE [LANtus] 3 ML PEN SC SCH (20:13)
[2017-07-21] MEDS: ATORVASTATIN 10 MG TAB PO SCH (20:38)
[2017-07-21] MEDS: VANCOMYCIN 1.25 GM in SOD CHLORIDE 0.9% 250 ML IVPB SCH (20:38)
--- NOTE | 2017-07-21 22:44 | CONS ---
Date/Time of Note Date/Time of Note DATE: 07/21/17 TIME: 22:27 Assessment/Plan Assessment/Plan Chief Complaint/Hosp Course 66 yo male with # Hairy Cell Leukemia -s/p 7 day course of Cladribine given 06/24-06/30 -after chemotherapy , bone marrow generally can take up to 6 weeks to start to recover -I explained to the patient that he will be immune suppressed and anemic for some time to come and that we have to treat his symptoms during this period #Anemia -2/2 to bone marrow dysfunction from hairy cell leukemia -pt is s/p 4 units PRBC -ordered 2 units of PRBCs leukocyte reduced and irradiated #Neutropenia -patient's ANC is around 100 -patient is currently afebrile -will closely monitor for fevers #Prophylaxis -give prolonged Neutropenia will start Acyclovir 400mg BID and Fluconazole 100mg q day #Seizure Do -pt on Dilantin #DM -continue to monitor Blood sugars Problems: (1) Hairy cell leukemia Status: Chronic Qualifiers: Qualified Code: C91.40 - Hairy cell leukemia not having achieved remission (2) Neutropenic fever Status: Acute (3) Pancytopenia Status: Chronic Problems: Problems: Consultation Date/Type/Reason Admit Date/Time Jul 20, 2017 at 12:04 Date of Consultation: Jul 21, 2017 Type of Consultation: hematology Reason for Consultation hairy cell leukemia Referring Provider: ANGELICA DUEÑAS of Present Illness 56 yo male who initially presented to [facility] in April 2017 with pancytopenia in bone marrow. Pt has since been diagnosed with Hairy Cell Leukemia. Pt received continues IV infusion with Cladribine given from 06/24-06/30..Pt remains transfusion dependant. he was recently admitted for neutropenic sepsis with GNR bacteremia. He currently presents with severe lethargy and was found to be profoundly anemic with a Hg of just 2.9. Pt has since received 4 units of PRBCs and Hg has risen to 5.8. There is no evidence of GI bleed. Patient's lethargy has improved since receiving blood transfusion Constitutional: improved Eyes: no complaints Respiratory: shortness of breath (improved) Cardiovascular: no complaints Gastrointestinal: no complaints Genitourinary: no complaints Musculoskeletal: no complaints Neurologic: no complaints Past Medical History .Aflutter with RVR HTN DM history of seizures diabetes, hypertension Past Surgical History Past Surgical Hx: no surgical history Family History Significant Family History: no pertinent family hx Social History Alcohol Use: none Smoking Status: Never smoker Drug Use: none Exam/Review of Systems Vital Signs Vitals Vital Signs Date Time Temp Pulse Resp B/P Pulse Ox O2 Delivery O2 Flow Rate FiO2 07/21/17 21:30 96 31 152/79 94 07/21/17 21:00 Nasal Cannula 07/21/17 20:00 98.2 07/21/17 18:00 3.0 Intake and Output 07/20/17 07/20/17 07/21/17 15:00 23:00 07:00 Intake Total 350 ml 2000 ml 570 ml Output Total 850 ml 700 ml Balance 350 ml 1150 ml -130 ml Exam Constitutional: alert Psych: no complaints Head: normocephalic Eyes: nl conjunctiva ENMT: nl external ears & nose Neck: supple Respiratory: clear to auscultation Cardiovascular: regular rate and rhythm Gastrointestinal: soft Musculoskeletal: nl extremities to inspection Results Result Diagram: 07/21/17 0610 07/21/17 0610 Results 24 hrs Laboratory Tests Test 07/21/17 06:10 07/21/17 08:31 07/21/17 11:50 07/21/17 11:51 White Blood Count 0.1 L Red Blood Count 1.94 #L Hemoglobin 5.8 #*L Hematocrit 16.4 #L Mean Corpuscular Volume 84.5 Mean Corpuscular Hemoglobin 29.9 Mean Corpuscular Hemoglobin Concent 35.4 Red Cell Distribution Width 13.6 Platelet Count 14 #*L Mean Platelet Volume 11.9 #H Neutrophils % Segmented Neutrophils % (Manual) 22 L Band Neutrophils % (Manual) 2 Lymphocytes % Lymphocytes % (Manual) 50 Monocytes % Monocytes % (Manual) 8 Eosinophils % Eosinophils % (Manual) 12 H Basophils % Basophils % (Manual) 6 H Nucleated Red Blood Cells % 0.0 Neutrophils # (Manual) 0.0 L Band Neutrophils # 0.0 Absolute Lymphocytes (Manual) 0.0 L Lymphocytes # Monocytes # Absolute Monocytes (Manual) 0.0 L Eosinophils # Basophils # Basophils # (Manual) 0.0 Nucleated Red Blood Cells # Thrombocytosis 4 H Platelet Estimate SIG DECREASED Polychromasia 3+ Anisocytosis 2+ Microcytosis 2+ Sodium Level 137 Potassium Level 4.2 Chloride Level 107 Carbon Dioxide Level 20 L Anion Gap 14 # Blood Urea Nitrogen 35 H Creatinine 1.07 Glucose Level 176 Calcium Level 7.7 L Bedside Glucose 198 194 Lactic Acid Level 1.4 Creatine Kinase < 20 L Creatine Kinase Index Creatinine Kinase MB (Mass) 0.68 Troponin I 0.454 *H Test 07/21/17 17:28 07/21/17 20:09 Bedside Glucose 212 192 Medications Medications Current Medications Ondansetron HCl (Zofran Tab) 4 mg Q6H PRN PO NAUSEA AND/OR VOMITING; Start at 15:00 Acetaminophen (Tylenol Tab) 650 mg Q6H PRN PO PAIN LEVEL 1-3 OR FEVER Last administered on 07/21/17 14:09; Admin Dose 650 MG; Start 07/20/17 at 15:00 Docusate Sodium (Colace) 100 mg Q12H PRN PO CONSTIPATION; Start 07/20/17 at 15: 00 Zolpidem Tartrate (Ambien) 5 mg QHS PRN PO SLEEP; Start 07/20/17 at 15:00 Famotidine (Pepcid) 20 mg Q12 PO Last administered on 07/21/17 20:38; Admin Dose 20 MG; Start 07/20/17 at 15:00 Acyclovir (Zovirax) 400 mg BID PO Last administered on 07/21/17 20:37; Admin Dose 400 MG; Start 07/20/17 at 21:00 Atorvastatin Calcium (Lipitor) 20 mg QHS PO Last administered on 07/21/17 20: 38; Admin Dose 20 MG; Start 07/20/17 at 21:00 Duloxetine HCl (Cymbalta) 30 mg DAILY PO Last administered on 07/20/17 17:19; Admin Dose 30 MG; Start 07/20/17 at 15:30 Fluconazole (Diflucan) 100 mg DAILY PO Last administered on 07/20/17 17:19; Admin Dose 100 MG; Start 07/20/17 at 15:30 Miscellaneous Information 1 ea NOTE XX ; Start 07/20/17 at 16:00 Glucose (Glutose) 15 gm Q15M PRN PO DECREASED GLUCOSE; Start 07/20/17 at 16:01 Glucose (Glutose) 22.5 gm Q15M PRN PO DECREASED GLUCOSE; Start 07/20/17 at 16: 00 Dextrose (D50w Syringe) 25 ml Q15M PRN IV DECREASED GLUCOSE; Start 07/20/17 at 16:00 Dextrose (D50w Syringe) 50 ml Q15M PRN IV DECREASED GLUCOSE; Start 07/20/17 at 16:01 Glucagon (Glucagen) 1 mg Q15M PRN IM DECREASED GLUCOSE; Start 07/20/17 at 16:00 Glucose (Glutose) 15 gm Q15M PRN BUCCAL DECREASED GLUCOSE; Start 07/20/17 at 16 :00 Phenytoin 300 mg 300 mg BID PO Last administered on 07/21/17 20:37; Admin Dose 300 MG; Start 07/20/17 at 21:00 Piperacillin Sod/ Tazobactam Sod 100 ml @ 200 mls/hr Q6 IVPB Last administered on 07/21/17 17:36; Admin Dose 200 MLS/HR; Start 07/21/17 at 12:00 Vancomycin HCl/ Sodium Chloride (Vancocin/NS) 250 ml @ 83.333 mls/ hr Q12H IVPB Last administered on 07/21/17 20:38; Admin Dose 83.333 MLS/HR; Start at 21:00 Insulin Glargine (Lantus) 18 unit DAILY@20 SC Last administered on 07/21/17 20 :13; Admin Dose 18 UNIT; Start 07/21/17 at 20:00 Diagnostic Test (Pha) (Accu-Chek) 1 ea 02 XX ; Start 07/22/17 at 02:00 Diltiazem HCl (Cardizem) 30 mg Q6 PO ; Start 07/21/17 at 12:00 DORIS HUERTAS M.D. Jul 21, 2017 22:38
[2017-07-22] VITALS (34 sets, daily range): BP systolic 119–155; BP diastolic 62–102; PULSE 78–101; RESP 13–39
[2017-07-22] MEDS: ACCU-CHEK XX SCH ×5 (01:58→21:42)
[2017-07-22] MEDS: DILTIAZEM 30 MG TAB PO SCH ×3 (05:32→17:44)
[2017-07-22] MEDS: PIPER-TAZO 3.375 GM IV (PMX) 100 ML IVPB SCH ×3 (05:32→17:44)
[2017-07-22 06:16] LABS: ABNORMAL IP MESSAGE 1; HEMATOCRIT 20.5 % (42.0-52.0); HEMOGLOBIN 7.3 g/dl (14.0-18.0); MEAN CORPUSCULAR HGB CONC 35.6 g/dl (32.0-37.0); MEAN CORPUSCULAR VOLUME 84.4 fl (82.0-101.0); MEAN PLATELET VOLUME 12.4 fl (7.4-10.4); RED BLOOD COUNT 2.43 10^6/ul (4.70-6.10); RED CELL DISTRIBUTION WIDTH 14.1 % (11.5-14.5); WHITE BLOOD COUNT 0.1 10^3/ul (4.8-10.8)
--- NOTE | 2017-07-22 06:39 | PQ ---
Date/Time of Note Date/Time of Note DATE: 07/22/17 TIME: 06:33 Physician Query Documentation Clarification Dear Dr. Concepcion, A review of the medical record found a need for documentation clarification. Problems: (1) Hairy cell leukemia Status: Chronic Qualifiers: Qualified Code: C91.40 - Hairy cell leukemia not having achieved remission (3) Pancytopenia Status: Chronic progress note 07/21 Please specify the etiology of pancytopenia . To facilitate accurate and complete coding, please jenny ( x ) the suspected diagnosis that apply: ( ) Pancytopenia due to chemo ( ) Pancytopenia , acquired ( ) Others Please provide your response by clicking edit document, making your choice ( x ), click ok/save and finally click sign. You may also document your response on your progress notes. Thank you for your time. With appreciation, Poli Bunch RN, BSN, CCS, CCDS [employer] Information Management, [employer] and Coding Services [phone] Room # [id number] - [address]~ [id number] POLI BUNCH Jul 22, 2017 06:39
[2017-07-22 06:50] LABS: MAGNESIUM 1.7 mg/dl (1.7-2.5); PHOSPHORUS 2.8 mg/dl (2.5-4.9)
[2017-07-22 07:05] LABS: ALBUMIN 2.7 g/dl (3.3-4.9); ALBUMIN/GLOBULIN RATIO 0.67; BILIRUBIN,DIRECT 0.1 mg/dl (0.00-0.20); BILIRUBIN,INDIRECT 0.8 mg/dl (0-1.1); BILIRUBIN,TOTAL 0.9 mg/dl (0.2-1.3); CALCIUM 7.6 mg/dl (8.4-10.2); CREATININE 1.23 mg/dl (0.61-1.24); POTASSIUM 4.2 mmol/L (3.5-5.1); TOTAL PROTEIN 6.7 g/dl (6.1-8.1)
[2017-07-22] MEDS: INSULIN ASPART [NOVOLOG] 3 ML PEN SC SCH ×7 (07:05→21:42)
[2017-07-22] MEDS: DULOXETINE 30 MG CAP DR PO SCH (08:44)
[2017-07-22] MEDS: FAMOTIDINE 20 MG TAB PO SCH ×2 (08:44→21:30)
[2017-07-22] MEDS: FLUCONAZOLE 100 MG TAB PO SCH (08:44)
[2017-07-22] MEDS: PHENYTOIN 100 MG CAP PO SCH ×2 (08:44→21:30)
[2017-07-22] MEDS: ACYCLOVIR 400 MG TAB PO SCH ×2 (08:44→21:30)
[2017-07-22] MEDS: VANCOMYCIN 1.25 GM in SOD CHLORIDE 0.9% 250 ML IVPB SCH ×2 (08:45→21:30)
[2017-07-22] MEDS ORDERED: MAGNESIUM SULFATE 2 GM/50 ML 50 ML IVPB ONE (10:30)
--- NOTE | 2017-07-22 10:35 | PN ---
Date/Time of Note Date/Time of Note DATE: 07/22/17 TIME: 10:17 Assessment/Plan VTE Prophylaxis VTE Prophylaxis Intervention: contraindicated VTE Contraindication Reason: thrombocytopenia Lines/Catheters IV [facility] Peripheral IV Urinary Cath still in place: No Assessment/Plan Assessment/Plan 66 yo male with 1. Severe symptomatic anemia, profoundly anemic, likely 2ry to known hairy cell leukemia and also were recent chemotherapy, with Hgb of 2.9 on admission, s/p 6 units pRBC as of yesterday, hemoglobin up to 7.3 FOB pending 2. Pancytopenia with severe neutropenia, ANC 320 today, differential pending. Also with thrombocytopenia, platelets up to 21, status post platelet transfusion yesterday. Also with positive blood cx 2/2 for GPC, Staphylococcus species, final sensitivities pending. Blood cultures repeated yesterday, repeat blood cultures pending. CXR with ? Left side PNA, patient wheezing today, will repeat chest x-ray. 3. 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 Patient was seen by Dr Concepcion this AM, plan for additional blood product transfusion. 4. Paroxysmal atrial fibrillation. Continue current medications as tolerated, avoiding anticoagulation 2ry to thrombocytopenia. 5. Acute kidney injury (creatinine 1.31), prerenal azotemia, 2ry to severe anemia, f/u renal function with volume repletion. Renal function improving 6. Diabetes mellitus. HgbA1c was 8.1 on 05/17/17. Accu-Checks qAC and qHS with SSI. Lantus and premeal Insulin while inpatient, holding of po meds as poor po intake currently 7. Seizure disorder. Continue phenytoin 8. Elevated troponin: Likely demand ischemia with severe Anemia, will repeat today to trend at least. Prophylaxis: No SCDs or pharmacological DVT ppx due to severe thrombocytopenia, Pepcid for GI prophylaxis Disposition: Neutropenic precaution, IV abx and transfuse blood products this AM , repeat blood cx and trend troponins. Subjective 24 Hr Interval Summary Free Text/Dictation Patient hemodynamically stable this morning, status post multiple blood product transfusions, counts better except for ongoing neutropenia Low-grade fevers, otherwise no chills. Follow-up with oncology recommendations. If remains stable through the day may transfer to oncology floor. Exam/Review of Systems Vital Signs Vitals Vital Signs Date Time Temp Pulse Resp B/P Pulse Ox O2 Delivery O2 Flow Rate FiO2 07/22/17 09:30 85 26 128/73 98 07/22/17 09:00 Room Air 07/22/17 08:00 99.9 07/21/17 20:00 3.0 Intake and Output 07/21/17 07/21/17 07/22/17 14:59 22:59 06:59 Intake Total 720 ml 686.66 ml 883.34 ml Output Total 875 ml 650 ml 490 ml Balance -155 ml 36.66 ml 393.34 ml Exam Constitutional: alert, oriented, other (Pale), well developed Psych: depression Respiratory: normal air movement, wheezing (Occasional respiratory wheezes scattered) Cardiovascular: nl pulses, regular rate and rhythm Gastrointestinal: non-tender, soft Extremities: normal pulses, other (No edema, clubbing or cyanosis) Neurological: SURVEILLANCE INSPECTOR II-XII intact, lethargic, nl mental status, nl speech Results Result Diagram: 07/22/17 0550 07/22/17 0550 Results 24 hrs Laboratory Tests Test 07/21/17 11:50 07/21/17 11:51 07/21/17 17:28 07/21/17 20:09 Lactic Acid Level 1.4 Creatine Kinase < 20 L Creatine Kinase Index Creatinine Kinase MB (Mass) 0.68 Troponin I 0.454 *H Bedside Glucose 194 212 192 Test 07/22/17 04:47 07/22/17 05:50 07/22/17 08:14 Lab Scanned Report BLOOD TRANSFUSION White Blood Count 0.1 L Red Blood Count 2.43 #L Hemoglobin 7.3 #L Hematocrit 20.5 #L Mean Corpuscular Volume 84.4 Mean Corpuscular Hemoglobin 30.0 Mean Corpuscular Hemoglobin Concent 35.6 Red Cell Distribution Width 14.1 Platelet Count 21 #*L Mean Platelet Volume 12.4 H Nucleated Red Blood Cells % Nucleated Red Blood Cells # Sodium Level 141 Potassium Level 4.2 Chloride Level 107 Carbon Dioxide Level 21 Anion Gap 17 H Blood Urea Nitrogen 29 H Creatinine 1.23 Glucose Level 136 # Calcium Level 7.6 L Phosphorus Level 2.8 Magnesium Level 1.7 Total Bilirubin 0.9 Direct Bilirubin 0.10 Indirect Bilirubin 0.8 Aspartate Amino Transf (AST/SGOT) 50 H Alanine Aminotransferase (ALT/SGPT) 101 H Alkaline Phosphatase 102 Total Protein 6.7 Albumin 2.7 L Globulin 4.00 H Albumin/Globulin Ratio 0.67 Bedside Glucose 141 Medications Medications Current Medications Ondansetron HCl (Zofran Tab) 4 mg Q6H PRN PO NAUSEA AND/OR VOMITING; Start at 15:00 Acetaminophen (Tylenol Tab) 650 mg Q6H PRN PO PAIN LEVEL 1-3 OR FEVER Last administered on 07/21/17 14:09; Admin Dose 650 MG; Start 07/20/17 at 15:00 Docusate Sodium (Colace) 100 mg Q12H PRN PO CONSTIPATION; Start 07/20/17 at 15: 00 Zolpidem Tartrate (Ambien) 5 mg QHS PRN PO SLEEP; Start 07/20/17 at 15:00 Famotidine (Pepcid) 20 mg Q12 PO Last administered on 07/22/17 08:44; Admin Dose 20 MG; Start 07/20/17 at 15:00 Acyclovir (Zovirax) 400 mg BID PO Last administered on 07/22/17 08:44; Admin Dose 400 MG; Start 07/20/17 at 21:00 Atorvastatin Calcium (Lipitor) 20 mg QHS PO Last administered on 07/21/17 20: 38; Admin Dose 20 MG; Start 07/20/17 at 21:00 Duloxetine HCl (Cymbalta) 30 mg DAILY PO Last administered on 07/22/17 08:44; Admin Dose 30 MG; Start 07/20/17 at 15:30 Fluconazole (Diflucan) 100 mg DAILY PO Last administered on 07/22/17 08:44; Admin Dose 100 MG; Start 07/20/17 at 15:30 Miscellaneous Information 1 ea NOTE XX ; Start 07/20/17 at 16:00 Glucose (Glutose) 15 gm Q15M PRN PO DECREASED GLUCOSE; Start 07/20/17 at 16:01 Glucose (Glutose) 22.5 gm Q15M PRN PO DECREASED GLUCOSE; Start 07/20/17 at 16: 00 Dextrose (D50w Syringe) 25 ml Q15M PRN IV DECREASED GLUCOSE; Start 07/20/17 at 16:00 Dextrose (D50w Syringe) 50 ml Q15M PRN IV DECREASED GLUCOSE; Start 07/20/17 at 16:01 Glucagon (Glucagen) 1 mg Q15M PRN IM DECREASED GLUCOSE; Start 07/20/17 at 16:00 Glucose (Glutose) 15 gm Q15M PRN BUCCAL DECREASED GLUCOSE; Start 07/20/17 at 16 :00 Phenytoin 300 mg 300 mg BID PO Last administered on 07/22/17 08:44; Admin Dose 300 MG; Start 07/20/17 at 21:00 Piperacillin Sod/ Tazobactam Sod 100 ml @ 200 mls/hr Q6 IVPB Last administered on 07/22/17 05:32; Admin Dose 200 MLS/HR; Start 07/21/17 at 12:00 Vancomycin HCl/ Sodium Chloride (Vancocin/NS) 250 ml @ 83.333 mls/ hr Q12H IVPB Last administered on 07/22/17 08:45; Admin Dose 83.333 MLS/HR; Start at 21:00 Insulin Glargine (Lantus) 18 unit DAILY@20 SC Last administered on 07/21/17 20 :13; Admin Dose 18 UNIT; Start 07/21/17 at 20:00 Diagnostic Test (Pha) (Accu-Chek) 1 ea 02 XX ; Start 07/22/17 at 02:00 Diltiazem HCl (Cardizem) 30 mg Q6 PO Last administered on 07/22/17 05:32; Admin Dose 30 MG; Start 07/21/17 at 12:00 ANGELICA DUEÑAS Jul 22, 2017 10:27
[2017-07-22 11:22] LABS: CREATINE KINASE 32 IU/L (23-200)
[2017-07-22 11:32] LABS: CK-MB < 0.22 ng/ml (0.0-2.4)
[2017-07-22 11:35] LABS: TROPONIN-I 0.381 ng/ml (0.00-0.12)
[2017-07-22] MEDS: ACETAMINOPHEN 325 MG TAB PO PRN ×2 (12:19→21:55)
--- NOTE | 2017-07-22 13:47 | RADRPT ---
PROCEDURE: XR Chest. CLINICAL INDICATION: Pneumonia follow up. TECHNIQUE: Single AP portable chest. COMPARISON: 07/20/2017 Chest x-ray FINDINGS: The cardiac silhouette remains at the upper limits of normal in size. Hypoventilatory changes resul ting in crowding of vascular structures. Increased patchy left perihilar and mid lung zone airspace opacity suggestive of progression of pneumonia. No pleural effusion. No pneumothorax. The osseo us structures and soft tissues are unremarkable. IMPRESSION: 1. There are slight interval progression of patchy left perihilar and mid lung zone airspace opacity . 2. Hypoventilatory changes with borderline cardiomegaly . RPTAT:AAJJ Physician Kushal Date Time Electronically viewed and signed by Physician Kushal on 07/22/2017 13:46 GRACE/
[2017-07-22 14:02] LABS: EOSINOPHILS % (M) 5 % (0.0-7.0); ERYTHROBLAST% (NRBC) (M) 2 % (0-0); LYMPHOCYTES # 0.1 10^3/ul (0.8-2.9)
[2017-07-22 14:03] LABS: PLATELET COUNT 21 10^3/UL (140-415)
[2017-07-22] MEDS ORDERED: FUROSEMIDE 20 MG INJ IV ONE (19:30)
[2017-07-22] MEDS: INSULIN GLARGINE [LANtus] 3 ML PEN SC SCH (20:37)
[2017-07-22] MEDS: ATORVASTATIN 10 MG TAB PO SCH (21:30)
[2017-07-23] VITALS (22 sets, daily range): BP systolic 107–159; BP diastolic 67–133; PULSE 82–113; RESP 22–35
[2017-07-23] MEDS: PIPER-TAZO 3.375 GM IV (PMX) 100 ML IVPB SCH ×4 (00:36→18:45)
[2017-07-23] MEDS: DILTIAZEM 30 MG TAB PO SCH ×4 (00:36→18:00)
[2017-07-23] MEDS: ACCU-CHEK XX SCH ×5 (02:44→20:54)
[2017-07-23] MEDS: ACETAMINOPHEN 325 MG TAB PO PRN (06:16)
[2017-07-23 06:50] LABS: ABNORMAL IP MESSAGE 1; HEMATOCRIT 21.4 % (42.0-52.0); HEMOGLOBIN 7.5 g/dl (14.0-18.0); MEAN CORPUSCULAR HEMOGLOBIN 29.3 pg (29.0-33.0); MEAN CORPUSCULAR VOLUME 83.6 fl (82.0-101.0); MEAN PLATELET VOLUME 13.8 fl (7.4-10.4); POSITIVE DIFF @See below; RED BLOOD COUNT 2.56 10^6/ul (4.70-6.10)
[2017-07-23 06:58] LABS: WHITE BLOOD COUNT 0.1 10^3/ul (4.8-10.8)
[2017-07-23 07:00] LABS: PLATELET COUNT 23 10^3/UL (140-415)
[2017-07-23 07:27] LABS: MAGNESIUM 1.8 mg/dl (1.7-2.5); PHOSPHORUS 2.8 mg/dl (2.5-4.9)
[2017-07-23 07:34] LABS: ALBUMIN 2.3 g/dl (3.3-4.9); ALBUMIN/GLOBULIN RATIO 0.62; BILIRUBIN,DIRECT 0.1 mg/dl (0.00-0.20); BILIRUBIN,INDIRECT 0.5 mg/dl (0-1.1); BILIRUBIN,TOTAL 0.6 mg/dl (0.2-1.3); CALCIUM 7.7 mg/dl (8.4-10.2); CREATININE 1.14 mg/dl (0.61-1.24); POTASSIUM 4.2 mmol/L (3.5-5.1)
[2017-07-23] MEDS: INSULIN ASPART [NOVOLOG] 3 ML PEN SC SCH ×7 (08:39→20:38)
[2017-07-23] MEDS: DULOXETINE 30 MG CAP DR PO SCH (08:42)
[2017-07-23] MEDS: FAMOTIDINE 20 MG TAB PO SCH ×2 (08:45→19:56)
[2017-07-23] MEDS: ACYCLOVIR 400 MG TAB PO SCH ×2 (08:45→19:56)
[2017-07-23] MEDS: PHENYTOIN 100 MG CAP PO SCH ×2 (08:45→19:56)
[2017-07-23] MEDS: FLUCONAZOLE 100 MG TAB PO SCH (08:45)
[2017-07-23 09:16] LABS: ANISOCYTOSIS 2+ (0-0); EOSINOPHILS % (M) 6 % (0-7); ERYTHROBLAST% (NRBC) (M) 11 % (0-0); GIANT THROMBO% (M) 28 % (0-0); MICROCYTOSIS 1+ (0-0); PLATELET ESTIMATE DECREASED; POIKILOCYTOSIS 1+ (0-0); POLYCHROMASIA 1+ (0-0)
[2017-07-23] MEDS: VANCOMYCIN 1 GM in NS 250 ML IVPB SCH ×2 (09:31→20:41)
[2017-07-23] MEDS ORDERED: INSULIN ASPART [NOVOLOG] 3 ML PEN SC SCH ×2 (11:00→13:00)
--- NOTE | 2017-07-23 11:57 | RADRPT ---
PROCEDURE: MR Brain with and without contrast. CLINICAL INDICATION: Neurologic deficits. Evaluate for CVA or mass. History of leukemia. TECHNIQUE: An MRI of the brain was performed on a GE short bore high-definition 1.5 ashley scanner utilizing the following sequences: Sagittal and axial T1 weighted, axial T2 weighted, coronal GRE, a xial diffusion weighted with ADC mapping, and post contrast axial and coronal T1 weighted and axial FLAIR. 10 cc of Magnevist was given intravenously without complication. COMPARISON: CT head 07/20/2017. FINDINGS: There is an area of restricted diffusion in the right coronal radiata extending into the posterior l imb of the internal capsule and right thalamus. Multiple additional smaller foci of restricted effus ions are seen in bilateral cerebral hemispheres and frontal and parietal lobes more evident in the a nterior right frontal lobe and bilateral periatrial periventricular white matter. There is a large focus of susceptibility artifact in the left frontal lobe corresponding to coarse calcification on t he recent CT with more posterior smaller susceptibility artifact. There is an adjacent prominent de velopmental venous anomaly with superficial cortical venous drainage. Punctate susceptibility artif acts are seen in the right thalamus. Additional susceptibility artifacts in the pineal gland and po sterior falx are noted. There is no evidence of intracranial hemorrhage, mass effect, or midline sh ift. No extra-axial fluid collections are seen. The ventricles and sulci are normal in size and configuration for age. There are multiple small foci of increased T2-weighted/FLAIR signal intensity seen in the periventricular and deep white matter, likely reflective of mild microvascular ischemic disease. The signal intensity is otherwise normal throughout the cerebrum, brainstem, and cerebell um. Normal flow voids are visible in the proximal intracranial arteries and dural sinuses, indicati ng patency. The post contrast images show no abnormal parenchymal, leptomeningeal, or dural enhancem ent. Moderate mucosal thickening is seen in the left maxillary sinus. Mild mucosal thickening is se en in the ethmoid air cells and right maxillary sinus. IMPRESSION: Post contrast images are somewhat limited due to significant motion artifacts. 1. 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 2. Multiple additional smaller foci of acute infarct in bilateral cerebral hemispheres including bi lateral frontal, parietal lobes and periatrial white matter. Given the multiple distribution of the infarcts, embolic phenomena is felt more likely . No evidence of contrast enhancement is seen in th e region of the infarcts though the exam is somewhat limited due to significant motion artifacts on postcontrast images. 3. 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 4. Punctate susceptibility artifacts in the right thalamus which could represent chronic micro hemo rrhages. 5. Mild generalized volume loss. Mild chronic microvascular ischemic changes. RPTAT: HHO .Devika Magana MD, MD Date Time Electronically viewed and signed by .Devika Magana MD, MD on 07/23/2017 11:57 .O/
--- NOTE | 2017-07-23 13:21 | PN ---
Date/Time of Note Date/Time of Note DATE: 07/23/17 TIME: 10:01 Assessment/Plan VTE Prophylaxis VTE Prophylaxis Intervention: contraindicated VTE Contraindication Reason: thrombocytopenia Lines/Catheters IV [facility]ter Type (from [facility] Peripheral IV Urinary Cath still in place: No Assessment/Plan Assessment/Plan 66 yo male with: 1. Acute embolic CVAs, patient was noted to have neurological changes this morning, been more lethargic however this morning the nurse noted that he was having a subtle left facial droop, he also has some weakness of his left upper extremity, by the time I saw him he was having trouble moves left upper extremity. Stat MRI of the brain was done he seems to have embolic acute CVAs. Unfortunately he does have bone marrow suppression ongoing neutropenic fevers and severe thrombocytopenia with platelet count of 23 which precludes him from getting TPA, also, we do not have a clear time of onset of symptoms. We cannot even give aspirin at this point due to his low platelets. I had a discussion with neurology, will order stat MRA Brain/Neck again the patient cannot get much treatment. 2. 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 FOB pending 2. Pancytopenia with severe neutropenia, ANC 320 today, differential pending. Also with severe thrombocytopenia, platelets of 23, status post platelet transfusion. Also with positive blood cx 2/2 Staphylococcus species, final sensitivities pending. Blood cultures repeated NGTD. 3. 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 Patient was seen by Dr Concepcion this AM, patient will take some time for bone marrow to recover, in the meantime it is to be expected for him to be admitted multiple times in the next few weeks. Now with significant embolic CVA, unclear if the patient will be able to tolerate any further treatment or if the family will pursue any further aggressive care. 4. Paroxysmal atrial fibrillation. Continue current medications as tolerated, avoiding all anticoagulation 2ry to severe thrombocytopenia. 5. Acute kidney injury (creatinine 1.31), prerenal azotemia, 2ry to severe anemia, f/u renal function with volume repletion. Renal function keeps improving 6. Diabetes mellitus. HgbA1c was 8.1 on 05/17/17. Accu-Checks qAC and qHS with SSI. Lantus and premeal Insulin while inpatient, holding of po meds as poor po intake currently 7. Seizure disorder. Continue phenytoin 8. Elevated troponin: Likely demand ischemia with severe Anemia, troponins keeps trending down slowly. Prophylaxis: No SCDs or pharmacological DVT ppx due to severe thrombocytopenia, Pepcid for GI prophylaxis Disposition: Neutropenic precaution, IV abx, MRA brain/neck pending, repeat blood cx, in ICU for now. Subjective 24 Hr Interval Summary Free Text/Dictation Patient lethargic, sluggish, slow to respond. Otherwise vital signs stable, grade temperatures noted, repeating blood cultures today. Gentle blood cultures growing coag negative staph. Stable but still neutropenic, yesterday evening, patient noted to be in mild respiratory distress, he did receive Lasix 20 mg IV 1. Stable respiratory status this morning. He is awaiting a telemetry bed for transfer later Today patient apparently earlier seem to have a left facial droop not very significant currently, he is moving all his extremities but has trouble lifting up the left arm and claims is due to the IVs placed in that arm. MRI of the brain back with embolic acute CVA, large involvement of the right hemisphere. Exam/Review of Systems Vital Signs Vitals Vital Signs Date Time Temp Pulse Resp B/P Pulse Ox O2 Delivery O2 Flow Rate FiO2 07/23/17 09:00 85 22 134/80 100 Nasal Cannula 2.0 07/23/17 07:00 99.9 Intake and Output 07/22/17 07/22/17 07/23/17 15:00 23:00 07:00 Intake Total 880 ml 603.333 ml 356.667 ml Balance 880 ml 603.333 ml 356.667 ml Exam Constitutional: alert, frail, oriented (2-3), other (Lethargic) Respiratory: clear to auscultation, normal air movement Cardiovascular: nl pulses, regular rate and rhythm Gastrointestinal: non-tender, soft Musculoskeletal: nl extremities to inspection Extremities: normal pulses, other (No edema, clubbing or cyanosis) Neurological: GRINDER GEAR II-XII intact, confused, lethargic, nl mental status, nl speech, other (Questionable left facial droop and left upper extremity weakness) Results Result Diagram: 07/23/17 0630 07/23/17 0630 Results 24 hrs Laboratory Tests Test 07/22/17 10:42 07/22/17 12:16 07/22/17 17:42 07/22/17 20:10 Creatine Kinase 32 Creatine Kinase Index 0.7 Creatinine Kinase MB (Mass) < 0.22 Troponin I 0.381 *H Bedside Glucose 164 200 Vancomycin Level Trough 18.8 Test 07/22/17 20:27 07/22/17 21:35 07/23/17 02:43 07/23/17 06:30 Bedside Glucose 189 226 H 166 White Blood Count 0.1 L Red Blood Count 2.56 L Hemoglobin 7.5 L Hematocrit 21.4 L Mean Corpuscular Volume 83.6 Mean Corpuscular Hemoglobin 29.3 Mean Corpuscular Hemoglobin Concent 35.0 Red Cell Distribution Width 14.0 Platelet Count 23 *L Mean Platelet Volume 13.8 H Segmented Neutrophils % (Manual) 22 L Lymphocytes % (Manual) 72 H Eosinophils % (Manual) 6 Nucleated Red Blood Cells % 11 H Absolute Lymphocytes (Manual) 0.0 L Nucleated Red Blood Cells # Thrombocytosis 28 H Platelet Estimate DECREASED Polychromasia 1+ Poikilocytosis 1+ Anisocytosis 2+ Microcytosis 1+ Sodium Level 137 Potassium Level 4.2 Chloride Level 106 Carbon Dioxide Level 20 L Anion Gap 15 Blood Urea Nitrogen 33 H Creatinine 1.14 Glucose Level 172 Calcium Level 7.7 L Phosphorus Level 2.8 Magnesium Level 1.8 Total Bilirubin 0.6 Direct Bilirubin 0.10 Indirect Bilirubin 0.5 Aspartate Amino Transf (AST/SGOT) 39 Alanine Aminotransferase (ALT/SGPT) 87 H Alkaline Phosphatase 89 Total Protein 6.0 L Albumin 2.3 L Globulin 3.70 H Albumin/Globulin Ratio 0.62 Test 07/23/17 08:35 Bedside Glucose 187 Medications Medications Current Medications Ondansetron HCl (Zofran Tab) 4 mg Q6H PRN PO NAUSEA AND/OR VOMITING; Start at 15:00 Acetaminophen (Tylenol Tab) 650 mg Q6H PRN PO PAIN LEVEL 1-3 OR FEVER Last administered on 07/23/17t 06:16; Admin Dose 650 MG; Start 07/20/17 at 15:00 Docusate Sodium (Colace) 100 mg Q12H PRN PO CONSTIPATION; Start 07/20/17 at 15: 00 Zolpidem Tartrate (Ambien) 5 mg QHS PRN PO SLEEP; Start 07/20/17 at 15:00 Famotidine (Pepcid) 20 mg Q12 PO Last administered on 07/23/17 08:45; Admin Dose 20 MG; Start 07/20/17 at 15:00 Acyclovir (Zovirax) 400 mg BID PO Last administered on 07/23/17 08:45; Admin Dose 400 MG; Start 07/20/17 at 21:00 Atorvastatin Calcium (Lipitor) 20 mg QHS PO Last administered on 07/22/17 21: 30; Admin Dose 20 MG; Start 07/20/17 at 21:00 Duloxetine HCl (Cymbalta) 30 mg DAILY PO Last administered on 07/23/17 08:42; Admin Dose 30 MG; Start 07/20/17 at 15:30 Fluconazole (Diflucan) 100 mg DAILY PO Last administered on 07/23/17 08:45; Admin Dose 100 MG; Start 07/20/17 at 15:30 Miscellaneous Information 1 ea NOTE XX ; Start 07/20/17 at 16:00 Glucose (Glutose) 15 gm Q15M PRN PO DECREASED GLUCOSE; Start 07/20/17 at 16:01 Glucose (Glutose) 22.5 gm Q15M PRN PO DECREASED GLUCOSE; Start 07/20/17 at 16: 00 Dextrose (D50w Syringe) 25 ml Q15M PRN IV DECREASED GLUCOSE; Start 07/20/17 at 16:00 Dextrose (D50w Syringe) 50 ml Q15M PRN IV DECREASED GLUCOSE; Start 07/20/17 at 16:01 Glucagon (Glucagen) 1 mg Q15M PRN IM DECREASED GLUCOSE; Start 07/20/17 at 16:00 Glucose (Glutose) 15 gm Q15M PRN BUCCAL DECREASED GLUCOSE; Start 07/20/17 at 16 :00 Phenytoin 300 mg 300 mg BID PO Last administered on 07/23/17 08:45; Admin Dose 300 MG; Start 07/20/17 at 21:00 Piperacillin Sod/ Tazobactam Sod (Zosyn 3.375gm/ 100 ml (Pmx)) 100 ml @ 200 mls /hr Q6 IVPB Last administered on 07/23/17 05:59; Admin Dose 200 MLS/HR; Start 07/21/17 at 12:00 Insulin Glargine (Lantus) 18 unit DAILY@20 SC Last administered on 07/22/17 20 :37; Admin Dose 18 UNIT; Start 07/21/17 at 20:00 Diagnostic Test (Pha) (Accu-Chek) 1 ea 02 XX Last administered on 07/23/17 02: 44; Admin Dose 1 EA; Start 07/22/17 at 02:00 Diltiazem HCl 30 mg 30 mg Q6 PO Last administered on 07/23/17 05:59; Admin Dose 30 MG; Start 07/21/17 at 12:00 Vancomycin HCl (Vancocin) 250 ml @ 125 mls/hr Q12H IVPB Last administered on 09:31; Admin Dose 125 MLS/HR; Start 07/23/17 at 09:00 Filgrastim (Neupogen) 480 mcg DAILY@17 SC ; Start 07/23/17 at 17:00 Procedures Procedures PROCEDURE: XR Chest. CLINICAL INDICATION: Pneumonia follow up. TECHNIQUE: Single AP portable chest. COMPARISON: 07/20/2017 Chest x-ray FINDINGS: The cardiac silhouette remains at the upper limits of normal in size. Hypoventilatory changes resulting in crowding of vascular structures. Increased patchy left perihilar and mid lung zone airspace opacity suggestive of progression of pneumonia. No pleural effusion. No pneumothorax. The osseous structures and soft tissues are unremarkable. IMPRESSION: 1. There are slight interval progression of patchy left perihilar and mid lung zone airspace opacity. 2. Hypoventilatory changes with borderline cardiomegaly . ANGELICA DUEÑAS Jul 23, 2017 11:06
--- NOTE | 2017-07-23 14:51 | RADRPT ---
PROCEDURE: MRA of the Brain. CLINICAL INDICATION: Neurologic deficit TECHNIQUE: An MRI of the brain was performed on a 1.5 ashley scanner utilizing the following sequen kym: 3-D [id number] images through the cerebrovascular vasculature were obtained. Images were reviewed on a high-resolution PACS workstation. COMPARISON: No prior studies are available for comparison. FINDINGS: MRA of the BRAIN: Exam is limited secondary to motion artifact and patient positioning. The bilateral internal carotid arteries, anterior and middle cerebral arteries are normal in course and caliber. The anterior com municating artery is intact. The distal vertebral arteries, basilar artery, basilar tip, and bilat eral posterior cerebral arteries are unremarkable. No evidence of an aneurysm or vascular malformat ion is seen. No hemodynamically significant stenosis or occlusion is seen. IMPRESSION: 1. Limited examination secondary to motion artifact and patient positioning. 2. Otherwise, no definite hemodynamically significant stenosis. RPTAT: HPNM Physician Jacinto Date Time Electronically viewed and signed by Physician Jacinto on 07/23/2017 14:51 /
--- NOTE | 2017-07-23 14:54 | RADRPT ---
PROCEDURE: MRA Neck without contrast. CLINICAL INDICATION: Neurologic deficit TECHNIQUE: An MRA of the major cervical arteries was performed on a 3.0 T scanner utilizing axial 3-D [id number] sequence. Source and MIP images were reviewed. COMPARISON: None available FINDINGS: Evaluation is limited by patient motion related artifacts. The right common carotid artery is not w ell visualized. No occlusion or significant stenosis is seen along the left common carotid artery. There is stenosis at the proximal left internal carotid artery which is difficult to assess by NASC ET criteria due to artifacts but appears less of 50%. No occlusion or significant stenosis is seen at the right carotid bulb, right internal carotid artery, remainder of the left internal carotid art osei or bilateral vertebral arteries. No dissection is seen. IMPRESSION: 1. Limited evaluation due to motion. 2. Right common carotid artery not well visualized. 3. Otherwise no cervical arterial occlusion or high-grade stenosis seen. 4. Proximal left internal carotid artery stenosis, which appears less than 50%. 5. Further evaluation could be performed with CTA as clinically desired. RPTAT: VV .Main Castaneda MD, Date Time Electronically viewed and signed by .Main Castaneda MD, on 07/23/2017 14:54 .O/
[2017-07-23] MEDS ORDERED: IODIXANOL LOCM 100 ML BTL ONE (16:43)
[2017-07-23] MEDS ORDERED: SOD CHLORIDE 0.9% 100 ML ONE (16:43)
[2017-07-23] MEDS ORDERED: FILGRASTIM 480 MCG INJ SC SCH (17:00)
--- NOTE | 2017-07-23 17:36 | RADRPT ---
PROCEDURE: CTA Head. CLINICAL INDICATION: Neurologic deficit TECHNIQUE: The study was performed utilizing a GE 64-slice multidetector CT scanner. Direct spiral axial sections were obtained through the intracranial vasculature with the use of 100 cc of Visipaq ue 320 nonionic intravenous contrast material. Coronal and sagittal as well as maximal intensity pr ojection reformations were obtained. The images were reviewed on a PACS workstation. The CTDI vol is 126 mGy and the DLP is 721.39 mGy-cm. COMPARISON: MRA brain from 07/23/2017 and MRI brain from 07/23/2017 FINDINGS: Mild calcific plaque is seen in the intracranial bilateral internal carotid arteries which is not he modynamically significant. The upper [place] and vertebrobasilar system is otherwise without williams dence for a hemodynamically significant stenosis or occlusion. No evidence of an aneurysm or vascula r malformation is seen. The visualized sinuses and dural veins are without abnormality. A prominent left cerebral convexity dural venous structure is seen which projects medially and is consistent wit h a developing venous anomaly. For the intraparenchymal findings in the brain, please refer to the MRI brain report from 07/23/2017 . IMPRESSION: No hemodynamically significant stenosis. RPTAT: HPNM Physician Jacinto Date Time Electronically viewed and signed by Physician Jacinto on 07/23/2017 17:36 /
[2017-07-23] MEDS: SOD CHLORIDE 0.9% 1,000 ML IV SCH (18:44)
[2017-07-23] MEDS: ATORVASTATIN 10 MG TAB PO SCH (19:56)
[2017-07-23] MEDS: INSULIN GLARGINE [LANtus] 3 ML PEN SC SCH (20:49)
--- NOTE | 2017-07-23 21:49 | CONS ---
Date/Time of Note Date/Time of Note DATE: 07/23/17 TIME: 21:38 Assessment/Plan Assessment/Plan Chief Complaint/Hosp Course 66 yo male with #Acute Embolic Stroke - likely secondary to chronic afib -Brain MRI reveals: 1. Acute infarct centered in the right thalamus, hanson radiata and posterior limb of the right internal capsule. 2. Multiple additional smaller foci of acute infarct in bilateral cerebral hemispheres including bilateral frontal, parietal lobes and periatrial white matter. Given the multiple distribution of the infarcts, embolic phenomena is felt more likely . 4. Punctate susceptibility artifacts in the right thalamus which could represent chronic micro hemorrhages. -this is highly unusual especially in the setting of severe thrombocytopenia. however patient's can develop thrombi even when platelets are critically low. we cannot anticoagulate these patients however because of the severe thrombocytopenia and risk of spontaneous bleed. This was discussed at length with the by Dr. Dueñas who understands patient's grave prognosis and our treatment limitations. -it is also difficult to transfuse platelets to keep them above 50K because with his hairy cell leukemia and splenomegaly, he does not respond that well to platelet transfusion -agree with present management given our treatment limitations -appreciate neurology recommendations # Hairy Cell Leukemia -s/p 7 day course of Cladribine given 06/24-06/30 -after chemotherapy , bone marrow generally can take up to 6 weeks to start to recover -pt remains pancytopenia #Anemia -2/2 to bone marrow dysfunction from hairy cell leukemia -pt is s/p 4 units PRBC -ordered 2 units of PRBCs leukocyte reduced and irradiated #Neutropenia -patient's ANC is around 100 -patient is now febrile with Staph bacteremia and sepsis -pt remains on broad spectrum antibiotics #Prophylaxis -give prolonged Neutropenia will start Acyclovir 400mg BID and Fluconazole 100mg q day #Seizure Do -pt on Dilantin #DM -continue to monitor Blood sugars Problems: (1) Hairy cell leukemia Status: Chronic Qualifiers: Qualified Code: C91.40 - Hairy cell leukemia not having achieved remission (2) Neutropenic fever Status: Acute (3) Pancytopenia Status: Chronic Problems: Problems: (1) Bacteremia due to Gram-positive bacteria Status: Acute (2) Hairy cell leukemia Status: Chronic (3) Pancytopenia Status: Chronic (4) CVA (cerebral vascular accident) Qualifiers: CVA mechanism: embolism Laterality of affected vessel: right Consultation Date/Type/Reason Admit Date/Time Jul 20, 2017 at 12:04 Initial Consult Date 07/21/17 Type of Consultation: hematology Reason for Consultation hairy cell leukemia, pancytopenia, anemia Referring Provider: ANGELICA DUEÑAS 24 HR Interval Summary Free Text/Dictation pt appeared more lethargic this morning. pt was then noted to have weakness in LUE and left facial droop. given concern for stroke, Stat MRI brain was done which revealed acute embolic CVA's. . Exam/Review of Systems Vital Signs Vitals Vital Signs Date Time Temp Pulse Resp B/P Pulse Ox O2 Delivery O2 Flow Rate FiO2 07/23/17 18:00 107 32 156/87 99 Nasal Cannula 2.0 07/23/17 16:00 101.1 Intake and Output 07/22/17 07/22/17 07/23/17 15:00 23:00 07:00 Intake Total 880 ml 603.333 ml 796.667 ml Balance 880 ml 603.333 ml 796.667 ml Exam Constitutional: distress, frail Psych: confusion Head: normocephalic Eyes: nl conjunctiva ENMT: nl external ears & nose Neck: non-tender, supple Respiratory: clear to auscultation Cardiovascular: regular rate and rhythm Gastrointestinal: soft Musculoskeletal: muscle weakness Results Result Diagram: 07/23/17 0630 07/23/17 0630 Results 24 hrs Laboratory Tests Test 07/23/17 02:43 07/23/17 06:30 07/23/17 08:35 07/23/17 13:15 Bedside Glucose 166 187 175 White Blood Count 0.1 L Red Blood Count 2.56 L Hemoglobin 7.5 L Hematocrit 21.4 L Mean Corpuscular Volume 83.6 Mean Corpuscular Hemoglobin 29.3 Mean Corpuscular Hemoglobin Concent 35.0 Red Cell Distribution Width 14.0 Platelet Count 23 *L Mean Platelet Volume 13.8 H Segmented Neutrophils % (Manual) 22 L Lymphocytes % (Manual) 72 H Eosinophils % (Manual) 6 Nucleated Red Blood Cells % 11 H Absolute Lymphocytes (Manual) 0.0 L Nucleated Red Blood Cells # Thrombocytosis 28 H Platelet Estimate DECREASED Polychromasia 1+ Poikilocytosis 1+ Anisocytosis 2+ Microcytosis 1+ Sodium Level 137 Potassium Level 4.2 Chloride Level 106 Carbon Dioxide Level 20 L Anion Gap 15 Blood Urea Nitrogen 33 H Creatinine 1.14 Glucose Level 172 Calcium Level 7.7 L Phosphorus Level 2.8 Magnesium Level 1.8 Total Bilirubin 0.6 Direct Bilirubin 0.10 Indirect Bilirubin 0.5 Aspartate Amino Transf (AST/SGOT) 39 Alanine Aminotransferase (ALT/SGPT) 87 H Alkaline Phosphatase 89 Total Protein 6.0 L Albumin 2.3 L Globulin 3.70 H Albumin/Globulin Ratio 0.62 Test 07/23/17 17:21 07/23/17 20:34 Bedside Glucose 198 199 Medications Medications Current Medications Ondansetron HCl (Zofran Tab) 4 mg Q6H PRN PO NAUSEA AND/OR VOMITING; Start at 15:00 Acetaminophen (Tylenol Tab) 650 mg Q6H PRN PO PAIN LEVEL 1-3 OR FEVER Last administered on 07/23/17 06:16; Admin Dose 650 MG; Start 07/20/17 at 15:00 Docusate Sodium (Colace) 100 mg Q12H PRN PO CONSTIPATION; Start 07/20/17 at 15: 00 Zolpidem Tartrate (Ambien) 5 mg QHS PRN PO SLEEP; Start 07/20/17 at 15:00 Famotidine (Pepcid) 20 mg Q12 PO Last administered on 07/23/17 08:45; Admin Dose 20 MG; Start 07/20/17 at 15:00 Acyclovir (Zovirax) 400 mg BID PO Last administered on 07/23/17 08:45; Admin Dose 400 MG; Start 07/20/17 at 21:00 Atorvastatin Calcium (Lipitor) 20 mg QHS PO Last administered on 07/22/17 21: 30; Admin Dose 20 MG; Start 07/20/17 at 21:00 Duloxetine HCl (Cymbalta) 30 mg DAILY PO Last administered on 07/23/17 08:42; Admin Dose 30 MG; Start 07/20/17 at 15:30 Fluconazole (Diflucan) 100 mg DAILY PO Last administered on 07/23/17 08:45; Admin Dose 100 MG; Start 07/20/17 at 15:30 Miscellaneous Information 1 ea NOTE XX ; Start 07/20/17 at 16:00 Glucose (Glutose) 15 gm Q15M PRN PO DECREASED GLUCOSE; Start 07/20/17 at 16:01 Glucose (Glutose) 22.5 gm Q15M PRN PO DECREASED GLUCOSE; Start 07/20/17 at 16: 00 Dextrose (D50w Syringe) 25 ml Q15M PRN IV DECREASED GLUCOSE; Start 07/20/17 at 16:00 Dextrose (D50w Syringe) 50 ml Q15M PRN IV DECREASED GLUCOSE; Start 07/20/17 at 16:01 Glucagon (Glucagen) 1 mg Q15M PRN IM DECREASED GLUCOSE; Start 07/20/17 at 16:00 Glucose (Glutose) 15 gm Q15M PRN BUCCAL DECREASED GLUCOSE; Start 07/20/17 at 16 :00 Phenytoin 300 mg 300 mg BID PO Last administered on 07/23/17 08:45; Admin Dose 300 MG; Start 07/20/17 at 21:00 Piperacillin Sod/ Tazobactam Sod (Zosyn 3.375gm/ 100 ml (Pmx)) 100 ml @ 200 mls /hr Q6 IVPB Last administered on 07/23/17 18:45; Admin Dose 200 MLS/HR; Start 07/21/17 at 12:00 Insulin Glargine (Lantus) 18 unit DAILY@20 SC Last administered on 07/23/17 20 :49; Admin Dose 18 UNIT; Start 07/21/17 at 20:00 Diagnostic Test (Pha) (Accu-Chek) 1 ea 02 XX Last administered on 07/23/17 02: 44; Admin Dose 1 EA; Start 07/22/17 at 02:00 Diltiazem HCl 30 mg 30 mg Q6 PO Last administered on 07/23/17 05:59; Admin Dose 30 MG; Start 07/21/17 at 12:00 Vancomycin HCl (Vancocin) 250 ml @ 125 mls/hr Q12H IVPB Last administered on 20:41; Admin Dose 125 MLS/HR; Start 07/23/17 at 09:00 Filgrastim (Neupogen) 480 mcg DAILY@17 SC Last administered on 07/23/17 20:39 ; Admin Dose 480 MCG; Start 07/23/17 at 17:00 Insulin Aspart NOVOLOG *MILD* ALGORI... Q4 SC Last administered on 07/23/17 20 :38; Admin Dose 2 UNIT; Start 07/23/17 at 13:00 Sodium Chloride (NS) 1,000 ml @ 75 mls/hr [id number] IV Last administered on 07/23 18:44; Admin Dose 75 MLS/HR; Start 07/23/17 at 15:30 DORIS HUERTAS M.D. Jul 23, 2017 21:49
[2017-07-23] MEDS ORDERED: ACETAMINOPHEN 650 MG SUPP PR PRN (22:00)
[2017-07-24] VITALS (24 sets, daily range): BP systolic 107–185; BP diastolic 63–128; PULSE 96–130; RESP 28–39
[2017-07-24] MEDS: ACCU-CHEK XX SCH (00:35)
[2017-07-24] MEDS: PIPER-TAZO 3.375 GM IV (PMX) 100 ML IVPB SCH ×2 (00:47→06:07)
[2017-07-24] MEDS: INSULIN ASPART [NOVOLOG] 3 ML PEN SC SCH ×2 (00:54→06:10)
[2017-07-24 05:45] LABS: AADO2 Arterial 108.8 mmHg (7.0-24.0); Allen Test ACCEPTAB; Arterial Base Excess -6.6 mmol/L (-3.0-3); Arterial COHb 0.3 % (0.0-3.0); Arterial Fraction of Oxyhgb 93.7 % (93.0-99.0); Arterial HCO3 14.6 mmol/L (22.0-26.0); Arterial MetHb 0.2 % (0.0-1.5); Arterial Total Hemglobin 9.2 g/dl (12.0-18.0); MODE NASAL CANNULA
[2017-07-24] MEDS: DILTIAZEM 30 MG TAB PO SCH ×2 (05:56)
[2017-07-24] MEDS: LORAZEPAM 2 MG INJ IV PRN ×2 (06:03→21:36)
[2017-07-24] MEDS: morphine 2 MG INJ IV PRN ×4 (06:03→11:47)
[2017-07-24] MEDS ORDERED: ONDANSETRON 4 MG INJ IV PRN (10:00)
--- NOTE | 2017-07-24 10:11 | CONS ---
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 His initial Brain CT when he was admitted showed no evidence of acute stroke and pt was alert and oriented at that time. the acute stroke occured as a separate event after he received transfusion of blood and platelets. -Brain MRI reveals: 1. Acute infarct centered in the right thalamus, hanson radiata and posterior limb of the right internal capsule. 2. Multiple additional smaller foci of acute infarct in bilateral cerebral hemispheres including bilateral frontal, parietal lobes and periatrial white matter. Given the multiple distribution of the infarcts, embolic phenomena is felt more likely . 4. Punctate susceptibility artifacts in the right thalamus which could represent chronic micro hemorrhages. -this is highly unusual especially in the setting of severe thrombocytopenia. however patient's can develop thrombi even when platelets are critically low. we cannot anticoagulate these patients however because of the severe thrombocytopenia and risk of spontaneous bleed. This was discussed at length with the who understands patient's grave prognosis and our treatment limitations. 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 given 06/24-06/30 -after chemotherapy , bone marrow generally can take up to 6 weeks to start to recover -pt remains pancytopenia #Anemia -2/2 to bone marrow dysfunction from hairy cell leukemia -pt is s/p 4 units PRBC -ordered 2 units of PRBCs leukocyte reduced and irradiated #Neutropenia -patient's ANC is around 100 -patient is now febrile with Staph bacteremia and sepsis -pt remains on broad spectrum antibiotics #Prophylaxis -give prolonged Neutropenia will start Acyclovir 400mg BID and Fluconazole 100mg q day #Seizure Do -pt on Dilantin #DM -continue to monitor Blood sugars Problems: (1) Hairy cell leukemia Status: Chronic Qualifiers: Qualified Code: C91.40 - Hairy cell leukemia not having achieved remission (2) Neutropenic fever Status: Acute (3) Pancytopenia Status: Chronic Problems: Problems: Consultation Date/Type/Reason Admit Date/Time Jul 20, 2017 at 12:04 Initial Consult Date 07/21/17 Type of Consultation: hematology Reason for Consultation Hairy cell leukemia Referring Provider: ANGELICA DUEÑAS 24 HR Interval Summary Free Text/Dictation pt now with agonal breathing. pt has been placed on Hospice care Exam/Review of Systems Vital Signs Vitals Vital Signs Date Time Temp Pulse Resp B/P Pulse Ox O2 Delivery O2 Flow Rate FiO2 07/24/17 08:00 104.8 116 34 157/93 100 Non Rebreather 15.0 07/24/17 05:00 100 Intake and Output 07/23/17 07/23/17 07/24/17 14:59 22:59 06:59 Intake Total 890 ml 575 ml 800 ml Output Total 300 ml 685 ml 575 ml Balance 590 ml -110 ml 225 ml Exam Constitutional: distress, frail, non-verbal Head: normocephalic Eyes: nl conjunctiva ENMT: nl external ears & nose Neck: non-tender, supple Respiratory: crackles/rales, diminished breath sounds Cardiovascular: regular rate and rhythm Gastrointestinal: soft Musculoskeletal: nl extremities to inspection Extremities: normal pulses Results Result Diagram: 07/23/17 0630 07/23/17 0630 Results 24 hrs Laboratory Tests Test 07/23/17 13:15 07/23/17 17:21 07/23/17 20:34 07/24/17 00:49 Bedside Glucose 175 198 199 190 Test 07/24/17 05:21 07/24/17 05:36 Blood Gas Specimen Source Blood arterial Arterial Blood Date Drawn 07/24/2017 5:30:20 AM Arterial Blood pH (Temp corrected) 7.524 H Arterial Blood pCO2 (Temp correct) 18.1 L Arterial Blood pO2 (Temp corrected) 69.5 L Arterial Blood HCO3 14.6 L Arterial Blood Base Excess -6.6 L Arterial Blood Oxygen Saturation 94.2 L Bharat Test ACCEPTAB Arterial Blood Gas Puncture Site Right Radial Arterial Blood Carboxyhemoglobin 0.3 Arterial Blood Methemoglobin 0.2 Blood Gas A-a O2 Differential 108.8 H Oxyhemoglobin Percent 93.7 Total Hemoglobin 9.2 L Blood Gas Temperature 37.0 Blood Gas Modality NASAL CANNULA FiO2 28.0 Blood Gas Notified Whom UP Blood Gas Notified Time 07/24/2017 5:45:06 AM Bedside Glucose 211 Medications Medications Current Medications Acetaminophen (Tylenol Tab) 650 mg Q6H PRN PO PAIN LEVEL 1-3 OR FEVER Last administered on 07/23/17 06:16; Admin Dose 650 MG; Start 07/20/17 at 15:00 Docusate Sodium (Colace) 100 mg Q12H PRN PO CONSTIPATION; Start 07/20/17 at 15: 00 Miscellaneous Information 1 ea NOTE XX ; Start 07/20/17 at 16:00 Glucose (Glutose) 15 gm Q15M PRN PO DECREASED GLUCOSE; Start 07/20/17 at 16:01 Glucose (Glutose) 22.5 gm Q15M PRN PO DECREASED GLUCOSE; Start 07/20/17 at 16: 00 Dextrose (D50w Syringe) 25 ml Q15M PRN IV DECREASED GLUCOSE; Start 07/20/17 at 16:00 Dextrose (D50w Syringe) 50 ml Q15M PRN IV DECREASED GLUCOSE; Start 07/20/17 at 16:01 Glucagon (Glucagen) 1 mg Q15M PRN IM DECREASED GLUCOSE; Start 07/20/17 at 16:00 Glucose 15 gm 15 gm Q15M PRN BUCCAL DECREASED GLUCOSE; Start 07/20/17 at 16:00 Piperacillin Sod/ Tazobactam Sod (Zosyn 3.375gm/ 100 ml (Pmx)) 100 ml @ 200 mls /hr Q6 IVPB Last administered on 07/24/17 06:07; Admin Dose 200 MLS/HR; Start 07/21/17 at 12:00 Diagnostic Test (Pha) (Accu-Chek) 1 ea 02 XX Last administered on 07/23/17 02: 44; Admin Dose 1 EA; Start 07/22/17 at 02:00 Diltiazem HCl 30 mg 30 mg Q6 PO Last administered on 07/23/17 05:59; Admin Dose 30 MG; Start 07/21/17 at 12:00 Vancomycin HCl (Vancocin) 250 ml @ 125 mls/hr Q12H IVPB Last administered on 20:41; Admin Dose 125 MLS/HR; Start 07/23/17 at 09:00 Filgrastim (Neupogen) 480 mcg DAILY@17 SC Last administered on 07/23/17 20:39 ; Admin Dose 480 MCG; Start 07/23/17 at 17:00 Insulin Aspart NOVOLOG *MILD* ALGORI... Q4 SC Last administered on 07/24/17 06 :10; Admin Dose 2 UNIT; Start 07/23/17 at 13:00 Sodium Chloride (NS) 1,000 ml @ 75 mls/hr [id number] IV Last administered on 07/23 18:44; Admin Dose 75 MLS/HR; Start 07/23/17 at 15:30 Acetaminophen (Tylenol Supp) 650 mg Q6H PRN [place] FEVER Last administered on 22:41; Admin Dose 650 MG; Start 07/23/17 at 22:00 Morphine Sulfate (morphine) 2 mg Q2H PRN IV pain, dyspnea Last administered on 07/24/17 06:03; Admin Dose 2 MG; Start 07/24/17 at 06:00 Lorazepam (Ativan) 1 mg Q2H PRN IV anxiety Last administered on 07/24/17 06:03 ; Admin Dose 1 MG; Start 07/24/17 at 06:00 Ondansetron HCl (Zofran Inj) 4 mg Q6H PRN IV NAUSEA AND/OR VOMITING; Start at 10:00 DORIS HUERTAS M.D. Jul 24, 2017 10:11
--- NOTE | 2017-07-24 10:28 | PN ---
Date/Time of Note Date/Time of Note DATE: 07/24/17 TIME: 09:49 Assessment/Plan VTE Prophylaxis VTE Prophylaxis Intervention: SCD's Lines/Catheters IV C[facility]ter Type (from [facility]): Peripheral IV Urinary Cath still in place: Yes Reason Cath still needed: other (indicate) (Monitor urine output) Assessment/Plan Assessment/Plan 66 yo male with: 1. Acute embolic CVAs. Unfortunately due to leukemia and bone marrow suppression chemotherapy, ongoing neutropenic fevers and severe thrombocytopenia with platelet count of 23, was not a candidate for TPA, also, we did not have a clear time of onset of symptoms. We cannot even give aspirin at this point due to his review thrombocytopenia. MRA brain and CT angiogram of the brain did not show any major occlusion or clot. I had a discussion with neurology and hematology yesterday, there is not much we can offer at this point, patient has declined significantly to a point where he is unresponsive this morning, he is having ongoing fevers up to 105. His and family had made him DNR and this morning comfort measures, will proceed with comfort care. Patient's daughter is flying from [place] and should be arriving in the next couple hours, if the patient is still alive by then we may start morphine drip if needs additional medications for comfort. 2. Severe symptomatic anemia, profoundly anemic, likely 2ry to known hairy cell leukemia and also were recent chemotherapy, with Hgb of 2.9 on admission, s/p 6 units pRBC as of yesterday, hemoglobin has been up to 7.4 and stable so far. 2. Pancytopenia with severe neutropenia, and also with severe thrombocytopenia , status post platelet transfusion. Also with positive blood cx 2/2 Staphylococcus, final sensitivities pending. Blood cultures repeated NGTD. 3. 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 Patient was seen by Dr Concepcion this AM, patient will take some time for bone marrow to recover, in the meantime it is to be expected for him to be admitted multiple times in the next few weeks. Now with significant embolic CVA, patient now DNR and comfort measures. 4. Paroxysmal atrial fibrillation. Continue current medications as tolerated, avoiding all anticoagulation 2ry to severe thrombocytopenia. Comfort measures 5. Acute kidney injury (creatinine 1.31), prerenal azotemia, 2ry to severe anemia. Comfort measures 6. Diabetes mellitus. HgbA1c was 8.1 on 05/17/17. Accu-Checks be discontinued. 7. Seizure disorder. Cannot take any p.o., comfort measures, unresponsive. 8. Elevated troponin: Likely demand ischemia with severe Anemia, troponins keeps trending down slowly. Comfort measures Prophylaxis: No SCDs or pharmacological DVT ppx due to severe thrombocytopenia, Pepcid for GI prophylaxis Disposition: DNR, comfort measures, transfer to [facility] floor if patient survives today. Awaiting family in the next 2-3 hours prior to full comfort measures including morphine drip if needed. Subjective 24 Hr Interval Summary Free Text/Dictation Patient keeps deteriorating, neurologically he is unresponsive at this point, agonal breathing. He has been febrile all night up to [address] Lindsey's conversation with family, this morning the patient has been made DNR and comfort measures. We are awaiting family that should be here hopefully in the next 2-3 hours and if patient still alive by then we will proceed with morphine drip or any other comfort needs to make him fully comfortable. Exam/Review of Systems Vital Signs Vitals Vital Signs Date Time Temp Pulse Resp B/P Pulse Ox O2 Delivery O2 Flow Rate FiO2 07/24/17 08:00 104.8 116 34 157/93 100 Non Rebreather 15.0 07/24/17 05:00 100 Intake and Output 07/23/17 07/23/17 07/24/17 15:00 23:00 07:00 Intake Total 450 ml 650 ml 725 ml Output Total 400 ml 660 ml 500 ml Balance 50 ml -10 ml 225 ml Exam Constitutional: other (Unresponsive) Respiratory: diminished breath sounds, other (Agonal breathing) Cardiovascular: nl pulses, other (Tachycardic) Gastrointestinal: non-tender, soft Musculoskeletal: other (Cyanotic) Extremities: clubbing, other (cyanosis ) Neurological: unresponsive Results Result Diagram: 07/23/17 0630 07/23/17 0630 Results 24 hrs Laboratory Tests Test 07/23/17 13:15 07/23/17 17:21 07/23/17 20:34 07/24/17 00:49 Bedside Glucose 175 198 199 190 Test 07/24/17 05:21 07/24/17 05:36 Blood Gas Specimen Source Blood arterial Arterial Blood Date Drawn 07/24/2017 5:30:20 AM Arterial Blood pH (Temp corrected) 7.524 H Arterial Blood pCO2 (Temp correct) 18.1 L Arterial Blood pO2 (Temp corrected) 69.5 L Arterial Blood HCO3 14.6 L Arterial Blood Base Excess -6.6 L Arterial Blood Oxygen Saturation 94.2 L Bharat Test ACCEPTAB Arterial Blood Gas Puncture Site Right Radial Arterial Blood Carboxyhemoglobin 0.3 Arterial Blood Methemoglobin 0.2 Blood Gas A-a O2 Differential 108.8 H Oxyhemoglobin Percent 93.7 Total Hemoglobin 9.2 L Blood Gas Temperature 37.0 Blood Gas Modality NASAL CANNULA FiO2 28.0 Blood Gas Notified Whom UP Blood Gas Notified Time 07/24/2017 5:45:06 AM Bedside Glucose 211 Medications Medications Current Medications Ondansetron HCl (Zofran Tab) 4 mg Q6H PRN PO NAUSEA AND/OR VOMITING; Start at 15:00 Acetaminophen (Tylenol Tab) 650 mg Q6H PRN PO PAIN LEVEL 1-3 OR FEVER Last administered on 07/23/17 06:16; Admin Dose 650 MG; Start 07/20/17 at 15:00 Docusate Sodium (Colace) 100 mg Q12H PRN PO CONSTIPATION; Start 07/20/17 at 15: 00 Zolpidem Tartrate (Ambien) 5 mg QHS PRN PO SLEEP; Start 07/20/17 at 15:00 Famotidine (Pepcid) 20 mg Q12 PO Last administered on 07/23/17 08:45; Admin Dose 20 MG; Start 07/20/17 at 15:00 Acyclovir (Zovirax) 400 mg BID PO Last administered on 07/23/17 08:45; Admin Dose 400 MG; Start 07/20/17 at 21:00 Atorvastatin Calcium (Lipitor) 20 mg QHS PO Last administered on 07/22/17 21: 30; Admin Dose 20 MG; Start 07/20/17 at 21:00 Duloxetine HCl (Cymbalta) 30 mg DAILY PO Last administered on 07/23/17 08:42; Admin Dose 30 MG; Start 07/20/17 at 15:30 Fluconazole (Diflucan) 100 mg DAILY PO Last administered on 07/23/17 08:45; Admin Dose 100 MG; Start 07/20/17 at 15:30 Miscellaneous Information 1 ea NOTE XX ; Start 07/20/17 at 16:00 Glucose (Glutose) 15 gm Q15M PRN PO DECREASED GLUCOSE; Start 07/20/17 at 16:01 Glucose (Glutose) 22.5 gm Q15M PRN PO DECREASED GLUCOSE; Start 07/20/17 at 16: 00 Dextrose (D50w Syringe) 25 ml Q15M PRN IV DECREASED GLUCOSE; Start 07/20/17 at 16:00 Dextrose (D50w Syringe) 50 ml Q15M PRN IV DECREASED GLUCOSE; Start 07/20/17 at 16:01 Glucagon (Glucagen) 1 mg Q15M PRN IM DECREASED GLUCOSE; Start 07/20/17 at 16:00 Glucose (Glutose) 15 gm Q15M PRN BUCCAL DECREASED GLUCOSE; Start 07/20/17 at 16 :00 Phenytoin 300 mg 300 mg BID PO Last administered on 07/23/17 08:45; Admin Dose 300 MG; Start 07/20/17 at 21:00 Piperacillin Sod/ Tazobactam Sod (Zosyn 3.375gm/ 100 ml (Pmx)) 100 ml @ 200 mls /hr Q6 IVPB Last administered on 07/24/17 06:07; Admin Dose 200 MLS/HR; Start 07/21/17 at 12:00 Insulin Glargine (Lantus) 18 unit DAILY@20 SC Last administered on 07/23/17 20 :49; Admin Dose 18 UNIT; Start 07/21/17 at 20:00 Diagnostic Test (Pha) (Accu-Chek) 1 ea 02 XX Last administered on 07/23/17 02: 44; Admin Dose 1 EA; Start 07/22/17 at 02:00 Diltiazem HCl 30 mg 30 mg Q6 PO Last administered on 07/23/17 05:59; Admin Dose 30 MG; Start 07/21/17 at 12:00 Vancomycin HCl (Vancocin) 250 ml @ 125 mls/hr Q12H IVPB Last administered on 20:41; Admin Dose 125 MLS/HR; Start 07/23/17 at 09:00 Filgrastim (Neupogen) 480 mcg DAILY@17 SC Last administered on 07/23/17 20:39 ; Admin Dose 480 MCG; Start 07/23/17 at 17:00 Insulin Aspart NOVOLOG *MILD* ALGORI... Q4 SC Last administered on 07/24/17 06 :10; Admin Dose 2 UNIT; Start 07/23/17 at 13:00 Sodium Chloride (NS) 1,000 ml @ 75 mls/hr [id number] IV Last administered on 07/23 18:44; Admin Dose 75 MLS/HR; Start 07/23/17 at 15:30 Acetaminophen (Tylenol Supp) 650 mg Q6H PRN [place] FEVER Last administered on 22:41; Admin Dose 650 MG; Start 07/23/17 at 22:00 Morphine Sulfate (morphine) 2 mg Q2H PRN IV pain, dyspnea Last administered on 07/24/17 06:03; Admin Dose 2 MG; Start 07/24/17 at 06:00 Lorazepam (Ativan) 1 mg Q2H PRN IV anxiety Last administered on 07/24/17 06:03 ; Admin Dose 1 MG; Start 07/24/17 at 06:00 ANGELICA DUEÑAS Jul 24, 2017 09:59
--- NOTE | 2017-07-24 11:40 | CONS ---
Date/Time of Note Date/Time of Note DATE: 07/24/17 TIME: : Assessment/Plan Assessment/Plan Chief Complaint/Hosp Course 66 yo male with hairy cell leukemia dx in April 2017 admitted with profound anemia, generalized weakness and dizziness with severe thrombocytopenia multiple embolic appearing strokes likely from underlying LA thrombus/ afib. Unfortunately he was not a candidate for thrombolytics or intervention. He was made DNR/DNI, planned towards comfort measures. Discussed MRI findings with and extended family at bedside, offered support. At this time they are awaiting a daughter to arrive from [place] prior to initiating full comfort measures. Please contact me for any further questions/concerns, thank you for involving me in his care. Problems: Consultation Date/Type/Reason Admit Date/Time Jul 20, 2017 at 12:04 Date of Consultation: Jul 24, 2017 Type of Consultation: Neurology Reason for Consultation embolic CVA Referring Provider: AGNELICA DUEÑAS Hx of Present Illness 66 year old male diagnosed with hairy cell leukemia 2 months ago was receiving chemotherapy admitted over the weekend for weakness and dizziness with profound anemia admitted to the ICU, paroxysmal afib not currently on AC due to thrombocytopenia noted to have a left droop facial droop and left sided weakness of his UE yesterday. Unfortunately due to severe thrombocytopenia (Plt : 23,000) not a candidate for thrombolytic therapy and no LVO for intervention. MRI Brain w/o shows right thalamic infarct, hanson radiata and posterior limb right IC, smaller infarcts bilaterally in the cerebellum, bilateral frontal, parietal lobe with mild mass effect, chronic microhemorrhages. Overall due to comorbid medical issues and now stroke with poor prognosis, he was made DNR/DNI planned towards comfort measures. Constitutional: improved Eyes: no complaints Respiratory: shortness of breath (improved) Cardiovascular: no complaints Gastrointestinal: no complaints Genitourinary: no complaints Musculoskeletal: no complaints Neurologic: no complaints Psychological: confusion Past Surgical History Past Surgical Hx: no surgical history Social History Alcohol Use: none Smoking Status: Never smoker Drug Use: none Exam/Review of Systems Vital Signs Vitals Vital Signs Date Time Temp Pulse Resp B/P Pulse Ox O2 Delivery O2 Flow Rate FiO2 07/24/17 08:00 Non Rebreather 15.0 07/24/17 08:00 104.8 116 34 157/93 100 07/24/17 05:00 100 Intake and Output 07/23/17 07/23/17 07/24/17 15:00 23:00 07:00 Intake Total 450 ml 650 ml 725 ml Output Total 400 ml 660 ml 550 ml Balance 50 ml -10 ml 175 ml Exam limited exam sedated minimally responsive agonal breathing with supplemental oxygen Results Result Diagram: 07/23/17 0630 07/23/17 0630 Results 24 hrs Laboratory Tests Test 07/23/17 13:15 07/23/17 17:21 07/23/17 20:34 07/24/17 00:49 Bedside Glucose 175 198 199 190 Test 07/24/17 05:21 07/24/17 05:36 Blood Gas Specimen Source Blood arterial Arterial Blood Date Drawn 07/24/2017 5:30:20 AM Arterial Blood pH (Temp corrected) 7.524 H Arterial Blood pCO2 (Temp correct) 18.1 L Arterial Blood pO2 (Temp corrected) 69.5 L Arterial Blood HCO3 14.6 L Arterial Blood Base Excess -6.6 L Arterial Blood Oxygen Saturation 94.2 L Bharat Test ACCEPTAB Arterial Blood Gas Puncture Site Right Radial Arterial Blood Carboxyhemoglobin 0.3 Arterial Blood Methemoglobin 0.2 Blood Gas A-a O2 Differential 108.8 H Oxyhemoglobin Percent 93.7 Total Hemoglobin 9.2 L Blood Gas Temperature 37.0 Blood Gas Modality NASAL CANNULA FiO2 28.0 Blood Gas Notified Whom UP Blood Gas Notified Time 07/24/2017 5:45:06 AM Bedside Glucose 211 Medications Medications Current Medications Sodium Chloride (NS) 1,000 ml @ 75 mls/hr [id number] IV Last administered on 07/23 18:44; Admin Dose 75 MLS/HR; Start 07/23/17 at 15:30 Acetaminophen (Tylenol Supp) 650 mg Q6H PRN [place] FEVER Last administered on 22:41; Admin Dose 650 MG; Start 07/23/17 at 22:00 Morphine Sulfate (morphine) 2 mg Q2H PRN IV pain, dyspnea Last administered on 07/24/17 06:03; Admin Dose 2 MG; Start 07/24/17 at 06:00 Lorazepam (Ativan) 1 mg Q2H PRN IV anxiety Last administered on 07/24/17 06:03 ; Admin Dose 1 MG; Start 07/24/17 at 06:00 JAMIE ROJAS MD Jul 24, 2017 11:40
[2017-07-24] MEDS: SOD CHLORIDE 0.9% 1,000 ML IV SCH (11:41)
[2017-07-24] MEDS ORDERED: morphine 2 MG INJ IV PRN (11:52)
[2017-07-24] MEDS ORDERED: morphine (DRIP) 100 MG/100 ML 100 ML IV SCH (13:00)
[2017-07-24] MEDS ORDERED: morphine (DRIP) 100 MG/100 ML 100 ML IV ONE (13:29)
[2017-07-25] VITALS (10 sets, daily range): BP systolic 74–103; BP diastolic 50–67; PULSE 0–108; RESP 27–30
[2017-07-25] MEDS: LORAZEPAM 2 MG INJ IV PRN (03:19)
== END 2017-07-25 03:50 | disposition expired | DRG 808 ==
LOC: E/R 08:10 → ICU 12:04 → E/R 14:14
PROVIDERS: ADMIT Internal Medicine; ATTEND Internal Medicine
DX: D61.810 Antineoplastic chemotherapy induced pancytopenia (principal); I63.423 Cerebral infarction due to embolism of bilateral anterior cerebral arteries; N17.9 Acute kidney failure, unspecified; R78.81 Bacteremia; C91.40 Hairy cell leukemia not having achieved remission; I48.0 Paroxysmal atrial fibrillation; G81.94 Hemiplegia, unspecified affecting left nondominant side; D69.59 Other secondary thrombocytopenia; I10 Essential (primary) hypertension; G40.909 Epilepsy, unspecified, not intractable, without status epilepticus; R29.810 Facial weakness; E11.9 Type 2 diabetes mellitus without complications; I69.992 Facial weakness following unspecified cerebrovascular disease; T45.1X5A Adverse effect of antineoplastic and immunosuppressive drugs, initial encounter; Y92.019 Unspecified place in single-family (private) house as the place of occurrence of the external cause; R50.81 Fever presenting with conditions classified elsewhere; Z79.4 Long term (current) use of insulin
CPT/HCPCS: 36430; 36600; 70450; 70496; 70544; 70549; 70553; 71010; 80048; 80053; 80202; 82550; 82553; 82803; 82962; 83010; 83540; 83605; 83735; 84100; 84484; 85025; 86644; 86850; 86900; 86901; 86920; 86945; 87040; 87081; 93005; 96365; J1940; J1815; J2060; J2270; J2543; J3370; J3475; J7030; J7040; J7050; P9016; P9035; Q9967